=== PATIENT | male | born 1965 | race Caucasian/White ===

== ENCOUNTER 2021-12-05 10:02 | Emergency (ER) | payer BC, SELFPAY ==
--- NOTE | ~2021-12-05 | XR_ITS ---
EXAMINATION: CR X-RAY SHOULDER, HUMERUS, SCAPULA, RIBS RIGHT CLINICAL INFORMATION: Right-sided pain status post fall. COMPARISON: None TECHNIQUE: 3 views of the right shoulder, 2 views of the right humerus, 3 views of the right scapula, 3 views of the right ribs along with a PA view of the chest were obtained. FINDINGS: Shoulder: Mild calcification is seen in the region of the rotator cuff. There is no acute fracture or dislocation. The joint spaces are unremarkable. The soft tissues are unremarkable. Humerus: No acute fracture or dislocation. Limited views of the right elbow are unremarkable. Scapula: No acute fracture or dislocation. Ribs: Skin marker overlying the soft tissues lateral to the right ninth rib. No acute right rib fracture. Chest: The lungs are clear. The heart and mediastinal structures are unremarkable. XR/XR ribs RT min 3V w CXR1V IMPRESSION: Mild calcific tendinosis in the region of the right rotator cuff. No acute fracture.
--- NOTE | ~2021-12-05 | XR_ITS ---
EXAMINATION: CR X-RAY SHOULDER, HUMERUS, SCAPULA, RIBS RIGHT CLINICAL INFORMATION: Right-sided pain status post fall. COMPARISON: None TECHNIQUE: 3 views of the right shoulder, 2 views of the right humerus, 3 views of the right scapula, 3 views of the right ribs along with a PA view of the chest were obtained. FINDINGS: Shoulder: Mild calcification is seen in the region of the rotator cuff. There is no acute fracture or dislocation. The joint spaces are unremarkable. The soft tissues are unremarkable. Humerus: No acute fracture or dislocation. Limited views of the right elbow are unremarkable. Scapula: No acute fracture or dislocation. Ribs: Skin marker overlying the soft tissues lateral to the right ninth rib. No acute right rib fracture. Chest: The lungs are clear. The heart and mediastinal structures are unremarkable. XR/XR shoulder RT min 2V IMPRESSION: Mild calcific tendinosis in the region of the right rotator cuff. No acute fracture.
--- NOTE | ~2021-12-05 | XR_ITS ---
EXAMINATION: CR X-RAY SHOULDER, HUMERUS, SCAPULA, RIBS RIGHT CLINICAL INFORMATION: Right-sided pain status post fall. COMPARISON: None TECHNIQUE: 3 views of the right shoulder, 2 views of the right humerus, 3 views of the right scapula, 3 views of the right ribs along with a PA view of the chest were obtained. FINDINGS: Shoulder: Mild calcification is seen in the region of the rotator cuff. There is no acute fracture or dislocation. The joint spaces are unremarkable. The soft tissues are unremarkable. Humerus: No acute fracture or dislocation. Limited views of the right elbow are unremarkable. Scapula: No acute fracture or dislocation. Ribs: Skin marker overlying the soft tissues lateral to the right ninth rib. No acute right rib fracture. Chest: The lungs are clear. The heart and mediastinal structures are unremarkable. XR/XR scapula RT IMPRESSION: Mild calcific tendinosis in the region of the right rotator cuff. No acute fracture.
--- NOTE | ~2021-12-05 | XR_ITS ---
EXAMINATION: CR X-RAY SHOULDER, HUMERUS, SCAPULA, RIBS RIGHT CLINICAL INFORMATION: Right-sided pain status post fall. COMPARISON: None TECHNIQUE: 3 views of the right shoulder, 2 views of the right humerus, 3 views of the right scapula, 3 views of the right ribs along with a PA view of the chest were obtained. FINDINGS: Shoulder: Mild calcification is seen in the region of the rotator cuff. There is no acute fracture or dislocation. The joint spaces are unremarkable. The soft tissues are unremarkable. Humerus: No acute fracture or dislocation. Limited views of the right elbow are unremarkable. Scapula: No acute fracture or dislocation. Ribs: Skin marker overlying the soft tissues lateral to the right ninth rib. No acute right rib fracture. Chest: The lungs are clear. The heart and mediastinal structures are unremarkable. XR/XR humerus RT IMPRESSION: Mild calcific tendinosis in the region of the right rotator cuff. No acute fracture.
--- NOTE | ~2021-12-05 | CT_ITS ---
EXAMINATION: CT HEAD AND FACIAL BONES WITHOUT CONTRAST CLINICAL INFORMATION: Status post fall, rule out intracranial abnormality, right orbital pain, rule out facial bone fracture. COMPARISON: None TECHNIQUE: Contiguous axial imaging was performed from the skull base to vertex without intravenous administration of contrast during the head and facial bones. Coronal and sagittal reformatted images were obtained. This CT examination was performed using dose optimization techniques as appropriate, variously including the following: *Automated exposure control *Adjustment of mA and/or kV according to patient size (this includes techniques or standardized protocols for targeted exams where dose is matched to indication/reason for exam; i.e. extremities or head) *Use of iterative reconstruction technique DLP: 748.12, 371.74 mGy-cm FINDINGS: Head: The cortical sulci are normal. The lateral ventricles are symmetrical. The third and fourth ventricles are in their normal midline position. The basilar and prepontine cisterns are unremarkable. There is no acute intra or extracerebral abnormality. There is no mass effect or midline shift. Sections through the bony calvarium are unremarkable. Facial bones: Mild mucosal thickening is seen at the base of the right maxillary sinus. No air-fluid levels. The left maxillary, ethmoid, sphenoid and frontal sinuses are clear. There are no air-fluid levels. The ostiomeatal complexes are patent and within normal limits. No osseous abnormalities are identified. The bony orbits and orbital contents are unremarkable. The mastoid air cells show a few opacified air cells inferiorly on the left. The right mastoid air cells are clear. CT/CT facial bones wo con IMPRESSION: 1. No acute intracranial pathology. 2. No acute facial bone abnormality. 3. Mild inflammatory changes of the base of the right maxillary sinus and inferior left mastoid air cells.
--- NOTE | ~2021-12-05 | CT_ITS ---
EXAMINATION: CT CERVICAL SPINE WITHOUT CONTRAST CLINICAL INFORMATION: Neck pain status post fall. COMPARISON: None TECHNIQUE: Multiple axial images of the cervical spine were obtained without the administration of intravenous contrast. Coronal and sagittal reformatted images were obtained. This CT examination was performed using dose optimization techniques as appropriate, variously including the following: *Automated exposure control *Adjustment of mA and/or kV according to patient size (this includes techniques or standardized protocols for targeted exams where dose is matched to indication/reason for exam; i.e. extremities or head) *Use of iterative reconstruction technique DLP: 581.64 mGy-cm FINDINGS: There is normal cervical lordosis and spinal alignment. Mild degenerative disc disease is seen at C6-C7 with disc space narrowing, marginal osteophyte formation and mild bilateral neural foraminal narrowing. The odontoid process is intact with mild articular degenerative changes. The spinous processes are intact. The facet joints are unremarkable. The cervical soft tissues are unremarkable. No lymphadenopathy. The thyroid gland is unremarkable. The visualized lung apices are clear. CT/CT cervical spine wo con IMPRESSION: 1. C6-C7 mild degenerative disc disease. No acute abnormality. Fleischner guidelines were followed.
[2021-12-05 10:09] VITALS: BP 150/93; PULSE 72; RESP 18; TEMP 36.8; O2SAT 96; BMI 33.0
[2021-12-05] MEDS: Acetaminophen 325 MG TABLET 975 MG PO (13:32)
[2021-12-05] MEDS: oxyCODONE HCl Immed Release 5 MG TABLET 10 MG PO (13:33)
[2021-12-05 14:22] VITALS: BP 121/83; PULSE 69; RESP 14; TEMP 36.8; O2SAT 97
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
== END 2021-12-05 15:08 | disposition home or self-care (01) ==
PROVIDERS: Emergency Provider Emergency Medicine; PCP Internal Medicine
DX: S06.0X0A Concussion without loss of consciousness, initial encounter (principal); S00.83XA Contusion of other part of head, initial encounter; S20.211A Contusion of right front wall of thorax, initial encounter; W17.81XA Fall down embankment (hill), initial encounter; G89.11 Acute pain due to trauma; M25.511 Pain in right shoulder; M75.31 Calcific tendinitis of right shoulder; M50.323 Other cervical disc degeneration at C6-C7 level; Y93.24 Activity, cross country skiing; Y92.828 Other wilderness area as the place of occurrence of the external cause; Y99.8 Other external cause status
CPT/HCPCS: 70450; 70486; 71101; 72125; 73010; 73030; 73060; 99284

== ENCOUNTER 2025-03-12 18:42 | Emergency (ER) | payer BC, SELFPAY ==
--- NOTE | ~2025-03-12 | CT_ITS ---
CLINICAL HISTORY: headache, on anticoag CT head without contrast Comparison: None provided Findings: No intracranial mass, midline shift, hydrocephalus, or acute hemorrhage. No acute process in sinuses or mastoids. No acute bony abnormality. Impression: No acute intracranial process This document has been electronically signed by: Eddie Geiger MD on 03/12/2025 22:56:26
[2025-03-12 18:53] VITALS: BP 150/75; BP 190/100; PULSE 72; PULSE 86; RESP 18; TEMP 36.9; O2SAT 97; O2SAT 99; BMI 33.7
--- NOTE | 2025-03-12 18:53 | ECG_ITS ---
Test Reason : lightheaded Blood Pressure : */* mmHG Vent. Rate : 68 BPM Atrial Rate : 68 BPM P-R Int : 152 ms QRS Dur : 76 ms QT Int : 388 ms P-R-T Axes : 25 2 6 degrees QTcB Int : 412 ms Normal sinus rhythm Normal ECG No previous ECGs available Referred By: Garima Morton Electronically Signed By: JAN WALKER MD
[2025-03-12 19:21] LABS: Hematocrit 40.8 % (42.0-52.0); Hemoglobin 14.5 g/dl (14.0-18.0); Imm Gran Abs Auto 0.05 X10*3/uL (0.00-0.03); Imm Gran Pct Auto 0.5 % (0.0-0.4); Lymphocytes Absolute Auto 2.3 X10*3/uL (1.2-4.9); MANUAL DIFF FLAG NO; Mean Corpuscular HGB Conc 35.5 g/dl (31.0-36.0); Mean Corpuscular Hemoglobin 31.7 pg (27.0-33.0); Mean Corpuscular Volume 89.1 fL (80.0-98.0); NRBC Abs Auto 0.000 X10*3/uL (0.0-0.012); NRBC Pct Auto 0.0 /100WBC (0.0-0.2); Platelet Count 283 X10*3/uL (160-400); Red Blood Count 4.58 X10*6/uL (4.60-5.80); White Blood Count 9.9 X10*3/uL (4.8-10.8)
--- OUTSIDE RECORDS SUMMARY | 2025-03-12 19:31 | XMS_ITS | Patient Health Record ---
Author Organization [facility] [address] [place] Address [address] [place] [address] Care Team Providers Care Associate Dean Of Students Name Role Phone Lino Pineda MD Primary Care Provider Unavailab Domenico Burns Unavailable [phone] Reason For Referral No Information Medications Medication SIG (Take, Route, Frequency, Duration) Notes Start Date End Date Status Neurontin 300 MG 1 capsule Orally Thr ee times a day; Duration: 5 days 01/28/2017 Not-Taking Tylenol Extra Strength 500 MG 2 tablets as needed Orally every 6 hrs; Duration: 5 days 01/28/2017 Not-Taking Ibuprofen 200 MG 3 tablet as needed Orally every 6 hrs; Duration: 5 days 01/28/2017 Not-Taking Lisinopril Active Social History Alcohol Screen Question Answer Notes Did you have a drink contain ing alcohol in the past year? Yes How often did you have a dri nk containing alcohol in the past year? 2 to 3 times a week (3 points) Points 3 Interpretation Negative Tobacco use other than smoking: Question Answer Notes Are you an other tobacco user? No Plan Of Treatment Pending Test Test Name Order Date X ray : Foot, left 3V 03/10/2013 X ray : Foot, right 3V 03/10/2013 01731- Debride <25 sq cm 03/10/2013 33008- Debride <25 sq cm 09/14/2013 50934- Debride <25 sq cm 02/07/2014 95965- Debride <25 sq cm 12/05/2014 39481- Debride <25 sq cm 08/30/2016 03940- Debride <25 sq cm 09/25/2016 Insurance Providers Payer Name Payer Address Payer Phone Subscriber Number Group Number Insured Name Patient Relationship to Insured Coverage Start Date Coverage End Date [facility] [address] [place] [address] [id number] Malone Self - patient is the insured Medical (General) History Medical History History ICD Code back, hip, knee pain broken bones HTN Surgical History Surgery Date(Month/Year) knee surgery (7) ht left 4th, and 5th toes 01/19/2014 left knee arthroscopy 08/13/2016 HT R 4/ Ostectomy R5 02/19/2017
--- OUTSIDE RECORDS SUMMARY | 2025-03-12 19:31 | XMS_ITS | Data Portability ---
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 [place] 3rd floor [address] [place] [address] 02/23/2025 11:33:34 03/08/2025 09:59:31 Closed fracture of right tibial plateau [id number] S82.141A Pain of right calf 81200 [address]333 006273 M79.661 Health Concerns Section Related Observation LastModified by Organization Detai ls LastModified Time None Recorded Concern Status LastModified by Organization Details LastModified Time None Recorded Advance Directives Directive None Recorded Payers Insurance Date Sequence Insurance Name Policy Number Policy Delgado Covered Member ID Delgado Member ID Guarantor Name 01/12/2025 [employer] - [employer]RISTINA Unknown Yonas T Kira 03/12/2025 1 [place]: [facility] [id number] Yonas T Kira [id number] Yonas T Kira Notes Date Note Type Note Provider Name and Address Organization Details Recorded Time 01/25/2025 text/html Patient reports that the left proximal calf is giving him the most discomfort at this point. Shay Suresh DPT [address], [facility] [place], [address], [facility] 01/26/2025 13:23:10 01/27/2025 text/html Patient reports that the operative knee has been feeling okay. He c/o tightness and pain in the calf and hamstring after getting up from sitting, even after a short amount of time. Shay Suresh DPT [address] [facility] [address], [place], [address], [facility] 01/28/2025 08:33:45 02/03/2025 text/html Patient states that the operative knee has been feeling okay. He notes that he is no longer ambulating with a cane. Patient c/o pain in the left proximal calf. Shay Suresh DPT [address], [place], [address], [facility] 02/08/2025 08:52:43
--- OUTSIDE RECORDS SUMMARY | 2025-03-12 19:31 | XMS_ITS ---
Author Name CRISP Organization Unknown Encounters Encounter Type Encounter Reason Primary Diagnosis Location Date Inpatient DIZZINESS Paresthesia of skin [facility] 02/25/2025 Care Team Organization Name Specialty Phone Email Start Date End [facility] 02/24/2025 [facility] 02/24/2025
[2025-03-12 19:47] LABS: Alanine Aminotransferase 34 U/L (0-40); Albumin Level 3.9 g/dL (3.5-5.0); Alkaline Phosphatase 74 U/L (39-117); Anion Gap 16 (12-20); Aspartate Amino Transferase 35 U/L (5-37); Blood Urea Nitrogen 14 mg/dL (9-16); Calcium 8.5 mg/dL (8.4-10.2); Carbon Dioxide 20 mmol/L (22-29); Chloride 105 mmol/L (96-108); Creatinine Clr Calc Pharmacy 102.1; Estimated Glomerular Filt Rate > 60; Magnesium 2.0 mg/dL (1.6-2.6); Potassium 4.5 mmol/L (3.3-5.1); Sodium 136 mmol/L (135-145); Total Protein 6.7 g/dL (6.5-8.0); Troponin-I High Sensitivity 4.4 ng/L (<3.5-35.0)
[2025-03-12 19:59] LABS: Resp Syncy Virus RNA Qual PCR NEGATIVE (Negative); SARS COV2 PCR INHOUSE NEGATIVE (Negative)
[2025-03-12 20:08] LABS: INTERNATIONAL NORM RATIO 1.1 (0.9-1.1); Prothrombin Time 12.2 SEC (10.9-12.4)
--- NOTE | 2025-03-12 20:55 | ED.GENADULT ---
HPI - General Adult General Chief complaint: Dizziness Stated complaint: light headed, tongue numbness Time Seen by Provider: 03/12/25 20:55 History of Present Illness ED Provider: Mey DE LA ROSA narrative: The patient is a 59-year-old male. He has a history of hypertension. Four months ago he had a skiing injury to his right leg. He had a fracture of his right tibia I believe. [place]. Subsequent to the fracture he had a pulmonary embolism and DVT and he has been on apixaban since then. He has been under a lot of stress recently because he in his siblings has been arguing a lot about his mother's estate. His mother in June of 2024. Three weeks ago he was driving to [place]. While driving he felt very dizzy and he was seen at a hospital in [place]. He was hospitalized for few days and had multiple tests all of which were inconclusive. His lisinopril dose was reduced. He was discharged and returned to this area. He subsequently followed up with his primary care doctor Who restored his previous dose of lisinopril. The patient has continued to have intermittent episodes of dizziness. He also feels that his blood pressures has been labile. Today he felt very dizzy and had numbness in his tongue and called an ambulance and came to the hospital. He also has a headache. No unilateral weakness. No change in his speech.. Related Data Home Medications ?Medication ?Instructions ?Recorded ?Confirmed apixaban 5 mg tablet (Eliquis) 5 mg PO BID 03/12/25 03/12/25 atorvastatin 20 mg tablet 20 mg PO DAILY 03/12/25 03/12/25 cyanocobalamin (vitamin B-12) 03/12/25 lisinopril 30 mg tablet 30 mg PO DAILY 03/12/25 sodium chloride 03/12/25 Previous Rx's ?Medication ?Instructions ?Recorded cyclobenzaprine 5 mg tablet 5 mg PO Q8H 3 days #9 tabs 12/05/21 ibuprofen 800 mg tablet 800 mg PO Q8H PRN pain #30 tabs 12/05/21 Allergies Allergy/AdvReac Type Severity Reaction Status Date / Time etodolac (From [facility]) Allergy Unknown RASH Verified 03/12/25 19:04 Review of Systems Review of Systems: Yes all other systems are reviewed and are negative Physical Exam ED Vital Signs: Vital Signs - 24 hr 03/12/25 18:53 03/12/25 23:27 03/12/25 23:28 Temperature 98.4 F 98.1 F 98.1 F Pulse Rate 72 74 74 Respiratory Rate 18 17 17 Blood Pressure 150/75 H 141/78 H 141/78 H Pulse Oximetry 97 99 99 Oxygen Delivery Method Room Air Room Air Room Air BMI result Body Mass Index 33.7 Const Other: The patient is a fairly robust looking 59-year-old. He is awake and alert. He does not appear in acute distress. There was no apparent neurological deficit present. HENMT Other: The face is symmetrical. ?Mucous membranes moist. Eyes Other: Pupils are round equal, conjunctivae are clear, extraocular movements intact Neck Other: The neck is entirely supple Resp Effort & Inspection: normal respiratory effort Auscultation: clear to auscultation bilaterally Cardio Other: No murmur Rate: regular rate Rhythm: regular rhythm Heart sounds: S1 normal heart sound present and S2 normal heart sound present GI Other: Abdomen is soft and nontender Skin Other: The skin is dry and unremarkable Neuro Other: The patient is awake and alert with a normal mental status. Pupils are round equal. Extraocular movements are intact. Face is symmetrical. Speech is clear. Tongue is midline. He has normal strength and sensation in all extremities. No pronator drift. Finger-nose is normal. Gait is normal. Neck is supple. He seems entirely neurologically intact. Extrem Other: No apparent calf asymmetry or edema. Medications Administered Discontinued Medications Generic Name Dose Route Start Last Admin Trade Name Freq PRN Reason Stop Dose Admin Diazepam 5 mg 03/12/25 21:14 03/12/25 21:42 Diazepam 10 Mg/2 Ml Cartridge IVPUSH 03/12/25 21:15 5 mg STAT STA Administration Sodium Chloride 1,000 mls @ 999 mls/hr 03/12/25 21:15 03/12/25 22:50 Ns IV 03/12/25 22:15 Infused .Q1H1M SULY Infusion Medical Decision Making Medical Decision Making [facility] Narrative: The patient is a 59-year-old male who has a history of hypertension. He also has a more recent history of a provoked DVT and pulmonary embolism following a right leg fracture in November of 2024. He had a surgical repair of the right lower leg fracture and subsequently had DVT and PE. He is on apixaban. Several weeks ago he had an episode while driving from [place] to [place]. He stopped a hospital in [place] and was hospitalized for evaluation of symptoms of dizziness and labile blood pressures. His workup was extensive he says negative. He says that since then he has continued to have episodes of postural symptoms. He also reports that he is under a great deal of stress. His mother approximately 9 months ago. He says that he is having extremely bitter disagreements with his siblings over the a state. He also has a new grandchild. Clinically the patient does not appear obviously ill and I do not appreciate any neurological deficits on exam. He is complaining of his tongue feeling numb but his speech seems entirely normal and the rest of his exam is normal. I suspect there is some degree of an anxiety component. He has a negative head CT. He is a normal EKG. Labs are unremarkable. The patient was treated with IV fluids and IV lorazepam. He seemed to feel somewhat better. I think he may be discharged to follow up with his regular doctor. He has a an appointment in 2 days. Lab Data 03/12/25 19:13 03/12/25 19:13 Labs: Lab Results 03/12/25 03/12/25 Range/Units 19:13 19:58 WBC 9.9 (4.8-10.8) X10*3/uL RBC 4.58 L (4.60-5.80) X10*6/uL Hgb 14.5 (14.0-18.0) g/dl Hct 40.8 L (42.0-52.0) % MCV 89.1 (80.0-98.0) fL MCH 31.7 (27.0-33.0) pg MCHC 35.5 (31.0-36.0) g/dl RDW 12.9 (11.0-16.0) % Plt Count 283 (160-400) X10*3/uL MPV 10.0 (9.4-12.4) fL Immature Gran % (Auto) 0.5 H (0.0-0.4) % Neut % (Auto) 68.2 (45-73) % Lymph % (Auto) 23.0 (20-40) % Washburn % (Auto) 6.0 (2-11) % Eos % (Auto) 1.0 (0-4) % Baso % (Auto) 1.3 (0-2) % Lymph # (Auto) 2.3 (1.2-4.9) X10*3/uL Washburn # (Auto) 0.6 (0.1-1.2) X10*3/uL Eos # (Auto) 0.1 (0.0-0.4) X10*3/uL Baso # (Auto) 0.1 (0.0-0.2) X10*3/uL Abs Immat Gran (auto) 0.05 H (0.00-0.03) X10*3/uL Absolute Neuts (auto) 6.8 (2.0-8.3) x10*3/uL Absolute Nucleated RBC 0.000 (0.0-0.012) X10*3/uL Nucleated RBC % (auto) 0.0 (0.0-0.2) /100WBC PT 12.2 (10.9-12.4) SEC INR 1.1 (0.9-1.1) Sodium 136 (135-145) mmol/L Potassium 4.5 (3.3-5.1) mmol/L Chloride 105 (96-108) mmol/L Carbon Dioxide 20 L (22-29) mmol/L Anion Gap 16 (12-20) BUN 14 (9-16) mg/dL Creatinine 0.94 (0.5-1.4) mg/dL Estim Creat Clear Calc 102.1 Estimated GFR > 60 Random Glucose 100 (60-115) mg/dL Calcium 8.5 (8.4-10.2) mg/dL Magnesium 2.0 (1.6-2.6) mg/dL Total Bilirubin 0.3 (0.0-1.0) mg/dL AST 35 (5-37) U/L ALT 34 (0-40) U/L Alkaline Phosphatase 74 (39-117) U/L Troponin I High Sens 4.4 (<3.5-35.0) ng/L Total Protein 6.7 (6.5-8.0) g/dL Albumin 3.9 (3.5-5.0) g/dL Influenza Type A (PCR) NEGATIVE (Negative) Influenza Type B (PCR) NEGATIVE (Negative) RSV RNA Qual (PCR) NEGATIVE (Negative) SARS-CoV-2 RNA (RT-PCR) NEGATIVE (Negative) Independent Interpretation I performed an independent interpretation of an: EKG Interpretation: EKG at 194 shows normal sinus rhythm at 68 beats per minute. It is a normal EKG. Discharge Plan Discharge Clinical Impression: Dizziness, Numbness of tongue Patient Disposition: Home, Self-Care Additional Instructions: Your testing in the emergency room today seems reassuring. Please continue your current medications. Keep your appointment with your regular doctor the day after tomorrow. Return to the emergency room if significantly worse. Prescriptions: No Action ibuprofen 800 mg tablet 800 mg PO Q8H PRN (Reason: pain) Qty: 30 0RF cyclobenzaprine 5 mg tablet 5 mg PO Q8H 3 Days Qty: 9 0RF atorvastatin 20 mg tablet 20 mg PO DAILY lisinopril 30 mg tablet 30 mg PO DAILY Rx Instructions: amount discrepancy Eliquis 5 mg tablet 5 mg PO BID cyanocobalamin (vitamin B-12) sodium chloride Referrals: Lino Pineda MD [Primary Care Provider, Internal Medicine] Interventions: ED Discharge Assessment Last Done: 03/12/25 23:28 Discharge Date/Time: 03/12/25 23:29 Print Language: French
[2025-03-12] MEDS: diazePAM 10 MG/2 ML CARTRIDGE 5 MG IVPUSH (21:42)
[2025-03-12 23:27] VITALS: BP 141/78; PULSE 74; RESP 17; TEMP 36.7; O2SAT 99
[2025-03-12 23:28] VITALS: BP 141/78; PULSE 74; RESP 17; TEMP 36.7; O2SAT 99
== END 2025-03-12 23:29 | disposition home or self-care (01) ==
PROVIDERS: Physician Assistant Medical; Emergency Provider Emergency Medicine; PCP Internal Medicine
DX: R42 Dizziness and giddiness (principal); K14.8 Other diseases of tongue; I10 Essential (primary) hypertension; Z86.711 Personal history of pulmonary embolism; Z79.01 Long term (current) use of anticoagulants; Z86.718 Personal history of other venous thrombosis and embolism; Z03.818 Encounter for observation for suspected exposure to other biological agents ruled out
CPT/HCPCS: 70450; 80053; 83735; 84484; 85025; 85610; 87637; 93005; 96361; 96374; 99283; 99285; J3360

== ENCOUNTER → 2025-03-12 18:53 | Outpatient (BNV) | payer BC, SELFPAY | PROVIDERS: Emergency Provider Emergency Medicine; PCP Internal Medicine; Visit Provider Internal Medicine Cardiovascular Disease | DX: R42 Dizziness and giddiness (principal) | CPT/HCPCS: 93010 ==

== ENCOUNTER → 2025-03-12 21:13 | Outpatient (BNV) | payer BC, SELFPAY | PROVIDERS: Emergency Provider Emergency Medicine; PCP Internal Medicine; Visit Provider Radiology Diagnostic Radiology | DX: R51.9 Headache, unspecified (principal) | CPT/HCPCS: 70450 ==

== ENCOUNTER 2025-04-09 12:12 | Emergency (ER) | payer BC, SELFPAY ==
[2025-04-09] VITALS (7 sets, daily range): BP systolic 139–163; BP diastolic 74–96; PULSE 62–78; RESP 12–16; TEMP 36.7–37.1; O2SAT 97–99; BMI 34.4
--- NOTE | ~2025-04-09 | CT_ITS ---
CLINICAL HISTORY: headache, r o cerebral aneurysm . CT angiography head and neck with contrast. 3D Postprocessing. COMPARISON: CT head dated 04/09/25 at 14:06 EDT FINDINGS: Aortic arch and cervical great vessels are patent. Small amount of calcified plaque present at the carotid bulb on the left without significant stenosis. Intracranial arteries are patent. Calcified plaque present along the cavernous portion of the intracranial internal carotid arteries bilaterally without significant stenosis. No aneurysm, dissection, hemodynamically significant stenoses, or occlusion. No abnormal intracranial enhancement. The visualized thyroid gland is unremarkable. No cervical mass or fluid collection. Visualized lung apices are clear. No acute fracture. Mkmy-zl-dhvwttmp lower cervical spondylosis. IMPRESSION: 1. Patent head and neck CTA. No intracranial aneurysm. This document has been electronically signed by: Serge Coleman MD on 04/09/2025 17:49:06
--- NOTE | ~2025-04-09 | CT_ITS ---
CLINICAL HISTORY: headache CT head without contrast. COMPARISON: CT head dated 03/12/25 at 21:53 EDT FINDINGS: The visualized paranasal sinuses are clear. The mastoid air cells are clear. No calvarial fracture. Atherosclerotic intracranial vasculature. No evidence for mass or mass effect. No intracranial hemorrhage or abnormal extra-axial fluid collection. No CT evidence of acute infarct. The ventricles are proportional with the degree of mild global cerebral volume loss without evidence of hydrocephalus. Basilar cisterns are patent. Posterior fossa appears unremarkable. IMPRESSION: 1. No acute intracranial findings. This document has been electronically signed by: Serge Coleman MD on 04/09/2025 15:36:32
--- NOTE | 2025-04-09 12:44 | PC.NURSE ---
Patient is a 59-year-old male who has a history of hypertension. He also has a more recent history of a provoked DVT and pulmonary embolism following a right leg fracture in November of 2024. He had a surgical repair of the right lower leg fracture and subsequently had DVT and PE. He is on apixaban. Was evaluated at this facility for an episode while driving from [place] to [place]. He stopped a hospital in [place] and was hospitalized for evaluation of symptoms of dizziness and labile blood pressures. His workup was extensive but negative. He says that since then he has continued to have episodes of headaches and hypertension for the past month, there might be a component of anxiety/vs panic attacks. He also reports that he is under a great deal of stress. Patient alert and oriented. c/o 8/10 headache. No neuro deficits noted. Placed on patient monitor and NSR noted. Lungs clear bilat. Respirations even and non-labored. Abdomen soft, non-tender with positive bowel sounds. Positive pedal pulses with no edema.
--- NOTE | 2025-04-09 12:56 | ECG_ITS ---
Test Reason : HEADACHE/HYPERTENSION Blood Pressure : */* mmHG Vent. Rate : 71 BPM Atrial Rate : 71 BPM P-R Int : 168 ms QRS Dur : 82 ms QT Int : 382 ms P-R-T Axes : 46 9 18 degrees QTcB Int : 415 ms Normal sinus rhythm Normal ECG When compared with ECG of 12-Mar-2025 19:45, No significant change was found Referred By: Dena Burkett Electronically Signed By: JAN WALKER MD
--- NOTE | 2025-04-09 12:57 | ED.GENADULT ---
HPI - General Adult General Chief complaint: General Medical Stated complaint: HEADACHE Time Seen by Provider: 04/09/25 12:38 Source: patient and EMS Mode of arrival: EMS Limitations: no limitations History of Present Illness ED Provider: DR. 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 patient admit to family stress. When patient get anxious his blood pressure goes up and he feels headache, patient took his dog yesterday to his Vet and use worry about his dog, patient went to bed last night woke up this morning was okay then 2 hours before coming to the hospital started to feel anxious and his blood pressure was 190/110 at home, patient felt headacheAnd mild chest pain. No headache, no nausea. Related Data Home Medications ?Medication ?Instructions ?Recorded ?Confirmed apixaban 5 mg tablet (Eliquis) 5 mg PO BID 03/12/25 03/12/25 atorvastatin 20 mg tablet 20 mg PO DAILY 03/12/25 03/12/25 cyanocobalamin (vitamin B-12) 03/12/25 lisinopril 30 mg tablet 30 mg PO DAILY 03/12/25 sodium chloride 03/12/25 Previous Rx's ?Medication ?Instructions ?Recorded cyclobenzaprine 5 mg tablet 5 mg PO Q8H 3 days #9 tabs 12/05/21 ibuprofen 800 mg tablet 800 mg PO Q8H PRN pain #30 tabs 12/05/21 amlodipine 5 mg tablet 5 mg PO DAILY #30 tabs 04/09/25 Allergies Allergy/AdvReac Type Severity Reaction Status Date / Time etodolac (From [facility]) Allergy Unknown RASH Verified 04/09/25 12:27 Review of Systems Review of Systems: All other systems are reviewed and are negative Constitutional: Reports as per HPI and Reports no additional constitutional complaints Eyes: Reports as per HPI and Reports no additional eye complaints Reports system reviewed and no additional complaints, except as documented Cardiovascular: Reports as per HPI and Reports no additional cardiovascular complaints Respiratory: Reports as per HPI and Reports no additional respiratory complaints Gastrointestinal: Reports as per HPI and Reports no additional gastrointestinal complaints Genitourinary: Reports no additional female genitourinary complaints Musculoskeletal: Reports no additional musculoskeletal complaints Skin/Breast: Reports system reviewed and no additional complaints, except as docu Psychiatric: Reports no additional psychiatric complaints Endocrine: Reports no additional endocrine complaints Hematologic/Lymphatic: Reports no additional hematologic/lymphatic complaints Allergic/Immunologic: Reports no additional allergic/immunologic complaints Reports system reviewed and no additional complaints, except as documented and Reports Abnormal speech present [facility] Social History Social History Smoked in Last 30 Days: No Use of substances other than those prescribed or required for medical reasons: No Advance Directives: Yes Advance Directives Information Provided: No Advance Directives on File: No Physical Exam ED Vital Signs: Vital Signs - 24 hr 04/09/25 12:23 04/09/25 12:31 04/09/25 15:39 Temperature 98.0 F 98.2 F Pulse Rate 78 71 66 Respiratory Rate 12 12 16 Blood Pressure 144/86 H 139/79 140/74 H Pulse Oximetry 99 99 97 Oxygen Delivery Method Room Air Room Air Room Air 04/09/25 18:15 Temperature 98.3 F Pulse Rate 64 Respiratory Rate 14 Blood Pressure 163/79 H Pulse Oximetry 97 Oxygen Delivery Method Room Air BMI result Body Mass Index 34.4 Vital signs have been reviewed and appear to be correct. Blood pressure elevated. Heart rate normal. Respiratory rate normal. Temperature normal. Oxygen saturation normal. Appearance: anxious, Alert. Oriented X3. No acute distress. Head: Normal external exam. Normocephalic. Atraumatic. No Bautista signs noted. No raccoon eyes noted Eyes: PERRLA. EOMI. Conjunctiva and sclera normal. Eyelids normal. ENT: TM's Normal. Pharynx normal. Uvula midline. Moist mucous membranes. No trismus noted. No drooling noted. No muffled voice noted. Neck: Normal inspection. Neck supple. FROM. No adenopathy. Thyroid Normal. No meningeal signs. No neck mass noted. CVS: Normal heart rate and rhythm. Heart sound normal. No murmurs noted. Pulses normal throughout. Respiratory: No respiratory distress. Painless inspiration. Breath sounds normal. No wheezes/rales/rhonchi noted. Chest nontender. No accessory muscle usage noted or decreased air movement noted. Abdomen: Soft and nontender. Bowel sounds normal in all 4 quadrants. No distention noted. No organomegaly noted. No visible injury noted. Back: No CVA tenderness. Full range of motion noted. Skin: Skin warm and dry. Normal skin color. Normal skin turgor. No rashes/lesions/lacerations noted. Extremities: No lower extremity edema. Extremities exhibit normal range of motion. Extremities nontender. Neuro: Mental status: Normal attention, orientation, memory, and affect. Cranial nerves: Pupils are equal, round and reactive to light, EOMI, visual huang are fall, face is symmetric, facial sensations are normal. Motor examination normal muscle tone, strength to 4 extremities. DTR are +2, planter's are flexor. Sensory exam; normal coordination, no ataxia, gait stable. Cerebellar exam: Riqnhy-xc-wsjg and zalz-bz-pxwj is normal. Extrapyramidal system: No tremors, no rigidity with normal facial expressions. Pronator drift not present NIH Stroke Scale Time: 13:09 Level of Consciousness: Alert Level of Consciousness Questions: Answers both questions correctly Level of Consciousness Commands: Performs both tasks correctly Best Gaze: Normal Visual: No visual loss Facial Palsy: Normal Motor Arm (Right): No drift Motor Arm (Left): No drift Motor Leg (Right): No drift Motor Leg (Left): No drift Limb Ataxia: Absent Sensory: Normal Best Language: No aphasia Dysarthia: Normal Extinction and Inattention: No abnormality Score: 0 Course Reevaluation(s) Reevaluation #1: 59-year-old male history of anxiety, on lorazepam and recently started on SSRI by his PCP presented with headache and dizziness started before coming to the ED today, found to have a normal neuro exam, head CT is unremarkable, CTA head and neck shows no cerebral aneurysm or cerebral artery circulation occlusion, making hemorrhagic or ischemic stroke is unlikely diagnosis today, patient found to have uncontrolled blood pressure only take lisinopril 30 mg, improved blood pressure in the ED after was given 5 mg of amlodipine has I discussed with the patient will add 5 mg amlodipine patient will need to record his blood pressure readings and discuss it with his primary doctor. Repeat neuro exam is unremarkable. Patient is walking in the emergency department unsteady gait. Reported improvement of headache with morphine. Time: 18:38 Medications Administered Discontinued Medications Generic Name Dose Route Start Last Admin Trade Name Aidee PRN Reason Stop Dose Admin Diazepam 5 mg 04/09/25 12:55 04/09/25 13:22 Diazepam 10 Mg/2 Ml Cartridge IVPUSH 04/09/25 12:56 5 mg STAT STA Administration Sodium Chloride 1,000 mls @ 999 mls/hr 04/09/25 12:55 04/09/25 14:10 Ns IV 04/09/25 13:55 Infused .Q1H1M ONE Infusion Acetaminophen 1,000 mg in 100 mls @ 400 mls/hr 04/09/25 12:55 04/09/25 14:10 Ofirmev IV 04/09/25 13:09 Infused ONCE ONE Infusion Iohexol 100 ml 04/09/25 16:49 04/09/25 16:50 Iohexol 350 Mg/Ml 100 Ml Infus..Btl IV 04/09/25 16:50 70 ml ONCE ONE Administration Morphine Sulfate 2 mg 04/09/25 15:53 04/09/25 16:45 Morphine Sulfate 2 Mg/Ml Cartridge IVPUSH 04/09/25 15:54 2 mg ONCE ONE Administration Protocol Medical Decision Making Differential Diagnosis Differential Diagnoses: The differential diagnosis associated with the presentation includes ( Ischemic CVA, hemorrhagic CVA, electrolyte derangement, severe anemia, uncontrolled hypertension.) Admission/Observation Consideration of admission/observation: Escalation of care including admission/observation considered Lab Data MDM Lab Attestation statement: I reviewed the patient's lab results. 04/09/25 13:19 04/09/25 13:19 Labs: Lab Results 04/09/25 04/09/25 Range/Units 13:19 15:44 WBC 8.7 (4.8-10.8) X10*3/uL RBC 4.85 (4.60-5.80) X10*6/uL Hgb 15.1 (14.0-18.0) g/dl Hct 43.5 (42.0-52.0) % MCV 89.7 (80.0-98.0) fL MCH 31.1 (27.0-33.0) pg MCHC 34.7 (31.0-36.0) g/dl RDW 12.7 (11.0-16.0) % Plt Count 237 (160-400) X10*3/uL MPV 9.7 (9.4-12.4) fL Immature Gran % (Auto) 0.6 H (0.0-0.4) % Neut % (Auto) 73.7 H (45-73) % Lymph % (Auto) 19.0 L (20-40) % [place] % (Auto) 5.1 (2-11) % Eos % (Auto) 0.5 (0-4) % Baso % (Auto) 1.1 (0-2) % Lymph # (Auto) 1.7 (1.2-4.9) X10*3/uL [place] # (Auto) 0.5 (0.1-1.2) X10*3/uL Eos # (Auto) 0.0 (0.0-0.4) X10*3/uL Baso # (Auto) 0.1 (0.0-0.2) X10*3/uL Abs Immat Gran (auto) 0.05 H (0.00-0.03) X10*3/uL Absolute Neuts (auto) 6.4 (2.0-8.3) x10*3/uL Absolute Nucleated RBC 0.000 (0.0-0.012) X10*3/uL Nucleated RBC % (auto) 0.0 (0.0-0.2) /100WBC PT 14.4 H (10.9-12.4) SEC INR 1.3 H (0.9-1.1) Sodium 136 (135-145) mmol/L Potassium 4.3 (3.3-5.1) mmol/L Chloride 104 (96-108) mmol/L Carbon Dioxide 26 (22-29) mmol/L Anion Gap 10 L (12-20) BUN 11 (9-16) mg/dL Creatinine 0.98 (0.5-1.4) mg/dL Estim Creat Clear Calc 99.0 Estimated GFR > 60 Random Glucose 103 (60-115) mg/dL Calcium 9.3 D (8.4-10.2) mg/dL Total Bilirubin 0.5 (0.0-1.0) mg/dL Direct Bilirubin 0.2 (0.0-0.5) mg/dL AST 32 (5-37) U/L ALT 47 H (0-40) U/L Alkaline Phosphatase 82 (39-117) U/L Troponin I High Sens 2.7 (<3.5-35.0) ng/L B-Natriuretic Peptide 43 (<100) pg/mL Total Protein 7.4 (6.5-8.0) g/dL Albumin 4.3 (3.5-5.0) g/dL Lipase 17 (8-78) U/L Urine Color Yellow Urine Appearance Clear Urine pH 6.0 (5.0-9.0) Ur Specific [place] 1.025 (1.005-1.025) Urine Protein Negative (Neg-Trace) mg/dL Urine Glucose (UA) Negative (Negative) mg/dL Urine Ketones Negative (Negative) mg/dL Urine Blood Negative (Negative) Urine Nitrite Negative (Negative) Ur Leukocyte Esterase Negative (Negative) Influenza Type A (PCR) NEGATIVE (Negative) Influenza Type B (PCR) NEGATIVE (Negative) RSV RNA Qual (PCR) NEGATIVE (Negative) SARS-CoV-2 RNA (RT-PCR) NEGATIVE (Negative) Independent Interpretation I performed an independent interpretation of an: CT Scan ( head/ head and neck CTA:. Patent head and neck CTA. No intracranial aneurysm.) Radiology Impression Discussion of test interpretation with radiology: I have reviewed the radiologist's reading. Discharge Plan Discharge Clinical Impression: Headache, Essential hypertension Patient Disposition: Home, Self-Care Instructions: Hypertension (ED), General Headache (ED) Prescriptions: New amlodipine 5 mg tablet 5 mg PO DAILY Qty: 30 0RF No Action ibuprofen 800 mg tablet 800 mg PO Q8H PRN (Reason: pain) Qty: 30 0RF cyclobenzaprine 5 mg tablet 5 mg PO Q8H 3 Days Qty: 9 0RF atorvastatin 20 mg tablet 20 mg PO DAILY lisinopril 30 mg tablet 30 mg PO DAILY Rx Instructions: amount discrepancy Eliquis 5 mg tablet 5 mg PO BID cyanocobalamin (vitamin B-12) sodium chloride Referrals: Lino Pineda MD [Primary Care Provider, Internal Medicine] Print Language: Italian
[2025-04-09] MEDS: diazePAM 10 MG/2 ML CARTRIDGE 5 MG IVPUSH (13:22)
[2025-04-09 13:24] LABS: MANUAL DIFF FLAG NO
[2025-04-09 13:26] LABS: Hematocrit 43.5 % (42.0-52.0); Hemoglobin 15.1 g/dl (14.0-18.0); Imm Gran Abs Auto 0.05 X10*3/uL (0.00-0.03); Imm Gran Pct Auto 0.6 % (0.0-0.4); Lymphocytes Absolute Auto 1.7 X10*3/uL (1.2-4.9); Mean Corpuscular HGB Conc 34.7 g/dl (31.0-36.0); Mean Corpuscular Hemoglobin 31.1 pg (27.0-33.0); Mean Corpuscular Volume 89.7 fL (80.0-98.0); NRBC Abs Auto 0.000 X10*3/uL (0.0-0.012); NRBC Pct Auto 0.0 /100WBC (0.0-0.2); Platelet Count 237 X10*3/uL (160-400); Red Blood Count 4.85 X10*6/uL (4.60-5.80); White Blood Count 8.7 X10*3/uL (4.8-10.8)
[2025-04-09 13:32] LABS: INTERNATIONAL NORM RATIO 1.3 (0.9-1.1); Prothrombin Time 14.4 SEC (10.9-12.4)
[2025-04-09 13:47] LABS: Alanine Aminotransferase 47 U/L (0-40); Albumin Level 4.3 g/dL (3.5-5.0); Alkaline Phosphatase 82 U/L (39-117); Anion Gap 10 (12-20); Aspartate Amino Transferase 32 U/L (5-37); Blood Urea Nitrogen 11 mg/dL (9-16); Calcium 9.3 mg/dL (8.4-10.2); Carbon Dioxide 26 mmol/L (22-29); Chloride 104 mmol/L (96-108); Creatinine Clr Calc Pharmacy 99.0; Estimated Glomerular Filt Rate > 60; Lipase 17 U/L (8-78); Potassium 4.3 mmol/L (3.3-5.1); Sodium 136 mmol/L (135-145); Total Protein 7.4 g/dL (6.5-8.0)
[2025-04-09 13:52] LABS: B Type Natriuretic Peptide 43 pg/mL (<100)
[2025-04-09 13:54] LABS: Troponin-I High Sensitivity 2.7 ng/L (<3.5-35.0)
[2025-04-09 14:16] LABS: Resp Syncy Virus RNA Qual PCR NEGATIVE (Negative); SARS COV2 PCR INHOUSE NEGATIVE (Negative)
[2025-04-09 15:55] LABS: Appearance Urine Clear; Glucose Urine UA Negative (Negative); PH 6.0 (5.0-9.0); Specific Gravity - Urine 1.025 (1.005-1.025)
[2025-04-09] MEDS: iohexoL 350 MG/ML 100 ML INFUS..BTL IV (16:50)
== END 2025-04-09 18:57 | disposition home or self-care (01) ==
PROVIDERS: Emergency Provider Emergency Medicine; PCP Internal Medicine
DX: R51.9 Headache, unspecified (principal); I10 Essential (primary) hypertension; R42 Dizziness and giddiness; R07.9 Chest pain, unspecified; F41.9 Anxiety disorder, unspecified; Z79.01 Long term (current) use of anticoagulants; Z86.718 Personal history of other venous thrombosis and embolism; Z86.711 Personal history of pulmonary embolism
CPT/HCPCS: 36415; 70450; 70496; 70498; 80048; 80076; 81003; 83690; 83880; 84484; 85025; 85610; 87637; 93005; 96361; 96374; 96375; 99285; J0131; J2270; J3360; Q9967

== ENCOUNTER → 2025-04-09 12:56 | Outpatient (BNV) | payer BC, SELFPAY | PROVIDERS: Emergency Provider Emergency Medicine; PCP Internal Medicine; Visit Provider Internal Medicine Cardiovascular Disease | DX: I10 Essential (primary) hypertension (principal); R51.9 Headache, unspecified | CPT/HCPCS: 93010 ==

== ENCOUNTER → 2025-04-09 12:56 | Outpatient (BNV) | payer BC, SELFPAY | PROVIDERS: Emergency Provider Emergency Medicine; PCP Internal Medicine; Visit Provider Radiology Diagnostic Radiology | DX: R51.9 Headache, unspecified (principal) | CPT/HCPCS: 70450; 70496; 70498 ==

== ENCOUNTER 2025-07-11 09:30 | Observation (INO) | payer BC, SELFPAY ==
--- OUTSIDE RECORDS SUMMARY | 2025-05-26 09:45 | XMS_ITS ---
Author Organization [facility] Address [address] [place], [place] [id number] Care Team Providers Care Health Consultant Name Role Phone ELIAS BAILEY Primary Care Provider ALLERGIES Allergen (clinical drug ingredient) Drug/Non Drug Allergy documented on EMR Reaction Allergy Type Onset Date Status azithromycin Azithromycin ZITHROMAX Drug Allergy A ctive etodolac Etodolac Unknown Drug Allergy Active REASON FOR REFERRAL Reason NEw patient appt [facility] Diagnosis 1 Trigger little finge r of right hand (M65.351) Diagnosis 2 Trigger little finge r of left hand (M65.352) Referral Organization [facility] Referring Provider First Name ELIAS Referring Provider Last Name LEO Referring Provider Speciality Internal M edicine Referred Provider GERMAIN MCCONNELL Referred Provider Specialty Hand Surgery Referral Priority Routine REASON FOR VISIT 1mo, declines/does not get flu vacc MEDICATIONS Medication SIG (Take, Route, Frequency, Duration) Notes Start Date End Date Status LORazepam 0.5 MG 1 tablet as needed O rally Once a day 03/18/2025 Active Lisinopril 40 MG 1 tablet Orally Once a day 2024 Active amLODIPine Besylate 5 MG 1 tablet Orally once a day Active SOCIAL HISTORY Tobacco Use: Social History Observation Description Date Details (start date - stop date) Never Smoker NA - NA Sex Assigned At : Social History Observation Description Sex Assigned At Unknown Smoking Question Answer Notes Are you a: never smoker VITAL SIGNS Height 70.50 in 05/26/2025 Weight 236.2 lbs 05/26/2025 Blood pressure systolic 126 mm Hg 05/26/20 25 Blood pressure diastolic 72 mm Hg 025 BMI 33.41 kg/m2 05/26/2025 Encounters Encounter Location Date Provider Diagnosis [facility] [address] [place] [address] 05/26/2025 ELIAS BAILEY Essential (primary) hypertension I10 ; Acute pulmonary embolism without acute cor pulmonale, unspecified pulmonary embolism type I26.99 ; Trigger little finger of right hand M65.351 ; Trigger little finger of left hand M65.352 ; Anxiety F41.9 and Neck mass R22.1 ASSESSMENTS Encounter Date Diagnosis Assessment Notes Treatment Notes Treatment Clinical Notes Section Notes 05/26/2025 Essential (primary) hypertension (ICD-10 - I10) 1. Hypertension: Much better. Continue current lisinopril and amlodipine. 2. Pulmonary embolism: He has completed 6 months of anticoagulation and will stop Eliquis at this time 3. Bilateral triggering of the fifth fingers: Will refer to hand clinic 4. Anxiety: Remains resistant to retrial of another medication. I think stress is a contributor to his headaches and we could try something like duloxetine which might also be prophylactic for the headaches. I asked him to consider this but he did not wish to start today 5. Neck mass: Question thyroglossal duct cyst on CAT scan but not entirely typical. We are awaiting an ENT appointment 05/26/2025 Acute pulmonary embolism without acute cor pulmonale, unspecified pulmonary embolism type (ICD-10 - I26.99) 1. Hypertension: Much better. Continue current lisinopril and amlodipine. 2. Pulmonary embolism: He has completed 6 months of anticoagulation and will stop Eliquis at this time 3. Bilateral triggering of the fifth fingers: Will refer to hand clinic 4. Anxiety: Remains resistant to retrial of another medication. I think stress is a contributor to his headaches and we could try something like duloxetine which might also be prophylactic for the headaches. I asked him to consider this but he did not wish to start today 5. Neck mass: Question thyroglossal duct cyst on CAT scan but not entirely typical. We are awaiting an ENT appointment 05/26/2025 Trigger little finger of right hand (ICD-10 - M65.351) 1. Hypertension: Much better. Continue current lisinopril and amlodipine. 2. Pulmonary embolism: He has completed 6 months of anticoagulation and will stop Eliquis at this time 3. Bilateral triggering of the fifth fingers: Will refer to hand clinic 4. Anxiety: Remains resistant to retrial of another medication. I think stress is a contributor to his headaches and we could try something like duloxetine which might also be prophylactic for the headaches. I asked him to consider this but he did not wish to start today 5. Neck mass: Question thyroglossal duct cyst on CAT scan but not entirely typical. We are awaiting an ENT appointment 05/26/2025 Trigger little finger of left hand (ICD-10 - M65.352) 1. Hypertension: Much better. Continue current lisinopril and amlodipine. 2. Pulmonary embolism: He has completed 6 months of anticoagulation and will stop Eliquis at this time 3. Bilateral triggering of the fifth fingers: Will refer to hand clinic 4. Anxiety: Remains resistant to retrial of another medication. I think stress is a contributor to his headaches and we could try something like duloxetine which might also be prophylactic for the headaches. I asked him to consider this but he did not wish to start today 5. Neck mass: Question thyroglossal duct cyst on CAT scan but not entirely typical. We are awaiting an ENT appointment 05/26/2025 Anxiety (ICD-10 - F41.9) 1. Hypertension: Much better. Continue current lisinopril and amlodipine. 2. Pulmonary embolism: He has completed 6 months of anticoagulation and will stop Eliquis at this time 3. Bilateral triggering of the fifth fingers: Will refer to hand clinic 4. Anxiety: Remains resistant to retrial of another medication. I think stress is a contributor to his headaches and we could try something like duloxetine which might also be prophylactic for the headaches. I asked him to consider this but he did not wish to start today 5. Neck mass: Question thyroglossal duct cyst on CAT scan but not entirely typical. We are awaiting an ENT appointment 05/26/2025 Neck mass (ICD-10 - R22.1) 1. Hypertension: Much better. Continue current lisinopril and amlodipine. 2. Pulmonary embolism: He has completed 6 months of anticoagulation and will stop Eliquis at this time 3. Bilateral triggering of the fifth fingers: Will refer to hand clinic 4. Anxiety: Remains resistant to retrial of another medication. I think stress is a contributor to his headaches and we could try something like duloxetine which might also be prophylactic for the headaches. I asked him to consider this but he did not wish to start today 5. Neck mass: Question thyroglossal duct cyst on CAT scan but not entirely typical. We are awaiting an ENT appointment PLAN OF TREATMENT Medication Medication Name Sig Start Date Stop Date Notes LORazepam 0.5 MG 1 tablet as needed O rally Once a day 03/18/2025 Lisinopril 40 MG 1 tablet Orally Once a day 03/16/2025 amLODIPine Besylate 5 MG 1 tablet Orally once a day Referrals Referral Date Details NEw patient appt [facility] , GERMAIN MCCONNELL Next Appt Details Provider Name:ELIAS BAILEY , 11/21/2025 01:30:00 PM, [address] [place] [address], [phone], Progress Notes * Examination Category Sub-Category Detail Notes Category Not es General Examination Neck: Central ques tion fluid-filled mass over the mid neck, mildly tender to palpation Heart: RSR, normal S1S2 Lungs: clear to auscultatio n Extremities: no edema General Appearance no apparent distress , pleasant Psych: alert, oriented X 3 Other normal affect Musculoskeletal Triggering of the le ft fifth and right fifth fingers History and Physical Notes * HPI (History of Present Illness) Category Sub-Category Detail Notes Category Not es General Patient present s for follow-up hypertension. Blood pressures at home have been in the 120s over 70s. He is still having episodic headaches but feels he is under increased stress again because his dog is very ill and he has been confined at home to taking care of him. He complains of triggering of both pinky fingers. He feels this is worsening and is interested in seeing a hand specialist. He has not heard from ENT on his neck mass Consultation Request Notes Referral Date Referring Provider Referred Provider Not es 05/26/2025 ELIAS BAILEY RICHARD NEw patient appt [facility]
--- OUTSIDE RECORDS SUMMARY | 2025-06-01 09:15 | XMS_ITS ---
Author Organization [facility] Address [address] [place], [place] [id number] Care Team Providers Care [place] Instructor Name Role Phone ELIAS BAILEY Primary Care Provider REASON FOR VISIT 41/ 2mo Encounters Encounter Location Date Provider Diagnosis [facility] [address] [place] [address] 06/01/2025 ELIAS BAILEY PLAN OF TREATMENT Next Appt Details Provider Name:ELIAS BAILEY , 11/21/2025 01:30:00 PM, [address] [place], [address],
--- OUTSIDE RECORDS SUMMARY | 2025-06-17 09:33 | XMS_ITS ---
Author Organization [facility] Address [address] [place], [place] [id number] Care Team Providers Care Reporter Anchor Name Role Phone ELIAS BAILEY Primary Care Provider [phone] REASON FOR VISIT headache posterior left eye, dizzy Encounters Encounter Location Date Provider Diagnosis [address] [address] 06/17/2025 ELIAS BAILEY Recurrent headache R51.9 ASSESSMENTS Encounter Date Diagnosis Assessment Notes Treatment Notes Treatment Clinical Notes Section Notes 06/17/2025 Recurrent headache (ICD-10 - R51.9) PLAN OF TREATMENT Next Appt Details Provider Name:ELIAS BAILEY , 11/21/2025 01:30:00 PM, [address] [place] [address], [phone],
--- OUTSIDE RECORDS SUMMARY | 2025-06-17 10:45 | XMS_ITS ---
Author Organization [facility] Address [address] [place], [place] [id number] Care Team Providers Care Habitat Management Coordinator Name Role Phone LEO ELIAS Primary Care Provider [phone] RESULTS Component Value Reference Range Notes MRI Brain with and without c ontrast Reviewed date:07/01/2025 02:47:46 PM Interpretation: Performing Lab: Notes/Report: Encounters Encounter Location Date Provider Diagnosis [address] [address] 06/17/2025 ELIAS BAILEY Recurrent headache R51.9 ASSESSMENTS Encounter Date Diagnosis Assessment Notes Treatment Notes Treatment Clinical Notes Section Notes 06/17/2025 Recurrent headache (ICD-10 - R51.9) PLAN OF TREATMENT Next Appt Details Provider Name:ELIAS BAILEY , 11/21/2025 01:30:00 PM, [address] [place] [address], [phone],
--- OUTSIDE RECORDS SUMMARY | 2025-06-20 10:17 | XMS_ITS ---
Author Organization [facility] Address [address] [place], [place] [id number] Care Team Providers Care Vp Transportation Name Role Phone ELIAS BAILEY Primary Care Provider REASON FOR VISIT neck lump referral Encounters Encounter Location Date Provider Diagnosis [facility] [address] [place] [address] 06/20/2025 ELIAS BAILEY PLAN OF TREATMENT Next Appt Details Provider Name:ELIAS BAILEY , 11/21/2025 01:30:00 PM, [address] [place], [phone],
--- OUTSIDE RECORDS SUMMARY | 2025-06-23 09:52 | XMS_ITS ---
Author Organization [facility] Address [address] [place], [place] [id number] Care Team Providers Care Fisher Hand Line Name Role Phone ELIAS BAILEY Primary Care Provider REASON FOR VISIT bp high/ numbness Encounters Encounter Location Date Provider Diagnosis [facility] [address] [place] [address] 06/23/2025 ELIAS BAILEY PLAN OF TREATMENT Next Appt Details Provider Name:ELIAS BAILEY , 11/21/2025 01:30:00 PM, [address] [place], [address],
--- OUTSIDE RECORDS SUMMARY | 2025-06-23 11:15 | XMS_ITS ---
Author Organization [facility] Address [address] [place], [place] [id number] Care Team Providers Care Batcher Operator Name Role Phone ELIAS BAILEY Primary Care Provider [phone] ALLERGIES Allergen (clinical drug ingredient) Drug/Non Drug Allergy documented on EMR Reaction Allergy Type Onset Date Status azithromycin Azithromycin ZITHROMAX Drug Allergy A ctive etodolac Etodolac Unknown Drug Allergy Active REASON FOR VISIT high bp/ numbness, declines flu vacc/ does not get MEDICATIONS Medication SIG (Take, Route, Frequency, Duration) Notes Start Date End Date Status Lisinopril 40 MG 1 tablet Orally Once a day 2024 Active amLODIPine Besylate 5 MG 1 tablet Orally once a day Active LORazepam 0.5 MG 1 tablet as needed O rally Once a day for 30 days 06/15/2025 Active DULoxetine HCl 30 MG 1 capsule Orally On ce a day for 30 day(s) 06/23/2025 Active SOCIAL HISTORY Tobacco Use: Social History Observation Description Date Details (start date - stop date) Never Smoker NA - NA Sex Assigned At : Social History Observation Description Sex Assigned At Unknown Smoking Question Answer Notes Are you a: never smoker Additional Findings: Tobacco User Chews tobacco VITAL SIGNS Height 70.50 in 06/23/2025 Weight 239.2 lbs 06/23/2025 Blood pressure systolic 126 mm Hg 06/23/20 25 Blood pressure diastolic 80 mm Hg 025 BMI 33.83 kg/m2 06/23/2025 Encounters Encounter Location Date Provider Diagnosis [facility] [address] [place] [address] 06/23/2025 ELIAS BAILEY Essential (primary) hypertension I10 ; Anxiety F41.9 ; Frequent headaches R51.9 ; Numbness R20.0 and Neck mass R22.1 ASSESSMENTS Encounter Date Diagnosis Assessment Notes Treatment Notes Treatment Clinical Notes Section Notes 06/23/2025 Essential (primary) hypertension (ICD-10 - I10) 1. Hypertension: Blood pressure is under good control here. I asked him to bring his home monitor urine again at his next visit. Is unclear whether the data he has collecting at home is accurate or if his blood pressure is really fluctuating this much. No change made in medication regimen today 2. Anxiety: Expressed concern again that this is contributing to blood pressure variations. We decided to try duloxetine. He did not tolerate sertraline 3. Headaches and numbness on the left side: MRI is pending Friday. If negative may consider imaging of the cervical spine. 4. Neck mass: Biopsy later in the month. Await results 06/23/2025 Anxiety (ICD-10 - F41.9) 1. Hypertension: Blood pressure is under good control here. I asked him to bring his home monitor urine again at his next visit. Is unclear whether the data he has collecting at home is accurate or if his blood pressure is really fluctuating this much. No change made in medication regimen today 2. Anxiety: Expressed concern again that this is contributing to blood pressure variations. We decided to try duloxetine. He did not tolerate sertraline 3. Headaches and numbness on the left side: MRI is pending Friday. If negative may consider imaging of the cervical spine. 4. Neck mass: Biopsy later in the month. Await results 06/23/2025 Frequent headaches (ICD-10 - R51.9) 1. Hypertension: Blood pressure is under good control here. I asked him to bring his home monitor urine again at his next visit. Is unclear whether the data he has collecting at home is accurate or if his blood pressure is really fluctuating this much. No change made in medication regimen today 2. Anxiety: Expressed concern again that this is contributing to blood pressure variations. We decided to try duloxetine. He did not tolerate sertraline 3. Headaches and numbness on the left side: MRI is pending Friday. If negative may consider imaging of the cervical spine. 4. Neck mass: Biopsy later in the month. Await results 06/23/2025 Numbness (ICD-10 - R20.0) 1. Hypertension: Blood pressure is under good control here. I asked him to bring his home monitor urine again at his next visit. Is unclear whether the data he has collecting at home is accurate or if his blood pressure is really fluctuating this much. No change made in medication regimen today 2. Anxiety: Expressed concern again that this is contributing to blood pressure variations. We decided to try duloxetine. He did not tolerate sertraline 3. Headaches and numbness on the left side: MRI is pending Friday. If negative may consider imaging of the cervical spine. 4. Neck mass: Biopsy later in the month. Await results 06/23/2025 Neck mass (ICD-10 - R22.1) 1. Hypertension: Blood pressure is under good control here. I asked him to bring his home monitor urine again at his next visit. Is unclear whether the data he has collecting at home is accurate or if his blood pressure is really fluctuating this much. No change made in medication regimen today 2. Anxiety: Expressed concern again that this is contributing to blood pressure variations. We decided to try duloxetine. He did not tolerate sertraline 3. Headaches and numbness on the left side: MRI is pending Friday. If negative may consider imaging of the cervical spine. 4. Neck mass: Biopsy later in the month. Await results PLAN OF TREATMENT Medication Medication Name Sig Start Date Stop Date Notes Lisinopril 40 MG 1 tablet Orally Once a day 03/16/2025 amLODIPine Besylate 5 MG 1 tablet Orally once a day DULoxetine HCl 30 MG 1 capsule Orally On a day for 30 day(s) 06/23/2025 Next Appt Details Provider Name:ELIAS Vipul BAILEY , 11/21/2025 01:30:00 PM, [address] [place] [address], [phone], Progress Notes * Examination Category Sub-Category Detail Notes Category Not es General Examination Heart: RSR, normal S1S2 Lungs: clear to auscultatio n Extremities: no edema General Appearance Anxious, pleasant Psych: alert, oriented X 3 Other normal affect History and Physical Notes * HPI (History of Present Illness) Category Sub-Category Detail Notes Category Not es General Patient present s with ongoing blood pressure worried - BP 170/110 at home this am - ongoing headche issues and left side numbness - in arm, leg and times face
--- OUTSIDE RECORDS SUMMARY | 2025-06-27 07:09 | XMS_ITS ---
Author Organization [facility] Address [address] [place], [place] [id number] Care Team Providers Care Research Program Internship Name Role Phone ELIAS BAILEY Primary Care Provider MEDICATIONS Medication SIG (Take, Route, Fr equency, Duration) Notes Start Date End Date Status DULoxetine HCl 30 MG 1 capsule Orally On ce a day for 30 day(s) 06/27/2025 Active Encounters Encounter Location Date Provider Diagnosis [facility] [address] [place] [address] 06/27/2025 ELIAS BAILEY PLAN OF TREATMENT Medication Medication Name Sig Start Date Stop Date Notes DULoxetine HCl 30 MG 1 capsule Orally On ce a day for 30 day(s) 06/27/2025 Next Appt Details Provider Name:ELIAS BAILEY , 11/21/2025 01:30:00 PM, [address] [place], [address],
--- OUTSIDE RECORDS SUMMARY | 2025-06-28 05:54 | XMS_ITS ---
Author Organization [facility] Address [address] [place], [place] [id number] Care Team Providers Care Supervisor Sandblaster Name Role Phone ELIAS BAILEY Primary Care Provider REASON FOR VISIT 2 (W)(2)Duloxetine DENIED MEDICATIONS Medication SIG (Take, Route, Frequency, Duration) Notes Start Date End Date Status Venlafaxine HCl ER 37.5 MG 1 capsule wit h food Orally Once a day for 30 day(s) 07/01/2025 Active Encounters Encounter Location Date Provider Diagnosis [facility] [address] [place] [address] 06/28/2025 ELIAS BAILEY PLAN OF TREATMENT Medication Medication Name Sig Start Date Stop Date Notes Venlafaxine HCl ER 37.5 MG 1 capsule wit h food Orally Once a day for 30 day(s) 07/01/2025 Next Appt Details Provider Name:ELIAS BAILEY , 11/21/2025 01:30:00 PM, [address] [place], [address],
--- OUTSIDE RECORDS SUMMARY | 2025-07-01 09:47 | XMS_ITS ---
Author Organization [facility] Address [address] [place], [place] [id number] Care Team Providers Care Asset Protection Agent Name Role Phone ELIAS BAILEY Primary Care Provider REASON FOR VISIT (W)(2)MRI Brain MEDICATIONS Medication SIG (Take, Route, Fr equency, Duration) Notes Start Date End Date Status DULoxetine HCl 30 MG 1 capsule Orally On ce a day for 30 day(s) 06/23/2025 Active Encounters Encounter Location Date Provider Diagnosis [facility] [address] [place] [phone] 07/01/2025 ELIAS BAILEY Anxiety F41.9 ASSESSMENTS Encounter Date Diagnosis Assessment Notes Treatment Notes Treatment Clinical Notes Section Notes 07/01/2025 Anxiety (ICD-10 - F41.9) PLAN OF TREATMENT Medication Medication Name Sig Start Date Stop Date Notes DULoxetine HCl 30 MG 1 capsule Orally On ce a day for 30 day(s) 06/23/2025 Next Appt Details Provider Name:ELIAS BAILEY , 11/21/2025 01:30:00 PM, [address] [place] [address], [phone],
[2025-07-11] VITALS (8 sets, daily range): BP systolic 121–148; BP diastolic 65–84; PULSE 61–82; RESP 11–18; TEMP 36.1–36.8; O2SAT 94–99; BMI 33.5
--- NOTE | ~2025-07-11 | XR_ITS ---
EXAMINATION: XR CHEST CLINICAL INFORMATION: pain COMPARISON: December 05, 2021 TECHNIQUE: Frontal view of the chest was obtained. FINDINGS: There is no pneumothorax. Lungs are clear. Cardiac and mediastinal contours are within normal limits. XR/XR chest 1V IMPRESSION: No acute disease Electronically signed by: Alfonso De Los Santos MD 07/11/2025 10:55 AM [facility]
--- NOTE | 2025-07-11 09:32 | ECG_ITS ---
Test Reason : cp Blood Pressure : */* mmHG Vent. Rate : 65 BPM Atrial Rate : 65 BPM P-R Int : 166 ms QRS Dur : 82 ms QT Int : 388 ms P-R-T Axes : 40 3 17 degrees QTcB Int : 403 ms Normal sinus rhythm Normal ECG When compared with ECG of 09-Apr-2025 13:05, No significant change was found Referred By: Generic ED Physician Electronically Signed By: Vinny Kaminski
[2025-07-11 10:15] LABS: MANUAL DIFF FLAG NO
[2025-07-11 10:16] LABS: Hematocrit 45.6 % (42.0-52.0); Hemoglobin 15.5 g/dl (14.0-18.0); Imm Gran Abs Auto 0.05 X10*3/uL (0.00-0.03); Imm Gran Pct Auto 0.5 % (0.0-0.4); Lymphocytes Absolute Auto 2.3 X10*3/uL (1.2-4.9); Mean Corpuscular HGB Conc 34.0 g/dl (31.0-36.0); Mean Corpuscular Hemoglobin 31.4 pg (27.0-33.0); Mean Corpuscular Volume 92.3 fL (80.0-98.0); NRBC Abs Auto 0.000 X10*3/uL (0.0-0.012); NRBC Pct Auto 0.0 /100WBC (0.0-0.2); Platelet Count 264 X10*3/uL (160-400); Red Blood Count 4.94 X10*6/uL (4.60-5.80); White Blood Count 9.2 X10*3/uL (4.8-10.8)
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
[2025-07-11 10:30] LABS: Anion Gap 9 (12-20); Blood Urea Nitrogen 13 mg/dL (9-16); Calcium 9.0 mg/dL (8.4-10.2); Carbon Dioxide 26 mmol/L (22-29); Chloride 104 mmol/L (96-108); Creatinine Clr Calc Pharmacy 104.0; Estimated Glomerular Filt Rate > 60; Potassium 4.3 mmol/L (3.3-5.1); Sodium 135 mmol/L (135-145)
[2025-07-11 10:46] LABS: Magnesium 2.2 mg/dL (1.6-2.6)
[2025-07-11 10:48] LABS: Troponin-I High Sensitivity < 2.7 ng/L (<3.5-35.0)
[2025-07-11 11:29] LABS: INTERNATIONAL NORM RATIO 1.0 (0.9-1.1); Prothrombin Time 11.5 SEC (10.9-12.4)
[2025-07-11] MEDS: Aspirin Enteric Coated 81 MG TABLET.DR PO (11:44)
[2025-07-11 11:47] LABS: NT Pro B Type Natriuretic Pept 64.1 pg/mL (<300)
--- OUTSIDE RECORDS SUMMARY | 2025-07-11 11:51 | XMS_ITS | Encounter Summary ---
Author Organization [facility] Address [address] [facility] [address] [place] [address] Phone Care Team Providers Care Oil Field Equipment Mechanic Name Role Phone Lino Pineda MD Primary Care Provider [phone] Encounter Details Date Type Department Care Team (Late st Contact Info) Description 01/27/2024 Procedure Pass [facility], Ct Scan - [address] [address] Social History Tobacco Use Types Packs/Day Years Used Date Smoking Tobacco: Never Smokeless Tobacco: Current Chew Alcohol Use Standard Drinks/Week Comments Yes 3 (1 standard drink = 0.6 oz pur e alcohol) Education Answer Date Recorded Are you interested in more education? Not on santi e 01/16/2023 Are you concerned about learning? Not on file 01/16/2023 No 01/16/2023 No 01/16/2023 Digital Access Answer Date Recorded No 02/02/2023 No 02/02/2023 Reliable internet access at home? Not on file 02/02/2023 Device with a working camera? Not on file Intimate Partner Violence Answer Date R ecorded Are you denied basic needs s uch as food, clothing, or medical care? No 01/27/2024 In the past 12 months have y ou been in a relationship with a person who hurts, threatens, or tries to control you? No 01/27/2024 Are you denied basic needs s uch as food, clothing, or medical care? No 01/27/2024 In the past 12 months have y ou been in a relationship with a person who hurts, threatens, or tries to control you? No 01/27/2024 Sex and Gender Information Value Date Recorded Sex Assigned at Male 03/02/2018 10:43 AM EDT Legal Sex Male 6:53 PM EST Gender Identity Male 03/02/2018 10:43 AM EDT Sexual Orientation Straight 03/02/2018 10 :43 AM EDT documented as of this encounter Functional Status * Calculated C-SSRS Risk Score (Lifetime/Recent) Answer Date of Assessment Author No Risk Indicated 01/27/2024 9:47 PM EDT Yun Shea RN * [place] Suicide Severity Rating Scale (Screener/Recent Self-Report) Question Answer Date of Assessment Author 1. Wish to be (Past 1 Month) No 024 9:47 PM EDT Yun Shea RN 2. Non-Specific Active Suici [place] Thoughts (Past 1 Month) No 01/27/2024 9:47 PM EDT Yun Shea RN 6. Suicidal Behavior (Lifetime) No 9:47 PM EDT Yun Shea RN documented as of this encounter Plan of Treatment Not on file documented as of this encounter Visit Diagnoses Not on filedocumented in this encounter Additional Health Concerns Infection Onset Date Last Indicated Resolved Time CoV-Risk 01/27/2024 01/27/2024 02/07/2024 1:22 AM EDT documented as of this encounter Care Teams Oil Field Equipment Mechanic Relationship Specialty Start Date End Date Lino Pineda MD [address] [place] [phone] PCP - General Internal Medicine 03/02/18 documented as of this encounter Additional Source Comments The information contained in this document represents components of the legal health record. It is not the complete legal health record.[facility]
--- OUTSIDE RECORDS SUMMARY | 2025-07-11 11:51 | XMS_ITS | Encounter Summary ---
Author Organization [facility] Address [address] [facility] [address] [place] [address] Phone Care Team Providers Care Embedded Software Developer Name Role Phone Lino Pineda MD Primary Care Provider [phone] Encounter Details Date Type Department Care Team (Late st Contact Info) Description 01/27/2024 Procedure Pass [facility], Ct Scan - [address] [address] Social History Tobacco Use Types Packs/Day Years [...] 9:47 PM EDT Yun Shea RN * [place] Suicide Severity Rating Scale (Screener/Recent Self-Report) Question [...] documented as of this encounter Care Teams Embedded Software Developer Relationship Specialty Start Date End Date Lino Pineda MD [address] [place] [phone] PCP - General Internal Medicine 03/02/18 documented as of this encounter Additional Source Comments The information contained in this document represents components of the legal health record. It is not the complete legal health record.[facility]
--- OUTSIDE RECORDS SUMMARY | 2025-07-11 11:51 | XMS_ITS | Encounter Summary ---
Author Organization [facility] Address [address] [place] [phone] Phone Care Team Providers Care Store Stock Help Name Role Phone Lino Pineda MD Primary Care Provider [phone] Encounter Details Date Type Department Care Team (Late st Contact Info) Description 05/11/2020 Procedure Pass [facility], [address] [address] Social History Tobacco Use Types Packs/Day Years Used Date Smoking Tobacco: Never Smokeless Tobacco: Current Alcohol Use Standard Drinks/Week Comments Yes 3 (1 standard drink = 0.6 oz pur e alcohol) Sex and Gender Information Value Date Recorded Sex Assigned at Male 03/02/2018 10:43 AM EDT Legal Sex Male 6:53 PM EST Gender Identity Male 03/02/2018 10:43 AM EDT Sexual Orientation Straight 03/02/2018 10 :43 AM EDT documented as of this encounter Plan of Treatment Not on file documented as of this encounter Visit Diagnoses Not on filedocumented in this encounter Additional Health Concerns Infection Onset Date Last Indicated Resolved Time CoV-Risk 01/27/2024 01/27/2024 02/07/2024 1:22 AM EDT documented as of this encounter Care Teams Store Stock Help Relationship Specialty Start Date End Date Lino Pineda MD [address] [place] [phone] PCP - General Internal Medicine 03/02/18 documented as of this encounter Additional Source Comments The information contained in this document represents components of the legal health record. It is not the complete legal health record.[facility]
--- OUTSIDE RECORDS SUMMARY | 2025-07-11 11:51 | XMS_ITS | Patient Health Record ---
Author Organization [facility] Address [address], [place] [id number] Care Team Providers Care Certified Medicine Aide Name Role Phone LEO ELIAS Primary Care Provider ANGLE LARSON Unavailable [phone] REDDY HARTLEY Unavailable ALLERGIES Allergen (clinical drug ingredient) Drug/Non Drug Allergy documented on EMR Reaction Allergy Type Onset Date Status azithromycin Azithromycin ZITHROMAX Drug Allergy A ctive etodolac Etodolac Unknown Drug Allergy Active REASON FOR REFERRAL Reason (01/17/25 W BC approv al) (3) [facility] PT Diagnosis 1 Displaced bicondylar fracture of right tibia, initial encounter for closed fracture (S82.141A) Referral Organization [facility] Referring Provider First Name ELIAS Referring Provider Last Name LEO Referring Provider Speciality Internal M edicine Referred Provider Specialty Orthopedic S urgery General Notes Jesus Manuel BRIZUELA Call Center 12/10/2024 10:32:10 AM > Connie from [facility] insurance referral dept; requesting Insurance referral for PT from 12/08/24 through 09/07/25. Group NPI Given: [id number], [address] [place] [address], P:[phone] rnderi [address] [facility] [address], F:[phone] Kimberly B Call Ctr 12/15/2024 11:57:07 AM > Connie called from [facility] [place] [facility] (formerly [facility]) checking on the status of this referral request., Catherine BRIZUELA Admin 12/15/2024 04:04:10 PM > this is an OON Referral, CHATAMadelin Call Center 12/17/2024 11:27:02 AM > Connie called, asked for update explained referrals are 72 hour process., CHATACatherine P Admin 12/20/2024 12:16:04 PM > according to referral request from [facility] the Group NPI that they ask us to use goes to [address] [place] [address], cpt code [id number], Leann BRIZUELA Call Ctr 12/23/2024 01:46:03 PM > [facility]/[phone], calling to get an update on the referral, Leann BRIZUELA Call Center 12/29/2024 09:25:32 AM > [facility] (P) [phone] (F) [phone] is checking on the status of referral. The start date needs to be 12/08/24 and through 09/07/25 w/ visits. (See telephone encounter), CHATACatherine P Admin 12/29/2024 11:41:38 AM > faxed cross border request to [facility] at [phone]>waiting for their reply, Leann BRIZUELA Call Center 12/30/2024 10:54:07 AM > Connie/[facility])(P) [phone] is calling regarding referral. Connie advised above and will speak with her finishing area supervisor to ask if the patient can still be seen today., Zara BRIZUELA Referrals 01/17/2025 02:56:01 PM > referral submitted to > Authorization Status: In ProgressReason: Coordinator Review, Decision:Reference#: [id number], Procedure Status: 11844:Not Decisioned, CHATAElyi P Admin 02/03/2025 10:46:02 AM > referral approved and faxed to [facility] at [phone]>encounter closed Referral Priority Routine Referral Appointment Date 12/08/2024 Reason (*2*) PT Eval and tr eat Diagnosis 1 Closed fracture of r ight tibial plateau with routine healing, subsequent encounter (S82.501G) Referral Organization [facility] Referring Provider First Name ELIAS Referring Provider Last Name LAWRENCEBURG Referring Provider Speciality Internal M edicine Referred Provider Specialty Physical The andreay General Notes Ange BRIZUELA TIEING MACHINE OPERATOR 08:25:48 AM > patient is currently being seen in [facility] for PT and does need insurance referral for CPT code 03253 for 26 visits; , Has to be under the [place] [facility] at [address] [facility] in [facility] start date 12/10/24., Zara BRIZUELA Referrals 01/05/2025 12:35:24 PM > back dated referral approved and faxed to [facility] at [phone] Referral Priority Routine Referral Appointment Date 12/10/2024 Reason NEw patient appt Jessica [facility] Diagnosis 1 Breast pain (N64.4) Referral Organization [facility] Referring Provider First Name ELIAS Referring Provider Last Name LAWRENCEBURG Referring Provider [facility] Referred Provider Specialty Bariatric Diaz rgery Referral Priority Stat Reason n64.4 BREAST PAIN Referral Organization [facility] Referring Provider First Name ELIAS Referring Provider Last Name LAWRENCEBURG Referring Provider [facility] Internal edicine General Notes Catherine BRIZUELA P Admin 12:11:23 PM > referral approved and faxed to [facility] at [phone] (manually)>encounter closed Referral Priority Routine Referral Appointment Date 01/26/2025 Reason M25.511 Referral Organization [facility] Referring Provider First Name ELIAS Referring Provider Last Name LAWRENCEBURG Referring Provider [facility] edicine Referred Provider DOMINGUEZ TALAMANTES Referred Provider Specialty Orthopedic S urgery General Notes Catherine BRIZUELA P Admin 07/2025 04:00:45 PM > per incoming document from [facility] pt had appt on 12/08/24 with Dominguez Talamantes>referral approved and faxed to [facility] at [phone]>enocunter closed Referral Priority Routine Referral Appointment Date 12/08/2024 Reason Appt for [facility] Diagnosis 1 Unspecified hearing loss (H91.90) Referral Organization [facility] Referring Provider First Name ELIAS Referring Provider Last Name LAWRENCEBURG Referring Provider [facility] Internal edicine Referral Priority Urgent Reason 05/13/25 w appt Urge nt appt Growing mass ? thyroglossal duct cyst Please send CT Diagnosis 1 Neck mass (R22.1) Referral Organization [facility] Referring Provider First Name ELIAS Referring Provider Last Name LAWRENCEBURG Referring Provider Speciality Internal edicine Referred Organization [facility] ([facility]) Referred Address [address],[place], [place],[address], Referred Provider Specialty Otology, Lar yngology, Rhinology General Notes Catherine BRIZUELA Admin 01/2025 08:09:49 AM > faxed medical referral, note and most recent labs to [facility] requesting an URGENT appt [phone]>separately sent , 05/05/25 CT SoftTissueNeck Referral Priority Urgent Reason NEw patient appt [facility] Diagnosis 1 Trigger little finge r of right hand (M65.351) Diagnosis 2 Trigger little finge r of left hand (M65.352) Referral Organization [facility] Referring Provider First Name ELIAS Referring Provider Last Name LAWRENCEBURG Referring Provider Speciality Internal edicine Referred Provider GERMAIN MCCONNELL Referred Provider Specialty Hand Surgery Referral Priority Routine Reason r22.1 Referral Organization [facility] Referring Provider First Name ELIAS Referring Provider Last Name LAWRENCEBURG Referring Provider Speciality Internal [facility] General Notes Ange BRIZUELA CMA 03:59:01 PM > per patient request: Zara[facility] asking for an insurance referral for 06/29/25 appt. at 10:15 am w/ Dr. Jesus Manuel Yancey, . , [address] , José Miguel [facility] [address]. , R22.1, localized swelling, mass, lump neck., fax [phone], 6 visits. Provider is not in our database., Catherine BRIZUELA Admin 06/21/2025 08:48:42 AM > Referral approved and faxed to [phone]>encounter closed Referral Priority Routine Referral Appointment Date 06/29/2025 MEDICATIONS Medication SIG (Take, Route, Frequency, Duration) Notes Start Date End Date Status Lisinopril 40 MG 1 tablet Orally Once a day 03/16/2025 Active DULoxetine HCl 30 MG 1 capsule Orally On ce a day for 30 day(s) 06/27/2025 Active amLODIPine Besylate 5 MG 1 tablet Orally once a day Active Venlafaxine HCl ER 37.5 MG 1 capsule wit h food Orally Once a day for 30 day(s) 07/01/2025 Active LORazepam 0.5 MG 1 tablet as needed O rally Once a day for 30 days 06/15/2025 Active DULoxetine HCl 30 MG 1 capsule Orally On ce a day for 30 day(s) 06/23/2025 Active IMMUNIZATIONS Vaccine Route Administration Date Status Comme nts Pfizer COVID-19,mRNA, LNP-S, PF, 30mcg/0.3mL dose Unknown 02/10/2021 Administered SARSCOV2 VAC 30 MCG TRS-SUCR Pfizer Unknown 05/07/2021 Administered SARSCOV2 VAC BVL 3MCG/0.2ML Pfizer Unknown 09/11/2021 A dministered SOCIAL HISTORY Tobacco Use: Social History Observation Description Date Details (start date - stop date) Never Smoker NA - NA Sex Assigned At : Social History Observation Description Sex Assigned At Unknown Smoking Question Answer Notes Are you a: never smoker Additional Findings: Tobacco User Chews tobacco PROBLEMS Problem Type ICD Code Onset Dates Problem Status W/U Status Risk SNOMED Code Notes Problem Essential (primary) hypertension (I10) Active confirmed 57571191 Problem Primary insomnia (F51.01) Active confirmed 2221579 Problem Other headache syndrome (G44.89) Active confirmed 466962541 Problem Anxiety (F41.9) Active confirmed 831797 02 Problem Unspecified hearing loss (H91.90) Active confirmed 65226585 Problem Acute pulmonary embolism without acute cor pulmonale, unspecified pulmonary embolism type (I26.99) Active confirmed 910399344 VITAL SIGNS Blood pressure diastolic 80 mm Hg 06/23/2025 Height 70.50 in 06/23/2025 Blood pressure systolic 126 mm Hg 06/23/2025 Weight 239.2 lbs 06/23/2025 BMI 33.83 kg/m2 06/23/2025 Encounters Encounter Location Date Provider Diagnosis [facility] [address] [place] [address] 08/03/2024 [facility] [address] [place] [address] 09/16/2024 [facility] [address] [place] [address] 11/23/2024 [facility] [address] [place] [address] 11/29/2024 [facility] [address] [place] [address] 12/07/2024 [facility] [address] [place], [place] [id number] 12/07/2024 ELIAS LAWRENCEBURG Acute cough R05.1 and Other acute pulmonary embolism without acute cor pulmonale I26.99 [facility] [address] [place] [address] 12/09/2024 [facility] [address] [place] [address], [place] [address] 12/10/2024 [facility] [address] [place] [address], [place] [address] 12/13/2024 [facility] [address] [place] [address], [place] [address] 12/13/2024 ELIAS LAWRENCEBURG Closed fracture of right tibial plateau, initial encounter S82.141A ; Acute cough R05.1 ; Acute pulmonary embolism without acute cor pulmonale, unspecified pulmonary embolism type I26.99 ; Essential (primary) hypertension I10 and Hyponatremia E87.1 [facility] [address] [place] [address], [place] [address] 12/14/2024 [facility] Hyponatremia E87.1 [facility] [address] [address] 12/23/2024 [facility] [address] [place] [address], [place] [address] 12/29/2024 [facility] [address] [place] [address] 12/29/2024 [facility] Hyponatremia E87.1 and Acute cough R05.1 [facility] [address] [place] [address] 12/29/2024 [facility] [address] [place] [address] 12/29/2024 [facility] [address] [place] [address], [place] [address] 12/30/2024 ELIAS LAWRENCEBURG Subareolar mass of right breast N63.41 ; Breast pain, right N64.4 ; Essential (primary) hypertension I10 ; Dry cough R05.8 and Closed fracture of right tibial plateau with routine healing, subsequent encounter S82.141D [facility] [address] [place] [address] 12/30/2024 [facility] [address] [place] [address] 12/31/2024 [facility] [address] [place] [address], [place] [address] 01/04/2025 [facility] Closed fracture of right tibial plateau with routine healing, subsequent encounter S82.141D [facility] [address] [place] [address], [place] [address] 01/11/2025 [facility] [address] [place] [address], [place] [address] 01/12/2025 [facility] [address] [place] [address], [place] [address] 01/19/2025 [facility] [address] [place] [address], [place] [address] 01/20/2025 [facility] Breast pain N64.4 and Essential (primary) hypertension I10 [facility] [address] [place] [address], [place] [address] 02/01/2025 [facility] [address] [place] [address], [place] [address] 02/02/2025 [facility] [address] [place] [address] 02/18/2025 [facility] [address] [address] 02/26/2025 ANGLE LARSON [facility] [address] [place] [address], [place] [address] 02/28/[address] [address] 03/01/2025 [facility] Essential (primary) hypertension I10 ; Dizziness R42 ; Hyponatremia E87.1 ; B12 deficiency E53.8 and Acute pulmonary embolism without acute cor pulmonale, unspecified pulmonary embolism type I26.[address] [address] 03/01/2025 [facility] [address] [place] [address] 03/02/2025 [facility] [address] [place] [address] 03/13/2025 [facility] [address] [place] [address] 03/14/2025 [facility] [address] [place] [address] 03/15/2025 [facility] Essential (primary) hypertension I10 ; Anxiety F41.9 and Primary insomnia F51.01 [facility] [address] [place] [address] 03/16/2025 [facility] Essential (primary) hypertension I10 [address] [address] 03/17/[address] [address] 03/21/2025 [facility] [address] [address] 04/05/2025 [facility] 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 ; Essential (primary) hypertension I10 ; Acute pulmonary embolism without acute cor pulmonale, unspecified pulmonary embolism type I26.99 ; Other fatigue R53.83 ; Trigger little finger of right hand M65.351 ; Neck mass R22.1 and Anxiety F41.9 [facility] [address] [place] [address] 04/06/2025 [facility] [address] [place] [address] 04/07/2025 [facility] [address] [place] [address] 04/11/2025 [facility] [address] [place] [address] 04/12/2025 [facility] [address] [place] [address] 04/12/2025 [facility] Essential (primary) hypertension I10 ; Anxiety F41.9 and Other headache syndrome G44.89 [facility] [address] [place] [address], [place] [address] 04/13/2025 [facility] [address] [place] [address] 04/14/2025 [facility] Neck mass R22.1 [facility] [address] [place] [address] 04/25/2025 [facility] Neck mass R22.1 [facility] [address] [place] [address] 04/25/2025 [facility] Essential (primary) hypertension I10 ; Acute pulmonary embolism without acute cor pulmonale, unspecified pulmonary embolism type I26.99 and Anxiety F41.9 [facility] [address] [place] [address] 05/12/2025 [facility] Neck mass R22.1 [facility] [address] [place] [address] 05/26/2025 [facility] Essential (primary) hypertension I10 ; Acute pulmonary embolism without acute cor pulmonale, unspecified pulmonary embolism type I26.99 ; Trigger little finger of right hand M65.351 ; Trigger little finger of left hand M65.352 ; Anxiety F41.9 and Neck mass R22.1 [facility] [address] [place] [address] 06/01/2025 [facility] [address] [place] [address] 06/17/2025 [facility] Recurrent headache R51.9 [facility] [address] [place] [address] 06/17/2025 [facility] Recurrent headache R51.9 [facility] [address] [place] [address] 06/20/2025 [facility] [address] [place] [address] 06/23/2025 [facility] [address] [place] [address] 06/23/2025 [facility] Essential (primary) hypertension I10 ; Anxiety F41.9 ; Frequent headaches R51.9 ; Numbness R20.0 and Neck mass R22.1 [facility] [address] [place] [address] 06/27/2025 ELIAS [facility] [address] [place] [address] 06/28/2025 ELIAS [facility] [address] [place] [address] 07/01/2025 ELIAS BAILEY Anxiety F41.9 ASSESSMENTS Encounter Date Diagnosis Assessment Notes Treatment Notes Treatment Clinical Notes Section Notes 12/07/2024 Other acute pulmonary embolism without acute cor pulmonale (ICD-10 - I26.99) 1. Acute cough: Will trial Robitussin AC 3 times a day for symptoms and reassess if not improving 2. Pulmonary embolism: Newly on Eliquis. Will follow-up when he is back in the area. Continue present dosing. Consider echocardiography 12/07/2024 Acute cough (ICD-10 - R05.1) 1. Acute cough: Will trial Robitussin AC 3 times a day for symptoms and reassess if not improving 2. Pulmonary embolism: Newly on Eliquis. Will follow-up when he is back in the area. Continue present dosing. Consider echocardiography 12/13/2024 Acute cough (ICD-10 - R05.1) 1. Tibial plateau fracture right leg: Will await follow-up with [facility]. To stay in brace for the next several weeks 2. Cough: Will treat for atypical infection with doxycycline and a Medrol Dosepak 3. Pulmonary embolism: Newly on Eliquis. Will refill locally as his prescription was written in [place]. He will need 3 to 6 months of therapy 4. Hypertension: Stable on current lisinopril. No changes made today 5. Hyponatremia: Reported on labs in [place]. Will recheck electrolytes today 12/13/2024 Closed fracture of right tibial plateau, initial encounter (ICD-10 - S82.141A) 1. Tibial plateau fracture right leg: Will await follow-up with [facility]. To stay in brace for the next several weeks 2. Cough: Will treat for atypical infection with doxycycline and a Medrol Dosepak 3. Pulmonary embolism: Newly on Eliquis. Will refill locally as his prescription was written in [place]. He will need 3 to 6 months of therapy 4. Hypertension: Stable on current lisinopril. No changes made today 5. Hyponatremia: Reported on labs in [place]. Will recheck electrolytes today 12/14/2024 Hyponatremia (ICD-10 - E87.1) 12/29/2024 Hyponatremia (ICD-10 - E87.1) 12/29/2024 Acute cough (ICD-10 - R05.1) 12/30/2024 Breast pain, right (ICD-10 - N64.4) 1: right breast mass/pain: Exam consistent with breast tissue/gynecomastia but will check mammogram to rule out more concerning pathology 2. Hypertension: Stable on present lisinopril. No changes made today 3. Dry cough: Will trial Tessalon Perles to see if this helps resolve residual cough postinfection 4. Right tibial plateau fracture: Continues in brace. On orthopedics. Will follow. Using pain medication sparingly 12/30/2024 Subareolar mass of right breast (ICD-10 - N63.41) 1: right breast mass/pain: Exam consistent with breast tissue/gynecomastia but will check mammogram to rule out more concerning pathology 2. Hypertension: Stable on present lisinopril. No changes made today 3. Dry cough: Will trial Tessalon Perles to see if this helps resolve residual cough postinfection 4. Right tibial plateau fracture: Continues in brace. On orthopedics. Will follow. Using pain medication sparingly 01/04/2025 Closed fracture of right tibial plateau with routine healing, subsequent encounter (ICD-10 - S82.141D) 01/20/2025 Essential (primary) hypertension (ICD-10 - I10) 1. Right breast pain: Source is unclear. We have arranged an urgent appointment with the breast specialist for Friday of week at [facility]. Will await further recommendations 2. Hypertension: Mildly elevated today but missed medication. Will recheck at regular follow-up 01/20/2025 Breast pain (ICD-10 - N64.4) 1. Right breast pain: Source is unclear. We have arranged an urgent appointment with the breast specialist for Friday week at [facility]. Will await further recommendations 2. Hypertension: Mildly elevated today but missed medication. Will recheck at regular follow-up 03/01/2025 Essential (primary) hypertension (ICD-10 - I10) 1. Hypertension: Suboptimal. Will double lisinopril to 40 mg/day and recheck in 2 weeks 2. Dizziness: Question component of labyrinthitis. Appears largely resolved. Will follow-up and reassess symptoms worsen again acutely 3. Hyponatremia: Will recheck sodium level today. He admits drinking 4-5 beers a day and I explained this may be a cause of hyponatremia. 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 B12 deficiency: Reported in the ER. Will recheck level today and send for labs from [place] 5. Pulmonary embolism: He admits not taking his Eliquis faithfully twice a day. I have emphasized the importance of this. It has been 3 months but I do not wish to discontinue as yet as he has not had for therapy for the entire period. Will likely complete 6 months 03/01/2025 Dizziness (ICD-10 - R42) 1. Hypertension: Suboptimal. Will double lisinopril to 40 mg/day and recheck in 2 weeks 2. Dizziness: Question component of labyrinthitis. Appears largely resolved. Will follow-up and reassess symptoms worsen again acutely 3. Hyponatremia: Will recheck sodium level today. He admits drinking 4-5 beers a day and I explained this may be a cause of hyponatremia. 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 B12 deficiency: Reported in the ER. Will recheck level today and send for labs from [place] 5. Pulmonary embolism: He admits not taking his Eliquis faithfully twice a day. I have emphasized the importance of this. It has been 3 months but I do not wish to discontinue as yet as he has not had for therapy for the entire period. Will likely complete 6 months 03/15/2025 Essential (primary) hypertension (ICD-10 - I10) ER records reviewed 1. Hypertension: High today but very stressed. Will treat anxiety as below and then plan to recheck in 3 weeks 2. Anxiety: Suspect a component of panic attacks contributing to symptoms for which she is presented to the ER in recent weeks. Will trial sertraline at 50 mg once a day and he will call with any concerns. I explained there will be a gradual onset of the effect of this medication 3. Insomnia: I gave him some short-term Ambien to use to assist in this regard 03/15/2025 Anxiety (ICD-10 - F41.9) ER records reviewed 1. Hypertension: High today but very stressed. Will treat anxiety as below and then plan to recheck in 3 weeks 2. Anxiety: Suspect a component of panic attacks contributing to symptoms for which she is presented to the ER in recent weeks. Will trial sertraline at 50 mg once a day and he will call with any concerns. I explained there will be a gradual onset of the effect of this medication 3. Insomnia: I gave him some short-term Ambien to use to assist in this regard 04/05/2025 Essential (primary) hypertension (ICD-10 - I10) 1. TMJ dysfunction: Given Eliquis he cannot use anti-inflammatories but will try Tylenol 3 times a day on a scheduled basis. Explained this is not an ear related issue 2. Hypertension: Trending better with higher dose lisinopril and as stress quiets. Will recheck in May 11. Pulmonary embolism/DVT: Will complete 6 months of anticoagulation and likely stop at his next visit if mobility continues to normalized 4. Fatigue: Will check laboratory studies to rule out thyroid dysfunction or anemia 5. Trigger finger of the right little finger as well as left little finger: We discussed a hand surgeon appointment. He wishes to wait until his knee is healed 6. Neck mass: Was told this was a cyst in the past but it has grown in size recently. Will check an ultrasound to rule out thyroid mass or other pathology 7. Anxiety: Asked him to try the sertraline see if this helps with baseline stress. He is using lorazepam infrequently and explained they can be used together 04/05/2025 TMJ dysfunction (ICD-10 - M26.609) 1. TMJ dysfunction: Given Eliquis he cannot use anti-inflammatories but will try Tylenol 3 times a day on a scheduled basis. Explained this is not an ear related issue 2. Hypertension: Trending better with higher dose lisinopril and as stress quiets. Will recheck in May 11. Pulmonary embolism/DVT: Will complete 6 months of anticoagulation and likely stop at his next visit if mobility continues to normalized 4. Fatigue: Will check laboratory studies to rule out thyroid dysfunction or anemia 5. Trigger finger of the right little finger as well as left little finger: We discussed a hand surgeon appointment. He wishes to wait until his knee is healed 6. Neck mass: Was told this was a cyst in the past but it has grown in size recently. Will check an ultrasound to rule out thyroid mass or other pathology 7. Anxiety: Asked him to try the sertraline see if this helps with baseline stress. He is using lorazepam infrequently and explained they can be used together 03/16/2025 Essential (primary) hypertension (ICD-10 - I10) 04/12/2025 Essential (primary) hypertension (ICD-10 - I10) ER records reviewed at length 1. Hypertension: Well-controlled today on present therapy. I am not sure whether the amlodipine will be too much as he achieves steady state on this med but we will follow. He clearly spikes severely when he is feeling stressed. 2. Anxiety: Reports taking the sertraline faithfully from last week but is only been a few days and he has not achieved steady state. He has lorazepam to use for panic attack symptoms 3. Headache: Question migraine. Imaging all reassuring. I gave him Nurtec samples to try and if this is not helping we may try a short prednisone burst. 04/12/2025 Anxiety (ICD-10 - F41.9) ER records reviewed at length 1. Hypertension: Well-controlled today on present therapy. I am not sure whether the amlodipine will be too much as he achieves steady state on this med but we will follow. He clearly spikes severely when he is feeling stressed. 2. Anxiety: Reports taking the sertraline faithfully from last week but is only been a few days and he has not achieved steady state. He has lorazepam to use for panic attack symptoms 3. Headache: Question migraine. Imaging all reassuring. I gave him Nurtec samples to try and if this is not helping we may try a short prednisone burst. 04/25/2025 Essential (primary) hypertension (ICD-10 - I10) 1. Hypertension: Much better. Continue current lisinopril and amlodipine. Will recheck in 1 month 2. Pulmonary embolism: He needs another month of Eliquis to complete 6 months. Will continue 3. Anxiety: Feels he is doing better in this regard. He is satisfied with as needed lorazepam which he is used rarely. Did not feel he tolerated sertraline and is not interested in an alternative at present 04/25/2025 Acute pulmonary embolism without acute cor pulmonale, unspecified pulmonary embolism type (ICD-10 - I26.99) 1. Hypertension: Much better. Continue current lisinopril and amlodipine. Will recheck in 1 month 2. Pulmonary embolism: He needs another month of Eliquis to complete 6 months. Will continue 3. Anxiety: Feels he is doing better in this regard. He is satisfied with as needed lorazepam which he is used rarely. Did not feel he tolerated sertraline and is not interested in an alternative at present 04/14/2025 Neck mass (ICD-10 - R22.1) 04/25/2025 Neck mass (ICD-10 - R22.1) 05/26/2025 Essential (primary) hypertension (ICD-10 - I10) [...] typical. We are awaiting an ENT appointment 05/12/2025 Neck mass (ICD-10 - R22.1) 06/17/2025 Recurrent headache (ICD-10 - R51.9) 06/17/2025 Recurrent headache (ICD-10 - R51.9) 06/23/2025 Essential (primary) hypertension (ICD-10 - I10) [...] Biopsy later in the month. Await results 07/01/2025 Anxiety (ICD-10 - F41.9) 03/01/2025 Hyponatremia (ICD-10 - E87.1) 1. Hypertension: Suboptimal. Will double lisinopril to 40 mg/day and recheck in 2 weeks 2. Dizziness: Question component of labyrinthitis. Appears largely resolved. Will follow-up and reassess symptoms worsen again acutely 3. Hyponatremia: Will recheck sodium level today. He admits drinking 4-5 beers a day and I explained this may be a cause of hyponatremia. 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 B12 deficiency: Reported in the ER. Will recheck level today and send for labs from [place] 5. Pulmonary embolism: He admits not taking his Eliquis faithfully twice a day. I have emphasized the importance of this. It has been 3 months but I do not wish to discontinue as yet as he has not had for therapy for the entire period. Will likely complete 6 months 03/15/2025 Primary insomnia (ICD-10 - F51.01) ER records reviewed 1. Hypertension: High today but very stressed. Will treat anxiety as below and then plan to recheck in 3 weeks 2. Anxiety: Suspect a component of panic attacks contributing to symptoms for which she is presented to the ER in recent weeks. Will trial sertraline at 50 mg once a day and he will call with any concerns. I explained there will be a gradual onset of the effect of this medication 3. Insomnia: I gave him some short-term Ambien to use to assist in this regard 04/05/2025 Acute pulmonary embolism without acute cor pulmonale, unspecified pulmonary embolism type (ICD-10 - I26.99) 1. TMJ dysfunction: Given Eliquis he cannot use anti-inflammatories but will try Tylenol 3 times a day on a scheduled basis. Explained this is not an ear related issue 2. Hypertension: Trending better with higher dose lisinopril and as stress quiets. Will recheck in May 11. Pulmonary embolism/DVT: Will complete 6 months of anticoagulation and likely stop at his next visit if mobility continues to normalized 4. Fatigue: Will check laboratory studies to rule out thyroid dysfunction or anemia 5. Trigger finger of the right little finger as well as left little finger: We discussed a hand surgeon appointment. He wishes to wait until his knee is healed 6. Neck mass: Was told this was a cyst in the past but it has grown in size recently. Will check an ultrasound to rule out thyroid mass or other pathology 7. Anxiety: Asked him to try the sertraline see if this helps with baseline stress. He is using lorazepam infrequently and explained they can be used together 04/12/2025 Other headache syndrome (ICD-10 - G44.89) ER records reviewed at length 1. Hypertension: Well-controlled today on present therapy. I am not sure whether the amlodipine will be too much as he achieves steady state on this med but we will follow. He clearly spikes severely when he is feeling stressed. 2. Anxiety: Reports taking the sertraline faithfully from last week but is only been a few days and he has not achieved steady state. He has lorazepam to use for panic attack symptoms 3. Headache: Question migraine. Imaging all reassuring. I gave him Nurtec samples to try and if this is not helping we may try a short prednisone burst. 04/25/2025 Anxiety (ICD-10 - F41.9) 1. Hypertension: Much better. Continue current lisinopril and amlodipine. Will recheck in 1 month 2. Pulmonary embolism: He needs another month of Eliquis to complete 6 months. Will continue 3. Anxiety: Feels he is doing better in this regard. He is satisfied with as needed lorazepam which he is used rarely. Did not feel he tolerated sertraline and is not interested in an alternative at present 05/26/2025 Trigger little finger of right hand [...] typical. We are awaiting an ENT appointment 12/30/2024 Essential (primary) hypertension (ICD-10 - I10) 1: right breast mass/pain: Exam consistent with breast tissue/gynecomastia but will check mammogram to rule out more concerning pathology 2. Hypertension: Stable on present lisinopril. No changes made today 3. Dry cough: Will trial Tessalon Perles to see if this helps resolve residual cough postinfection 4. Right tibial plateau fracture: Continues in brace. On orthopedics. Will follow. Using pain medication sparingly 12/13/2024 Acute pulmonary embolism without acute cor pulmonale, unspecified pulmonary embolism type (ICD-10 - I26.99) 1. Tibial plateau fracture right leg: Will await follow-up with [facility]. To stay in brace for the next several weeks 2. Cough: Will treat for atypical infection with doxycycline and a Medrol Dosepak 3. Pulmonary embolism: Newly on Eliquis. Will refill locally as his prescription was written in [place]. He will need 3 to 6 months of therapy 4. Hypertension: Stable on current lisinopril. No changes made today 5. Hyponatremia: Reported on labs in [place]. Will recheck electrolytes today 06/23/2025 Frequent headaches (ICD-10 - R51.9) 1. [...] Biopsy later in the month. Await results 03/01/2025 B12 deficiency (ICD-10 - E53.8) 1. Hypertension: Suboptimal. Will double lisinopril to 40 mg/day and recheck in 2 weeks 2. Dizziness: Question component of labyrinthitis. Appears largely resolved. Will follow-up and reassess symptoms worsen again acutely 3. Hyponatremia: Will recheck sodium level today. He admits drinking 4-5 beers a day and I explained this may be a cause of hyponatremia. Increase to work at [employer] 4. B12 deficiency: Reported in the ER. Will recheck level today and send for labs from [place] 5. Pulmonary embolism: He admits not taking his Eliquis faithfully twice a day. I have emphasized the importance of this. It has been 3 months but I do not wish to discontinue as yet as he has not had for therapy for the entire period. Will likely complete 6 months 04/05/2025 Other fatigue (ICD-10 - R53.83) 1. TMJ dysfunction: Given Eliquis he cannot use anti-inflammatories but will try Tylenol 3 times a day on a scheduled basis. Explained this is not an ear related issue 2. Hypertension: Trending better with higher dose lisinopril and as stress quiets. Will recheck in May 3. Pulmonary embolism/DVT: Will complete 6 months of anticoagulation and likely stop at his next visit if mobility continues to normalized 4. Fatigue: Will check laboratory studies to rule out thyroid dysfunction or anemia 5. Trigger finger of the right little finger as well as left little finger: We discussed a hand surgeon appointment. He wishes to wait until his knee is healed 6. Neck mass: Was told this was a cyst in the past but it has grown in size recently. Will check an ultrasound to rule out thyroid mass or other pathology 7. Anxiety: Asked him to try the sertraline see if this helps with baseline stress. He is using lorazepam infrequently and explained they can be used together 12/30/2024 Dry cough (ICD-10 - R05.8) 1: right breast mass/pain: Exam consistent with breast tissue/gynecomastia but will check mammogram to rule out more concerning pathology 2. Hypertension: Stable on present lisinopril. No changes made today 3. Dry cough: Will trial Tessalon Perles to see if this helps resolve residual cough postinfection 4. Right tibial plateau fracture: Continues in brace. On orthopedics. Will follow. Using pain medication sparingly 05/26/2025 Trigger little finger of left hand [...] typical. We are awaiting an ENT appointment 12/13/2024 Essential (primary) hypertension (ICD-10 - I10) 1. Tibial plateau fracture right leg: Will await follow-up with [facility]. To stay in brace for the next several weeks 2. Cough: Will treat for atypical infection with doxycycline and a Medrol Dosepak 3. Pulmonary embolism: Newly on Eliquis. Will refill locally as his prescription was written in [place]. He will need 3 to 6 months of therapy 4. Hypertension: Stable on current lisinopril. No changes made today 5. Hyponatremia: Reported on labs in [place]. Will recheck electrolytes today 06/23/2025 Numbness (ICD-10 - R20.0) 1. Hypertension: [...] Biopsy later in the month. Await results 03/01/2025 Acute pulmonary embolism without acute cor pulmonale, unspecified pulmonary embolism type (ICD-10 - I26.99) 1. Hypertension: Suboptimal. Will double lisinopril to 40 mg/day and recheck in 2 weeks 2. Dizziness: Question component of labyrinthitis. Appears largely resolved. Will follow-up and reassess symptoms worsen again acutely 3. Hyponatremia: Will recheck sodium level today. He admits drinking 4-5 beers a day and I explained this may be a cause of hyponatremia. 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 B12 deficiency: Reported in the ER. Will recheck level today and send for labs from [place] 5. Pulmonary embolism: He admits not taking his Eliquis faithfully twice a day. I have emphasized the importance of this. It has been 3 months but I do not wish to discontinue as yet as he has not had for therapy for the entire period. Will likely complete 6 months 04/05/2025 Trigger little finger of right hand (ICD-10 - M65.351) 1. TMJ dysfunction: Given Eliquis he cannot use anti-inflammatories but will try Tylenol 3 times a day on a scheduled basis. Explained this is not an ear related issue 2. Hypertension: Trending better with higher dose lisinopril and as stress quiets. Will recheck in May 3. Pulmonary embolism/DVT: Will complete 6 months of anticoagulation and likely stop at his next visit if mobility continues to normalized 4. Fatigue: Will check laboratory studies to rule out thyroid dysfunction or anemia 5. Trigger finger of the right little finger as well as left little finger: We discussed a hand surgeon appointment. He wishes to wait until his knee is healed 6. Neck mass: Was told this was a cyst in the past but it has grown in size recently. Will check an ultrasound to rule out thyroid mass or other pathology 7. Anxiety: Asked him to try the sertraline see if this helps with baseline stress. He is using lorazepam infrequently and explained they can be used together 12/30/2024 Closed fracture of right tibial plateau with routine healing, subsequent encounter (ICD-10 - S82.141D) 1: right breast mass/pain: Exam consistent with breast tissue/gynecomastia but will check mammogram to rule out more concerning pathology 2. Hypertension: Stable on present lisinopril. No changes made today 3. Dry cough: Will trial Tessalon Perles to see if this helps resolve residual cough postinfection 4. Right tibial plateau fracture: Continues in brace. On orthopedics. Will follow. Using pain medication sparingly 05/26/2025 Anxiety (ICD-10 - F41.9) 1. Hypertension: [...] typical. We are awaiting an ENT appointment 12/13/2024 Hyponatremia (ICD-10 - E87.1) 1. Tibial plateau fracture right leg: Will await follow-up with [facility]. To stay in brace for the next several weeks 2. Cough: Will treat for atypical infection with doxycycline and a Medrol Dosepak 3. Pulmonary embolism: Newly on Eliquis. Will refill locally as his prescription was written in [place]. He will need 3 to 6 months of therapy 4. Hypertension: Stable on current lisinopril. No changes made today 5. Hyponatremia: Reported on labs in [place]. Will recheck electrolytes today 06/23/2025 Neck mass (ICD-10 - R22.1) 1. [...] Biopsy later in the month. Await results 04/05/2025 Neck mass (ICD-10 - R22.1) 1. TMJ dysfunction: Given Eliquis he cannot use anti-inflammatories but will try Tylenol 3 times a day on a scheduled basis. Explained this is not an ear related issue 2. Hypertension: Trending better with higher dose lisinopril and as stress quiets. Will recheck in May 11. Pulmonary embolism/DVT: Will complete 6 months of anticoagulation and likely stop at his next visit if mobility continues to normalized 4. Fatigue: Will check laboratory studies to rule out thyroid dysfunction or anemia 5. Trigger finger of the right little finger as well as left little finger: We discussed a hand surgeon appointment. He wishes to wait until his knee is healed 6. Neck mass: Was told this was a cyst in the past but it has grown in size recently. Will check an ultrasound to rule out thyroid mass or other pathology 7. Anxiety: Asked him to try the sertraline see if this helps with baseline stress. He is using lorazepam infrequently and explained they can be used together 05/26/2025 Neck mass (ICD-10 - R22.1) 1. [...] typical. We are awaiting an ENT appointment 04/05/2025 Anxiety (ICD-10 - F41.9) 1. TMJ dysfunction: Given Eliquis he cannot use anti-inflammatories but will try Tylenol 3 times a day on a scheduled basis. Explained this is not an ear related issue 2. Hypertension: Trending better with higher dose lisinopril and as stress quiets. Will recheck in May 11. Pulmonary embolism/DVT: Will complete 6 months of anticoagulation and likely stop at his next visit if mobility continues to normalized 4. Fatigue: Will check laboratory studies to rule out thyroid dysfunction or anemia 5. Trigger finger of the right little finger as well as left little finger: We discussed a hand surgeon appointment. He wishes to wait until his knee is healed 6. Neck mass: Was told this was a cyst in the past but it has grown in size recently. Will check an ultrasound to rule out thyroid mass or other pathology 7. Anxiety: Asked him to try the sertraline see if this helps with baseline stress. He is using lorazepam infrequently and explained they can be used together PLAN OF TREATMENT Pending Test Test Name Order Date Echocardiogram 07/29/2023 CT Soft Tissue Neck with and without IV contrast 04/14/2025 Future Test Test Name Order Date [id number] 03/16/2025 Next Appt Details Provider Name:ELIAS BAILEY , 11/21/2025 01:30:00 PM, [address] [place] [address], [id number], Insurance Providers Payer Name Payer Address Payer Phone Subscriber Number Group Number Insured Name Patient Relationship to Insured Coverage Start Date Coverage End Date [employer] [address] [place] [address] [id number] DAVID MCCOY Self - patient is the insured MEDICAL (GENERAL) HISTORY Medical History History ICD Code Hypertension, Problems: Insomnia, November 2024 Right tibial plateau fracture November 2024 Pulmonary Embolism Surgical History Surgery Date(Month/Year) Left Knee Replacement Dr Perera 12/2022 Hospitalization History Reason Date(Month/Year) [facility] - migraine / d izziness 04/09/25 [facility] [place] numb tongue, numb limbs, bp 180 /100; 200/110 03/12/25 [facility] [place]- dizzi ness, headache, parasthesia 02/24/25-02/27/25 Left Tibial fracture/Pulmonary Embolism 11/2024
--- OUTSIDE RECORDS SUMMARY | 2025-07-11 11:52 | XMS_ITS | Clinical Summary ---
Author Organization [facility] Address [address] [place], [place] [id number] Phone Care Team Providers Care Clinical Informatics Educator Name Role Phone Lino Pineda MD Primary Care Provider [phone] [phone] Allergies No known active allergies Medications lisinopril (PRINIVIL,ZESTR IL) 10 MG tablet Take 10 mg by mouth daily. 11/22/2021 Active dicyclomine (BENTYL) 10 MG capsule Take 1 capsule (10 mg total) by mouth 4 (four) times a day before meals and nightly. 20 capsule 01/28/2024 Active Active Problems No known active problems Encounters Date Type Department Care Team Description 07/04/2025 Orders Only [facility] [address] [place] [address] Juancarlos Cm MD, KIKE 06/29/2025 2:31 PM EDT - 06/29/2025 11:59 PM EDT Hospital Encounter [facility] [address] [place] [address] Juancarlos Cm MD, KIKE Discharge Disposition: Home or Self Care 06/29/2025 1:48 PM EDT - 06/29/2025 2:30 PM EDT Hospital Encounter [facility] [address] [place] [address] Mannie Roth DO Discharge Disposition: Home or Self Care from Last 3 Months Social History Tobacco Use Types Packs/Day Years Used Date Smoking Tobacco: Never Smokeless Tobacco: Current Chew Tobacco Cessation:Ready to Q uit: Not Asked; Counseling Given: Not Answered Alcohol Use Standard Drinks/Week Comments Yes 3 [...] Orientation Straight 03/02/2018 10 :43 AM EDT Last Filed Vital Signs Vital Sign Reading Time Taken Comments Blood Pressure 161/96 01/28/2024 2:31 AM EDT Pulse 87 01/28/2024 2:31 AM EDT Temperature 36.6 C (97.9 F) 01/27/2024 9:46 PM EDT Respiratory Rate 18 01/28/2024 2:31 AM EDT Oxygen Saturation 98% 01/28/2024 2:31 AM EDT Inhaled Oxygen Concentration - - Weight 106.6 kg (235 lb) 01/27/2024 9:46 PM EDT Height 177.8 cm (5' 10 ) 01/27/2024 9:46 PM EDT Body Mass Index 33.72 01/27/2024 9:46 PM EDT Plan of Treatment Health Maintenance Due Date Last Done Comments Adult Td,Tdap Booster 1965 LIPID PANEL 1965 DEPRESSION SCREENING 1976 HEPATITIS C SCREENING 1982 HIV ONE-TIME SCREENING (18-6 5 YEARS) 1982 COLOGUARD 2009 COLONOSCOPY 2009 COLORECTAL CANCER SCREENING 2009 FIT TEST 2009 FOBT 2009 SIGMOIDOSCOPY 2009 VIRTUAL COLONOSCOPY 2009 PNEUMOCOCCAL VACCINES (50+ years) (1 of 1 - PCV) 2014 ZOSTER VACCINES (1 of 2) 2014 CREATININE LEVEL 01/26/2025 01/27/2024, 04/24/2021, 03/02/2018 POTASSIUM LEVEL 01/26/2025 01/27/2024, 04/24/2021, 03/02/2018 INFLUENZA VACCINE (#1) 2025 COVID-19 VACCINE (4 - 2024-2 6 season) 2025 09/11/2021, 05/07/2021, 02/10/2021 SCREENING FOR DIABETES 01/26/2027 01/27/2024 RSV VACCINE (1 - 1-dose 75+ series) 11/13/2039 SMOKING STATUS SCREENING (On ce After 26 Yrs) Completed 01/27/2024 HEPATITIS A VACCINES Aged Out No long er eligible based on patient's age to complete this topic HIB VACCINES Aged Out No longer eligi ble based on patient's age to complete this topic MENINGOCOCCAL VACCINES (ACWY) Aged Out No longer eligible based on patient's age to complete this topic MENINGOCOCCAL VACCINES (B) Aged Out N o longer eligible based on patient's age to complete this topic Medical Devices Not on file Procedures Procedure Name Priority Date/Time Associated Diagnosis Comments OUTSIDE PATHOLOGY Routine 07/04/2025 10: 00 AM EDT NON-BARN MANAGER CYTOLOGY, NON CSF, NON URINE Routine 06/29/2025 12:00 AM EDT ANATOMIC PATHOLOGY Routine 06/29/2025 12 :00 AM EDT COMPREHENSIVE METABOLIC PANEL (CMP) STAT 01/27/2024 10:07 PM EDT from Last 3 Months or Most Recently Relevant to Health Maintenance Results * Outside Pathology (07/04/2025 10:00 AM EDT) us Juancarlos Cm MD, KIKE PATHOLOGY ORDERABLES Final Result * Non-Women'S Basketball Coach Cytology (06/29/2025 12:00 AM EDT) 06/29/2025 06/29/2025 3:5 2 PM EDT Narrative SEE NARRATIVE - 06/30/2025 11:16 [place] [address] Counseling Program Leader: Filemon Redd MD Non Women'S Basketball Coach Cytology Report FINAL DIAGNOSIS A. ANTERIOR MIDLINE NECK MASS, ULTRASOUND GUIDED FINE NEEDLE ASPIRATION: SPECIMEN ADEQUACY: Satisfactory for evaluation. INTERPRETATION: NO MALIGNANT CELLS IDENTIFIED. Proteinaceous fluid and bland squamous cells.I see no evidence of malignancy. 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 Electronically Signed Out By: GWENDOLYN Sexton MD([facility]) By his/her signature above, the pathologist listed as making the Final Diagnosis certifies that he/she has personally reviewed this case and confirmed or corrected the diagnosis. CLINICAL HISTORY Patient presents with anterior midline neck mass superior to thyroid gland. SPECIMEN SOURCE A: NECK, ANTERIOR MIDLINE, ULTRASOUND GUIDED FINE NEEDLE ASPIRATION GROSS DESCRIPTION A. NECK, ANTERIOR MIDLINE, ULTRASOUND GUIDED FINE NEEDLE ASPIRATION: Received are four (4) spray fixed direct smears and a needle rinse in 30ml CytoLyt preservative labeled with patient name and date of . Material submitted to [employer] flow cytometry media. One (1) ThinPrep slide is prepared. Patient Name: YONAS MALONE : 1965 (Age: 59) Sex: M Institution: [facility] Location: [facility] Date of Collection: 06/29/2025 Date of Reported: 06/30/2025 11:16 Results to: Mannie Smith MD, BA Lino Cm MD us Mannie Roth DO CYTOLOGY ORDERABLES Final Re sult SEE NARRATIVE * Anatomic Pathology (06/29/2025 12:00 AM EDT) 06/29/2025 06/29/2025 3:2 5 PM EDT Narrative SEE NARRATIVE - 07/04/2025 11:16 [place] [address] Counseling Program Leader: Filemon Redd MD Surgical Pathology Report FINAL PATHOLOGIC DIAGNOSIS: SOFT TISSUE, ANTERIOR MIDLINE NECK SUPERIOR TO THYROID, CORE BIOPSY: Scant fragment of fibroadipose tissue. Electronically Signed Out By Keith Oneal MD By his/her signature above, the pathologist listed as making the Final Diagnosis certifies that he/she has personally reviewed this case and confirmed or corrected the diagnosis. PROCEDURES/ADDENDA ADDENDUM Ordered Date: 07/04/2025 SEE SEPARATE FLOW CYTOMETRY REPORT, [facility], CASE# [id number] Canceled: Flow cytometry TF Panel Reason for cancel: The test was canceled due to low viability and low cell yield. Recommend follow up as clinically indicated. (SEE REPORT) CLINICAL HISTORY Anterior midline neck mass SPECIMENS SUBMITTED: A: SOFT TISSUE, ANTERIOR MIDLINE NECK SUPERIOR TO THYROID, CORE BIOPSY GROSS DESCRIPTION SOFT TISSUE, ANTERIOR MIDLINE NECK SUPERIOR TO THYROID, CORE BIOPSY: Received in formalin is a scant amount of jeff-pink soft tissue which is entirely filtered into a single cassette labeled A1. (Please note specimen may not survive processing.) Grossed by: KATHRYN Ansari, PA(ASCP) [id number] 06/29/2025 Grossing Staff: [id number] Patient Name: YONAS MALONE : 1965 (Age: 59) Sex: M Institution: [facility] Location: [facility] Date of Operation: 06/29/2025 Date of Reported: 06/30/2025 14:12 Results To: Juancarlos Smith MD, THERESA Pineda MD us Juancarlos Cm MD, KIKE LAB PATHOLOGY ORDERAB LES Edited Result - Final SEE NARRATIVE * (ABNORMAL) Comprehensive metabolic panel (01/27/2024 10:07 PM EDT) SODIUM 129(L) 133 - 146 mmol/L [facility] POTASSIUM 3.3 3.3 - 5.1 mmol/L [facility] CHLORIDE 92(L) 96 - 108 mmol/L [facility] CO2 21 21 - 35 mmol/L [facility] BUN 14 6 - 19 mg/dL [facility] CREATININE 1.00 0.5 - 1.5 mg/dL [facility] GLUCOSE 96 70 - 99 mg/dL [facility] ALBUMIN 4.0 3.9 - 4.8 g/dL [facility] TOTAL PROTEIN 6.6 6.5 - 8.0 g/dL [facility] CALCIUM 8.6 8.4 - 10.3 mg/dL [facility] ALKALINE PHOSPHATASE 69 39 - 117 U/L [facility] TOTAL BILIRUBIN 0.4 0.0 - 1.2 mg/dL [facility] AST 25 0 - 37 U/L [facility] ALT 27 0 - 40 U/L [facility] GLOBULIN 2.6 1 - 4.8 g/dL [facility] EGFR 87 >59 mL/min/1.7 3m2 [facility] Comment:Estimated glomerular filtration rate calculated using the CKD-EPI refit equation. ANION GAP 19 10 - 20 mmol/L [facility] Blood 01/27/2024 10:0 7 PM EDT 01/27/2024 10:19 PM EDT us Silvana Melendrez MD LAB BLOOD BKR ORDERABLES Fin al Result [facility] [address] [place] [address] from Last 3 Months or Most Recently Relevant to Health Maintenance Insurance Care Teams Clinical Informatics Educator Relationship Specialty Start Date End Date Lino Pineda MD [address] [place] [address] PCP - General Internal Medicine 03/02/18 Additional Source Comments The information contained in this document represents components of the legal health record. It is not the complete legal health record.[facility]
--- OUTSIDE RECORDS SUMMARY | 2025-07-11 11:52 | XMS_ITS | Encounter Summary ---
Author Organization [facility] Address [address] [address] Phone Care Team Providers Care Recruitment Manager Name Role Phone Lino Pineda MD Primary Care Provider [phone] [phone] Encounter Details Date Type Department Care Team (Late st Contact Info) Description 02/25/2019 Procedure Pass [facility], [address] [place] [address] Social History Tobacco Use Types Packs/Day Years [...] documented as of this encounter Care Teams Recruitment Manager Relationship Specialty Start Date End Date Lino Pineda MD [address] [place] [id number] PCP - General Internal Medicine 03/02/18 documented as of this encounter Additional Source Comments The information contained in this document represents components of the legal health record. It is not the complete legal health record.[facility]
--- OUTSIDE RECORDS SUMMARY | 2025-07-11 11:52 | XMS_ITS | Encounter Summary ---
Author Organization [facility] Address [address] [place], [place] [id number] Phone Care Team Providers Care Quiller Hand Name Role Phone Lino Pineda MD Primary Care Provider [phone] [phone] Reason for Referral * MRI/CAT Scan - Closed Specialty Diagnoses / Procedures Referred By Renaldo gutierrez Referred To Contact Radiology Diagnoses Chronic low back pain without sciatica, unspecified back pain laterality Right leg pain Procedures MRI Lumbar Spine Jesus Manuel Santamaria DC [address] [place] [address] Phone: tel: fax: Referral ID Status Reason Start Date Expiration Date Visits Re quested Visits Authorized [id number] Closed 07/16/2018 09/13/2018 1 1 Encounter Details Date Type Department Care Team (Late st Contact Info) Description 07/22/2018 Ancillary Orders Virtual Department [address] [place] [phone] Jesus Manuel Santamaria DC [address] [place] [phone] Chronic low back pain without sciatica, unspecified back pain laterality; Right leg pain Social History Tobacco Use Types Packs/Day Years [...] on file documented as of this encounter Results * MRI LUMBAR SPINE (BONE) WITHOUT CONTRAST (08/04/2018 6:19 PM EST) Anatomical Region Laterality Modality L-spine Magnetic Resonan ce 08/04/2018 9:31 PM EST Impressions 08/04/2018 11:07 PM EST 1. Transitional lumbosacral anatomy, with vertebrae labeled. 2. Central disc protrusion superimposed on diffuse disc bulging and moderate bilateral facet hypertrophic changes at L4-L5, resulting in moderate bilateral lateral recess, severe left and moderate right neural foraminal stenosis. 3. Mild broad-based disc bulging at L2-L3 and L3-L4 with mild bilateral neural foraminal stenosis. POS - [id number] Narrative 08/04/2018 11:07 PM EST MRI LUMBAR SPINE (BONE) WITHOUT CONTRAST, HISTORY: Low back pain, sciatica, numbness right leg to toes. COMPARISON: None. TECHNIQUE: Exam performed on a 1.5 Gabby high-field MRI scanner. Sagittal T1, T2 and STIR, axial T1 and T2 sequences were obtained. FINDINGS: There is transitional lumbosacral anatomy with sacralization of L5. Vertebrae levels are labeled and should be reviewed if there is any follow-up imaging. There is normal lumbar lordosis. Normal height and alignment of the lumbar vertebrae. There is no fracture. Benign fat signal hemangioma is within the central L2 vertebral body. Bone marrow signal is otherwise normal. The conus terminates at the inferior T12 level, is normal. There is normal nerve distribution and the thecal sac. From T12 through L4 the intervertebral discs are normal in height and signal. There is minimal loss of height and loss of central disc signal at L4-L5. At T11-T12, T12-L1, and L1-L2 there is no disc herniation and no significant central canal or neural foraminal stenosis. At L2-L3 and L3-L4 there is mild broad-based disc bulging into the proximal neural foramina, with mild bilateral neural foraminal stenosis. No focal disc herniation or significant central canal stenosis. There are mild bilateral facet hypertrophic changes at both levels. At L4-L5, broad-based disc bulging with central disc protrusion with focal posterior annular tear. Moderate bilateral facet hypertrophic changes. There is moderate bilateral lateral recess stenosis, severe left and moderate right neural foraminal stenosis. At L5-S1 there is no disc herniation and no significant central canal or neural foraminal stenosis. Procedure Note Nicol Mo MD - 08/04/2018 MRI LUMBAR SPINE (BONE) WITHOUT CONTRAST, HISTORY: Low back pain, sciatica, numbness right leg to toes. COMPARISON: None. TECHNIQUE: Exam performed on a 1.5 Gabby high-field MRI scanner. SagittalT1, T2 and STIR, axial T1 and T2 sequences were obtained. FINDINGS: There is transitional lumbosacral anatomy with sacralization of L5.Vertebrae levels are labeled and should be reviewed if there is anyfollow-up imaging. There is normal lumbar lordosis. Normal height and alignment of the lumbarvertebrae. There is no fracture. Benign fat signal hemangioma is withinthe central L2 vertebral body. Bone marrow signal is otherwise normal. Theconus terminates at the inferior T12 level, is normal. There is normalnerve distribution and the thecal sac. From T12 through L4 the intervertebral discs are normal in height andsignal. There is minimal loss of height and loss of central disc signal atL4-L5. At T11-T12, T12-L1, and L1-L2 there is no disc herniation and nosignificant central canal or neural foraminal stenosis. At L2-L3 and L3-L4 there is mild broad-based disc bulging into theproximal neural foramina, with mild bilateral neural foraminal stenosis.No focal disc herniation or significant central canal stenosis. There aremild bilateral facet hypertrophic changes at both levels. At L4-L5, broad-based disc bulging with central disc protrusion with focalposterior annular tear. Moderate bilateral facet hypertrophic changes.There is moderate bilateral lateral recess stenosis, severe left andmoderate right neural foraminal stenosis. At L5-S1 there is no disc herniation and no significant central canal orneural foraminal stenosis. IMPRESSION: 1. Transitional lumbosacral anatomy, with vertebrae labeled. 2. Central disc protrusion superimposed on diffuse disc bulging andmoderate bilateral facet hypertrophic changes at L4-L5, resulting inmoderate bilateral lateral recess, severe left and moderate right neuralforaminal stenosis. 3. Mild broad-based disc bulging at L2-L3 and L3-L4 with mild bilateralneural foraminal stenosis. POS - [id number] Jesus Manuel Santamaria DC IMG MR XSPECIALTY Final R esult documented in this encounter Visit Diagnoses Diagnosis Chronic low back pain without sciatica, unspecified back pain laterality Right leg pain Pain in soft tissues of limb Chronic low back pain without sciatica, unspecified back pain laterality Right leg pain Pain in soft tissues of limb documented in this encounter Additional Health Concerns Infection Onset Date Last Indicated Resolved Time CoV-Risk 01/27/2024 01/27/2024 02/07/2024 1:22 AM EDT documented as of this encounter Care Teams Quiller Hand Relationship Specialty Start Date End Date Lino Pineda MD [address] [place] [id number] PCP - General Internal Medicine 03/02/18 documented as of this encounter Additional Source Comments The information contained in this document represents components of the legal health record. It is not the complete legal health record.[facility]
--- OUTSIDE RECORDS SUMMARY | 2025-07-11 11:52 | XMS_ITS | Encounter Summary ---
Author Organization [facility] Address [address] [place], [place] [phone] Phone Care Team Providers Care Information Clerk Name Role Phone Lino Pineda MD Primary Care Provider [phone] [phone] Reason for Referral * MRI/CAT Scan - Closed Specialty Diagnoses / Procedures Referred By Renaldo gutierrez Referred To Contact Radiology Diagnoses Lumbar dysfunction Low back pain with right-sided sciatica, unspecified back pain laterality, unspecified chronicity Procedures MRI Lumbar Spine Jesus Manuel Santamaria DC [address] [place] [address] Phone: tel: fax: [address] [address] Phone: tel: Referral ID Status Reason Start Date Expiration Date Visits Re quested Visits Authorized [id number] Closed 05/24/2020 06/23/2020 1 1 Encounter Details Date Type Department Care Team (Late st Contact Info) Description 05/11/2020 Ancillary Orders Virtual Department [address] [place] [phone] Jesus Manuel Santamaria DC [address] [place] [phone] Lumbar dysfunction; Low back pain with right-sided sciatica, unspecified back pain laterality, unspecified chronicity Social History Tobacco Use Types Packs/Day Years [...] * MRI LUMBAR SPINE (BONE) WITHOUT CONTRAST (05/24/2020 7:41 PM EDT) Anatomical Region Laterality Modality L-spine Magnetic Resonan ce 05/25/2020 8:02 AM EDT Impressions 05/25/2020 8:15 AM EDT No significant changes from 08/04/2018. POS - [id number] Narrative 05/25/2020 8:15 AM EDT HISTORY: Lower back pain with right sciatic symptoms. COMPARISON: MRI lumbar spine 08/04/2018 TECHNIQUE: Exam performed on a 1.5 Gabby high-field MRI scanner. Sagittal T1, T2 and STIR, axial T1 and T2 sequences were obtained. FINDINGS: Transitional vertebral body at the lumbosacral junction which will again be considered L5. L5-S1 has a rudimentary disc space. Conus medullaris: Normal. L1-L2: No significant abnormalities have developed. L2-L3: Minimal broad-based disc bulge. No significant abnormalities have developed. L3-L4: Minimal broad-based disc bulge. Minimal facet arthropathy. Minimal neuroforaminal narrowing. No significant changes. L4-L5: Similar loss of T2 signal within the disc and mild disc space narrowing. Mild-moderate degenerative endplate changes, more so to the left of midline are similar. The the small central disc protrusion is not significantly changed. Minimal flattening of the anterior aspect of the thecal sac. Similar moderate bilateral facet arthropathy and mild thickening of the ligamentum flavum.. No central canal stenosis. Fairly severe narrowing of the left neuroforamen and moderate narrowing of the right neuroforamen by uncovertebral joint osteophytes and facet arthropathy are similar. L5-S1: No significant abnormalities have developed. Soft tissues: No evidence of paravertebral masses. Vertebral bodies: No compression fractures or subluxations. Marrow signal: No suspicious marrow signal abnormalities have developed. Other: Probable multiple small parapelvic cysts within the left kidney. The appearance is similar to 08/04/2018. Procedure Note Ignacio Dvaila MD - 05/25/2020 HISTORY: Lower back pain with right sciatic symptoms. COMPARISON: MRI lumbar spine 08/04/2018 TECHNIQUE: Exam performed on a 1.5 Gabby high-field MRI scanner. SagittalT1, T2 and STIR, axial T1 and T2 sequences were obtained. FINDINGS: Transitional vertebral body at the lumbosacral junction which will againbe considered L5. L5-S1 has a rudimentary disc space. Conus medullaris: Normal. L1-L2: No significant abnormalities have developed. L2-L3: Minimal broad-based disc bulge. No significant abnormalities havedeveloped. L3-L4: Minimal broad-based disc bulge. Minimal facet arthropathy. Minimalneuroforaminal narrowing. No significant changes. L4-L5: Similar loss of T2 signal within the disc and mild disc spacenarrowing. Mild-moderate degenerative endplate changes, more so to theleft of midline are similar. The the small central disc protrusion is notsignificantly changed. Minimal flattening of the anterior aspect of thethecal sac. Similar moderate bilateral facet arthropathy and mildthickening of the ligamentum flavum.. No central canal stenosis. Fairlysevere narrowing of the left neuroforamen and moderate narrowing of theright neuroforamen by uncovertebral joint osteophytes and facetarthropathy are similar. L5-S1: No significant abnormalities have developed. Soft tissues: No evidence of paravertebral masses. Vertebral bodies: No compression fractures or subluxations. Marrow signal: No suspicious marrow signal abnormalities have developed. Other: Probable multiple small parapelvic cysts within the left kidney.The appearance is similar to 08/04/2018. IMPRESSION: No significant changes from 08/04/2018. POS - [id number] Jesus Manuel Santamaria DC IMG MR XSPECIALTY Final R esult documented in this encounter Visit Diagnoses Diagnosis Lumbar dysfunction Nonallopathic lesion of lumbar region, not elsewhere classified Low back pain with right-sided sciatica, unspecified back pain laterality, unspecified chronicity Lumbar dysfunction Nonallopathic lesion of lumbar region, not elsewhere classified Low back pain with right-sided sciatica, unspecified back pain laterality, unspecified chronicity documented in this encounter Additional Health Concerns Infection Onset Date Last Indicated Resolved Time CoV-Risk 01/27/2024 01/27/2024 02/07/2024 1:22 AM EDT documented as of this encounter Care Teams Information Clerk Relationship Specialty Start Date End Date Lino Pineda MD [address] [place] [address] PCP - General Internal Medicine 03/02/18 documented as of this encounter Additional Source Comments The information contained in this document represents components of the legal health record. It is not the complete legal health record.[facility]
--- OUTSIDE RECORDS SUMMARY | 2025-07-11 11:52 | XMS_ITS | Encounter Summary ---
Author Organization [facility] Address [address] [place] [address] [place] [phone] Phone Care Team Providers Care Boat Designer Name Role Phone Lino Pineda MD Primary Care Provider [phone] [phone] Encounter Details Date Type Department Care Team (Late st Contact Info) Description 07/04/2025 Orders Only [facility] [address] [place] [address] Juancarlos Cm MD, KIKE [address] [place] [address] [phone] [email or web address] Social History Tobacco Use Types Packs/Day Years [...] on file documented as of this encounter Procedures Procedure Name Priority Date/Time Associated Diagnosis Comments OUTSIDE PATHOLOGY Routine 07/04/2025 10:00 AM EDT documented in this encounter Results * Outside Pathology (07/04/2025 10:00 AM EDT) Juancarlos Cm MD, KIKE PATHOLOGY ORDERABLES Final Result documented in this encounter Visit Diagnoses Not on filedocumented in this encounter Care Teams Boat Designer Relationship Specialty Start Date End Date Lino Pineda MD [address] [place] [phone] PCP - General Internal Medicine 03/02/18 documented as of this encounter Additional Source Comments The information contained in this document represents components of the legal health record. It is not the complete legal health record.[facility]
--- OUTSIDE RECORDS SUMMARY | 2025-07-11 11:52 | XMS_ITS | Patient Health Record ---
Author Organization [facility] L[facility] [place] [place] Address [address] [place] [address] Care Team Providers Care Transit Man Name Role Phone Lino Pineda MD Primary Care Provider Unavailab Domenico Burns Unavailable [phone] Reason For Referral No Information Medications Medication [...] X ray : Foot, right 3V 03/10/2013 49771- Debride <25 sq cm 03/10/2013 76975- Debride <25 sq cm 09/14/2013 17580- Debride <25 sq cm 02/07/2014 53383- Debride <25 sq cm 12/05/2014 08009- Debride <25 sq cm 08/30/2016 34144- Debride <25 sq cm 09/25/2016 Insurance Providers Payer Name Payer Address Payer Phone Subscriber Number Group Number Insured Name Patient Relationship to Insured Coverage Start Date Coverage End Date [facility] [address] [place] [address] [id number] Yonas Malone Self - patient is the insured Medical (General) History Medical History History ICD Code back, hip, knee pain broken bones HTN Surgical History Surgery Date(Month/Year) knee surgery (7) ht left 4th, and 5th toes 01/19/2014 left knee arthroscopy 08/13/2016 HT R 4/ Ostectomy R5 02/19/2017
--- OUTSIDE RECORDS SUMMARY | 2025-07-11 11:52 | XMS_ITS | Encounter Summary ---
Author Organization [facility] Address [address] [place] [address] Phone Care Team Providers Care Cryptography Teacher Name Role Phone Lino Pineda MD Primary Care Provider [phone] Encounter Details Date Type Department Care Team (Late st Contact Info) Description 07/22/2018 Procedure Pass [facility], [address] [address] Social History Tobacco Use Types Packs/Day Years [...] documented as of this encounter Care Teams Cryptography Teacher Relationship Specialty Start Date End Date Lino Pineda MD [address] [place] [id number] PCP - General Internal Medicine 03/02/18 documented as of this encounter Additional Source Comments The information contained in this document represents components of the legal health record. It is not the complete legal health record.[facility]
--- OUTSIDE RECORDS SUMMARY | 2025-07-11 11:52 | XMS_ITS | Encounter Summary ---
Author Organization [facility] Address [address] [place] [address] [place], [place] [id number] Phone Care Team Providers Care Manager Fixed Income Name Role Phone Lino Pineda MD Primary Care Provider [phone] Reason for Referral * MRI/CAT Scan - Closed Specialty Diagnoses / Procedures Referred By Renaldo gutierrez Referred To Contact Radiology Diagnoses Dizziness and giddiness Arthralgia of left temporomandibular joint Sensory hearing loss, bilateral Procedures MRI Brain Madelyn Thrasher MD Phone: tel: fax: [email or web address] Referral ID Status Reason Start Date Expiration Date Visits Re quested Visits Authorized [id number] Closed 02/22/2019 04/22/2019 1 1 Encounter Details Date Type Department Care Team (Latest Contact Info) Description 02/25/2019 Ancillary Orders Virtual Department [address] [place] [address] Madelyn Thrasher MD [address] [place] [address], [address] [place] [address] [email or web address] Dizziness and giddiness; Arthralgia of left temporomandibular joint; Sensory hearing loss, bilateral Social History Tobacco Use Types Packs/Day Years [...] as of this encounter Results * MRI BRAIN WITH AND WITHOUT CONTRAST (04/12/2019 9:24 AM EDT) Anatomical Region Laterality Modality Head Magnetic Resonan ce 04/12/2019 9:35 AM EDT Impressions 04/12/2019 9:44 AM EDT Unremarkable study. Unremarkable appearance of the internal auditory canals. POS [id number] Narrative 04/12/2019 9:44 AM EDT EXAM: MRI BRAIN WITHOUT AND WITH INTRAVENOUS CONTRAST COMPARISON: None TECHNIQUE: Exam performed on a 1.5 Gabby high-field MRI scanner. Multiple sequences were obtained prior to and following administration of 20.5 cc of intravenous contrast gadolinium Dotarem FINDINGS: Motion artifact degrades some of the sequences. Ventricles, Sulci and extra axial spaces: Ventricles, sulci, and cisterns are age-appropriate, without evidence of hydrocephalus. Brain Parenchyma: The brain parenchyma is normal in contour and signal characteristics. No restricted diffusion, hemorrhage, mass or shift of midline structures seen. No abnormal parenchymal enhancement following administration of intravenous contrast. IAC: No mass or abnormal enhancement seen in the cerebellopontine angle cisterns or internal auditory canals. Vascular: The major intracranial vessels show normal flow related signal void. Skull Base: Sellar/parasellar structures, pineal gland region and craniovertebral junction are unremarkable. Orbits: The orbits are unremarkable. Paranasal sinuses: Mild mucosal thickening of the paranasal sinuses represent inflammatory changes. Mastoid air cells appear clear. Bones and soft tissues: Grossly unremarkable. Procedure Note Yuniel Downs MD - 04/12/2019 EXAM: MRI BRAIN WITHOUT AND WITH INTRAVENOUS CONTRAST COMPARISON: None TECHNIQUE: Exam performed on a 1.5 Gabby high-field MRI scanner. Multiplesequences were obtained prior to and following administration of 20.5 ccof intravenous contrast gadolinium Dotarem FINDINGS: Motion artifact degrades some of the sequences. Ventricles, Sulci and extra axial spaces: Ventricles, sulci, andcisterns are age-appropriate, without evidence of hydrocephalus. Brain Parenchyma: The brain parenchyma is normal in contour and signalcharacteristics. No restricted diffusion, hemorrhage, mass or shift ofmidline structures seen. No abnormal parenchymal enhancement followingadministration of intravenous contrast. IAC: No mass or abnormal enhancement seen in the cerebellopontine anglecisterns or internal auditory canals. Vascular: The major intracranial vessels show normal flow related signalvoid. Skull Base: Sellar/parasellar structures, pineal gland region andcraniovertebral junction are unremarkable. Orbits: The orbits are unremarkable. Paranasal sinuses: Mild mucosal thickening of the paranasal sinusesrepresent inflammatory changes. Mastoid air cells appear clear. Bones and soft tissues: Grossly unremarkable. IMPRESSION: Unremarkable study. Unremarkable appearance of the internal auditorycanals. POS [id number] Madelyn Thrasher MD IMG MR HEAD/NECK Final Res ult documented in this encounter Visit Diagnoses Diagnosis Dizziness and giddiness Arthralgia of left temporomandibular joint Sensory hearing loss, bilateral documented in this encounter Additional Health Concerns Infection Onset Date Last Indicated Resolved Time CoV-Risk 01/27/2024 01/27/2024 02/07/2024 1:22 AM EDT documented as of this encounter Care Teams Manager Fixed Income Relationship Specialty Start Date End Date Lino Pineda MD [address] [place] [address] PCP - General Internal Medicine 03/02/18 documented as of this encounter Additional Source Comments The information contained in this document represents components of the legal health record. It is not the complete legal health record.[facility]
--- OUTSIDE RECORDS SUMMARY | 2025-07-11 11:53 | XMS_ITS | Data Portability ---
Author Organization [place] [facility], All[facility] Address [address] [place] [address] Care Team Providers Care Travel Physical Therapist Name Role Phone ELIAS BAILEY Referring Provider Assessment Encounter Date Assessment Date Assessment LastModified by Organization Details LastModified Time 06/20/2025 06/20/2025 59M with hx of midline neck mass 3.2 cm by 2.[address] flexible laryngoscopy today revealed a small vallecular cyst without any base of tongue abnormalities. 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 We need tissue sampling. We did discuss that this could be a potential congenital issue versus congenital issue with transformation to malignancy. We did talk about further options depending on biopsy results including serial ultrasounds versus surgical intervention. He seems or interested in surgery at this time but we will hold off until we get all of the final workup. -USGFNA of Midline Neck mass -Thyroid Labs -RV 1 month dlofgrenmd Not available 06/20/2025 09:30:54 Plan of Treatment Reminders Order Date Submit Date Provider Last Modified By Organization Details Last Modified Time Details Appointments Hearing Test First 2024 11:00A M Hearing Test Not available Not available Not available Establish ed 15 2024 11:30A M Mannie Roth, DO Not available Not available Not available Lab TSH, serum or plasma 2024 025 [facility], [address], [place], [address], 06/27/2025 04:09:13 T4, free, serum 2024 025 [facility], [address], [place], [place], , 06/27/2025 04:09:13 T3, free, serum or plasma 2024 025 [facility], [address], [place], [address], 06/27/2025 04:09:13 Referral None recorded. Procedures fine needle aspiratio n, ultrasoun d guided, neck mass (PROC) - Midline neck mass, TGDC vs potential papillary thyroid carcinoma within TGDC 2024 025 [facility], [address] [facility], [place], [address], 06/29/2025 11:24:59 Surgeries None recorded. Imaging None recorded. Medication Orders None recorded. Patient TargetsNo targets recorded. Patient InstructionsNo instructions recorded. Reason for Referral None Reported. Results Created Date Observation Date Name Description Value Unit Range Abnormal Flag Note LastModifiedBy Organization Detail LastModifiedTime Result Notes None recorded. Problems Name Problem SNOMED Code Status Onset Date Resolution Date Notes Provider Name and Address Organization Details Recorded Time Pain of left temporoma ndibular joint 61586316425 420706 Active 2017 Arthralgi a of left temporoma ndibular joint; Note: Date Diagnosed : 03/05/2018 11:17 AM (M26.622) Not Available [facility] 4 02:55:31 Sensorine ural hearing loss of bilateral ears 002759574 Active 2017 Sensorine ural hearing loss, bilateral ; Note: Date Diagnosed : 03/05/2018 11:17 AM (H90.3) Not Available [facility] 4 02:55:35 Dizziness and giddiness 476102870 Active 2017 Dizziness and giddiness ; Note: Date Diagnosed : 03/05/2018 10:50 AM (R42) Not Available [facility] 4 02:55:30 Bilateral tinnitus 95058196890 02 Active 2019 Tinnitus, bilateral ; Note: Date Diagnosed : 0 11:52 AM (H93.13) Not Available [facility] 4 02:55:35 Mass of head and/or neck 185426864 Active 2024 Mannie Roth, DO [address], [place], [address] , [facility] - [facility] 19:39:50 Vallecula r cyst 559417461 Active 2024 Mannie Roth, DO [address], [place], [address] , [facility] - [facility] 19:41:06 Thyroid dysfuncti on 653798019 Active 2024 Mannie Roth, DO [address], [place], [address] , [place] - [facility] 09:26:39 Problem Notes None recorded. Procedures Surgical History Date Name Laterality Status Provider Name and Address Organization Details Recorded Time FOL_normal_DH L completed Mannie Roth, DO [address] [facility], [place], [address], [place] - [facility] 06/20/2025 09:30:03 repair of ligament of knee joint completed AIXA VERA [place] - [facility] 06/20/2025 09:16:03 Imaging Results None recorded. Procedure Notes None recorded. Medical Equipment None Reported. Allergies No known drug allergies Medications Name Sig Start Date Stop Date Status Note LastModified by Organization Details LastModified Time tizanidin e 4 mg tablet TAKE 1 TABLET BY MOUTH EVERY 8 HOURS FOR 7 DAYS NEEDED 06/20 completed Not Available Not Available Not Available benzonata te 200 mg capsule TAKE 1 CAPSULE BY MOUTH THREE TIMES DAILY FOR 10 DAYS NEEDED 06/20 completed Not Available Not Available Not Available meloxicam 15 mg tablet 06/20 completed Not Available Not Available Not Available amlodipin e 5 mg tablet TAKE 1 TABLET BY MOUTH DAILY active Not Available Not Available No t Available lorazepam 0.5 mg tablet TAKE 1 TABLET BY MOUTH DAILY NEEDED active Not Available Not Available No t Available lisinopri l 10 mg tablet 06/20 completed Medicati on ID: [id number] D uration Value: 30 Brand Name: lisinopr il Send Method: E-Prescr ibed Sub s Allowed: subs OK Medic ationGen ericName : lisinopr il Not Available Not Available Not Available lisinopri l 30 mg tablet TAKE 1 TABLET BY MOUTH DAILY 06/20 completed Not Available Not Available Not Available codeine 10 mg-guaife nesin 100 mg/5 mL oral liquid TAKE 10 ML BY MOUTH THREE TIMES DAILY NEEDED FOR 10 DAYS 06/20 completed Not Available Not Available Not Available methylpre dnisolone 4 mg tablets in a dose pack FOLLOW PACKAGE DIRECTIO NS 06/20 completed Not Available Not Available Not Available lisinopri l 40 mg tablet TAKE 1 TABLET BY MOUTH DAILY active Not Available Not Available No t Available sertralin e 50 mg tablet TAKE 1 TABLET BY MOUTH DAILY active Not Available Not Available No t Available doxycycli ne hyclate 100 mg tablet TAKE 1 TABLET BY MOUTH TWICE DAILY FOR 10 DAYS 06/20 completed Not Available Not Available Not Available amoxicill in 875 mg-potass ium clavulana te 125 mg tablet 06/20 completed Medicati on ID: [id number] D uration Value: 10 Brand Name: amoxicil perry-pot clavulan ate Send Method: E-Prescr ibed Sub s Allowed: subs OK Medic ationGen ericName : amoxicil perry-pot clavulan ate Not Available Not Available Not Available oxycodone 5 mg tablet TAKE 1 TABLET BY MOUTH THREE TIMES DAILY FOR 7 DAYS 06/20 completed Not Available Not Available Not Available Eliquis 5 mg tablet TAKE 1 TABLET BY MOUTH TWICE DAILY active Not Available Not Available No t Available Vitals Date Recorded Body height Body mass index (BMI) Body weight Provider Name and Address Organization Details Last Updated DateTime 06/20/2025 177.8 cm 33.7 kg/m2 522497.21 g AIXA VERA [place] [facility] 06/20/2025 09:16:41 Social History None recorded. Functional Status Question Answer Note LastModified by Organizat ion Details LastModified Time What is your level of alcohol consumption? Occasional ccomi Information not available 06/20/2025 Mental Status None recorded. Family History Nothing Reported. Medical History Condition Response Bleeding Disorder Headaches Y Migraines Y Anxiety Y Hypertension Y Past Encounters Encounter ID Performer Location Encounter Start Date Encounter Closed Date Diagnosis/Indication Diagnosis SNOMED-CT Code Diagnosis ICD10 Code Diagnosis IMO Codes Diagnosis Note [id number] Mannie Roth DO [facility] [address] [place] [address] 06/20/2025 09:02:38 06/20/2025 09:31:46 Mass of head and/or neck 558510150 R22.1 Vallecular cyst 59894089 7 J38.7 077446 Thyroid dysfunction 2645 39138 E07.9 165253 Health Concerns Section Related Observation LastModified by Organization Detai ls LastModified Time None Recorded Concern Status LastModified by Organization Details LastModified Time None Recorded Advance Directives Directive None Recorded Payers Insurance Date Sequence Insurance Name Policy Number Policy Delgado Covered Member ID Delgado Member ID Guarantor Name 06/20/[address] [facility] [id number] Yonas Malone [id number] Yonas Malone Notes Date Note Type Note Provider Name and Address Organization Details Recorded Time 06/20/2025 text/html ROS as noted in the HPI The patient presents with concerns of a neck mass. This is located in the midline neck . This has been going on for: years and has progressed in size. No other history of thyroid problems. Patient is an avid ski year and noticed it a few years ago when skiing per his friends. Denies Fevers, chills, unexpected weight loss, night sweatsAdmits Neck swellingDenies Neck pain, unilateral otalgia, heartburn, dysphagia Prior studies: CT NeckPrior Bx: NoneFamily Hx: NoneSocial Hx: tobacco Record/Referral Review: Seen recently by PCP with hx of PE on eliquis as well as recurring TMJ dysfunction. Noted neck mass, CT neck report 04/2025 showed 3.2 by 2.2 midline neck mass with mild inferior inhancement likely TGDC or concern for superimposed PTC . Left vallecular cyst noted. Mannie Roth DO [address] [place] [address],[address] [place], [address], [facility] - [facility] 06/20/2025 09:31:17
--- OUTSIDE RECORDS SUMMARY | 2025-07-11 11:53 | XMS_ITS | Clinical Summary ---
Author Organization [facility] Address [address] [place] [address] Phone Care Team Providers Care Scouts Name Role Phone Unavailable Primary Care Provider Unavailabl e Encounters Date Type Department Care Team Description 06/27/2025 4:03 PM EDT - 06/27/2025 11:59 PM EDT Hospital Encounter [facility] MRI [address] [place] [phone] Headache Discharge Disposition: Home or Self Care from Last 3 Months Social History Tobacco Use Types Packs/Day Years Used Date Smoking Tobacco: Never Assessed Sex and Gender Information Value Date Recorded Sex Assigned at Not on file Legal Sex Male 3:39 PM EST Gender Identity Not on file Sexual Orientation Not on file Plan of Treatment Health Maintenance Due Date Last Done Comments Colorectal Cancer Screening: Colonoscopy 1965 DTaP,Tdap,and Td Vaccines (1 - Tdap) 11/13/1983 Pneumococcal Vaccine: 50+ Years (1 of 1 - PCV) 2014 Zoster Vaccines (1 of 2) 2014 Depression Screening 09/08/2024 COVID-19 Vaccine (4 - 2024-2 6 season) 2025 09/11/2021, 05/07/2021, 02/10/2021 Influenza Vaccine (#1) 2025 Cholesterol Screening (Lipid Panel) 06/22/2025 HIV Screening 06/22/2025 Hepatitis C Screening 06/22/2025 Social Influencers of Health Screening 06/22/2025 Hypertension/CHF/CAD Annual BMP Blood Test 06/27/2025 01/27/2024, 10/13/2019 RSV Immunization Adult Patients (1 - 1-dose 75+ series) 11/13/2039 HIB Vaccines Aged Out No longer eligi ble based on patient's age to complete this topic HPV Vaccines Aged Out No longer eligi ble based on patient's age to complete this topic Hepatitis A Vaccines Aged Out No long er eligible based on patient's age to complete this topic Hepatitis B Vaccines Aged Out No long er eligible based on patient's age to complete this topic IPV Vaccines Aged Out No longer eligi ble based on patient's age to complete this topic MMR Vaccines Aged Out No longer eligi ble based on patient's age to complete this topic Meningococcal ACWY Vaccine Aged Out N o longer eligible based on patient's age to complete this topic Meningococcal B Vaccine Aged Out No l onger eligible based on patient's age to complete this topic RSV Immunization Patients Under 20 months Aged Out No longer eligible b ased on patient's age to complete this topic Varicella Vaccines Aged Out No longer eligible based on patient's age to complete this topic Procedures Procedure Name Priority Date/Time Associated Diagnosis Comments MR BRAIN WO AND W CONTRAST Routine 06/27/2025 6:06 PM EDT Headache from Last 3 Months Results * MR Brain wo and w Contrast (06/27/2025 6:06 PM EDT) Anatomical Region Laterality Modality Head and Neck Magnetic Resonan ce 06/30/2025 2:21 PM EDT Impressions 06/30/2025 2:54 PM EDT Normal MRI appearance of the brain. -------- FINAL REPORT -------- Dictated By: Blake Guzman Dictated Date: 06/30/2025 14:21 ET Assigned Physician: Blake Guzman Reviewed and Electronically Signed By: Blake Guzman Signed Date: 06/30/2025 14:54 ET Workstation ID: [id number] Transcribed By: Self Edit Transcribed Date: 06/30/2025 14:50 ET Narrative 06/30/2025 2:54 PM EDT PROCEDURE: Contrast-enhanced MRI of the brain. HISTORY: padgett's. TECHNIQUE: Multiplanar multisequence MRI of the brain with and without intravenous contrast. IV CONTRAST DOSE: 20 mL intravenous Dotarem from a 20 mL vial with 0 mL discarded. COMPARISON: None. FINDINGS: BRAIN: No diffusion abnormality. No mass or extra-axial fluid collection. No hydrocephalus. The major intracranial flow voids are preserved. Age commensurate ventricles and sulci. No abnormal enhancement. ORBITS: Normal. SINUSES/MASTOIDS: Mild mucosal thickening in the right frontal sinus and ethmoid air cells. Small amount of fluid in the left mastoids. CALVARIUM: Normal. OTHER: The visualized skull base soft tissues are normal. Procedure Note Blake Guzman MD - 06/30/2025 PROCEDURE: Contrast-enhanced MRI of the brain. HISTORY: padgett's. TECHNIQUE: Multiplanar multisequence MRI of the brain with and withoutintravenous contrast. IV CONTRAST DOSE: 20 mL intravenous Dotarem from a 20 mL vial with 0 mLdiscarded. COMPARISON: None. FINDINGS: BRAIN: No diffusion abnormality. No mass or extra-axial fluid collection.No hydrocephalus. The major intracranial flow voids are preserved. Agecommensurate ventricles and sulci. No abnormal enhancement. ORBITS: Normal. SINUSES/MASTOIDS: Mild mucosal thickening in the right frontal sinus andethmoid air cells. Small amount of fluid in the left mastoids. CALVARIUM: Normal. OTHER: The visualized skull base soft tissues are normal. IMPRESSION: Normal MRI appearance of the brain. -------- FINAL REPORT -------- Dictated By: Blake Guzman Dictated Date: 06/30/2025 14:21 ET Assigned Physician: Blake Guzman Reviewed and Electronically Signed By: Blake Guzman Signed Date: 06/30/2025 14:54 ET Workstation ID: [id number] Transcribed By: Self Edit Transcribed Date: 06/30/2025 14:50 ET Lino Pineda MD IMG MRI PROCEDURES Final Resul t from Last 3 Months Insurance [facility]
--- NOTE | 2025-07-11 12:35 | PM.IMHP ---
History of Present Illness Date of Service: 07/11/25 Chief Complaint: chest pain 59-year-old male with past medical history of hypertension, hyperlipidemia, anxiety on as needed lorazepam, significant ski accident resulting in Orthopedic Trauma and he developed a blood clot. He was on eliquis and completed course last month. He reported dyspnea on exertion, and now new left-sided chest pain with radiation down left arm that started yesterday. He reports he has spoke to his primary care about his worsening exertional symptoms since this has been present on and off for 3 months and no cardiac workup has been done. He has no prior history of stress test or cardiac catheterization. He reported extreme fatigue over the weekend as he had some workers at his home. He denied fever, chills, nausea, vomiting, diarrhea, recent travel or sick contacts. Ekg did not show any ischemic changes and troponin was negative. He will be to place patient on observation for chest pain. Review of Systems Review of Systems: Denies any recent fever chills or decrease in appetite respiratory denies any shortness of breath or cough cardiovascularSee HPI gastrointestinal denies any dysphagia abdominal pain nausea vomiting or diarrhea genitourinary denies any dysuria frequency or hematuria musculoskeletal denies any joint pain or swelling neuropsych denies any weakness or seizures all other systems reviewed are negative [facility] Medical History (Updated 07/11/25 @ 17:18 by Vinny Kaminski MD) Anxiety DVT (deep venous thrombosis) HLD (hyperlipidemia) HTN (hypertension) Social History (Updated 07/11/25 @ 10:23 by Meme Tsai DO) Household Members: None Housing: House Do you presently have visiting nurse or other home services: No Patient Tobacco Use Status: Never used Tobacco Advance Directives Date on File: 07/12/25 Meds Allergies Allergy/AdvReac Type Severity Reaction Status Date / Time etodolac (From [place]) Allergy Unknown RASH Verified 07/11/25 09:44 Home Medications ?Medication ?Instructions ?Recorded ?Confirmed ?Last Taken ?Type lisinopril 40 mg tablet 40 mg PO DAILY 07/11/25 07/11/25 07/11/25 History lorazepam 0.5 mg tablet 0.5 mg PO DAILY PRN Anxiety 07/11/25 07/11/25 Unknown History venlafaxine 37.5 mg 37.5 mg PO DAILY 07/11/25 07/11/25 07/11/25 History capsule,extended release 24 hr Physical Exam Vital Signs and Narrative: Vital Signs: Last Vital Signs Temp 97.7 F 07/11/25 11:42 Pulse 70 07/11/25 11:52 Resp 18 07/11/25 11:42 BP 123/75 07/11/25 11:52 Pulse Ox 96 07/11/25 11:42 O2 Del Method Room Air 07/11/25 11:42 BMI result Body Mass Index 33.5 Appearing in no acute distress head is normocephalic atraumatic eyes pupils are PERRLA sclera is anicteric mouth throat mucous membranes are intact and moist neck is supple no lymphadenopathy, no JVD noted lung sounds are clear to auscultation heart regular rate rhythm, clear S1, S2 positive bowel sounds, abdomen is soft, nontender neuro patient is alert x3, no focal deficits Results Labs 07/12/25 04:46 07/12/25 04:46 Labs: Laboratory Results - last 24 hr 07/11/25 07/11/25 07/11/25 10:10 10:11 11:04 MCV 92.3 MCH 31.4 MCHC 34.0 RDW 12.7 Plt Count 264 MPV 10.1 Immature Gran % (Auto) 0.5 H Neut % (Auto) 66.0 Lymph % (Auto) 24.8 [place] % (Auto) 6.2 Eos % (Auto) 1.2 Baso % (Auto) 1.3 Lymph # (Auto) 2.3 [place] # (Auto) 0.6 Eos # (Auto) 0.1 Baso # (Auto) 0.1 Abs Immat Gran (auto) 0.05 H Absolute Neuts (auto) 6.1 Absolute Nucleated RBC 0.000 Nucleated RBC % (auto) 0.0 PT 11.5 D INR 1.0 Anion Gap 9 L Estim Creat Clear Calc 104.0 Estimated GFR > 60 Random Glucose 101 Calcium 9.0 Magnesium 2.2 Troponin I High Sens < 2.7 NT-Pro-B Natriuret Pep 64.1 Imaging Radiologist's Impressions: Impressions Chest X-Ray 07/11/25 10:42 IMPRESSION: No acute disease Electronically signed by: Alfonso De Los Santos MD 07/11/2025 10:55 AM EST Assessment and Plan (1) Chest pain: Qualifiers: Chest pain type: unspecified Qualified Code(s): R07.9 - Chest pain, unspecified Status: Acute Plan 59 year old man admitted with chest pain that has been ongoing Chest pain monitor on telemetry no ischemic changes noted on EKG normal troponin level cardiology consultation asa npo after midnight for stress test HTN continue home medications Hx of DVT off eliquis DVT prophylaxis with lovenox Full code Quality Stroke Does the patient have a stroke diagnosis?: No VTE Prior VTE?: No VTE Risk Level:: Medical - moderate - high VTE Device Contraindication: Treatment Not Indicated VTE Drug Contraindication: N/A - Med Ordered
--- NOTE | 2025-07-11 14:18 | PHA.MEDREC ---
Addendum entered by Jose J Martin PharmD 07/11/25 14:25: reviewed Original Note: Pharmacy Consult ? Medication Reconciliation Pharmacy has completed the medication reconciliation. Spoke with pt and he confirmed his medications. Pt confirmed he no longer takes Eliquis as of ~ 3 weeks ago, stating he was on it for about 7 months from a ski fall that left him with a blood clot, he is not taking Atorvastatin and states he does not have high cholesterol nor problems with it.
[2025-07-11] MEDS: 0.9 % Sodium Chloride Flush 3 ML SYRINGE IVFLUSH (16:57)
--- NOTE | 2025-07-11 17:16 | P.CONCA_ITS ---
History of Present Illness History of Present Illness Date of Service: 07/11/25 Requesting physician: Meme Tsai Chief complaint: Chest Pain Narrative: 59-year-old gentleman presenting for vague symptoms. He has been experiencing vertigo and dizziness for few months. He is saying that at times when he is standing he just loses his balance and also at times feel that he is going to pass out. He has never had syncope though. Was diagnosed with hypertension and was previously on lisinopril but it addition of amlodipine recently. He occasionally gets left-sided chest discomfort while sitting which she thinks is related to posture and does not get any symptoms with exercise. He is denying any dyspnea with activities. He has been complaining of fatigue that he has no energy. He has been told that this can be related to mood disorder but he thinks that he is not depressed. [facility] Past Medical History Medical History (Updated 07/11/25 @ 17:18 by Vinny Kaminski MD) Anxiety DVT (deep venous thrombosis) HLD (hyperlipidemia) HTN (hypertension) Social History Social History (Updated 07/11/25 @ 10:23 by Meme Tsai DO) Patient Tobacco Use Status: Never used Tobacco Smoked in Last 30 Days: No Advance Directives: Yes Advance Directives Information Provided: Yes Advance Directives on File: No Meds Allergies Allergy/AdvReac Type Severity Reaction Status Date / Time etodolac (From [facility]) Allergy Unknown RASH Verified 07/11/25 09:44 Active Medications: Current Medications Acetaminophen (Acetaminophen 325 Mg Tablet) 650 mg PO Q6H PRN PRN Reason: Pain, Mild 1-3,fever,headache Aspirin (Aspirin 81 Mg Tab.Chew) 81 mg PO DAILY SULY Calcium Carbonate (Calcium Carbonate 750 Mg Tab.Chew) 750 mg PO Q4H PRN PRN Reason: Heartburn Magnesium Hydroxide (Milk Of Magnesia 30 Ml Oral.Susp) 30 ml PO DAILY PRN PRN Reason: Constipation Melatonin (Melatonin 3 Mg Tablet) 6 mg PO BEDTIME PRN PRN Reason: Insomnia Ondansetron HCl (Ondansetron Hcl 4 Mg/2 Ml Vial) 4 mg IVPUSH Q8H PRN PRN Reason: Nausea and Vomiting Sodium Chloride (0.9 % Sodium Chloride Flush 3 Ml Syringe) 3 ml IVFLUSH QSHIFT [facility] Last Admin: 07/11/25 16:57 Dose: 3 ml Home Medications ?Medication ?Instructions ?Recorded ?Confirmed ?Last Taken ?Type lisinopril 40 mg tablet 40 mg PO DAILY 07/11/25/11/3007/11/25 History lorazepam 0.5 mg tablet 0.5 mg PO DAILY PRN Anxiety 07/11/25 07/11/25 Unknown History venlafaxine 37.5 mg 37.5 mg PO DAILY 07/11/2507/11/25 History capsule,extended release 24 hr Physical Exam 2 Vital Signs: Vital Signs: Last Vital Signs Temp 97.3 F 07/11/25 17:00 Pulse 70 07/11/25 17:00 Resp 16 07/11/25 17:00 BP 135/83 07/11/25 17:00 Pulse Ox 96 07/11/25 17:00 O2 Del Method Room Air 07/11/25 17:00 BMI result Body Mass Index 33.5 GENERAL APPEARANCE: in no acute distress, pleasant. NECK: no carotid bruit, no jugular venous distention. SKIN: no suspicious lesions, warm and dry. HEART: no murmurs, regular rate and rhythm. LUNGS: clear to auscultation bilaterally. ABDOMEN: soft, nontender. EXTREMITIES: no edema. PERIPHERAL PULSES: equal. NEUROLOGIC: No gross deficits, AAO X 3 Objective Labs and Meds 07/11/25 10:11 07/11/25 10:11 Lab results: Laboratory Results - last 24 hr 07/11/25 07/11/25 07/11/25 10:10 10:11 11:04 WBC 9.2 RBC 4.94 Hgb 15.5 Hct 45.6 MCV 92.3 MCH 31.4 MCHC 34.0 RDW 12.7 Plt Count 264 MPV 10.1 Immature Gran % (Auto) 0.5 H Neut % (Auto) 66.0 Lymph % (Auto) 24.8 [place] % (Auto) 6.2 Eos % (Auto) 1.2 Baso % (Auto) 1.3 Lymph # (Auto) 2.3 [place] # (Auto) 0.6 Eos # (Auto) 0.1 Baso # (Auto) 0.1 Abs Immat Gran (auto) 0.05 H Absolute Neuts (auto) 6.1 Absolute Nucleated RBC 0.000 Nucleated RBC % (auto) 0.0 PT 11.5 D INR 1.0 Sodium 135 Potassium 4.3 Chloride 104 Carbon Dioxide 26 Anion Gap 9 L BUN 13 Creatinine 0.92 Estim Creat Clear Calc 104.0 Estimated GFR > 60 Random Glucose 101 Calcium 9.0 Magnesium 2.2 Troponin I High Sens < 2.7 NT-Pro-B Natriuret Pep 64.1 Imaging Radiologist's impression: Impressions Chest X-Ray 07/11/25 10:42 IMPRESSION: No acute disease Electronically signed by: Alfonso De Los Santos MD 07/11/2025 10:55 AM EST Assessment and Plan (1) Fatigue: Status: Acute (2) Dizziness: Status: Acute (3) Chest pain: Qualifiers: Chest pain type: unspecified Qualified Code(s): R07.9 - Chest pain, unspecified Status: Acute Plan Pleasant 59 year gentleman with fatigue, dizziness and chest pains at rest which do not happen with activity. History is quite vague. Blood pressure control is good. I have advised him to do echocardiography which we will do tomorrow. If ECHO has any abnormality then we will do further testing otherwise we will consider outpatient exercise stress testing on him. He has tinnitus and hearing loss. I think some of his vertigo could be related to ear problems and he should see ENT. Can try meclizine short term to see if that makes a difference. Thank you for allowing me to participate in the care of your patient. Please feel free to contact me if you have any questions. Procedures Date of Service Date of Service: 07/11/25
--- NOTE | 2025-07-11 23:28 | PC.NURSE ---
report in system and RN notified at this time
--- NOTE | 2025-07-12 | ECG_ITS ---
Test Reason : pain Blood Pressure : */* mmHG Vent. Rate : 54 BPM Atrial Rate : 54 BPM P-R Int : 176 ms QRS Dur : 88 ms QT Int : 434 ms P-R-T Axes : 56 11 14 degrees QTcB Int : 411 ms Sinus bradycardia Otherwise normal ECG When compared with ECG of 11-Jul-2025 09:36, No significant change was found Referred By: Elieser Razo Electronically Signed By: Vinny Kaminski
--- NOTE | 2025-07-12 | CA_ITS ---
Acquisition Time: 2025-07-12 10:39:43 Total Exercise Time: 00:07:29 Test Indications: CHEST PAIN Medications: Protocol: AADM Max HR: 137 BPM 85% of Pred: 160 BPM Max BP: 164/68 mmHG Max Work Load: 9.2 METS Exercise stress test with exercise 7 mins 29 secs of Adam Protocol, achieving 85% MPHR, with reports of 2/10 left sided chest pressure at baseline unchanged with exercise, with lightheadedness at baseline, with isolated PVC, with normotensive response to exercise. Without any EKG changes meeting criteria for ischemia. In recovery, pt's symptoms unchanged. Test reviewed with Dr. Kaminski. Referred By: Vinny Kaminski Electronically Signed By: Nadeem Candelaria
[2025-07-12 00:43] VITALS: BMI 34.1
[2025-07-12 00:44] VITALS: BP 134/72; PULSE 60; RESP 18; TEMP 36.6; O2SAT 96
[2025-07-12] MEDS: 0.9 % Sodium Chloride Flush 3 ML SYRINGE IVFLUSH ×2 (01:03→08:07)
[2025-07-12 02:31] LABS: Troponin-I High Sensitivity < 2.7 ng/L (<3.5-35.0)
[2025-07-12 03:01] VITALS: BP 109/68; PULSE 51; RESP 18; TEMP 36.2; O2SAT 95
[2025-07-12 04:52] LABS: Hematocrit 42.5 % (42.0-52.0); Hemoglobin 14.6 g/dl (14.0-18.0); Mean Corpuscular HGB Conc 34.4 g/dl (31.0-36.0); Mean Corpuscular Hemoglobin 31.4 pg (27.0-33.0); Mean Corpuscular Volume 91.4 fL (80.0-98.0); NRBC Abs Auto 0.000 X10*3/uL (0.0-0.012); NRBC Pct Auto 0.0 /100WBC (0.0-0.2); Platelet Count 225 X10*3/uL (160-400); Red Blood Count 4.65 X10*6/uL (4.60-5.80); White Blood Count 9.8 X10*3/uL (4.8-10.8)
[2025-07-12 05:17] LABS: Anion Gap 11 (12-20); Blood Urea Nitrogen 12 mg/dL (9-16); Calcium 8.5 mg/dL (8.4-10.2); Carbon Dioxide 23 mmol/L (22-29); Chloride 103 mmol/L (96-108); Creatinine Clr Calc Pharmacy 127.0; Estimated Glomerular Filt Rate > 60; Potassium 4.2 mmol/L (3.3-5.1); Sodium 133 mmol/L (135-145)
[2025-07-12 05:24] LABS: Troponin-I High Sensitivity < 2.7 ng/L (<3.5-35.0)
--- NOTE | 2025-07-12 07:00 | CA_ITS ---
Transthoracic Echocardiogram Patient (Last, First, Middle): Yonas Malone T Gender: Male Date of : 1965 Age: 59 Procedure Date: 07/12/2025 Procedure Type: Transthoracic Echocardiogram Location: [facility] [place] Height: 177.8 cm Weight: 107.5 kg BSA: 2.24 m2 Heart Rate: bpm BP: 109 / 68 mmHg Egg Caser: ELSY Referring MD: Clair Cooper NP Closing Supervisor: Kai Felix MD Symptoms: chest pain Study Quality: Fair ECG Rhythm: Sinus Conclusions: - 1. Normal LV ejection fraction 55-60% with grade 1 diastolic dysfunction 2. Mild biatrial enlargement 3. Normal cardiac valvular Dopplers 4. Normal RV systolic pressure 5. Mildly dilated ascending aorta at 4.1 cm 6. No gross pericardial effusion Findings Procedure Information Contrast agent, definity, is being given per protocol without apparent complications. Left Ventricle Normal left ventricular size, thickness, and systolic function. The visually estimated ejection fraction is between 55-60%. Spectral Doppler is indicative of an impaired relaxation filling pattern. E/E prime ratio is <8, consistent with normal filling pressures. Evidence suggests grade I (mild) diastolic dysfunction. Right Ventricle Normal right ventricular cavity size and systolic function. Atria Mild biatrial enlargement. There is no evidence of interatrial shunt. Aortic Valve Normal aortic valve structure and function. There is no aortic valve stenosis. There is no aortic valve regurgitation. Mitral Valve Normal mitral valve structure and function. There is trace mitral valve regurgitation. There is no mitral valve stenosis. Pulmonic Valve The pulmonic valve was not well visualized. There is trace pulmonic valve regurgitation. Tricuspid Valve Likely normal tricuspid valve structure and function. There is trace tricuspid valve regurgitation. The right ventricular systolic pressure is normal. The right ventricular systolic pressure is 17 mmHg. Normal right atrial pressure. There is no evidence of pulmonary hypertension. Great Vessels The pulmonary artery was not well visualized. There is mild dilatation of the ascending aorta measuring 4.10 cm. Venous The inferior vena cava is normal in size and collapses greater than 50% with inspiration. Pericardium/Pleural There is no evidence of pericardial effusion. Prior Study Comparison No previous study in last 5 years for comparison. Measurements 2D Linear Measurements IVSd: 1.06 0.6-0.9/0.6-1.0 cm LVIDd: 4.69 3.9-5.3/4.2-5.9 cm LVIDd Index: 2.09 2.4-3.2/2.2-3.1 cm/m2 LVIDs: 3.59 2.0-3.6 cm LVPWd: 1.12 0.7-1.1 cm LA Diam: 4.20 2.7-3.8/3.0-4.0 cm LAIDs Index: 1.88 1.5-2.3 cm/m2 LV Mass: 229.92 67-162/88-224 g LV Mass Index: 102.64 43-95/49-115 g/m2 LVOT Diam: 2.20 3.0+(-)1.3 cm 2D Systolic Function EF 4C: 47.50 >55% EF 2C: 62.90 >55% EF BiP: 56.20 >55% Mitral Valve MV Pk E: 0.67 MV PK A: 0.80 MV Decel Time: 208.00 E/A: 0.80 E'Lateral: 8.49 E'Medial: 5.66 E/E' Med: 11.90 E/E' Lat: 7.90 PHT: 61.00 MVA PHT: 3.61 Decel Todd: 3.23 Aortic Valve AoV Pk Jose Daniel: 1.40 AoV Mn Jose Daniel: 1.06 AoV VTI: 0.34 AoV Pk Grad: 8.00 Aov Mn Grad: 5.00 EDY Cont.VTI: 2.56 LVOT LVOT Pk Jose Daniel: 1.00 LVOT Mn Jose Daniel: 0.70 LVOT VTI: 0.23 LVOT Pk Grad: 4.00 LVOT Mn Grad: 2.00 LVOT Diam: 2.20 LVOT Area: 3.80 Diastolic Function MV Pk E: 0.67 MV Pk A: 0.80 E/A: 0.80 E'Medial: 5.66 E/E' Med: 11.90 E' Laterial: 8.49 E/E' Lat: 7.90 Tricuspid Valve TR Pk Jose Daniel: 1.89 TR Pk Grad: 14.00 RA Press: 3.00 RVSP: 17.00 Great Vessels Aorta Ao Asc: 4.10 2.1-3.4 cm Ao Arch: 3.50 Pulmonary Veins Pulm Vein S/D 1.30 Updated in Other Vendor System with Status of Final Kai Felix MD electronically signed on 07/13/2025 11:50:34 AM with status of Final
[2025-07-12 07:45] VITALS: BP 124/74; PULSE 58; RESP 18; TEMP 36.8; O2SAT 96
[2025-07-12] MEDS: Venlafaxine HCl ER 37.5 MG CAP.ER.24H PO (08:06)
[2025-07-12 12:00] VITALS: BP 122/78; PULSE 80; RESP 18; TEMP 36.7; O2SAT 96
[2025-07-12] MEDS: Butalb/Acetamin/Caff 50/325/40 TABLET 1 TAB PO (12:06)
--- NOTE | 2025-07-12 13:33 | MHC.CM.PN ---
CM met with Patient at bedside and addressed MART with him, providing Patient with the original and a copy has been placed on the chart. 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 Home/self care is Patient's goal and CM has initiated and will follow dc planning. PCP is Dr. Lino Pineda and Daughter will transport at dc.
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
== END 2025-07-12 14:44 | disposition home or self-care (01) ==
LOC: HO.ED 12:04 → HO.EDOVER 12:33 → HO.IMC 23:16
PROVIDERS: Hospitalist; Admitting Provider Nurse Practitioner Acute Care; Emergency Provider Emergency Medicine; PCP Internal Medicine; Visit Provider Student in an Organized Health Care Education/Training Program
DX: R07.9 Chest pain, unspecified (principal); R53.83 Other fatigue; R42 Dizziness and giddiness; R06.00 Dyspnea, unspecified; I10 Essential (primary) hypertension; E78.5 Hyperlipidemia, unspecified; R51.9 Headache, unspecified; Z79.899 Other long term (current) drug therapy
CPT/HCPCS: 36415; 71045; 80048; 83735; 83880; 84484; 85025; 85027; 85610; 93005; 93017; 93306; 96372; 96374; 99222; 99285; J1171; J1650; Q9957

== ENCOUNTER → 2025-07-11 10:23 | Outpatient (BNV) | payer BC, SELFPAY | PROVIDERS: Emergency Provider Emergency Medicine; PCP Internal Medicine; Visit Provider Radiology Diagnostic Radiology | DX: R07.9 Chest pain, unspecified (principal) | CPT/HCPCS: 71045 ==

== ENCOUNTER 2025-07-11 12:29 | Outpatient (BNV) | payer BC, SELFPAY | END 2025-07-12 10:39 | PROVIDERS: Admitting Provider Nurse Practitioner Acute Care; Emergency Provider Emergency Medicine; PCP Internal Medicine | DX: I49.3 Ventricular premature depolarization (principal); R07.89 Other chest pain; R00.1 Bradycardia, unspecified | CPT/HCPCS: 93010; 93016; 93018 ==

== ENCOUNTER → 2025-07-11 12:29 | Outpatient (BNV) | payer BC, SELFPAY | PROVIDERS: Admitting Provider Nurse Practitioner Acute Care; Emergency Provider Emergency Medicine; PCP Internal Medicine; Visit Provider Internal Medicine Cardiovascular Disease | DX: R07.9 Chest pain, unspecified (principal) | CPT/HCPCS: 93010; 99253 ==

== ENCOUNTER → 2025-07-11 12:29 | Outpatient (BNV) | payer BC, SELFPAY | PROVIDERS: Admitting Provider Nurse Practitioner Acute Care; Emergency Provider Emergency Medicine; PCP Internal Medicine; Visit Provider Nurse Practitioner Acute Care | DX: R07.9 Chest pain, unspecified (principal) | CPT/HCPCS: 99222 ==

== ENCOUNTER 2025-09-03 10:50 | Emergency (ER) | payer BC, SELFPAY ==
--- OUTSIDE RECORDS SUMMARY | 2025-07-20 03:30 | XMS_ITS ---
Author Organization [facility] Address [address] [place] [address] Care Team Providers Care Watermaster Name Role Phone ELIAS BAILEY Primary Care Provider REASON FOR VISIT 41/ HFU Encounters Encounter Location Date Provider Diagnosis [address] [phone] 07/20/2025 ELAIS BAILEY Plan Of Treatment Next Appt Details Provider Name:ELIAS BAILEY , 10/03/2025 02:30:00 PM, [address] [place] [address], [phone], Provider Name:ELIAS BAILEY , 11/21/2025 01:30:00 PM, [address] [place] [address], [phone], Progress Notes * DAVID MCCOY TDOB:1965 (59 yo M)Acc No.[id number]:07/20/2025 Progress Notes Patient: DAVID LAWSON Provider: Caprice BAILEY M.D. :1965 A ge:59 Y S ex:Male Date:07/20/2025 Address:[address] [place] [id number] Subjective: * Chief Complaints: * 4 1/ HFU * Electronic signature of ELIAS BAILEY MD on 09/03/2025 at 12:36 PM EST Sign off status: Pending * Provider: Caprice BAILEY M.D. Date: 09/19/2024 Generated for Christopher peters/Sanrda/Alida on: 11/04/2024 12:36 PM EST
--- OUTSIDE RECORDS SUMMARY | 2025-07-21 09:45 | XMS_ITS ---
Author Organization [facility] Address [address] [place] [address] Care Team Providers Care Photo Mask Cleaner Name Role Phone ELIAS BAILEY Primary Care Provider REASON FOR VISIT 41/ HFU Encounters Encounter Location Date Provider Diagnosis [address] [phone] 07/21/2025 ELIAS BAILEY Plan Of Treatment Next Appt Details Provider Name:ELIAS BAILEY , 10/03/2025 02:30:00 PM, [address] [place] [address], [phone], Provider Name:ELIAS BAILEY , 11/21/2025 01:30:00 PM, [address] [place] [address], [phone], Progress Notes * DAVID MCCOY TDOB:1965 (59 yo M)Acc No.[id number]:07/21/2025 Progress Notes Patient: DAVID LAWSON Provider: Caprice BAILEY M.D. :1965 A ge:59 Y S ex:Male Date:07/21/2025 Address:[address] [place] [phone] Subjective: * Chief Complaints: * 4 1/ HFU * Electronic signature of ELIAS BAILEY MD on 09/03/2025 at 12:36 PM EST Sign off status: Pending * Provider: Caprice BAILEY M.D. Date: 09/20/2024 Generated for Christopher peters/Sandra/Alida on: 11/04/2024 12:36 PM EST
--- OUTSIDE RECORDS SUMMARY | 2025-08-11 04:00 | XMS_ITS ---
Author Organization [facility] Address [address] [place] [address] Care Team Providers Care Dry Cleaning Manager Name Role Phone ELIAS BAILEY Primary Care Provider REASON FOR VISIT 41/ HFU Encounters Encounter Location Date Provider Diagnosis [address] [phone] 08/11/2025 ELIAS BAILEY Plan Of Treatment Next Appt Details Provider Name:ELIAS BAILEY , 10/03/2025 02:30:00 PM, [address] [place] [address], [phone], Provider Name:ELIAS BAILEY , 11/21/2025 01:30:00 PM, [address] [place] [address], [phone], Progress Notes * DAVID MCCOY TDOB:1965 (59 yo M)Acc No.[id number]:08/11/2025 Progress Notes Patient: DAVID LAWSON Provider: Caprice BAILEY M.D. :1965 A ge:59 Y S ex:Male Date:08/11/2025 Address:[address] [place] [phone] Subjective: * Chief Complaints: * 4 1/ HFU * Electronic signature of ELIAS BAILEY MD on 09/03/2025 at 12:37 PM EST Sign off status: Pending * Provider: Caprice BAILEY M.D. Date: 10/12/2024 Generated for Christopher peters/Sandra/Alida on: 11/04/2024 12:37 PM EST
--- NOTE | ~2025-09-03 | CT_ITS ---
CLINICAL HISTORY: abd pain, n v, diarrhea Exam: CT Abdomen and Pelvis With IV Contrast Comparison: 09/03 11:49 AMBULATORY SERVICE REPRESENTATIVE Findings: The liver density is homogeneous, except for 2 small left lobe hypodensities, most likely benign cysts No biliary abnormalities The spleen is normal in size No pancreatic ductal dilatation No hydronephrosis. No urinary tract calculi Normal bowel caliber. No abdominal wall hernias The appendix is normal. No free fluid/free air No vascular abnormalities Bladder outline is smooth No suspicious skeletal lesions Impression : Unremarkable CT of the abdomen and pelvis. No signs of inflammatory bowel disease. Numerous sigmoid diverticula are present without signs of diverticulitis. This document has been electronically signed by: Sudarshan Kumar MD on 09/03/2025 14:42:28
--- NOTE | ~2025-09-03 | XR_ITS ---
CLINICAL HISTORY: fever, weakness 2 view chest x-ray. Comparison: 07/11/2025 Findings: No consolidation. Heart size normal No acute fracture. Impression: Mild right lung base platelike atelectasis. Lungs are otherwise clear. This document has been electronically signed by: Sudarshan Kumar MD on 09/03/2025 16:04:18
[2025-09-03 10:53] VITALS: BP 134/84; PULSE 117; RESP 18; TEMP 36.3; O2SAT 100; BMI 33.7
--- NOTE | 2025-09-03 10:53 | ED_ITS ---
HPI - General Adult General Chief complaint: Abdominal Pain Stated complaint: weakness Time Seen by Provider: 09/03/25 12:48 Source: patient Mode of arrival: wheelchair Limitations: no limitations History of Present Illness ED Provider: Garima Morton PA-C HPI narrative: Patient is a 59 year old male with a history of anxiety, HTN, DVT, HLD, and thyroglossal duct cyst s/p surgical resection and antibiotics for possible surrounding / superimposed infection that he successfully completed presenting to the emergency department today with abdominal pain, nausea, and vomiting. Patient states that over the last couple of days he has felt much more weak with nausea, vomiting, and abdominal pain. Patient states that his grandsons were over and they had norovirus. Patient denies any other complaints at this time. Relieving factors: none Exacerbating factors: none Associated symptoms: nausea/vomiting Treatments prior to arrival: none Related Data Home Medications ?Medication ?Instructions ?Recorded ?Confirmed lisinopril 40 mg tablet 40 mg PO DAILY 07/11/2511/30 lorazepam 0.5 mg tablet 0.5 mg PO DAILY PRN Anxiety 07/11/25 07/11/25 venlafaxine 37.5 mg 37.5 mg PO DAILY 07/11/25 capsule,extended release 24 hr Previous Rx's ?Medication ?Instructions ?Recorded amlodipine 5 mg tablet 5 mg PO DAILY #30 tabs 04/09 ronsznakmd-rzqljffsnfsml-gjfxliup 1 cap PO Q8H PRN hea dache #20 caps 07/12/25 50 mg-300 mg-40 mg capsule (Fioricet) ondansetron 4 mg disintegrating 4 mg PO Q8H 3 days #9 tabs 09/03/25 tablet Allergies Allergy/AdvReac Type Severity Reaction Status Date / Time etodolac (From Lodine) Allergy Unknown RASH Verified 09/03/25 10:56 Review of Systems 2 Constitutional: Constitutional: Reports as per HPI Eyes: Eyes: Reports as per HPI ENT: Reports as per HPI Cardiovascular: Cardiovascular: Reports as per HPI Respiratory: Respiratory: Reports as per HPI Gastrointestinal: Gastrointestinal: Reports as per HPI Genitourinary: Genitourinary: Reports as per HPI Musculoskeletal: Musculoskeletal: Reports as per HPI Integumentary/Breasts: Skin/Breast: Reports as per HPI Neurologic: Reports as per HPI Psychiatric: Psychiatric: Reports as per HPI Endocrine: Endocrine: Reports as per HPI Hematologic/Lymphatic: Hematologic/Lymphatic: Reports as per HPI Allergic/Immunologic: Allergic/Immunologic: Reports as per HPI [facility] Past Medical History Attestation statement: The following information was validated with the patient. Source: old records reviewed and nursing notes reviewed Medical History Anxiety DVT (deep venous thrombosis) HLD (hyperlipidemia) HTN (hypertension) Social History Social History Household Members: None Housing: House Do you presently have visiting nurse or other home services: No Patient Tobacco Use Status: Never used Tobacco Advance Directives: Yes Advance Directives on File: Yes Advance Directives Date on File: 07/12/25 Do you have a plan to hurt others: No Plan service: No Physical Exam ED Vital Signs: Vital Signs - 24 hr 09/03/25 10:53 09/03/25 12:58 09/03/25 13:28 Temperature 97.3 F Pulse Rate 117 H 108 H Respiratory Rate 18 17 16 Blood Pressure 134/84 133/75 Pulse Oximetry 100 96 Oxygen Delivery Method Room Air Room Air 09/03/25 14:52 09/03/25 16:25 Temperature 101.3 F H 99.2 F Pulse Rate 108 H 99 Respiratory Rate 16 16 Blood Pressure 126/85 124/80 Pulse Oximetry 95 96 Oxygen Delivery Method Room Air Room Air BMI result Body Mass Index 33.7 Const General: cooperative, alert and awake Orientation/consciousness: patient oriented x3 HENMT Head: Yes normal to inspection and Yes atraumatic Ears: hearing grossly normal bilaterally and external ears normal General nose exam: Normal external nose present, no nasal discharge noted and no epistaxis Face and sinus: Yes normal facial exam, No abrasion and No laceration Mouth: Normal oral and palatal mucosa present, no drooling and no muffled voice Eyes General: appearance normal, both eyes and all related structures Periorbital: periorbital findings normal Eyelids: Yes eyelids normal Conjunctivae: conjunctivae normal Pupils: Equal, round and reactive pupils present EOM: EOMs intact bilaterally Resp Effort & Inspection: normal respiratory effort and able to speak in complete sentences Neuro General: patient oriented x3, moves all extremities and CN's II-XI intact bilaterally Cranial nerves: Yes Equal, round and reactive pupils present Cognition (Neuro): normal cognition Extrem General: Yes full ROM Psych Appearance: grossly normal Mental Status: mental status grossly normal Attitude: cooperative Course Course Course Narrative: Rapid medical examination performed in triage by Garima Morton PA-C: Patient is a 59 year old male presenting to the emergency department with nausea, vomiting, abdominal pain. Detailed physical exam and review of systems are deferred to the hydrometer tester. Labs and swabs ordered. Patient placed back in the waiting room pending room availability and results. Medications Administered Discontinued Medications Generic Name Dose Route Start Last Admin Trade Name Freq PRN Reason Stop Dose Admin Dicyclomine HCl 10 mg 09/03/25 13:28 09/03/25 13:43 Dicyclomine Hcl 10 Mg Capsule PO 09/03/25 13:29 10 mg ONCE ONE Administration Sodium Chloride 1,000 mls @ 999 mls/hr 09/03/25 13:00 09/03/25 14:15 Ns IV 09/03/25 14:00 Infused .Q1H1M SULY Infusion Acetaminophen 1,000 mg in 100 mls @ 400 mls/hr 09/03/25 14:48 09/03/25 15:10 Ofirmev IV 09/03/25 15:02 Infused ONCE ONE Infusion Sodium Chloride 1,000 mls @ 999 mls/hr 09/03/25 15:00 09/03/25 15:51 Ns IV 09/03/25 16:00 Infused .Q1H1M SULY Infusion Iohexol 100 ml 09/03/25 13:06 09/03/25 13:08 Iohexol 350 Mg/Ml 100 Ml Infus..Btl IV 09/03/25 13:07 85 ml ONCE ONE Administration Morphine Sulfate 4 mg 09/03/25 12:48 09/03/25 12:58 Morphine Sulfate 4 Mg/Ml Cartridge IVPUSH 09/03/25 12:49 4 mg ONCE ONE Administration Protocol Ondansetron HCl 4 mg 09/03/25 12:48 09/03/25 12:59 Ondansetron Hcl 4 Mg/2 Ml Vial IVPUSH 09/03/25 12:49 4 mg ONCE ONE Administration Medical Decision Making Medical Decision Making MDM Narrative: Patient is a 59 year old male with a history of anxiety, HTN, DVT, HLD, and thyroglossal duct cyst s/p surgical resection and antibiotics for possible surrounding / superimposed infection that he successfully completed presenting to the emergency department today with abdominal pain, nausea, and vomiting. Patient's physical exam was as noted in the physical exam portion of this note. Patient's blood work showed an elevated WBC count of 18.4 but otherwise unremarkable. Patient's urine showed no acute process. Patient's chest x-ray showed no acute process. Patient's CT abd/pelvis showed 2 small left lobe hypodensities in the liver that are likely benign cysts per the radiologists. No acute process reported. Patient received IV fluids, zofran, morphine, tylenol and PO Bentyl which, upon re-evaluation, he stated it helped his symptoms significantly. Patient's clinical presentation is most consistent with a viral illness such as gastroenteritis. I explained my physical exam findings as well as all test results to the patient. I answered all questions asked by the patient. I stressed the importance of the patient taking his medication as directed (either prescribed or as the over the counter packaging recommends). I stressed the importance of the patient following up with his primary care provider. I stressed the importance of the patient returning to the emergency department immediately if his symptoms were to worsen or if he were to develop any dizziness, shortness of breath, difficulty breathing, chest pain, blurry vision, loss of vision, nausea, vomiting, abdominal pain, fever, chills, back pain, or any other complaints. Patient verbalized agreement and understanding with this treatment plan and discharge. Differential Diagnosis Differential Diagnoses: The differential diagnosis associated with the presentation includes Gastroenteritis Viral illness COVID-19 Influenza RSV Norovirus Enteritis Admission/Observation Consideration of admission/observation: Escalation of care including admission/observation considered Patient would have been admitted to the hospital had his work up had any findings where hospital admission was appropriate and his clinical presentation warranted hospital admission. Lab Data [facility] Lab Attestation statement: I reviewed the patient's lab results. My interpretation of these results are in the [facility] Rationale portion of this note. 09/03/25 11:11 09/03/25 11:11 Labs: Lab Results 09/03/25 09/03/25 Range/Units 11:11 14:59 WBC 18.4 H (4.8-10.8) X10*3/uL RBC 5.53 (4.60-5.80) X10*6/uL Hgb 17.3 (14.0-18.0) g/dl Hct 50.6 (42.0-52.0) % MCV 91.5 (80.0-98.0) fL MCH 31.3 (27.0-33.0) pg MCHC 34.2 (31.0-36.0) g/dl RDW 12.5 (11.0-16.0) % Plt Count 298 D (160-400) X10*3/uL MPV 10.6 (9.4-12.4) fL Immature Gran % (Auto) 0.4 (0.0-0.4) % Neut % (Auto) 89.4 H (45-73) % Lymph % (Auto) 6.0 L (20-40) % Gila % (Auto) 3.6 (2-11) % Eos % (Auto) 0.1 (0-4) % Baso % (Auto) 0.5 (0-2) % Lymph # (Auto) 1.1 L (1.2-4.9) X10*3/uL Gila # (Auto) 0.7 (0.1-1.2) X10*3/uL Eos # (Auto) 0.0 (0.0-0.4) X10*3/uL Baso # (Auto) 0.1 (0.0-0.2) X10*3/uL Abs Immat Gran (auto) 0.08 H (0.00-0.03) X10*3/uL Absolute Neuts (auto) 16.5 H (2.0-8.3) x10*3/uL Absolute Nucleated RBC 0.000 (0.0-0.012) X10*3/uL Nucleated RBC % (auto) 0.0 (0.0-0.2) /100WBC Sodium 138 (135-145) mmol/L Potassium 4.0 (3.3-5.1) mmol/L Chloride 105 (96-108) mmol/L Carbon Dioxide 21 L (22-29) mmol/L Anion Gap 16 (12-20) BUN 17 H (9-16) mg/dL Creatinine 0.99 (0.5-1.4) mg/dL Estim Creat Clear Calc 97.0 Estimated GFR > 60 Random Glucose 126 H (60-115) mg/dL Calcium 9.9 D (8.4-10.2) mg/dL Magnesium 2.0 (1.6-2.6) mg/dL Total Bilirubin 0.7 (0.0-1.0) mg/dL AST 26 (5-37) U/L ALT 26 (0-40) U/L Alkaline Phosphatase 87 (39-117) U/L Total Protein 7.5 (6.5-8.0) g/dL Albumin 4.5 (3.5-5.0) g/dL Lipase 18 (8-78) U/L Urine Color Yellow Urine Appearance Clear Urine pH 6.0 (5.0-9.0) Ur Specific Mackey >= 1.030 H (1.005-1.025) Urine Protein Trace (Neg-Trace) mg/dL Urine Glucose (UA) Negative (Negative) mg/dL Urine Ketones Negative (Negative) mg/dL Urine Blood Negative (Negative) Urine Nitrite Negative (Negative) Ur Leukocyte Esterase Negative (Negative) Influenza Type A (PCR) NEGATIVE (Negative) Influenza Type B (PCR) NEGATIVE (Negative) RSV RNA Qual (PCR) NEGATIVE (Negative) SARS-CoV-2 RNA (RT-PCR) NEGATIVE (Negative) Independent Interpretation I performed an independent interpretation of an: Plain X-Ray and CT Scan Interpretation: My interpretation is in agreement with the radiologist's impression of these imaging studies as written below. 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 No urinary tract calculi Normal bowel caliber. No abdominal wall hernias The appendix is normal. No free fluid/free air No vascular abnormalities Bladder outline is smooth No suspicious skeletal lesions Impression: Unremarkable CT of the abdomen and pelvis. No signs of inflammatory bowel disease. Numerous sigmoid diverticula are present without signs of diverticulitis. This document has been electronically signed by: Sudarshan Kumar MD on 09/03/2025 14:42:28 Dictated By: Sudarshan Kumar MD Signed By: Electronically signed by Sudarshan Kumar MD 09/03/25 8103 CLINICAL HISTORY: fever, weakness 2 view chest x-ray. Comparison: 07/11/2025 Findings: No consolidation. Heart size normal No acute fracture. Impression: Mild right lung base platelike atelectasis. Lungs are otherwise clear. This document has been electronically signed by: Sudarshan Kumar MD on 09/03/2025 16:04:18 Dictated By: Sudarshan Kumar MD Signed By: Electronically signed by Sudarshan Kumar MD 09/03/25 3311 Radiology Impression Discussion of test interpretation with radiology: I have reviewed the radiologist's reading. Critical Care Time Critical Care Time Critical Care Time: Yes Total Critical Care Time: 53 Attestation: I spent 53 minutes of Critical Care Time with this patient. This does not include time spent on separately reported billable procedures. Discharge Plan Discharge Clinical Impression: Gastroenteritis, Nausea & vomiting Patient Disposition: Home, Self-Care Instructions: Gastroenteritis (DC), Acute Nausea and Vomiting (ED) Additional Instructions: Your work up today showed no EMERGENT cause for your symptoms. I believe you have a virus that will resolve with time. IF you are prescribed home medications and/or you are taking over the counter medications at home - it is very important you continue to do so as prescribed / directed unless told otherwise by a healthcare provider. Follow up with your primary care provider. Do your best to stay well hydrated and rest. Return to the emergency department immediately if your symptoms worsen or if you develop any numbness, tingling, dizziness, shortness of breath, difficulty breathing, chest pain, blurry vision, loss of vision, nausea, vomiting, abdominal pain, fever, chills, back pain, or any other complaints. Please see the information below about our Patient Portal. If you are not yet enrolled in the [facility] Patient Portal, you will receive an enrollment email invitation following your visit to any [facility] care setting. You may also self-enroll in the Patient Portal by visiting our website: [email or web address] The following information is required to access the Patient Portal: - Your [facility] Medical Record Number - Your personal home email address (must match what is in your electronic medical record, Registration staff can assist with this) - Name - Date of Capabilities of the Patient Portal: - Message some providers - View upcoming appointments - Access your health summary, medical history, and visit history - View current conditions and allergies - View procedure and lab results - View your medications, including guidelines, side effects, and precautions - Complete pre-appointment questionnaires requested by your provider - Ready summary reports of your office visits and procedures To access the Patient Portal Mobile [employer], follow these directions: - Search [email or web address] in the [employer] Store or [employer] Store - Download the And[employer]y - Search for [facility] - Enter your login/password Prescriptions: New ondansetron 4 mg tablet,disintegrating 4 mg PO Q8H 3 Days Qty: 9 0RF No Action amlodipine 5 mg tablet 5 mg PO DAILY Qty: 30 0RF venlafaxine 37.5 mg capsule,extended release 24hr 37.5 mg PO DAILY lorazepam 0.5 mg tablet 0.5 mg PO DAILY PRN (Reason: Anxiety) lisinopril 40 mg tablet 40 mg PO DAILY lkqlsvlxds-ceorndrjmvyrr-ivlr [Fioricet] 50-300-40 mg capsule 1 cap PO Q8H PRN (Reason: headache) Qty: 20 0RF Rx Instructions: Take one tablet up to three times a day for headaches Referrals: Lino Pineda MD [Primary Care Provider, Internal Medicine] Print Language: [place]
[2025-09-03 11:17] LABS: MANUAL DIFF FLAG NO
[2025-09-03 11:34] LABS: Hematocrit 50.6 % (42.0-52.0); Hemoglobin 17.3 g/dl (14.0-18.0); Imm Gran Abs Auto 0.08 X10*3/uL (0.00-0.03); Imm Gran Pct Auto 0.4 % (0.0-0.4); Lymphocytes Absolute Auto 1.1 X10*3/uL (1.2-4.9); Mean Corpuscular HGB Conc 34.2 g/dl (31.0-36.0); Mean Corpuscular Hemoglobin 31.3 pg (27.0-33.0); Mean Corpuscular Volume 91.5 fL (80.0-98.0); NRBC Abs Auto 0.000 X10*3/uL (0.0-0.012); NRBC Pct Auto 0.0 /100WBC (0.0-0.2); Platelet Count 298 X10*3/uL (160-400); Red Blood Count 5.53 X10*6/uL (4.60-5.80); White Blood Count 18.4 X10*3/uL (4.8-10.8)
[2025-09-03 11:36] LABS: Alanine Aminotransferase 26 U/L (0-40); Albumin Level 4.5 g/dL (3.5-5.0); Alkaline Phosphatase 87 U/L (39-117); Anion Gap 16 (12-20); Aspartate Amino Transferase 26 U/L (5-37); Blood Urea Nitrogen 17 mg/dL (9-16); Calcium 9.9 mg/dL (8.4-10.2); Carbon Dioxide 21 mmol/L (22-29); Chloride 105 mmol/L (96-108); Creatinine Clr Calc Pharmacy 97.0; Estimated Glomerular Filt Rate > 60; Lipase 18 U/L (8-78); Magnesium 2.0 mg/dL (1.6-2.6); Potassium 4.0 mmol/L (3.3-5.1); Sodium 138 mmol/L (135-145); Total Protein 7.5 g/dL (6.5-8.0)
--- OUTSIDE RECORDS SUMMARY | 2025-09-03 12:36 | XMS_ITS | Continuity of Care Document ---
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 Path d/w pt today. Course has been complicated by multiple preoperative infections and postoperative seroma. He has a stable seroma with some hypertrophic scarring today. - Provided reassurance that scarring and the fluid seroma will take time to heal up to a few months to a year -Encouraged him to start activities in the new year, to be mindful of any swelling or pain in the site and let me know if that is an issue -Return visit in a few months [email or web address] Not available 08/31/2025 12:27:05 Plan of Treatment Reminders Order Date Submit Date Provider Last Modified By Organization Details Last Modified Time Details Appointments POLLARD Initial Fitting 2025 03:00P Gonsalo MCKEON , EMMANUEL Not available Not available Not available Test Results 15 2025 11:15A Gonsalo Roth, DO Not available Not available Not available Lab None recorded . Referral None recorded . Procedures None recorded . Surgeries None recorded . Imaging None recorded . Medication Orders None recorded . Patient TargetsNo targets recorded. Patient InstructionsNo instructions recorded. Reason for Referral None Reported. Problems Name Problem SNOMED Code Status Onset Date Resolution Date Notes Provider Name and Address Organization Details Recorded Time Pain of left temporoma ndibular joint 17683686033 805665 Active 2017 Arthralgi a of left temporoma ndibular joint; Note: Date Diagnosed : 03/05/2018 11:17 AM (M26.622) Not Available [facility] 4 02:55:31 Sensorine ural hearing loss of bilateral ears 835214257 Active 2017 Sensorine ural hearing loss, bilateral ; Note: Date Diagnosed : 03/05/2018 11:17 AM (H90.3) Not Available [facility] 4 02:55:35 Dizziness and giddiness 509489393 Active 2017 Dizziness and giddiness ; Note: Date Diagnosed : 03/05/2018 10:50 AM (R42) Not Available [facility] 4 02:55:30 Bilateral tinnitus 48098442928 02 Active 2019 Tinnitus, bilateral ; Note: Date Diagnosed : 0 11:52 AM (H93.13) Not Available [facility] 4 02:55:35 Mass of head and/or neck 695278484 Active 2024 Mannie Roth DO [address] [facility],[place] [address], [place], [address] , [place] [facility] 5 19:39:50 Vallecula r cyst 533810316 Active 2024 Mannie Roth DO [address] [facility],[place] [address], [place], [address] , [place] [facility] 5 19:41:06 Thyroid dysfuncti on 412919263 Active 2024 Mannie Roth DO [address] [facility] [address], [place], [address] , [place] [facility] 5 09:26:39 Thyroglos monique duct cyst 84197194 Active 2024 PRABHA CAMPO MD [address] [facility],[place] [address], [place], [address] , [place] [facility] 5 18:03:02 Sensorine ural hearing loss of bilateral ears 293784534 Active 2024 LAMAR ELY, AUD [address],[place] [address], [place], [address] , [place] [facility] 11:11:56 Chronic rhinitis 19032325 Active 2024 Mannie Roth, DO [address] [facility], [place], [address] , [place] [facility] 11:50:41 Chronic sinusitis 88980314 Active 2024 Mannie Roth, DO [address] [facility] [address], [place], [address] , [place] [facility] 11:50:41 Postopera tive pain 499566358 Active 2024 Mannie Roth, DO [address] [facility],[place] [address], [place], [address] , [place] [facility] 07:14:12 Postopera tive seroma 777072887 Active 2024 DELORIS MONROY PA-C [address] [facility],[place] [address], [place], [place], [address] , [place] - [facility] 14:52:55 Problem Notes None recorded. Procedures Surgical History Date Name Laterality Status Provider Name and Address Organization Details Recorded Time 08/24/20 25 I & D Seroma/abscess completed DELORIS MONROY PA-C [address] [facility],[place] [address], [place], [address], [facility] - [facility] 08/24/2025 14:46:48 08/16/20 25 EXCISION, THYROGLOSSAL DUCT CYST (SURG) completed Jean Claude Kamara [place] - [facility] 08/16/2025 13:13:37 07/25/20 25 Comp Audio with Tymps - 22315 & 99268 completed LAMAR ELY, AUD [address] [facility] [place],[address], [place], [address], [place] - [facility] 07/25/2025 11:11:41 06/20/20 25 FOL_normal_DHL completed Mannie Roth, DO [address] [facility] [address], [place], [address], [place] [facility] 06/20/2025 09:30:03 repair of ligament of knee joint completed AIXA JODY [place] - [facility] 06/20/2025 09:16:03 Imaging Results None recorded. Procedure Notes None recorded. Medical Equipment None Reported. Allergies Allergen ID Allergen Name Allergen Category Reaction Reaction Severity Criticality Documentation Date Start Date Code Code System Note Provider Name and Address Organization Details Recorded Time 325993 azithromy harrison medicatio n Not available Not available Not available 07/22/2025 86750 RxNorm Not Available [employer] 09:02:49 560868 etodolac medicatio n Not available Not available Not available 07/22/2025 18534 RxNorm Not Available [employer] 09:02:49 Medications Name Sig Start Date Stop Date Status Note LastModified by Organization Details LastModified Time venlafaxi ne ER 37.5 mg capsule,e xtended release 24 hr TAKE 1 CAPSULE BY MOUTH DAILY WITH FOOD 08/26 completed Not Available Not Available Not Available prednison e 10 mg tablet Take 4 tabs once a day for 3 days, then take 3 tabs for 3 days, 2 tabs for 3 days, 1 tab for 3 days 08/26 completed Not Available Not Available Not Available venlafaxi ne ER 75 mg capsule,e xtended release 24 hr TAKE 1 CAPSULE BY MOUTH DAILY WITH FOOD active Not Available Not Available No t Available tizanidin e 4 mg tablet TAKE 1 [...] Not Available Not Available No t Available acetamino phen 500 mg tablet Take 1 tablet 3 times a day by oral route for 7 days. 08/26 completed Not Available Not Available Not Available lorazepam 0.5 mg tablet TAKE 1 TABLET BY MOUTH DAILY NEEDED 08/26 completed Not Available Not Available Not Available lisinopri l 10 mg tablet 06/20 completed Medicati on ID: [id number] D uration Value: 30 Brand Name: lisinopr [...] tablet TAKE 1 TABLET BY MOUTH DAILY 08/26 completed Not Available Not Available Not Available doxycycli ne hyclate 100 mg tablet TAKE 1 TABLET BY MOUTH TWICE DAILY FOR 10 DAYS 06/20 completed Not Available Not Available Not Available amoxicill in 875 mg-potass ium clavulana te 125 mg tablet Take 1 tablet every 12 hours by oral route for 21 days. 08/22 completed Not Available Not Available Not Available oxycodone 5 mg tablet Take 1 tablet every 6 hours by oral route as needed for 3 days. 08/26 completed Not Available Not Available Not Available butalbita l-acetami nophen-ca ffeine 50 mg-300 mg-40 mg capsule TAKE 1 CAPSULE BY MOUTH UP TO THREE TIMES DAILY NEEDED FOR HEADACHE active Not Available Not Available No t Available Eliquis 5 mg tablet TAKE 1 TABLET BY MOUTH TWICE DAILY 08/26 completed Not Available Not Available Not Available Vitals Date Recorded Body height Provider Name an d Address Organization Details Last Updated DateTime 08/31/2025 177.8 cm AIXA VERA [place] [facility] 08/31/2025 11:25:42 Social History None recorded. Functional Status Question Answer Note LastModified by Organizat ion Details LastModified Time What is your level of alcohol consumption? Occasional ccomi Information not available 06/20/2025 Mental Status None recorded. Family History Nothing Reported. Medical History Condition Response Bleeding Disorder Migraines Y Headaches Y Hypertension Y Anxiety Y Past Encounters Encounter ID Performer Location Encounter Start Date Encounter Closed Date Diagnosis/Indication Diagnosis SNOMED-CT Code Diagnosis ICD10 Code Diagnosis IMO Codes Diagnosis Note [id number] MYNOR OLMSTEAD [facility] of [address] [address] 08/19/2025 10:39:48 08/19/2025 11:43:32 Thyroglossal duct cyst 40771337 Q89.2 6778 [id number] DELORIS MONROY PA-C [facility] of [address] [address] 08/24/2025 13:08:05 08/24/2025 16:56:56 Thyroglossal duct cyst 49908152 Q89.2 6778 Postoperative seroma 429 456039 K91.872 [id number] DELORIS MONROY PA-C [facility] of [facility] on [address] [place] [address] 08/26/2025 13:05:44 08/26/2025 13:35:04 Postoperative seroma 557138733 K91.872 79845573 Thyrogloss al duct cyst 36230302 Q89.2 6778 6779 [id number] Mannie Roth DO [facility] of [address] [address] 08/31/2025 10:58:09 08/31/2025 11:53:04 Thyroglossal duct cyst 60887048 Q89.2 6778 Mass of he ad and/or neck 806319419 R22.1 Vallecular cyst 43695182 7 J38.7 605684 Thyroid dysfunction 2645 75661 E07.9 792659 Chronic rhinitis 2589674 6 J31.0 Chronic sinusitis 208605 00 J32.8 Health Concerns Section Related Observation LastModified by Organization Detai ls LastModified Time None Recorded Concern Status LastModified by Organization Details LastModified Time None Recorded Payers Encounter Date Sequence Insurance Name Policy Number Policy Delgado Covered Member ID Delgado Member ID Guarantor Name 08/31/2025 1 [facility]: [facility] [id number] Yonas Malone [id number] Yonas Malone Notes Date Note Type Note Provider Name and Address Organization Details Recorded Time 08/31/2025 text/html ROS as noted in the HPI Yonas is a pleasant gentleman without history of a large thyroglossal duct cyst associated with recurring infections requiring hospital stays, now s/p thyroglossal duct cyst excision performed 08/16/25 by myself at [facility]. Path: Thyroglossal duct cyst with associated nodular foreign body giant cell granulomas including cholesterol clefts and multinucleated giant cells. Interval history: Patient has been dealing with a postoperative seroma patient has been aspirated by the PA team for this. Otherwise has some concerns with his thick scar and some improvement in pain and swelling. Mannie Roth, DO [address] [facility],[place] [address], [place], [address], [place] [facility] 08/31/2025 12:27:11
--- OUTSIDE RECORDS SUMMARY | 2025-09-03 12:36 | XMS_ITS | Continuity of Care Document ---
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 Roth presents for second postoperative visit. Physical examination demonstrates a left-sided fluctuant collection superior to the midline neck surgical incision. The fluctuance was aspirated, and 15 mL of serosanguineous fluid was collected. Recommend follow-up in 2 days for reassessment and repeat aspiration if indicated. Reviewed post op instructions and patient aware to avoid heavy lifting. He will continue to use topical bacitracin over the incision to prevent infection. Patient also evaluated by Dr. Garcia. [email or web address] Not available 08/24/2025 14:53:20 Plan of Treatment Reminders Order Date Submit [...] Abnormal Flag Note LastModifiedBy Organization Detail LastModifiedTime 07/25/20 25 audio gram No observ ation record ed. BARCODE Not Available 2024 13:13:58 Result Notes None recorded. Problems Name Problem SNOMED Code Status Onset Date Resolution Date Notes Provider Name and Address Organization Details Recorded Time Pain of left temporoma ndibular joint 80225228096 134903 Active 2017 Arthralgi a of left temporoma ndibular joint; Note: Date Diagnosed : 03/05/2018 11:17 AM (M26.622) Not Available [facility] 4 02:55:31 Sensorine ural hearing loss of bilateral ears 744551625 Active 2017 Sensorine ural hearing loss, bilateral ; Note: Date Diagnosed : 03/05/2018 11:17 AM (H90.3) Not Available [facility] 4 02:55:35 Dizziness and giddiness 334345142 Active 2017 Dizziness and giddiness ; Note: Date Diagnosed : 03/05/2018 10:50 AM (R42) Not Available [facility] 4 02:55:30 Bilateral tinnitus 72086076752 02 Active 2019 Tinnitus, bilateral ; Note: Date Diagnosed : 0 11:52 AM (H93.13) Not Available [facility] 4 02:55:35 Mass of head and/or neck 168570101 Active 2024 Mannie Roth DO [address] [place] [address],[place] [address], [place], [address] , [place] [facility] 5 19:39:50 Vallecula r cyst 338870789 Active 2024 Mannie Roth DO [address] [place] [address],[place] [address], [place], [address] , [place] - [facility] 5 19:41:06 Thyroid dysfuncti on 518239353 Active 2024 Mannie Roth [address],[place] [address], [place], [address] , [facility] - [facility] 5 09:26:39 Thyroglos monique duct cyst 45901304 Active 2024 PRABHA CAMPO MD [address] [facility],[place] [address], [place], [address] , [place] - [facility] 5 18:03:02 Sensorine ural hearing loss of bilateral ears 954904655 Active 2024 EMMANUEL MACIAS [address] [facility] [address], [place], [address] , [place] - [facility] 5 11:11:56 Chronic rhinitis 24752596 Active 2024 Mannie Roth, DO [address] [facility] [address], [place], [address] , [place] [facility] 5 11:50:41 Chronic sinusitis 64912237 Active 2024 Mannie Roth, DO [address] [facility] [address], [place], [address] , [place] [facility] 5 11:50:41 Postopera tive pain 932769576 Active 2024 Mannie Roth, DO [address] [facility] [address], [place], [address] , [place] [facility] 07:14:12 Postopera tive seroma 728829816 Active 2024 DELORIS MONROY PA-C [address] [facility],[place] [address], [place], [address] , [place] - [facility] 14:52:55 Problem Notes None recorded. Procedures Surgical History Date Name Laterality Status Provider Name and Address Organization Details Recorded Time 08/24/20 I & D Seroma/abscess completed DELORIS MONROY PA-C [address] [facility],[address], [place], [address], [place] - [facility] 08/24/2025 14:46:48 08/16/20 EXCISION, THYROGLOSSAL DUCT CYST (SURG) completed Jean Claude Kamara [place] - [facility] 08/16/2025 13:13:37 07/25/20 25 Comp Audio with Tymps - 44073 & 63829 completed EMMANUEL MACIAS [address] [facility] [address], [place], [address], [facility] - [facility] 07/25/2025 11:11:41 06/20/20 25 FOL_normal_DHL completed Mannie Gonzalez, DO [address] [facility] [address], [place], [address], [facility] - [facility] 06/20/2025 09:30:03 repair of ligament of knee joint completed AIXA VERA [place] - [facility] 06/20/2025 09:16:03 Imaging Results None recorded. Procedure Notes None recorded. Medical Equipment None Reported. Allergies Allergen ID Allergen Name Allergen Category Reaction Reaction Severity Criticality Documentation Date Start Date Code Code System Note Provider Name and Address Organization Details Recorded Time 541976 azithromy harrison medicatio n Not available Not available Not available 07/22/2025 83544 RxNorm Not Available [employer] [facility] 5 09:02:49 121407 etodolac medicatio n Not available Not available Not available 07/22/2025 68082 RxNorm Not Available [employer] [facility] 5 09:02:49 Medications Name Sig Start Date Stop [...] mg tablet 06/20 completed Medicati on ID: [id number] D uration Value: 30 Brand Name: lisinopr [...] Not Available Not Available Not Available Vitals None Recorded Social History None recorded. Functional Status Question Answer Note LastModified by Organizat ion Details LastModified Time What is your level of alcohol consumption? Occasional ccomi Information not available 06/20/2025 Mental Status None recorded. Family History Nothing Reported. Medical History Condition Response Bleeding Disorder Migraines Y Headaches Y Anxiety Y Hypertension Y Past Encounters Encounter ID Performer Location Encounter Start Date Encounter Closed Date Diagnosis/Indication Diagnosis SNOMED-CT Code Diagnosis ICD10 Code Diagnosis IMO Codes Diagnosis Note [id number] Mannie Roth DO [facility] of [address] [address] 07/25/2025 10:48:04 08/01/2025 10:20:53 Mass of head and/or neck 615931196 R22.1 Vallecular cyst 15385949 7 J38.7 239164 Thyroid dysfunction 2645 22744 E07.9 990973 Thyrogloss al duct cyst 12517198 Q89.2 6779 Sensorineu ral hearing loss of bilateral ears 152926685 H90.3 13021122 Audiologic al evaluation results: Mild sloping to moderately severe sensorineu ral hearing loss with excellent word recognitio n. Left ear: Mild sloping to moderately severe sensorineu ral hearing loss with excellent word recognitio n. Tympanomet ry: Right Ear:Type A Left Ear:Type A Chronic rhinitis 1607199 6 J31.0 Chronic sinusitis 622807 00 J32.8 [id number] MYNOR OLMSTEAD [facility] of [address] [address] 08/19/2025 10:39:48 08/19/2025 11:43:32 Thyroglossal duct cyst 25038211 Q89.2 6778 [id number] DELORIS MONROY PA-C [facility] of [address] [address] 08/24/2025 13:08:05 08/24/2025 16:56:56 Thyroglossal duct cyst 63563320 Q89.2 6778 Postoperative seroma 429 981663 K91.872 [id number] Health Concerns Section Related Observation LastModified by Organization Detai ls LastModified Time None Recorded Concern Status LastModified by Organization Details LastModified Time None Recorded Payers Encounter Date Sequence Insurance Name Policy Number Policy Delgado Covered Member ID Delgado Member ID Guarantor Name 08/24/2025 1 [facility] [place] [facility] [id number] Yonas Malone [id number] Yonas Amy Kira Notes Date Note Type Note Provider Name and Address Organization Details Recorded Time 08/24/2025 text/html ROS as noted in the HPI 59-year-old male status post thyroglossal duct cyst excision performed 08/16/[address] Roth presents for second postoperative visit. He reports gradual swelling around the surgical incision since the ARMIDA drain was removed. He is following postoperative instructions. Throat pain is 4-5/10. Continues to endorse numbness and tingling. JODI GARCIA MD [address] [place] [address], [address], [place] - [facility] 08/24/2025 17:19:39
--- OUTSIDE RECORDS SUMMARY | 2025-09-03 12:37 | XMS_ITS | Patient Health Record ---
Author Organization [facility] [place] Address [address] [place] [address] Care Team Providers Care Individualized Education Plan Aide Name Role Phone Lino Pineda MD Primary Care Provider Unavailab Domenico Burns Unavailable [phone] Reason For Referral No Information Medications Medication [...] X ray : Foot, right 3V 03/10/2013 52867- [place]bride <25 sq cm 03/10/2013 82087- Debride <25 sq cm 09/14/2013 35811- Debride <25 sq cm 02/07/2014 83404- Debride <25 sq cm 12/05/2014 65899- Debride <25 sq cm 08/30/2016 28281- Debride <25 sq cm 09/25/2016 Insurance Providers Payer Name Payer Address Payer Phone Subscriber Number Group Number Insured Name Patient Relationship to Insured Coverage Start Date Coverage End Date [facility] [address] [place] [address] [id number] Yonas Malone Self - patient is the insured Medical (General) History Medical History History ICD Code back, hip, knee pain broken bones HTN Surgical History Surgery Date(Month/Year) knee surgery (7) ht left 4th, and 5th toes 01/19/2014 left knee arthroscopy 08/13/2016 HT R 4/ Ostectomy R5 02/19/2017
--- OUTSIDE RECORDS SUMMARY | 2025-09-03 12:37 | XMS_ITS | Continuity of Care Document ---
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 it is fairly high up in the neck near that hyoid/thyroid cartilage junction. Flexible laryngoscopy today revealed a small vallecular cyst without any base of tongue abnormalities. 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 FNA previously showed benign squamous cells with no evidence of malignancy consistent with TGDC. Thyroid labs are all otherwise normal. Unfortunately he has had progression in size over the last 4 to 5 days with warmth and tenderness. I wonder if he has an overlying infection within the cyst. He has had some dyspnea as well which has progressed which is concerning to me. We had extensive discussion about protective airway compromise and therapeutic options including prolonged intubation versus tracheostomy. I encouraged him to present to the ER preferably [facility], if he has significant airway concerns -Start prednisone and Augmentin - Will schedule him for urgent surgery - He will let me know if there is any changes or worsening of his symptoms. - We did review his audiogram which shows mild downsloping to severe p rofound sensorineural hearing loss bilaterally that symmetric. I do think he is a candidate for hearing aids but is not interested in this time, we will likely talk about this after we have taking care of his neck mass. Surgical Discussion: We discussed the patient's current pathophysiology and examination findings today. 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 We discussed the risk, benefits, alternatives of thyroglossal duct cyst excision which include bleeding, infection, scarring, need for further procedures or recurrence, need for thyroid supplementation, neck paresthesias, inadvertent airway injury and need for further repair. They would like to proceed with intervention at this time as this is progressed and is bothersome to them. [email or web address] Not available 07/25/2025 12:17:15 Plan of Treatment Reminders Order Date Submit Date Provider Last Modified By Organization Details Last Modified Time Details Appointments POLLARD Initial Fitting 2025 03:00P M RADHA MCKEON , AUD Not available Not available Not available Test Results 15 2025 11:15A Gonsalo Roth, DO Not available Not available Not available Lab None recorded. Referral None recorded. Procedures None recorded. Surgeries excision, thyroglos monique duct cyst (SURG) 2024 025 [email or web address] Not available 07/25/2025 11:55:26 Imaging None recorded. Medication Orders amoxicill in 875 mg-potass ium clavulana te 125 mg tablet 2024 025 [id number], [address], [place], [phone], 08/22/2025 05:02:32 prednison e 10 mg tablet 2024 025 [id number], [address], [place], [phone], 08/26/2025 13:13:28 Patient TargetsNo targets recorded. Patient InstructionsNo instructions recorded. Reason for Referral None Reported. Results Created Date Observation Date Name Description Value Unit Range Abnormal Flag Note LastModifiedBy Organization Detail LastModifiedTime 07/05/2007/12/2025 THYRO ID STIMU LATIN G HORMO NE TSH-icma 1.0 uu/mL Refer ence Range : Non-P regna nt Adult 0.450 -4.50 0 Not Available [facility] [address] [facility], [place], [address], 07/12/2025 09:42:43 07/05/2007/06/2025 TRIIO DOTHY AMRTHA E (T3), FREE triiodothyro nine (T3), free 3.5 pg/mL 2.0-4. 4 normal Not Available [facility] ([facility]) [address] [facility], [place], [address], 07/12/2025 09:42:44 07/05/2007/06/2025 T4,FR EE(DI RECT) T4,free(dire ct) 1.28 NG/dL 0.82-1 .77 normal Not Available [facility] ([facility]) [address] [facility], [place], [address], 07/12/2025 09:42:44 07/25/20 audio gram No observ ation record ed. BARCODE Not Available 2024 13:13:58 Result Notes None recorded. Problems Name Problem SNOMED Code Status Onset Date Resolution Date Notes Provider Name and Address Organization Details Recorded Time Pain of left temporoma ndibular joint 25449567243 970535 Active 2017 Arthralgi a of left temporoma ndibular joint; Note: Date Diagnosed : 03/05/2018 11:17 AM (M26.622) Not Available [facility] 4 02:55:31 Sensorine ural hearing loss of bilateral ears 601574639 Active 2017 Sensorine ural hearing loss, bilateral ; Note: Date Diagnosed : 03/05/2018 11:17 AM (H90.3) Not Available [facility] 4 02:55:35 Dizziness and giddiness 328661001 Active 2017 Dizziness and giddiness ; Note: Date Diagnosed : 03/05/2018 10:50 AM (R42) Not Available [facility] 4 02:55:30 Bilateral tinnitus 96382642322 02 Active 2019 Tinnitus, bilateral ; Note: Date Diagnosed : 0 11:52 AM (H93.13) Not Available [facility] 4 02:55:35 Mass of head and/or neck 912192992 Active 2024 Mannie Roth, DO [address], [place], [address] , [place] - [facility] 5 19:39:50 Vallecula r cyst 221906774 Active 2024 Mannie Roth, DO [address], [place], [address] , [place] [facility] 5 19:41:06 Thyroid dysfuncti on 589348006 Active 2024 Mannie Roth, DO [address], [place], [address] , [place] [facility] 09:26:39 Thyroglos monique duct cyst 37866598 Active 2024 PRABHA CAMPO MD [address], [place], [place], [address] , [place] - [facility] 5 18:03:02 Sensorine ural hearing loss of bilateral ears 728183633 Active 2024 LAMAR ELY, AUD [address], [place], [address] , [place] - [facility] 5 11:11:56 Chronic rhinitis 44750804 Active 2024 Mannie Roth, DO [address], [place], [place], [address] , [place] - [facility] 5 11:50:41 Chronic sinusitis 80737168 Active 2024 Mannie Roth, DO [address], [place], [address] , [place] - [facility] 5 11:50:41 Postopera tive pain 909474798 Active 2024 Mannie Roth, DO [address], [place], [address] , [place] - [facility] 5 07:14:12 Postopera tive seroma 703130484 Active 2024 DELORIS MONROY PA-C [address] [facility],[place] [address], [place], [address] , [facility] - [facility] 14:52:55 Problem Notes None recorded. Procedures Surgical History Date Name Laterality Status Provider Name and Address Organization Details Recorded Time 08/24/20 I & D Seroma/abscess completed DELORIS MONROY PA-C [address] [facility],[place] [address], [place], [address], [facility] - [facility] 08/24/2025 14:46:48 08/16/20 EXCISION, THYROGLOSSAL DUCT CYST (SURG) completed Jean Claude Kamara [place] - [facility] 08/16/2025 13:13:37 07/25/20 Comp Audio with Tymps - 76056 & 28753 completed LAMAR ELY, AUD [address] [facility],[address], [address], [facility] - [facility] 07/25/2025 11:11:41 06/20/20 FOL_normal_DHL completed Mannie Roth, DO [address] [facility],[address], [address], [facility] - [facility] 06/20/2025 09:30:03 repair of ligament of knee joint completed AIXA VERA [facility] 06/20/2025 09:16:03 Imaging Results None recorded. Procedure Notes None recorded. Medical Equipment None Reported. Allergies Allergen ID Allergen Name Allergen Category Reaction Reaction Severity Criticality Documentation Date Start Date Code Code System Note Provider Name and Address Organization Details Recorded Time 203406 azithromy harrison medicatio n Not available Not available Not available 07/22/2025 98430 RxNorm Not Available [employer] - prod 09:02:49 822132 etodolac medicatio n Not available Not available Not available 07/22/2025 25492 RxNorm Not Available [employer] - prod 09:02:49 Medications Name Sig Start Date Stop [...] mg tablet 06/20 completed Medicati on ID: [id number] D uration Value: 30 Brand Name: lisinopr [...] d Address Organization Details Last Updated DateTime 07/25/2025 177.8 cm [facility] - [facility] 07/25/2025 11:15:59 Social History None recorded. Functional Status Question [...] ICD10 Code Diagnosis IMO Codes Diagnosis Note [id number] Mannie Roth, DO [facility] [address] [place] [address] 07/25/2025 10:48:04 08/01/2025 10:20:53 Mass of head and/or neck 757628900 R22.1 Vallecular cyst 24043327 7 J38.7 621014 Thyroid dysfunction 2645 66566 E07.9 342590 Thyrogloss al duct cyst 25005904 Q89.2 6779 Sensorineu ral hearing loss of bilateral ears 819756454 H90.3 55565951 Audiologic al evaluation results: Mild sloping to moderately severe sensorineu ral hearing loss with excellent word recognitio n. Left ear: Mild sloping to moderately severe sensorineu ral hearing loss with excellent word recognitio n. Tympanomet ry: Right Ear:Type A Left Ear:Type A Chronic rhinitis 1556297 6 J31.0 Chronic sinusitis 093222 00 J32.8 Health Concerns Section Related Observation LastModified by Organization Detai ls LastModified Time None Recorded Concern Status LastModified by Organization Details LastModified Time None Recorded Payers Encounter Date Sequence Insurance Name Policy Number Policy Delgado Covered Member ID Delgado Member ID Guarantor Name 07/25/2025 1 [facility] [id number] Yonas T Kira [id number] Yonas T Kira Notes Date Note Type Note Provider Name and Address Organization Details Recorded Time 07/25/2025 text/html ROS as noted in the HPI Interval history: No change in his midline neck mass. Thyroid labs were also normal. -FNA was consistent with benign squamous cells no evidence of malignancy likely thyroglossal duct cyst.-Patient has had 4 to 5 days of worsening swelling and pain in this area as well. No recent URI. Previous visit: The patient presents with concerns of a [...] PTC . Left vallecular cyst noted. Mannie Roth, DO [address] [facility] [address], [place], [address], [place] - [facility] 07/25/2025 12:17:20
--- OUTSIDE RECORDS SUMMARY | 2025-09-03 12:37 | XMS_ITS | Continuity of Care Document ---
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 Roth, presents for his first postoperative evaluation. Hypoglossal nerve is intact. There is a well-healed incision over the inferior aspect of the hyoid bone without infection or seroma. Mild serosanguinous output from ARMIDA drain which was removed. Water precautions were reviewed. Patient should avoid heavy lifting and strenuous activity for the next 2 weeks to minimize bleeding risk. Head elevation when sleeping or lying supine may additionally help reduce swelling. Resume oral intake as tolerated. Patient can alternate between Tylenol and Motrin for pain management. Patient will follow up as scheduled, however he was instructed to call the office or present to the emergency room if he begins to develop fever, signs of airway compromise, fluid collection, or purulent drainage. All questions were answered. [email or web address] Not available 08/23/2025 23:29:53 Plan of Treatment Reminders Order Date Submit Date Provider Last Modified By Organization Details Last Modified Time Details Appointments POLLARD Initial Fitting 2025 03:00P Gonslao MCKEON , EMMANUEL Not available Not available [...] Time Pain of left temporoma ndibular joint 60846929063 437756 Active 2017 Arthralgi a of left temporoma ndibular joint; Note: Date Diagnosed : 03/05/2018 11:17 AM (M26.622) Not Available [facility] 4 02:55:31 Sensorine ural hearing loss of bilateral ears 974295233 Active 2017 Sensorine ural hearing loss, bilateral ; Note: Date Diagnosed : 03/05/2018 11:17 AM (H90.3) Not Available [facility] 4 02:55:35 Dizziness and giddiness 658448744 Active 2017 Dizziness and giddiness ; Note: Date Diagnosed : 03/05/2018 10:50 AM (R42) Not Available [facility] 4 02:55:30 Bilateral tinnitus 08436574044 02 Active 2019 Tinnitus, bilateral ; Note: Date Diagnosed : 0 11:52 AM (H93.13) Not Available [facility] 4 02:55:35 Mass of head and/or neck 342940176 Active 2024 Mannie Roth [place] [address], [address] , [place] - [facility] 5 19:39:50 Vallecula r cyst 462287429 Active 2024 Mannie Roth [address] [place] [address], [place], [address] , [facility] - [facility] 5 19:41:06 Thyroid dysfuncti on 266920009 Active 2024 Mannie Roth [address] [place] [address], [address] , [facility] - [facility] 5 09:26:39 Thyroglos monique duct cyst 00796089 Active 2024 PRABHA CAMPO MD [address] [facility] [address], [place], [place], [address] , [facility] - [facility] 18:03:02 Sensorine ural hearing loss of bilateral ears 356629761 Active 2024 LAMAR ELY, AUD [address] [facility] [address], [place], [address] , [place] - [facility] 11:11:56 Chronic rhinitis 88180594 Active 2024 Mannie Roth, DO [address] [facility],[address] [address], [place], [address] , [place] - [facility] 11:50:41 Chronic sinusitis 40160368 Active 2024 Mannie Roth, DO [address] [facility],[address] [place] [address], [place], [place], [address] , [facility] - [facility] 11:50:41 Postopera tive pain 705902810 Active 2024 Mannie Roth, DO [address] [facility],[address] [address], [place], [address] , [place] - [facility] 07:14:12 Postopera tive seroma 994181425 Active 2024 DELORIS MONROY PA-C [address] [facility] [address], [place], [address] , [facility] - [facility] 14:52:55 Problem Notes None recorded. Procedures Surgical History Date Name Laterality Status Provider Name and Address Organization Details Recorded Time 08/24/20 I & D Seroma/abscess completed DELORIS MONROY PA-C [address] [facility],[address] [place] [address], [place], [address], [place] - [facility] 08/24/2025 14:46:48 12/09/20 25 EXCISION, THYROGLOSSAL DUCT CYST (SURG) completed Jean Claude Kamara [place] - [facility] 08/16/2025 13:13:37 07/25/20 25 Comp Audio with Tymps - 09307 & 29907 completed LAMAR ELY, AUD [address] [facility] [address], [place], [address], [facility] - [facility] 07/25/2025 11:11:41 06/20/20 25 FOL_normal_DHL completed Mannie Roth, DO [address] [facility] [address], [place], [address], [facility] - [facility] 06/20/2025 09:30:03 repair of ligament of knee joint completed AIXA VERA [place] - [facility] 06/20/2025 09:16:03 Imaging Results None recorded. Procedure Notes None recorded. Medical Equipment None Reported. Allergies Allergen ID Allergen Name Allergen Category Reaction Reaction Severity Criticality Documentation Date Start Date Code Code System Note Provider Name and Address Organization Details Recorded Time 193767 azithromy harrison medicatio n Not available Not available Not available 07/22/2025 59366 RxNorm Not Available [employer] - prod 09:02:49 423492 etodolac medicatio n Not available Not available Not available 07/22/2025 52163 RxNorm Not Available [employer] - prod 09:02:49 Medications Name [...] mg tablet 06/20 completed Medicati on ID: [id number] D uration Value: 30 Brand Name: lisinopr [...] and Address Organization Details Last Updated DateTime 08/19/2025 177.8 cm 34.4 kg/m2 563118.17 g Shalonda Sherman [place] - [facility] 08/19/2025 10:51:43 Social History None recorded. Functional Status Question [...] ICD10 Code Diagnosis IMO Codes Diagnosis Note [id number] Mannie Roth DO [facility] of [address] [address] 07/25/2025 10:48:04 08/01/2025 10:20:53 Mass of head and/or neck 197111041 R22.1 Vallecular cyst 45431491 7 J38.7 186861 Thyroid dysfunction 2645 05625 E07.9 686694 Thyrogloss al duct cyst 78731212 Q89.2 6779 Sensorineu ral hearing loss of bilateral ears 743120789 H90.3 85128166 Audiologic al evaluation results: Mild sloping to moderately severe sensorineu ral hearing loss with excellent word recognitio n. Left ear: Mild sloping to moderately severe sensorineu ral hearing loss with excellent word recognitio n. Tympanomet ry: Right Ear:Type A Left Ear:Type A Chronic rhinitis 9565019 6 J31.0 Chronic sinusitis 132591 00 J32.8 [id number] MYNOR OLMSTEAD [facility] of [address] [address] 08/19/2025 10:39:48 08/19/2025 11:43:32 Thyroglossal duct cyst 26209218 Q89.2 6778 Health Concerns Section Related Observation LastModified by Organization Detai ls LastModified Time None Recorded Concern Status LastModified by Organization Details LastModified Time None Recorded Payers Encounter Date Sequence Insurance Name Policy Number Policy Delgado Covered Member ID Delgado Member ID Guarantor Name 08/19/2025 1 [facility]: [facility] [id number] Yonas Malone [id number] Yonas Malone Notes Date Note Type Note Provider Name and Address Organization Details Recorded Time 08/19/2025 text/html ROS as noted in the HPI 59-year-old male, s/p thyroglossal duct cyst excision performed 08/16/[address] Roth, presents for his first postoperative evaluation. Patient is doing fairly well overall following surgery. He endorses 5/10 pain at the moment managed with oxycodone, as well as alternating acetaminophen and ibuprofen. No other acute concerns to report today. MANNIE KIM MD [address] [place] [address],[address], [address], [facility] - [facility] 08/24/2025 08:56:07 08/24/2025 text/html ROS as noted in the HPI 59-year-old male status post thyroglossal duct cyst excision performed 08/16/[address] Roth presents for second postoperative visit. He reports gradual swelling around the surgical incision since the ARMIDA drain was removed. He is following postoperative instructions. Throat pain is 4-5/10. Continues to endorse numbness and tingling. JODI GARCIA MD [address] [place] [address],[address], [address], [place] - [facility] 08/24/2025 17:19:39
--- OUTSIDE RECORDS SUMMARY | 2025-09-03 12:37 | XMS_ITS | Continuity of Care Document ---
Author Organization [place] - [facility], [facility] Address [address] [place] [address] Care Team Providers [facility] Name Role Phone ELIAS BAILEY Referring Provider Assessment Encounter Date Assessment Date Assessment LastModified by Organization Details LastModified Time 08/26/2025 08/26/2025 59-year-old male status post thyroglossal duct cyst excision performed 08/16/[address] Roth presents for reevaluation of post operative seroma. This was aspirated 08/24 and 15 mL of serosanguinous fluid was collected. Examination today demonstrates 2 cm x 2 cm recollection of the seroma. Size is stable. There is no evidence of infection. Discussed observation versus repeat aspiration, and patient prefers to observe as he is asymptomatic. Recommend follow-up as scheduled in [address] Roth. Patient aware to avoid heavy lifting in the interim. [email or web address] Not available 08/26/2025 16:11:33 Plan of Treatment Reminders Order Date Submit Date Provider Last Modified By Organization Details Last Modified Time Details Appointments POLLARD Initial Fitting 2025 03:00P Gonsalo MCKEON , AUD Not available Not available [...] Time Pain of left temporoma ndibular joint 18246472175 915500 Active 2017 Arthralgi a of left temporoma ndibular joint; Note: Date Diagnosed : 03/05/2018 11:17 AM (M26.622) Not Available [facility] 4 02:55:31 Sensorine ural hearing loss of bilateral ears 986163955 Active 2017 Sensorine ural hearing loss, bilateral ; Note: Date Diagnosed : 03/05/2018 11:17 AM (H90.3) Not Available [facility] 4 02:55:35 Dizziness and giddiness 483155148 Active 2017 Dizziness and giddiness ; Note: Date Diagnosed : 03/05/2018 10:50 AM (R42) Not Available [facility] 4 02:55:30 Bilateral tinnitus 10591115791 02 Active 2019 Tinnitus, bilateral ; Note: Date Diagnosed : 0 11:52 AM (H93.13) Not Available [facility] 4 02:55:35 Mass of head and/or neck 586101156 Active 2024 Mannie Roth, DO [address] [facility],[place] [address], [place], [address] , [place] - [facility] 5 19:39:50 Vallecula r cyst 381001309 Active 2024 Mannie Roth, DO [address] [facility],[address], [place], [address] , [place] [facility] 5 19:41:06 Thyroid dysfuncti on 120264398 Active 2024 Mannie Roth, DO [address] [facility],[address], [place], [address] , [place] [facility] 5 09:26:39 Thyroglos monique duct cyst 17308668 Active 2024 PRABHA CAMPO MD [address] [facility],[address], [place], [address] , [place] - [facility] 5 18:03:02 Sensorine ural hearing loss of bilateral ears 493662800 Active 2024 LAMAR ELY, AUD [address], [place], [address] , [place] - [facility] 5 11:11:56 Chronic rhinitis 04253628 Active 2024 Mannie Roth, DO [address], [facility] [place], [address] , [place] - [facility] 5 11:50:41 Chronic sinusitis 72642237 Active 2024 Mannie Roth, DO [address] [facility],[address], [place], [address] , [place] - [facility] 11:50:41 Postopera tive pain 086440664 Active 2024 Mannie Roth, DO [address],[place] [address], [facility] [place], [address] , [place] - [facility] 07:14:12 Postopera tive seroma 366272806 Active 2024 DELORIS MONROY PA-C [address] [facility],[place] [address], [facility] [place], [address] , [place] - [facility] 14:52:55 Problem Notes None recorded. Procedures Surgical History Date Name Laterality Status Provider Name and Address Organization Details Recorded Time 08/24/20 25 I & D Seroma/abscess completed DELORIS MONROY PA-C [address] [facility],[place] [address], [place], [address], [place] - [facility] 08/24/2025 14:46:48 08/16/20 25 EXCISION, THYROGLOSSAL DUCT CYST (SURG) completed Jean Claude Kamara [place] - [facility] 08/16/2025 13:13:37 07/25/20 25 Comp Audio with Tymps - 24525 & 03493 completed LAMAR ELY, AUD [address], [place], [address], [place] - [facility] 07/25/2025 11:11:41 10/13/20 25 FOL_normal_DHL completed Mannie Roth, DO [address] [facility], [place], [address], [place] - [facility] 06/20/2025 09:30:03 repair of ligament of knee joint completed AIXA VERA [place] - [facility] 06/20/2025 09:16:03 Imaging Results None recorded. Procedure Notes None recorded. Medical Equipment None Reported. Allergies Allergen ID Allergen Name Allergen Category Reaction Reaction Severity Criticality Documentation Date Start Date Code Code System Note Provider Name and Address Organization Details Recorded Time 455741 azithromy harrison medicatio n Not available Not available Not available 07/22/2025 59315 RxNorm Not Available [employer] - [employer] 09:02:49 751525 etodolac medicatio n Not available Not available Not available 07/22/2025 74545 RxNorm Not Available [employer] - [employer] 09:02:49 Medications Name Sig Start Date Stop [...] mg tablet 06/20 completed Medicati on ID: [id number] D uration Value: 30 Brand Name: lisinopr [...] and Address Organization Details Last Updated DateTime 08/26/2025 177.8 cm 33.7 kg/m2 449087.21 g Zara Potvin [place] - [facility] 08/26/2025 13:12:54 Social History None recorded. Functional Status Question [...] ICD10 Code Diagnosis IMO Codes Diagnosis Note [id number] MYNOR OLMSTEAD [facility] of [address] [address] 08/19/2025 10:39:48 08/19/2025 11:43:32 Thyroglossal duct cyst 67681610 Q89.2 6778 [id number] DELORIS MONROY PA-C [facility] of [address] [address] 08/24/2025 13:08:05 08/24/2025 16:56:56 Thyroglossal duct cyst 26045367 Q89.2 6778 Postoperative seroma 429 798452 K91.872 74704046 [id number] DELORIS MONROY PA-C [facility] of [facility] on [address] [place] [address] 08/26/2025 13:05:44 08/26/2025 13:35:04 Postoperative seroma 545146411 K91.872 14177388 Thyrogloss al duct cyst 18308739 Q89.2 6778 6779 Health Concerns Section Related Observation LastModified by Organization Detai ls LastModified Time None Recorded Concern Status LastModified by Organization Details LastModified Time None Recorded Payers Encounter Date Sequence Insurance Name Policy Number Policy Delgado Covered Member ID Delgado Member ID Guarantor Name 08/26/2025 1 [place] [facility] [id number] Yonas Malone [id number] Yonas Malone Notes Date Note Type Note Provider Name and Address Organization Details Recorded Time 08/26/2025 text/html ROS as noted in the HPI 59-year-old male status post thyroglossal duct cyst excision performed 08/16/[address] Roth presents for reevaluation of post op seroma. 15 mL of serosanguinous fluid was aspirated two days ago. He reports gradual increase in swelling in the same area since. Otherwise, is asymptomatic. PRABHA CAMPO MD [address] [place] [address], [address], [facility] - [facility] 08/29/2025 08:42:57
--- OUTSIDE RECORDS SUMMARY | 2025-09-03 12:37 | XMS_ITS | Data Portability ---
Author Organization [place] - [facility], Allergy Address [address] [place] [address] Care Team Providers Care Sales Operations Name Role Phone ELIAS BAILEY Referring Provider [phone] Assessment Encounter Date Assessment Date Assessment LastModified [...] him to present to the ER preferably [facility], if he has significant airway concerns [...] to them. [email or web address] Not available 07/25/2025 12:17:15 08/19/2025 08/19/2025 59-year-old male , s/p thyroglossal [...] were answered. [email or web address] Not available 08/23/2025 23:29:53 08/24/2025 08/24/2025 59-year-old male status post thyroglossal [...] Dr. Garcia. [email or web address] Not available 08/24/2025 14:53:20 08/26/2025 08/26/2025 59-year-old male status post thyroglossal [...] the interim. [email or web address] Not available 08/26/2025 16:11:33 08/31/2025 08/31/2025 Yonas is a pleasa nt gentleman without history of a large thyroglossal duct cyst associated with recurring infections requiring hospital stays, now s/p thyroglossal duct cyst excision performed 08/16/25 by myself at [facility]. Path d/w pt today. Course has [...] clavulana te 125 mg tablet 2024 025 [id number], [address] [place], [place], [id number], 08/22/2025 05:02:32 prednison e 10 mg tablet 2024 025 [id number], [address] [place], [place], [id number], 08/26/2025 13:13:28 Patient TargetsNo targets recorded. Patient InstructionsNo instructions recorded. Reason for Referral None Reported. Results Created Date Observation Date Name Description Value Unit Range Abnormal Flag Note LastModifiedBy Organization Detail LastModifiedTime 07/05/2007/12/2025 THYRO ID STIMU LATIN G HORMO NE TSH-icma 1.0 uu/mL Refer ence Range : Non-P regna nt Adult 0.450 -4.50 0 Not Available [facility] [address] [place] [address], [address], 07/12/2025 09:42:43 07/05/2007/06/2025 TRIIO DOTHY MARTHA E (T3), FREE triiodothyro nine (T3), free 3.5 pg/mL 2.0-4. 4 normal Not Available [facility] ([facility]) [address] [place], [address], 07/12/2025 09:42:44 07/05/2007/06/2025 T4,FR EE(DI RECT) T4,free(dire ct) 1.28 NG/dL 0.82-1 .77 normal Not Available [facility] ([facility]) [address] [place], [address], 07/12/2025 09:42:44 07/25/20 audio gram No observ ation record ed. BARCODE Not Available 2024 13:13:58 Result Notes None recorded. Problems Name Problem SNOMED Code Status Onset Date Resolution Date Notes Provider Name and Address Organization Details Recorded Time Pain of left temporoma ndibular joint 58757120422 655571 Active 2017 Arthralgi a of left temporoma ndibular joint; Note: Date Diagnosed : 03/05/2018 11:17 AM (M26.622) Not Available [facility] 02:55:31 Sensorine ural hearing loss of bilateral ears 317737925 Active 2017 Sensorine ural hearing loss, bilateral ; Note: Date Diagnosed : 03/05/2018 11:17 AM (H90.3) Not Available [facility] 4 02:55:35 Dizziness and giddiness 202798585 Active 2017 Dizziness and giddiness ; Note: Date Diagnosed : 03/05/2018 10:50 AM (R42) Not Available [facility] 4 02:55:30 Bilateral tinnitus 27037158463 02 Active 2019 Tinnitus, bilateral ; Note: Date Diagnosed : 0 11:52 AM (H93.13) Not Available [facility] 4 02:55:35 Mass of head and/or neck 384947195 Active 2024 Mannie Roth, DO [address], [place], [address] , [place] - [facility] 5 19:39:50 Vallecula r cyst 097823680 Active 2024 Mannie Roth, DO [address], [place], [address] , [place] - [facility] 5 19:41:06 Thyroid dysfuncti on 951225236 Active 2024 Mannie Roth, DO [address], [place], [address] , [place] [facility] 5 09:26:39 Thyroglos monique duct cyst 15619940 Active 2024 PRABHA CAMPO MD [address], [place], [address] , [place] [facility] 5 18:03:02 Sensorine ural hearing loss of bilateral ears 370194645 Active 2024 LAMAR ELY, AUD [address], [place], [address] , [place] - [facility] 5 11:11:56 Chronic rhinitis 38502974 Active 2024 Mannie Roth, DO [address] [facility],[place] [address], [place], [address] , [facility] - [facility] 5 11:50:41 Chronic sinusitis 17902159 Active 2024 Mannie Roth, DO [address] [facility] [place] [address], [place], [id number] , [facility] - [facility] 5 11:50:41 Postopera tive pain 716576235 Active 2024 Mannie Roth, DO [address] [facility] [place] [address], [place], [address] , [facility] - [facility] 07:14:12 Postopera tive seroma 828275993 Active 2024 DELORIS MONROY PA-C [address] [facility],[place] [address], [place], [phone] , [facility] - [facility] 14:52:55 Problem Notes None recorded. Procedures Surgical History Date Name Laterality Status Provider Name and Address Organization Details Recorded Time 08/24/20 I & D Seroma/abscess completed DELORIS MONROY PA-C [address] [facility],[address], [address], [facility] - [facility] 08/24/2025 14:46:48 08/16/20 25 EXCISION, THYROGLOSSAL DUCT CYST (SURG) completed Jean Claude Kamara [place] - [facility] 08/16/2025 13:13:37 07/25/20 25 Comp Audio with Tymps - 23392 & 91475 completed LAMAR ELY, AUD [address] [facility],[place] [address], [place], [address], [facility] - [facility] 07/25/2025 11:11:41 06/20/20 25 FOL_normal_DHL completed Mannie Roth, DO [address] [facility] [place] [address], [place], [address], [facility] - [facility] 06/20/2025 09:30:03 repair of ligament of knee joint completed AIXA VERA [place] - [facility] 06/20/2025 09:16:03 Imaging Results None recorded. Procedure Notes None recorded. Medical Equipment None Reported. Allergies Allergen ID Allergen Name Allergen Category Reaction Reaction Severity Criticality Documentation Date Start Date Code Code System Note Provider Name and Address Organization Details Recorded Time 264210 azithromy harrison medicatio n Not available Not available Not available 07/22/2025 11772 RxNorm Not Available [employer] - prod 09:02:49 516738 etodolac medicatio n Not available Not available Not available 07/22/2025 49262 RxNorm Not Available [employer] [facility] [place] 09:02:49 Medications Name Sig Start Date Stop [...] mg tablet 06/20 completed Medicati on ID: [id number] D uration Value: 30 Brand Name: lisinopr [...] Details Last Updated DateTime 07/25/2025 177.8 cm AIXA VERA [place] [facility] 07/25/2025 11:15:59 Date Recorded Body height Body mass index (BMI) Body weight Provider Name and Address Organization Details Last Updated DateTime 08/19/2025 177.8 cm 34.4 kg/m2 844292.17 g Shalonda Sherman [place] - [facility] 08/19/2025 10:51:43 Date Recorded Body height Body mass index (BMI) Body weight Provider Name and Address Organization Details Last Updated DateTime 08/26/2025 177.8 cm 33.7 kg/m2 141674.21 g Zara Jaeger [place] - [facility] 08/26/2025 13:12:54 Date Recorded Body height Provider Name an d Address Organization Details Last Updated DateTime 08/31/2025 177.8 cm AIXA VERA [place] - [facility] 08/31/2025 11:25:42 Social History None recorded. Functional [...] ICD10 Code Diagnosis IMO Codes Diagnosis Note [id number] Mannie Roth, DO [facility] of [address] [address] 06/20/2025 09:02:38 06/20/2025 09:31:46 Mass of head and/or neck 298121454 R22.1 Vallecular cyst 85279457 7 J38.7 612339 Thyroid dysfunction 2645 46338 E07.9 351514 [id number] Mannie Roth, DO [facility] [address] [address] 07/25/2025 10:48:04 08/01/2025 10:20:53 Mass of head and/or neck 300544218 R22.1 Vallecular cyst 43842389 7 J38.7 019689 Thyroid dysfunction 2645 35679 E07.9 303509 Thyrogloss al duct cyst 04894419 Q89.2 6779 Sensorineu ral hearing loss of bilateral ears 292738784 H90.3 47611463 Audiologic al evaluation results: Mild sloping to moderately severe sensorineu ral hearing loss with excellent word recognitio n. Left ear: Mild sloping to moderately severe sensorineu ral hearing loss with excellent word recognitio n. Tympanomet ry: Right Ear:Type A Left Ear:Type A Chronic rhinitis 3062582 6 J31.0 Chronic sinusitis 905679 00 J32.8 [id number] MYNOR OLMSTEAD [facility] of [address] [address] 08/19/2025 10:39:48 08/19/2025 11:43:32 Thyroglossal duct cyst 35208803 Q89.2 6778 15135 DELORIS MONROY PA-C [facility] of [address] [address] 08/24/2025 13:08:05 08/24/2025 16:56:56 Thyroglossal duct cyst 88325299 Q89.2 6778 Postoperative seroma 429 473965 K91.872 63423541 [id number] DELORIS MONROY PA-C [facility] of [facility] on [address] [place] [address] 08/26/2025 13:05:44 08/26/2025 13:35:04 Postoperative seroma 284466141 K91.872 93364875 Thyrogloss al duct cyst 90319733 Q89.2 6778 6779 54732 Mannie Roth DO [facility] of [address] [address] 08/31/2025 10:58:09 08/31/2025 11:53:04 Thyroglossal duct cyst 50926385 Q89.2 6778 Mass of he ad and/or neck 384661496 R22.1 Vallecular cyst 24714899 7 J38.7 632042 Thyroid dysfunction 2645 76990 E07.9 206231 Chronic rhinitis 4102088 6 J31.0 Chronic sinusitis 111350 00 J32.8 Health Concerns Section Related Observation LastModified by Organization Detai ls LastModified Time None Recorded Concern Status LastModified by Organization Details LastModified Time None Recorded Advance Directives Directive None Recorded Payers Insurance Date Sequence Insurance Name Policy Number Policy Delgado Covered Member ID Delgado Member ID Guarantor Name 08/31/2025 1 [facility]-ID: [facility] [id number] Yonas Malone [id number] Yonas Malone Notes Date Note Type [...] Left vallecular cyst noted. Mannie Roth DO 100 [facility],[address], [address], [facility] - [facility] 07/25/2025 12:17:20 08/19/2025 text/html ROS as noted in the HPI 59-year-old male, s/p thyroglossal duct cyst excision performed 08/16/[address] Roth, presents for his first postoperative evaluation. Patient is doing fairly well overall following surgery. He endorses 5/10 pain at the moment managed with oxycodone, as well as alternating acetaminophen and ibuprofen. No other acute concerns to report today. MANNIE KIM MD [address] [facility],[place] [address], [place], [address], [place] - [facility] 08/24/2025 08:56:07 08/24/2025 text/html ROS as noted in the HPI 59-year-old male status post thyroglossal duct cyst excision performed 08/16/[address] Roth presents for second postoperative visit. He reports gradual swelling around the surgical incision since the ARMIDA drain was removed. He is following postoperative instructions. Throat pain is 4-5/10. Continues to endorse numbness and tingling. JODI GARCIA MD [address] [facility] [address], [address], [place] - [facility] 08/24/2025 17:19:39 08/26/2025 text/html ROS as noted in the HPI 59-year-old male status post thyroglossal duct cyst excision performed 08/16/[address] Roth presents for reevaluation of post op seroma. 15 mL of serosanguinous fluid was aspirated two days ago. He reports gradual increase in swelling in the same area since. Otherwise, is asymptomatic. PRABHA CAMPO MD [address] [facility],[address], [address], [place] - [facility] 08/29/2025 08:42:57 08/31/2025 text/html ROS as noted in the HPI Yonas is a pleasant gentleman without history of a large thyroglossal duct cyst associated with recurring infections requiring hospital stays, now s/p thyroglossal duct cyst excision performed 08/16/25 by myself at [facility]. Path: Thyroglossal duct cyst with associated nodular foreign body giant cell granulomas including cholesterol clefts and multinucleated giant cells. Interval history: Patient has been dealing with a postoperative seroma patient has been aspirated by the PA team for this. Otherwise has some concerns with his thick scar and some improvement in pain and swelling. Mannie Roth, 100 [facility],[address], [address], [place] - [facility] 08/31/2025 12:27:11
--- OUTSIDE RECORDS SUMMARY | 2025-09-03 12:37 | XMS_ITS | Clinical Summary ---
Author Organization [facility] Address [address] [place] [address] Phone Care Team Providers Care Client Services Vice President Name Role Phone Unavailable Primary Care Provider Unavailabl e Encounters Date Type Department Care Team Description 06/27/2025 4:03 PM EDT - 06/27/2025 11:59 PM EDT Hospital Encounter [facility] MRI [address] [place] [address] Headache Discharge Disposition: Home or Self [...] Signed Date: 06/30/2025 14:54 ET Workstation ID: [id number] Transcribed By: Self Edit Transcribed Date: 06/30/2025 [...] Signed Date: 06/30/2025 14:54 ET Workstation ID: [id number] Transcribed By: Self Edit Transcribed Date: 06/30/2025 14:50 ET Lino Pineda MD IMG MRI PROCEDURES Final Resul t from Last 3 Months Insurance [facility]
--- OUTSIDE RECORDS SUMMARY | 2025-09-03 12:37 | XMS_ITS | Continuity of Care Document ---
Author Organization [place] - [facility], [facility] Address [address] [place] [address] Care Team Providers Care Front Sight Attacher Name Role Phone ELIAS BAILEY Referring Provider [phone] Assessment Encounter Date Assessment Date Assessment LastModified [...] Not available Test Results 15 2025 11:15A M Mannie Roth, DO Not available Not available Not available Lab TSH, serum or plasma 2024 025 CHRISTINE [facility], [address] [facility] [address], [place], [address], 07/12/2025 09:42:43 T4, free, serum 2024 025 CHRISTINE [facility], [address], [place], [address], 07/12/2025 09:42:44 T3, free, serum or plasma 2024 025 CHRISTINE [facility], [address], [place], [address], 07/12/2025 09:42:44 Referral None recorded. Procedures fine needle aspiratio n, ultrasoun d guided, neck mass (PROC) - Midline neck mass, TGDC vs potential papillary thyroid carcinoma within TGDC 2024 [email or web address] [facility], [address] [facility], [place], [address], 06/29/2025 11:24:59 Surgeries None recorded. Imaging None [...] 0 Not Available [facility] [address] [facility], [place], [address], 07/12/2025 09:42:43 07/05/2007/06/2025 TRIIO DOTHY MARTHA E (T3), FREE triiodothyro nine (T3), free 3.5 pg/mL 2.0-4. 4 normal Not Available [facility] ([facility]) [address] [facility], [place], [address], 07/12/2025 09:42:44 07/05/2007/06/2025 T4,FR EE(DI RECT) T4,free(dire ct) 1.28 NG/dL 0.82-1 .77 normal Not Available [facility] ([facility]) [address] [facility] [address], [place], [address], 07/12/2025 09:42:44 07/25/20 25 audio gram No observ ation record ed. BARCODE Not Available 2024 13:13:58 Result Notes None recorded. Problems Name Problem SNOMED Code Status Onset Date Resolution Date Notes Provider Name and Address Organization Details Recorded Time Pain of left temporoma ndibular joint 86605332377 364007 Active 2017 Arthralgi a of left temporoma ndibular joint; Note: Date Diagnosed : 03/05/2018 11:17 AM (M26.622) Not Available [facility] 4 02:55:31 Sensorine ural hearing loss of bilateral ears 879248540 Active 2017 Sensorine ural hearing loss, bilateral ; Note: Date Diagnosed : 03/05/2018 11:17 AM (H90.3) Not Available [facility] 4 02:55:35 Dizziness and giddiness 194183269 Active 2017 Dizziness and giddiness ; Note: Date Diagnosed : 03/05/2018 10:50 AM (R42) Not Available [facility] 4 02:55:30 Bilateral tinnitus 10767175488 02 Active 2019 Tinnitus, bilateral ; Note: Date Diagnosed : 0 11:52 AM (H93.13) Not Available [facility] 4 02:55:35 Mass of head and/or neck 628517922 Active 2024 Mannie Roth [address] [address], [place], [address] , [facility] [place] 5 19:39:50 Vallecula r cyst 068303207 Active 2024 Mannie Roth [address] [address], [place], [address] , [facility] - [facility] 5 19:41:06 Thyroid dysfuncti on 102309140 Active 2024 Mannie Roth [address] [address], [place], [address] , [place] [facility] [place] [facility] 5 09:26:39 Thyroglos monique duct cyst 68694143 Active 2024 PRABHA CAMPO MD [address] [facility], [place], [address] , [place] [facility] [place] [facility] 5 18:03:02 Sensorine ural hearing loss of bilateral ears 012609439 Active 2024 LAMAR ELY, AUD [address] [facility], [place], [address] , [place] [facility] [place] 5 11:11:56 Chronic rhinitis 39720202 Active 2024 Mannie Roth, DO [address] [facility],[facility] [address], [place], [address] , [place] [facility] [place] 5 11:50:41 Chronic sinusitis 19296333 Active 2024 Mannie Roth, DO [address] [facility] [address], [place], [address] , [place] [facility] [place] 11:50:41 Postopera tive pain 077109107 Active 2024 Mannie Roth, DO [address] [facility] [place],[facility] [address], [place], [address] , [place] [facility] 07:14:12 Postopera tive seroma 483124336 Active 2024 DELORIS MONROY PA-C [address] [facility] [place],[address], [place], [address] , [place] [facility] 5 14:52:55 Problem Notes None recorded. Procedures Surgical History Date Name Laterality Status Provider Name and Address Organization Details Recorded Time 08/24/20 I & D Seroma/abscess completed DELORIS MONROY PA-C [address] [facility] [place],[address], [facility] [place], [address], [place] - [facility] 08/24/2025 14:46:48 08/16/20 EXCISION, THYROGLOSSAL DUCT CYST (SURG) completed Jean Claude Kamara MD - [facility] 08/16/2025 13:13:37 07/25/20 Comp Audio with Tymps - 55878 & 51240 completed LAMAR ELY, AUD [address] [facility] [address], [place], [address], [facility] - [facility] 07/25/2025 11:11:41 06/20/20 25 FOL_normal_DHL completed Mannie Roth, DO [address] [facility] [address], [place], [address], [facility] - [facility] 06/20/2025 09:30:03 repair of ligament of knee joint completed AIXA VERA MD - [facility] 06/20/2025 09:16:03 Imaging Results None recorded. Procedure Notes None recorded. Medical Equipment None Reported. Allergies Allergen ID Allergen Name Allergen Category Reaction Reaction Severity Criticality Documentation Date Start Date Code Code System Note Provider Name and Address Organization Details Recorded Time 022441 azithromy [facility] n Not available Not available Not available 07/22/2025 05314 RxNorm Not Available [employer] - prod 09:02:49 354037 etodolac medicatio n Not available Not available Not available 07/22/2025 72829 RxNorm Not Available [employer] - prod 09:02:49 Medications Name [...] mg tablet 06/20 completed Medicati on ID: [id number] D uration Value: 30 Brand Name: lisinopr [...] oral route as needed for 3 days. 12/09/ 2025 12/19 /2025 completed Not Available Not Available Not Available [...] Updated DateTime 06/20/2025 177.8 cm 33.7 kg/m2 766423.21 g AIXA VERA MD - [facility] 06/20/2025 09:16:41 Social History None recorded. Functional [...] ICD10 Code Diagnosis IMO Codes Diagnosis Note 18660 Mannie Roth DO [facility] [address] [address] 06/20/2025 09:02:38 06/20/2025 09:31:46 Mass of head and/or neck 456386104 R22.1 Vallecular cyst 41105437 7 J38.7 738169 Thyroid dysfunction 2645 30170 E07.9 734093 Health Concerns Section Related Observation LastModified by Organization Detai ls LastModified Time None Recorded Concern Status LastModified by Organization Details LastModified Time None Recorded Payers Encounter Date Sequence Insurance Name Policy Number Policy Delgado Covered Member ID Delgado Member ID Guarantor Name 06/20/2025 1 [place] [facility] [place] [id number] Yonas T Kira [id number] Yonas T Kira Notes Date Note [...] vallecular cyst noted. Mannie Roth, DO [address] [facility],[address] [address], [place], [address], [place] [facility] 06/20/2025 09:31:17
--- OUTSIDE RECORDS SUMMARY | 2025-09-03 12:37 | XMS_ITS | Patient Health Record ---
Author Organization [facility] Address [address] [place] [address] Care Team Providers Care Coding Quality Analyst Name Role Phone ELIAS BAILEY Primary Care Provider DR. ANGLE LARSON Unavailable [phone] REDDY HARTLEY Unavailable Allergies Allergen (clinical drug ingredient) Drug/Non Drug Allergy documented on EMR Reaction Allergy Type Onset Date Status azithromycin Azithromycin ZITHROMAX Drug Allergy A ctive etodolac Etodolac Unknown Drug Allergy Active Reason For Referral Reason (01/17/25 W BC approv al) (3) GINGER PT Diagnosis 1 Displaced bicondylar fracture of right tibia, initial encounter for closed fracture (S82.141A) Ref[facility] Organization [facility] Referring Provider First Name ELIAS Referring Provider Last Name LEO Referring Provider Speciality Internal M edicine Referred Provider Specialty Orthopedic S urgery General Notes Jesus Manuel BRIZUELA Call Center 12/10/2024 10:32:10 AM > Connie from [employer] insurance referral dept; requesting Insurance referral for PT from 12/08/24 through 09/07/25. Group NPI Given: [id number], [address] [place] [address], P:[phone] rnderi [address] [facility] [address], F:[phone] Kimberly B Call Ctr 12/15/2024 11:57:07 AM > Connie called from [facility] [place] ([facility]) checking on the status of this referral request., Catherine BRIZUELA Admin 12/15/2024 04:04:10 PM > this is an OON Referral, CHATAMadelin Gonsalo Call Center 12/17/2024 11:27:02 AM > Connie called, asked for update explained referrals are 72 hour process., CHATACatherine P Admin 12/20/2024 12:16:04 PM > according to referral request from [facility] the Group NPI that they ask us to use goes to [address] [place] [address], cpt code 42116, Leann BRIZUELA Call Ctr 12/23/2024 01:46:03 PM > [facility] [place]/[phone], calling to get an update on the referral, Leann BRIZUELA Call Center 12/29/2024 09:25:32 AM > [facility] (P) [phone] (F) [phone] is checking on the status of referral. The start date needs to be 12/08/24 and through 09/07/25 w/ visits. (See telephone encounter), Catherine BRIZUELA Admin 12/29/2024 11:41:38 AM > faxed cross border request to [facility] at [phone]>waiting for their reply, Leann BRIZUELA Call Center 12/30/2024 10:54:07 AM > Connie/[facility] [place] ([facility]P) [phone] is calling regarding referral. Connie advised above and will speak with her tumblers supervisor to ask if the patient can still be seen today., Zara BRIZUELA Referrals 01/17/2025 02:56:01 PM > referral submitted to > Authorization Status: In ProgressReason: Coordinator Review, Decision:Reference#: [id number], Procedure Status: [id number]:Not Decisioned, CHATACatherine P Admin 02/03/2025 10:46:02 AM > referral approved and faxed to [facility] at [phone]>encounter closed Referral Priority Routine Referral Appointment Date 12/08/2024 Reason (*2*) PT Eval and tr eat Diagnosis 1 Closed fracture of r ight tibial plateau with routine healing, subsequent encounter (D24.247V) Referral Organization [facility] Referring Provider First Name ELIAS Referring Provider Last Name WOODBINE Referring Provider [facility] Internal edicine Referred Provider Specialty Physical The rapy General Notes Ange BRIZUELA TEST HOLE DRILLER 08:25:48 AM > patient is currently being seen in [facility] and does need insurance referral for CPT code 18738 for 26 visits; , Has to be under the [facility] [place] at [address] [facility] in [facility] start date 12/10/24., Zara BRIZUELA Referrals 01/05/2025 12:35:24 PM > back dated referral approved and faxed to [facility] at [phone] Referral Priority Routine Referral Appointment Date 12/10/2024 Reason NEw patient appt Jessica at[facility] Diagnosis 1 Breast pain (N64.4) Referral Organization [facility] Referring Provider First Name ELIAS Referring Provider Last Name WOODBINE Referring Provider [facility] Internal edicine Referred Provider Specialty Bariatric Diaz rgery Referral Priority Stat Reason n64.4 BREAST PAIN Referral Organization [facility] Referring Provider First Name ELIAS Referring Provider Last Name WOODBINE Referring Provider [facility] Internal edicine General Notes Catherine BRIZUELA P Admin 12:11:23 PM > referral approved and faxed to [facility] Breast at [phone] (manually)>encounter closed Referral Priority Routine Referral Appointment Date 01/26/2025 Reason M25.511 Referral Organization [facility] Referring Provider First Name ELIAS Referring Provider Last Name WOODBINE Referring Provider [facility] Internal edicine Referred Provider DOMINGUEZ TALAMANTES Referred Provider Specialty Orthopedic S urgery General Notes Catherine BRIZUELA P Admin 07/2025 04:00:45 PM > per incoming document from GINGER pt had appt on 12/08/24 with Dominguez Talamantes>referral approved and faxed to [facility] at [phone]>enocunter closed Referral Priority Routine Referral Appointment Date 12/08/2024 Reason [facility] Diagnosis 1 Unspecified hearing loss (H91.90) Referral Organization [facility] As [facility] Referring Provider First Name ELIAS Referring Provider Last Name WOODBINE Referring Provider [facility] Internal edicine Referral Priority Urgent Reason 05/13/25 w appt Urge nt appt Growing mass ? thyroglossal duct cyst Please send CT Diagnosis 1 Neck mass (R22.1) Referral Organization [facility] Referring Provider First Name ELIAS Referring Provider Last Name WOODBINE [facility] Referred Organization [facility] (1) Referred Address [address],[place], [place],[address], Referred Provider Specialty Otology, Lar yngology, Rhinology General Notes Catherine BRIZUELA Admin 01/2025 08:09:49 AM > faxed medical referral, note and most recent labs to [facility] requesting an URGENT appt [phone]>separately sent , 05/05/25 CT SoftTissueNeCHATA cooper Lori P Admin 07/27/2025 03:10:08 PM > per incoming document pt was seen on 06/20/25>12V>Mannie Roth Do [phone]>referral approved and faxed to [phone]>encounter closed Referral Priority Urgent Referral Appointment Date 06/20/2025 Reason NEw patient appt [facility] Diagnosis 1 Trigger little finge r of right hand (M65.351) Diagnosis 2 Trigger little finge r of left hand (M65.352) Referral Organization [facility] Referring Provider First Name ELIAS Referring Provider Last Name WOODBINE Referring Provider [facility] Referred Provider GERMAIN MCCONNELL Referred Provider Specialty Hand Surgery Referral Priority Routine Reason r22.1 Referral Organization [facility] Referring Provider First Name ELIAS Referring Provider Last Name WOODBINE Ref[facility] General Notes Ange BRIZUELA TEST HOLE DRILLER 03:59:01 PM > per patient request: Zara[facility] asking for an insurance referral for 06/29/25 appt. at 10:15 am w/ Dr. Jesus Manuel Yancey, KHAII [phone]. , [address] José Miguel [facility] [address]. , R22.1, localized swelling, mass, lump neck., fax [phone], 6 visits. Provider is not in our database., Catherine BRIZUELA Admin 06/21/2025 08:48:42 AM > Referral approved and faxed to [phone]>encounter closed Referral Priority Routine Referral Appointment Date 06/29/2025 Medications Medication SIG (Take, Route, Frequency, Duration) Notes Start Date End Date Status LORazepam 0.5 MG Tablet 1 tablet as need ed Orally Once a day 06/15/2025 Active amLODIPine Besylate 5 MG Tablet 1 tablet Orally once a day Active Venlafaxine HCl ER 75 MG Capsule Extended Release 24 Hour 1 capsule with food Orally Once a day; Duration: 30 days Active SUMAtriptan Succinate 50 MG Tablet 1 tablet as needed, may take second dose at least 2 hours after first dose up to 4 tablets per day as needed Orally Once at onset of headache - may repeat x 1 if unrelieved. Not to exceed 2 pills in 24 hours; Duration: 30 day(s) 07/25/2025 Active Lisinopril 40 MG Tablet 1 tablet Orally Once a day 03/16/2025 Active Immunizations Vaccine Route Administration Date Status Comme nts Pfizer COVID-19,mRNA, LNP-S, PF, 30mcg/0.3mL dose Unknown 02/10/2021 Administered SARSCOV2 VAC 30 MCG TRS-SUCR Pfizer Unknown 05/07/2021 Administered SARSCOV2 VAC BVL 3MCG/0.2ML Pfizer Unknown 09/11/2021 A dministered Social History Tobacco Use: Social History Observation Description Date Details (start date - stop date) Never Smoker NA - NA Social History Tobacco Use: Social Info Question Answer Notes Tobacco Control (Standard) Tobacco use: Nonsmoker Smoking Are you a: never smoker Additional Details Category Social Info Options Details General asbestos exposure: no alcohol use: yes Coffee/Tea/Soda: yes Marital Status experience no Living with Alone Pets 2 dogs smokers in household no Problems Problem Type SNOMED Code ICD Code Onset Dates Problem Status W/U Status Risk Notes Problem Essential hypertension (88136473) Essential (primary) hypertension (I10) Active confirmed Problem Primary insomnia (3406909) Primary insomnia (F51.01) Active confirmed Problem Headache disorder (457816602) Other headache syndrome (G44.89) Active confirmed Problem Anxiety (10290980) Anxiety (F41.9) Active confirmed Problem Thyroglossal duct cyst (35084696) Thyroglossal duct cyst (Q89.2) Active confirmed Problem Hearing loss (75636612) Unspecified hearing loss (H91.90) Active confirmed Problem Pulmonary Embolism (55948316) Acute pulmonary embolism without acute cor pulmonale, unspecified pulmonary embolism type (I26.99) Active confirmed Vital Signs Blood pressure diastolic 76 mm Hg 08/26/2025 BP taken with patient's home BP machine [employer]: 147/89, 80 heart rate Height 70.50 in 08/26/2025 BP taken with p atient's home BP machine [employer]: 147/89, 80 heart rate Blood pressure systolic 132 mm Hg 08/26/2025 BP t aken with patient's home BP machine [employer]: 147/89, 80 heart rate Weight 235.4 lbs 08/26/2025 BP taken with p atient's home BP machine [employer]: 147/89, 80 heart rate BMI 33.3 kg/m2 08/26/2025 BP taken with p atient's home BP machine [employer]: 147/89, 80 heart rate Encounters Encounter Location [place] [address] 04/12/2025 [facility] Essential (primary) hypertension I10 ; Anxiety F41.9 and Other headache syndrome G44.89 [place] [address] 01/20/2025 [facility] Breast pain N64.4 and Essential (primary) hypertension I10 [place] [address] 08/10/2025 [facility] Thyroglossal duct cyst Q89.2 ; Abscess, neck L02.11 ; Essential (primary) hypertension I10 and Anxiety F41.9 [place] [phone] 07/25/2025 [facility] Essential (primary) hypertension I10 ; Anxiety F41.9 ; Other headache syndrome G44.89 and Thyroglossal duct cyst Q89.2 [place] [address] 03/01/2025 [facility] Essential (primary) hypertension I10 ; Dizziness R42 ; Hyponatremia E87.1 ; B12 deficiency E53.8 and Acute pulmonary embolism without acute cor pulmonale, unspecified pulmonary embolism type I26.99 [place] [id number]/26/2025 [facility] Thyroglossal duct cyst Q89.2 and Essential (primary) hypertension I10 [address] [address] 06/23/2025 [facility] Essential (primary) hypertension I10 ; Anxiety F41.9 ; Frequent headaches R51.9 ; Numbness R20.0 and Neck mass R22.[address] [address] 04/25/2025 [facility] Essential (primary) hypertension I10 ; Acute pulmonary embolism without acute cor pulmonale, unspecified pulmonary embolism type I26.99 and Anxiety F41.[address] [address] 04/05/2025 [facility] 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 ; Essential (primary) hypertension I10 ; Acute pulmonary embolism without acute cor pulmonale, unspecified pulmonary embolism type I26.99 ; Other fatigue R53.83 ; Trigger little finger of right hand M65.351 ; Neck mass R22.1 and Anxiety F41.[address] [address] 03/15/2025 [facility] Essential (primary) hypertension I10 ; Anxiety F41.9 and Primary insomnia F51.[address] [address] 12/30/2024 [facility] Subareolar mass of right breast N63.41 ; Breast pain, right N64.4 ; Essential (primary) hypertension I10 ; Dry cough R05.8 and Closed fracture of right tibial plateau with routine healing, subsequent encounter S82.141D [address] [address] 12/13/2024 [facility] Closed fracture of right tibial plateau, initial encounter S82.141A ; Acute cough R05.1 ; Acute pulmonary embolism without acute cor pulmonale, unspecified pulmonary embolism type I26.99 ; Essential (primary) hypertension I10 and Hyponatremia E87.[address] [address] 05/26/2025 [facility] Essential (primary) hypertension I10 ; Acute pulmonary embolism without acute cor pulmonale, unspecified pulmonary embolism type I26.99 ; Trigger little finger of right hand M65.351 ; Trigger little finger of left hand M65.352 ; Anxiety F41.9 and Neck mass R22.1 [facility] [address] [place], [place] [phone] 12/07/2024 [facility] Acute cough R05.1 and Other acute pulmonary embolism without acute cor pulmonale I26.99 [facility] [address] [place] [address] 08/10/2025 [facility] [address] [place] [address] 08/08/[address] [address] 09/03/[address] [address] 12/29/2024 ELIAS WOODBINE Hyponatremia E87.1 and Acute cough R05.[address] [address] 12/29/[address] [address] 12/23/[address] [address] 12/14/2024 [facility] Hyponatremia E87.[address] [address] 12/13/2024 [facility] [address] [place] [address] 12/10/2024 [facility] [address] [place] [address] 12/07/2024 [facility] [address] [address] 11/29/2024 [facility] [address] [address] 11/23/2024 [facility] [address] [address] 08/01/2025 [facility] [address] [place] [address] 08/01/2025 [facility] [address] [facility] [place] [address] 07/27/2025 [facility] [address] [place] [address] 07/27/2025 [facility] [address] [place] [address] 07/21/2025 [facility] [address] [place] [address] 07/20/2025 [facility] [address] [place] [address] 07/13/2025 [facility] [address] [place] [address] 07/11/2025 [facility] [address] [place] [address] 07/01/2025 [facility] Anxiety F41.9 [facility] [address] [place] [address] 06/28/2025 [facility] [address] [place] [address] 06/27/2025 [facility] [address] [place] [address] 06/23/2025 [facility] [address] [place] [address] 06/20/2025 [facility] [address] [place] [address] 06/17/2025 [facility] Recurrent headache R51.9 [facility] [address] [place] [address] 06/17/2025 [facility] Recurrent headache R51.9 [facility] [address] [place] [address] 05/12/2025 [facility] Neck mass R22.1 [facility] [address] [place] [address] 04/25/2025 [facility] Neck mass R22.1 [facility] [address] [place] [address] 04/14/2025 [facility] Neck mass R22.1 [facility] [address] [place] [address] 04/13/2025 [facility] [address] [facility] [place] [address] 04/12/2025 [facility] [address] [facility] [place] [address] 04/11/2025 [facility] [address] [facility] [place] [address] 04/07/2025 [facility] [address] [facility] [place] [address] 04/06/2025 [facility] [address] [facility] [place] [address] 03/21/2025 [facility] [address] [facility] [place] [address] 03/17/2025 [facility] [address] [facility] [place] [address] 03/16/2025 ELIAS WOODBINE Essential (primary) hypertension I10 [facility] [address] [facility] [place] [address] 03/14/2025 [facility] [address] [facility] [place] [address] 03/13/2025 [facility] [address] [facility] [place] [address] 03/02/2025 [facility] [address] [facility] [place] [address] 03/01/2025 [facility] [address] [facility] [place] [address] 02/28/2025 [facility] [address] [place] [address] 02/26/2025 ANGLE LARSON [facility] [address] [facility] [place] [address] 02/18/2025 [facility] [address] [facility] [place] [address] 02/01/2025 [facility] [address] [facility] [place] [address] 01/19/2025 [facility] [address] [facility] [place] [address] 01/11/2025 ELIAS [facility] [address] [facility] [place] [address] 01/04/2025 ELIAS BAILEY Closed fracture of right tibial plateau with routine healing, subsequent encounter S82.141D [facility] [address] [facility] [place] [address] 12/31/2024 ELIAS [facility] [address] [place] [address], [place] [address] 12/30/2024 ELIAS [facility] [address] [place] [address], [place] [address] 12/29/2024 ELIAS [facility] [address] [place] [address], [place] [address] 12/29/2024 [facility] [address] [place] [address], [place] [address] 08/24/2025 ELIAS [facility] [address] [place] [address], [place] [address] 08/15/2025 ELIAS BAILEY Assessments Encounter Date Diagnosis (ICD Code) Assessment Notes Treatment Notes Treatment Clinical Notes Section Notes 07/01/2025 Anxiety (ICD-10 - F41.9) 06/17/2025 Recurrent headache (ICD-10 - R51.9) 06/17/2025 Recurrent headache (ICD-10 - R51.9) 05/26/2025 Essential (primary) hypertension (ICD-10 - I10) [...] typical. We are awaiting an ENT appointment 01/20/2025 Essential (primary) hypertension (ICD-10 - I10) 1. Right breast pain: Source is unclear. We have arranged an urgent appointment with the breast specialist for Friday of next week at [facility]. Will await further recommendations 2. Hypertension: Mildly elevated today but missed medication. Will recheck at regular follow-up 01/20/2025 Breast pain (ICD-10 - N64.4) 1. Right breast pain: Source is unclear. We have arranged an urgent appointment with the breast specialist for Friday of next week at [facility]. Will await further recommendations 2. Hypertension: Mildly elevated today but missed medication. Will recheck at regular follow-up 12/29/2024 Hyponatremia (ICD-10 - E87.1) 12/29/2024 Acute cough (ICD-10 - R05.1) 12/14/2024 Hyponatremia (ICD-10 - E87.1) 12/07/2024 Other acute pulmonary embolism without acute [...] the area. Continue present dosing. Consider echocardiography 05/26/2025 Acute pulmonary embolism without acute cor [...] typical. We are awaiting an ENT appointment 04/25/2025 Essential (primary) hypertension (ICD-10 - I10) [...] not interested in an alternative at present 04/12/2025 Anxiety (ICD-10 - F41.9) ER records [...] we may try a short prednisone burst. 01/04/2025 Closed fracture of right tibial plateau with routine healing, subsequent encounter (ICD-10 - S82.141D) 12/13/2024 Acute cough (ICD-10 - R05.1) 1. Tibial plateau fracture right leg: Will await follow-up with [facility]. To stay in brace for the next several weeks 2. Cough: Will treat for atypical infection with doxycycline and a Medrol Dosepak 3. Pulmonary embolism: Newly on Eliquis. Will refill locally as his prescription was written in [place]. He will need 3 to 6 months of therapy 4. Hypertension: Stable on current lisinopril. No changes made today 5. Hyponatremia: Reported on labs in [place]. Will recheck electrolytes today 12/13/2024 Closed fracture of right tibial plateau, initial encounter (ICD-10 - S82.141A) 1. Tibial plateau fracture right leg: Will await follow-up with [facility]. To stay in brace for the next several weeks 2. Cough: Will treat for atypical infection with doxycycline and a Medrol Dosepak 3. Pulmonary embolism: Newly on Eliquis. Will refill locally as his prescription was written in [place]. He will need 3 to 6 months of therapy 4. Hypertension: Stable on current lisinopril. No changes made today 5. Hyponatremia: Reported on labs in [place]. Will recheck electrolytes today 08/26/2025 Essential (primary) hypertension (ICD-10 - I10) 1. Thyroglossal duct cyst complicated by prior infection. Surgical notes reviewed. Will await follow-up with ENT later today regarding recurrent fluid collection. 2. Hypertension: Borderline today but trending better than what he was recording at home last week since we restarted amlodipine. Will follow on this med along with lisinopril and plan to recheck in a few weeks. 08/26/2025 Thyroglossal duct cyst (ICD-10 - Q89.2) 1. Thyroglossal duct cyst complicated by prior infection. Surgical notes reviewed. Will await follow-up with ENT later today regarding recurrent fluid collection. 2. Hypertension: Borderline today but trending better than what he was recording at home last week since we restarted amlodipine. Will follow on this med along with lisinopril and plan to recheck in a few weeks. 04/25/2025 Neck mass (ICD-10 - R22.1) 04/25/2025 Acute pulmonary embolism without acute cor [...] not interested in an alternative at present 04/12/2025 Essential (primary) hypertension (ICD-10 - I10) [...] we may try a short prednisone burst. 08/10/2025 Abscess, neck (ICD-10 - L02.11) 1. Abscess thyroglossal duct cyst: Patient continues on daptomycin and ertapenem through August 23. Will await surgery on August 16. 2. Hypertension: Borderline today on lisinopril alone. Unclear how much anxiety is contributing to fluctuations at present. Will remain off amlodipine until he follows up with me postsurgery 3. Anxiety: He has benefited from low-dose venlafaxine and tolerated well. We will bump to the 75 mg strength and reassess at follow-up 08/10/2025 Thyroglossal duct cyst (ICD-10 - Q89.2) 1. Abscess thyroglossal duct cyst: Patient continues on daptomycin and ertapenem through August 23. Will await surgery on August 16. 2. Hypertension: Borderline today on lisinopril alone. Unclear how much anxiety is contributing to fluctuations at present. Will remain off amlodipine until he follows up with me postsurgery 3. Anxiety: He has benefited from low-dose venlafaxine and tolerated well. We will bump to the 75 mg strength and reassess at follow-up 07/25/2025 Essential (primary) hypertension (ICD-10 - I10) Available hospital records reviewed 1. Hypertension: Stable on current lisinopril and amlodipine. No changes made today 2. Anxiety: Appears to be tolerating venlafaxine with some benefit. Will reassess next month and consider increasing dose 3. Headaches:/Migraine : Will give Imitrex for as needed use 4. 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 Biopsy was negative for other pathology. He has follow-up with the ENT today and hopefully will be scheduled for surgery promptly given rapid increase in size 07/25/2025 Anxiety (ICD-10 - F41.9) Available hospital records reviewed 1. Hypertension: Stable on current lisinopril and amlodipine. No changes made today 2. Anxiety: Appears to be tolerating venlafaxine with some benefit. Will reassess next month and consider increasing dose 3. Headaches:/Migraine : Will give Imitrex for as needed use 4. 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 Biopsy was negative for other pathology. He has follow-up with the ENT today and hopefully will be scheduled for surgery promptly given rapid increase in size 06/23/2025 Essential (primary) hypertension (ICD-10 - I10) [...] Biopsy later in the month. Await results 05/12/2025 Neck mass (ICD-10 - R22.1) 04/14/2025 Neck mass (ICD-10 - R22.1) 12/30/2024 Breast pain, right (ICD-10 - N64.4) [...] orthopedics. Will follow. Using pain medication sparingly 04/05/2025 Essential (primary) hypertension (ICD-10 - I10) [...] 03/16/2025 Essential (primary) hypertension (ICD-10 - I10) 03/15/2025 Essential (primary) hypertension (ICD-10 - I10) [...] to use to assist in this regard 03/01/2025 Essential (primary) hypertension (ICD-10 - I10) [...] level today and send for labs from [place] 5. Pulmonary embolism: He admits not taking [...] level today and send for labs from [place] 5. Pulmonary embolism: He admits not taking [...] and explained they can be used together 03/01/2025 Hyponatremia (ICD-10 - E87.1) 1. Hypertension: [...] level today and send for labs from [place] 5. Pulmonary embolism: He admits not taking his Eliquis faithfully twice a day. I have emphasized the importance of this. It has been 3 months but I do not wish to discontinue as yet as he has not had for therapy for the entire period. Will likely complete 6 months 12/13/2024 Acute pulmonary embolism without acute cor pulmonale, unspecified pulmonary embolism type (ICD-10 - I26.99) 1. Tibial plateau fracture right leg: Will await follow-up with [facility]. To stay in brace for the next several weeks 2. Cough: Will treat for atypical infection with doxycycline and a Medrol Dosepak 3. Pulmonary embolism: Newly on Eliquis. Will refill locally as his prescription was written in [place]. He will need 3 to 6 months of therapy 4. Hypertension: Stable on current lisinopril. No changes made today 5. Hyponatremia: Reported on labs in [place]. Will recheck electrolytes today 06/23/2025 Frequent headaches [...] Biopsy later in the month. Await results 12/30/2024 Essential (primary) hypertension (ICD-10 - I10) [...] orthopedics. Will follow. Using pain medication sparingly 07/25/2025 Other headache syndrome (ICD-10 - G44.89) Available hospital records reviewed 1. Hypertension: Stable on current lisinopril and amlodipine. No changes made today 2. Anxiety: Appears to be tolerating venlafaxine with some benefit. Will reassess next month and consider increasing dose 3. Headaches:/Migraine : Will give Imitrex for as needed use 4. 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 Biopsy was negative for other pathology. He has follow-up with the ENT today and hopefully will be scheduled for surgery promptly given rapid increase in size 08/10/2025 Essential (primary) hypertension (ICD-10 - I10) 1. Abscess thyroglossal duct cyst: Patient continues on daptomycin and ertapenem through August 23. Will await surgery on August 16. 2. Hypertension: Borderline today on lisinopril alone. Unclear how much anxiety is contributing to fluctuations at present. Will remain off amlodipine until he follows up with me postsurgery 3. Anxiety: He has benefited from low-dose venlafaxine and tolerated well. We will bump to the 75 mg strength and reassess at follow-up 04/12/2025 Other headache syndrome (ICD-10 - G44.89) [...] We are awaiting an ENT appointment 04/05/2025 Other fatigue (ICD-10 - R53.83) 1. [...] and explained they can be used together 08/10/2025 Anxiety (ICD-10 - F41.9) 1. Abscess thyroglossal duct cyst: Patient continues on daptomycin and ertapenem through August 23. Will await surgery on August 16. 2. Hypertension: Borderline today on lisinopril alone. Unclear how much anxiety is contributing to fluctuations at present. Will remain off amlodipine until he follows up with me postsurgery 3. Anxiety: He has benefited from low-dose venlafaxine and tolerated well. We will bump to the 75 mg strength and reassess at follow-up 07/25/2025 Thyroglossal duct cyst (ICD-10 - Q89.2) Available hospital records reviewed 1. Hypertension: Stable on current lisinopril and amlodipine. No changes made today 2. Anxiety: Appears to be tolerating venlafaxine with some benefit. Will reassess next month and consider increasing dose 3. Headaches:/Migraine : Will give Imitrex for as needed use 4. 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 Biopsy was negative for other pathology. He has follow-up with the ENT today and hopefully will be scheduled for surgery promptly given rapid increase in size 06/23/2025 Numbness (ICD-10 - R20.0) 1. Hypertension: [...] Biopsy later in the month. Await results 12/30/2024 Dry cough (ICD-10 - R05.8) 1: [...] Will follow. Using pain medication sparingly 12/13/2024 Essential (primary) hypertension (ICD-10 - I10) 1. Tibial plateau fracture right leg: Will await follow-up with [facility]. To stay in brace for the next several weeks 2. Cough: Will treat for atypical infection with doxycycline and a Medrol Dosepak 3. Pulmonary embolism: Newly on Eliquis. Will refill locally as his prescription was written in [place]. He will need 3 to 6 months of therapy 4. Hypertension: Stable on current lisinopril. No changes made today 5. Hyponatremia: Reported on labs in [place]. Will recheck electrolytes today 03/01/2025 B12 deficiency (ICD-10 - E53.8) 1. [...] cause of hyponatremia. Increase to work at [employer] 4. B12 deficiency: Reported in the ER. Will recheck level today and send for labs from [place] 5. Pulmonary embolism: He admits not taking his Eliquis faithfully twice a day. I have emphasized the importance of this. It has been 3 months but I do not wish to discontinue as yet as he has not had for therapy for the entire period. Will likely complete 6 months 03/01/2025 Acute pulmonary embolism without acute cor [...] level today and send for labs from [place] 5. Pulmonary embolism: He admits not taking [...] and explained they can be used together 12/13/2024 Hyponatremia (ICD-10 - E87.1) 1. Tibial plateau fracture right leg: Will await follow-up with [facility]. To stay in brace for the next several weeks 2. Cough: Will treat for atypical infection with doxycycline and a Medrol Dosepak 3. Pulmonary embolism: Newly on Eliquis. Will refill locally as his prescription was written in [place]. He will need 3 to 6 months of therapy 4. Hypertension: Stable on current lisinopril. No changes made today 5. Hyponatremia: Reported on labs in [place]. Will recheck electrolytes today 06/23/2025 Neck mass [...] Biopsy later in the month. Await results 12/30/2024 Closed fracture of right tibial plateau [...] We are awaiting an ENT appointment 04/05/2025 Neck mass (ICD-10 - R22.1) 1. [...] explained they can be used together 04/05/2025 Anxiety (ICD-10 - F41.9) 1. TMJ [...] and explained they can be used together Plan Of Treatment Pending Test Test Name Order Date Echocardiogram 07/29/2023 CT Soft Tissue Neck with and without IV contrast 04/14/2025 Future Test Test Name Order Date [id number] 03/16/2025 Next Appt Details Provider Name:ELIAS BAILEY , 10/03/2025 02:30:00 PM, [address] [facility], [place], [address], Provider Name:ELIAS BAILEY , 11/21/2025 01:30:00 PM, [address] [facility] [place], [address], Insurance Providers Payer Name Payer Address Payer Phone Subscriber Number Group Number Insured Name Patient Relationship to Insured Coverage Start Date Coverage End Date [employer] [address] [place] [address] [id number] DAVID MCCOY Self - patient is the insured Medical (General) History Medical History History ICD Code Hypertension, Problems: Insomnia, November 2024 Right tibial plateau fracture November 2024 Pulmonary Embolism thyroid glossal ductal cyst Surgical History Surgery Date(Month/Year) Left Knee Replacement Dr Perera 12/2022 Hospitalization History Reason Date(Month/[facility]) [facility] dx Infected Thyroglossal duct cysts 07/31/2025 [facility] [place]- dizzi ness, headache, parasthesia 02/24/25-02/27/25 [facility]: neck swelling, soft tissue infectio n 07/2025 [facility] observation dx Unavailable [facility] ER - migraine / d izziness 04/09/25 [facility] ER - numb tongue, numb limbs, bp 180 /100; 200/110 03/12/25 Left Tibial fracture/Pulmonary Embolism 11/2024
[2025-09-03 12:38] LABS: Resp Syncy Virus RNA Qual PCR NEGATIVE (Negative); SARS COV2 PCR INHOUSE NEGATIVE (Negative)
[2025-09-03 12:58] VITALS: RESP 17
[2025-09-03] MEDS: iohexoL 350 MG/ML 100 ML INFUS..BTL IV (13:08)
[2025-09-03 13:28] VITALS: BP 133/75; PULSE 108; RESP 16; O2SAT 96
[2025-09-03 14:52] VITALS: BP 126/85; PULSE 108; RESP 16; TEMP 38.5; O2SAT 95
[2025-09-03 15:05] LABS: Appearance Urine Clear; Glucose Urine UA Negative (Negative); PH 6.0 (5.0-9.0); Specific Gravity - Urine >= 1.030 (1.005-1.025)
[2025-09-03 16:25] VITALS: BP 124/80; PULSE 99; RESP 16; TEMP 37.3; O2SAT 96
[2025-09-03 17:09] VITALS: BP 124/80; PULSE 99; RESP 16; TEMP 37.3; O2SAT 96
== END 2025-09-03 17:09 | disposition home or self-care (01) ==
PROVIDERS: Physician Assistant Medical; Emergency Provider Emergency Medicine; PCP Internal Medicine
DX: K52.9 Noninfective gastroenteritis and colitis, unspecified (principal); R11.2 Nausea with vomiting, unspecified; I10 Essential (primary) hypertension; E78.5 Hyperlipidemia, unspecified; Z86.718 Personal history of other venous thrombosis and embolism; Z03.818 Encounter for observation for suspected exposure to other biological agents ruled out; Z79.899 Other long term (current) drug therapy
CPT/HCPCS: 71046; 74177; 80053; 81003; 83690; 83735; 85025; 87637; 96361; 96365; 96375; 99284; J0131; J2270; J2405; Q9967

== ENCOUNTER → 2025-09-03 12:53 | Outpatient (BNV) | payer BC, SELFPAY | PROVIDERS: PCP Internal Medicine; Visit Provider Radiology Diagnostic Radiology | DX: K57.30 Diverticulosis of large intestine without perforation or abscess without bleeding (principal); J98.11 Atelectasis | CPT/HCPCS: 71046; 74177 ==

== ENCOUNTER 2025-09-07 14:34 | Emergency (ER) | payer BC, SELFPAY ==
--- OUTSIDE RECORDS SUMMARY | 2025-07-21 09:45 | XMS_ITS ---
Author Organization [facility] Address [address] [place] [address] Care Team Providers Care Bowling Floor Desk Clerk Name Role Phone ELIAS BAILEY Primary Care Provider [phone] REASON FOR VISIT 41/ HFU Encounters Encounter Location Date Provider Diagnosis [address] [address] 07/21/2025 ELIAS BAILEY Plan Of Treatment Next Appt Details Provider Name:ELIAS BAILEY , 10/03/2025 02:30:00 PM, [address] [place] [address], [phone], Provider Name:ELIAS BAILEY , 11/21/2025 01:30:00 PM, [address] [place] [address], [phone], Progress Notes * DAVID MCCOY TDOB:1965 (59 yo M)Acc No.[id number]:07/21/2025 Progress Notes Patient: DAVID LAWSON Provider: Caprice BAILEY M.D. :1965 A ge:59 Y S ex:Male Date:07/21/2025 Address:[address] [place] [phone] Subjective: * Chief Complaints: * 4 1/ HFU * Electronic signature of ELIAS BAILEY MD on 09/07/2025 at 03:59 PM EST Sign off status: Pending * Provider: Caprice BAILEY M.D. Date: 09/20/2024 Generated for Christopher peters/Sandra/Alida on: 03:59 PM EST
--- OUTSIDE RECORDS SUMMARY | 2025-08-11 04:00 | XMS_ITS ---
Author Organization [facility] Address [address] [place] [address] Care Team Providers Care Manager Of Creative Services Name Role Phone ELIAS BAILEY Primary Care Provider [phone] REASON FOR VISIT 41/ HFU Encounters Encounter Location Date Provider Diagnosis [address] [phone] 08/11/2025 ELIAS BAILEY Plan Of Treatment Next Appt Details Provider Name:ELIAS BAILEY , 10/03/2025 02:30:00 PM, [address] [place] [address], [phone], Provider Name:ELIAS BAILEY , 11/21/2025 01:30:00 PM, [address] [place] [address], [phone], Progress Notes * DAVID MCCOY TDOB:1965 (59 yo M)Acc No.[id number]:08/11/2025 Progress Notes Patient: DAVID LAWSON Provider: Caprice BAILEY M.D. :1965 A ge:59 Y S ex:Male Date:08/11/2025 Address:[address] [place] [phone] Subjective: * Chief Complaints: * 4 1/ HFU * Electronic signature of ELIAS BAILEY MD on 09/07/2025 at 04:00 PM EST Sign off status: Pending * Provider: Caprice BAILEY M.D. Date: 10/12/2024 Generated for Christopher peters/Sandra/Alida on: 04:00 PM EST
--- OUTSIDE RECORDS SUMMARY | 2025-09-05 11:30 | XMS_ITS ---
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 Role Phone LEO ELIAS Primary Care Provider Allergies Allergen (clinical drug ingredient) Drug/Non Drug Allergy documented on EMR Reaction Allergy Type Onset Date Status azithromycin Azithromycin ZITHROMAX Drug Allergy A ctive etodolac Etodolac Unknown Drug Allergy Active REASON FOR VISIT 41/ vv Norovirus [phone] Medications Medication SIG (Take, Route, Frequency, Duration) Notes Start Date End Date Status Lisinopril 40 MG Tablet 1 tablet Orally Once a day 03/16/2025 Active amLODIPine Besylate 5 MG Tablet 1 tablet Orally once a day Active SUMAtriptan Succinate 50 MG Tablet 1 tablet as needed, may take second dose at least 2 hours after first dose up to 4 tablets per day as needed Orally Once at onset of headache - may repeat x 1 if unrelieved. Not to exceed 2 pills in 24 hours; Duration: 30 day(s) 07/25/2025 Active LORazepam 0.5 MG Tablet 1 tablet as need ed Orally Once a day 06/15/2025 Active Venlafaxine HCl ER 75 MG Capsule Extended Release 24 Hour 1 capsule with food Orally Once a day; Duration: 30 days Active guaiFENesin-Codeine 100-10 MG/5ML Solution 5 mL as needed Orally 3 times a day prn; Duration: 14 days 09/05/2025 Active Ondansetron 4 MG Tablet Disintegrating 1 tablet on the tongue and allow to dissolve Orally twice a day prn; Duration: 7 days 09/05/2025 Active Encounters Encounter Location Date Provider Diagnosis [address] [address] 09/05/2025 ELIAS BAILEY Gastroenteritis K52. 9 and Acute cough R05.1 Assessments Encounter Date Diagnosis (ICD Code) Assessment Notes Treatment Notes Treatment Clinical Notes Section Notes 09/05/2025 Gastroenteritis (ICD-10 - K52.9) 1 gastroenterit is: Will renew Zofran for nausea and vomiting. Asked him to trial Pepto-Bismol if he has further diarrhea. Will push Gatorade and fluids. 2. Acute cough: This is keeping him up at night and will use Robitussin with codeine to assist in this regard. He will let me knowShould cough not improve or if he should develop any shortness of breath. 09/05/2025 Acute cough (ICD-10 - R05.1) 1 gastroenterit is: Will renew Zofran for nausea and vomiting. Asked him to trial Pepto-Bismol if he has further diarrhea. Will push Gatorade and fluids. 2. Acute cough: This is keeping him up at night and will use Robitussin with codeine to assist in this regard. He will let me knowShould cough not improve or if he should develop any shortness of breath. Plan Of Treatment Medication Medication Name Sig Start Date Stop Date Notes guaiFENesin-Codeine 100-10 MG/5ML Solution 5 mL as needed Orally 3 times a day prn; Duration: 14 days 09/05/2025 Ondansetron 4 MG Tablet Disintegrating 1 tablet on the tongue and allow to dissolve Orally twice a day prn; Duration: 7 days 09/05/2025 Next Appt Details Follow Up: prn, Reason: Provider Name:ELIAS BAILEY , 10/03/2025 02:30:00 PM, [address] [place] [address], [phone], Provider Name:ELIAS BAILEY , 11/21/2025 01:30:00 PM, [address] [place] [address], [phone], History and Physical Notes * HPI (History of Present Illness) Category Sub-Category Detail Notes Category Not es General Patient started with diarrhea and nausea and vomiting on Friday. Okay I will come talk thank so if you patient reports his grandson had norovirus he believes he caught it from him. He had copious vomiting and diarrhea over the weekend and ended up in the ER where he received 2 bags of IV fluids and was sent home with Zofran. No stool testing was done. He feels that Zofran helped but he is out now and feels symptoms have returned some degree. He reports he had a temp of 102 while in the emergency room. He has subsequently developed a cough. No flu testing was done in the emergency room he was tested for COVID. Patient requested this virtual visit. He was in his home and I was in the office for this visit lasted 12 minutes Examination Category Sub-Category Detail Notes Category Not es General Examination General Appearance ill appearing Neuro alert and oriented x 3 Psych: affect normal Progress Notes * DAVID MCCOY TDOB:1965 (59 yo M)Acc No.[id number]:09/05/2025 Progress Note Patient: DAVID LAWSON Provider: Caprice BAILEY M.D. :1965 A ge:59 Y S ex:Male Date:09/05/2025 Address:[address] [place] [id number] Subjective: * Chief Complaints: * 4 1/ vv Norovirus [phone] * HPI: G eneral: Patient started with diarrhea and nausea and vomiting on Friday. Okay I will come talk thank so if you patient reports his grandson had norovirus he believes he caught it from him. He had copious vomiting and diarrhea over the weekend and ended up in the ER where he received 2 bags of IV fluids and was sent home with Zofran. No stool testing was done. He feels that Zofran helped but he is out now and feels symptoms have returned some degree. He reports he had a temp of 102 while in the emergency room. He has subsequently developed a cough. No flu testing was done in the emergency room he was tested for COVID. Patient requested this virtual visit. He was in his home and I was in the office for this visit lasted 12 minutes. * Medical History: Hypertension, Problems: Insomnia, November 2024 Right tibial plateau fracture November 2024 Pulmonary Embolism Thyroid glossal ductal cyst * Surgical History: Left Knee Replacement Dr Perera 12/2022 * Hospitalization/Major Diagno stic Procedure: Left Tibial fracture/Pulmonary Embolism 11/2024 [facility]- dizziness, headache, parasthesia 02/24/25- 02/27/25 [facility] ER - numb tongue, numb limbs, bp 180/100; 200/110 03/12/25 [facility] ER - migraine / dizziness 04/09/25 [facility] observation dx Unavailable 07/11/2025 [facility]: neck swelling, soft tissue infection 07/2025 [facility] dx Infected Thyroglossal duct cysts 07/31/2025 [facility] admit 08/04/2025 * Family History: M other: alive, Hypertension. M aternal Grand Father: MothersFather: Cancer, prostate,Brain aneurysm. * Medications: T akingSUMAtriptan Succinate 50 MG Tablet 1 tablet as needed, may take second dose at least 2 hours after first dose up to 4 tablets per day as needed Orally Once at onset of headache - may repeat x 1 if unrelieved. Not to exceed 2 pills in 24 hours Venlafaxine HCl ER 75 MG Capsule Extended Release 24 Hour 1 capsule with food Orally Once a day LORazepam 0.5 MG Tablet 1 tablet as needed Orally Once a day Lisinopril 40 MG Tablet 1 tablet Orally Once a day amLODIPine Besylate 5 MG Tablet 1 tablet Orally once a day Taking SUMAtriptan Succinate 50 MG Tablet 1 tablet as needed, may take second dose at least 2 hours after first dose up to 4 tablets per day as needed Orally Once at onset of headache - may repeat x 1 if unrelieved. Not to exceed 2 pills in 24 hours Taking Venlafaxine HCl ER 75 MG Capsule Extended Release 24 Hour 1 capsule with food Orally Once a day Taking LORazepam 0.5 MG Tablet 1 tablet as needed Orally Once a day Taking Lisinopril 40 MG Tablet 1 tablet Orally Once a day Taking amLODIPine Besylate 5 MG Tablet 1 tablet Orally once a day * Allergies: A zithromycin: ZITHROMAX - AllergyEtodolac: Allergy Objective: * Examination: G eneral Examination: General Appearance i ll appearing. N euro a lert and oriented x3. P sych: a ffect normal. Assessment: * Assessment: 1. G astroenteritis - K52.9 (Primary) 2 . A cute cough - R05.1 ? 1 gastroenteritis: Will tammi andre Ramos for nausea and vomiting. Asked him to trial Pepto-Bismol if he has further diarrhea. Will push Gatorade and fluids. 2. Acute cough: This is keeping him up at night and will use Robitussin with codeine to assist in this regard. He will let me knowShould cough not improve or if he should develop any shortness of breath. Plan: * Treatment: 2. A cute cough Start guaiFENesin-Codeine Solution, 100-10 MG/5ML, 5 mL as needed, Orally, 3 times a day prn, 14 days, 180 ml, Refills 0. * Follow Up: p rn * Sign off status: Completed true * Provider: Caprice BAILEY M.D. Date: Generated for Christopher peters/Sandra/Ashantiitting on: 04:00 PM EST
[2025-09-07] VITALS (7 sets, daily range): BP systolic 78–188; BP diastolic 47–105; PULSE 74–104; RESP 13–26; TEMP 36.4–37.2; O2SAT 94–96; BMI 33.0
--- OUTSIDE RECORDS SUMMARY | 2025-09-07 04:02 | XMS_ITS ---
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 Phone ELIAS BAILEY Primary Care Provider [phone] REASON FOR VISIT (FYI) diarrhea Encounters Encounter Location Date Provider Diagnosis [address] [address] 09/07/2025 ELIAS BAILEY Acute diarrhea R19.7 Assessments Encounter Date Diagnosis (ICD Code) Assessment Notes Treatment Notes Treatment Clinical Notes Section Notes 09/07/2025 Acute diarrhea (ICD-10 - R19.7) Plan Of Treatment Future Test Test Name Order Date GI Profile, Stool, [id number] 09/07/2025 Next Appt Details Provider Name:ELIAS BAILEY , 10/03/2025 02:30:00 PM, [address] [place] [address], [phone], Provider Name:ELIAS BAILEY , 11/21/2025 01:30:00 PM, [address] [place] [address], [phone], Progress Notes * DAVID MCCOY TDOB:1965 (59 yo M)Acc No.[id number]:09/07/2025 Patient: DAVID LAWSON :1965 A ge:59 Y S ex:Male Address:[address] [place] [address], [phone] Subjective: * Chief Complaints: * ( FYI) diarrhea Assessment: * Assessment: 1. A cutkory diarrhea - R19.7 (Primary) Plan: * Treatment: * true * Date: Generated for Christopher peters/Sandra/Alida on: 04:00 PM EST
--- NOTE | 2025-09-07 14:54 | ED.NAVMDI ---
HPI - Nausea/Vomiting/Diarrhea General Chief complaint: Abdominal Pain Stated complaint: seen 09/03 for gastroenteritis, not better Time Seen by Provider: 09/07/25 15:12 Source: patient, RN notes reviewed and old records reviewed Mode of arrival: ambulatory Limitations: no limitations History of Present Illness ED Provider: Bryan HPI Narrative: Patient is a 59-year-old male with history of anxiety, HTN, DVT, HLD, and recent thyroglossal duct cyst s/p surgical resection and abx presenting to the emergency department with complaint of fatigue, chills and diarrhea. He states that his symptoms initially began around [place], with nausea, vomiting and generalized abdominal pain. His daughter, son-in-law, and granson are currently living with him, and his grandson recently tested positive for norovirus. He was seen in this ED on 09/03 and diagnosed with gastroenteritis. He states that the last time he vomited was at 10:00 p.m. on 07/04. He has been able to tolerate PO fluids. Then on Friday of this week, he began having diarrhea. He states that any PO intake triggers his diarrhea. Called his PCP who recommended Pepto but he states this did not help. He denies hematochezia or melena. He also notes that he has had a cough for the past few days since his visit on 09/03. States that he was sitting near many other patients in the waiting room who were also coughing. Patient reportedly had near syncopal episode while in triage and was hypotensive when brought into the exam room. MD elicited complaint: diarrhea Related Data Home Medications ?Medication ?Instructions ?Recorded ?Confirmed lisinopril 40 mg tablet 40 mg PO DAILY 07/11/25 07/11/25 lorazepam 0.5 mg tablet 0.5 mg PO DAILY PRN Anxiety 07/11/25 07/11/25 venlafaxine 37.5 mg 37.5 mg PO DAILY 07/11/25 07/11/25 capsule,extended release 24 hr Previous Rx's ?Medication ?Instructions ?Recorded amlodipine 5 mg tablet 5 mg PO DAILY #30 tabs 04/09/25 rdlnjcfzwf-xtidumnlvkowt-gpgeaqeb 1 cap PO Q8H PRN headache #20 caps 07/12/25 50 mg-300 mg-40 mg capsule (Fioricet) ondansetron 4 mg disintegrating 4 mg PO Q8H 3 days #9 tabs 09/03/25 tablet fidaxomicin 200 mg tablet 200 mg PO Q12H 10 days #20 tabs 09/07/25 Allergies Allergy/AdvReac Type Severity Reaction Status Date / Time etodolac (From L[place]) Allergy Unknown RASH Verified 09/07/25 15:03 Review of Systems Review of Systems: As per HPI. Yes all other systems are reviewed and are negative Constitutional: Constitutional: Reports as per HPI [facility] Past Medical History Medical History Anxiety DVT (deep venous thrombosis) HLD (hyperlipidemia) HTN (hypertension) Social History Social History Household Members: None Housing: House Do you presently have visiting nurse or other home services: No Patient Tobacco Use Status: Never used Tobacco Advance Directives: Yes Advance Directives Information Provided: No Advance Directives on File: No Advance Directives Date on File: 07/12/25 service: No Physical Exam Vital Signs: Vital Signs: Last Vital Signs Temp 99.0 F 09/07/25 21:04 Pulse 75 09/07/25 21:04 Resp 13 09/07/25 21:04 BP 105/64 09/07/25 21:04 Pulse Ox 95 09/07/25 21:04 O2 Del Method Room Air 09/07/25 21:04 BMI result Body Mass Index 33.0 Vital signs have been reviewed and appear to be correct. Blood pressure hypotensive on arrival to room. Heart rate slightly tachycardic. Respiratory rate normal. Temperature normal. Oxygen saturation normal. Const: General: cooperative and no acute distress Orientation/consciousness: oriented to person, oriented to place, oriented to time and patient oriented x3 Limitations: no limitations HEENT: Head: Yes normocephalic and Yes atraumatic Ears: external ears normal General nose exam: Normal external nose present Face and sinus: Yes face symmetric Mouth: oropharynx normal and moist mucous membranes Throat: Yes uvula midline Eyes: Pupils: Equal, round and reactive pupils present Neck: Neck: Yes normal visual inspection and Yes supple Resp: Effort & Inspection: normal respiratory effort and able to speak in complete sentences Auscultation: clear to auscultation bilaterally Cardio: Rate: regular rate Rhythm: regular rhythm Heart sounds: S1 normal heart sound present and S2 normal heart sound present GI: Palpation (GI): Soft to palpation and nontender Auscultation: normoactive bowel sounds : General: Yes no CVA tenderness Back/Spine/Pelvis: Back: no CVA tenderness Skin: General skin exam: elasticity normal and turgor normal Neuro: General: oriented to person, oriented to place, oriented to time, patient oriented x3, moves all extremities, no focal motor deficits and CN's II-XI intact bilaterally Cranial nerves: Yes Equal, round and reactive pupils present Cognition (Neuro): normal cognition Extrem: General: Yes full ROM, Yes no pedal edema and Yes no calf tenderness Psych: Mental Status: mental status grossly normal Affect: normal affect Thought process: Normal thought process present Course Course Course Narrative: This is a Rapid Medical Exam performed in triage by Stacey Evans PA-C. Full HPI, ROS and PE to be performed by primary ED provider. 59 year old male with a history of anxiety, HTN, DVT, HLD, and thyroglossal duct cyst s/p surgical resection presenting to the ED c/o abdominal pain, nausea, vomiting, & diarrhea with inability to tolerate p.o.. Reports associated lightheadedness. Patient was evaluated in our ED on 09/03/2025 for similar symptoms diagnosed with gastroenteritis. PE: Tachypneic, hypertensive, abdomen soft & nontender - ?near syncopal episode while in triage Plan: Labs, UA, viral testing Reevaluation(s) Reevaluation #1: Received call from in the labs with the patient was positive for C diff. I discussed this with the patient, he appears quite well, his vital signs are stable, he is not septic. He does have influenza a as well and was noted to be hypokalemic at 2.9. This was repleted. I do feel the patient can still safely be discharged home but we will start him on fidaxomicin 200 mg b.i.d. times 10 days. Time: 21:29 Medications Administered Discontinued Medications Generic Name Dose Route Start Last Admin Trade Name Freq PRN Reason Stop Dose Admin Acetaminophen 975 mg 09/07/25 19:42 09/07/25 19:49 Acetaminophen 325 Mg Tablet PO 09/07/25 19:43 975 mg ONCE ONE Administration Lactated Ringer's 1,000 mls @ 999 mls/hr 09/07/25 15:15 09/07/25 16:18 Lr IV 09/07/25 16:15 Infused .Q1H1M SULY Infusion Lactated Ringer's 1,000 mls @ 999 mls/hr 09/07/25 16:00 09/07/25 20:38 Lr IV 09/07/25 17:00 Infused .Q1H1M SULY Infusion Potassium Chloride 10 meq in 100 mls @ 100 mls/hr 09/07/25 16:30 09/07/25 20:38 Potassium Chloride/H20 IV 09/07/25 18:29 Infused Q1H SULY Infusion Ondansetron HCl 4 mg 09/07/25 15:13 09/07/25 15:16 Ondansetron Hcl 4 Mg/2 Ml Vial IVPUSH 09/07/25 15:14 4 mg ONCE ONE Administration Potassium Chloride 40 meq 09/07/25 16:25 09/07/25 17:47 Potassium Chloride Packet 20 Meq Packet PO 09/07/25 16:26 40 meq ONCE ONE Administration Medical Decision Making Medical Decision Making MDM Narrative: Patient is a 59-year-old male with history of anxiety, HTN, DVT, HLD, and recent thyroglossal duct cyst s/p surgical resection and abx presenting to the emergency department with complaint of fatigue, chills and diarrhea. On exam patient is awake, A+Ox3, hypotensive, VS otherwise WNL, afebrile, normal neurological exam without focal deficits, physical exam findings as above. Given reported symptoms and physical exam findings, initial differential includes but is not limited to gastroenteritis, electrolyte abnormality, dehydration, viral illness, COVID, flu. Given recent IV antibiotics for a thyroglossal duct cyst, concern for C diff as well. Labs notable for leukocytosis improved since visit on 08/24, hypokalemia. Viral panel positive for influenza A. Do not feel imaging is indicated at this time as abdominal exam is unremarkable. IV and p.o. potassium ordered as well as IV fluids. Stool sample obtained and sent for GI panel and C diff testing. Discussed with patient that these will not be resulted today but he will be contacted with any positive results requiring treatment. Blood pressure improved with IV fluids. Feel patient is stable for discharge home at this time. Discussed the importance of ensuring adequate fluid intake, especially fluids with electrolytes. Return precautions discussed at bedside. Patient verbalized understanding of and agreement with plan. Differential Diagnosis Differential Diagnoses: The differential diagnosis associated with the presentation includes as per main campus medical center Admission/Observation Consideration of admission/observation: Escalation of care including admission/observation considered Patient would have been admitted to the hospital and transferred to appropriate facility had their clinical presentation warranted hospital admission. Lab Data [facility] Lab Attestation statement: I reviewed the patient's lab results. as per main campus medical center 09/07/25 15:11 09/07/25 15:11 Labs: Lab Results 09/07/25 09/07/25 Range/Units 15:11 18:31 WBC 12.1 H (4.8-10.8) X10*3/uL RBC 4.91 (4.60-5.80) X10*6/uL Hgb 15.4 (14.0-18.0) g/dl Hct 43.1 (42.0-52.0) % MCV 87.8 (80.0-98.0) fL MCH 31.4 (27.0-33.0) pg MCHC 35.7 (31.0-36.0) g/dl RDW 12.2 (11.0-16.0) % Plt Count 229 (160-400) X10*3/uL MPV 10.3 (9.4-12.4) fL Immature Gran % (Auto) 0.3 (0.0-0.4) % Neut % (Auto) 58.4 (45-73) % Lymph % (Auto) 28.4 (20-40) % [place] % (Auto) 11.3 H (2-11) % Eos % (Auto) 0.6 (0-4) % Baso % (Auto) 1.0 (0-2) % Lymph # (Auto) 3.5 (1.2-4.9) X10*3/uL [place] # (Auto) 1.4 H (0.1-1.2) X10*3/uL Eos # (Auto) 0.1 (0.0-0.4) X10*3/uL Baso # (Auto) 0.1 (0.0-0.2) X10*3/uL Abs Immat Gran (auto) 0.04 H (0.00-0.03) X10*3/uL Absolute Neuts (auto) 7.1 (2.0-8.3) x10*3/uL Absolute Nucleated RBC 0.000 (0.0-0.012) X10*3/uL Nucleated RBC % (auto) 0.0 (0.0-0.2) /100WBC Sodium 134 L (135-145) mmol/L Potassium 2.9 L* D (3.3-5.1) mmol/L Chloride 100 (96-108) mmol/L Carbon Dioxide 25 (22-29) mmol/L Anion Gap 12 (12-20) BUN 12 (9-16) mg/dL Creatinine 1.33 (0.5-1.4) mg/dL Estim Creat Clear Calc 71.4 Estimated GFR 55 Random Glucose 105 (60-115) mg/dL Calcium 8.7 D (8.4-10.2) mg/dL Magnesium 2.0 (1.6-2.6) mg/dL Total Bilirubin 0.3 (0.0-1.0) mg/dL Direct Bilirubin 0.1 (0.0-0.5) mg/dL AST 27 (5-37) U/L ALT 19 (0-40) U/L Alkaline Phosphatase 60 (39-117) U/L Total Protein 6.6 (6.5-8.0) g/dL Albumin 3.8 (3.5-5.0) g/dL Lipase 64 (8-78) U/L C. diff Tox B Gene (PCR) POSITIVE A* (Negative) C. difficile Toxin A&B Positive A* (Negative) C. difficile Interpret SEE NOTE Influenza Type A (PCR) POSITIVE A (Negative) Influenza Type B (PCR) NEGATIVE (Negative) RSV RNA Qual (PCR) NEGATIVE (Negative) SARS-CoV-2 RNA (RT-PCR) NEGATIVE (Negative) External Record Review External record reviewed: Inpatient record, Office record and Outpatient record Discharge Plan Discharge Clinical Impression: Influenza A, Diarrhea, C. difficile colitis Patient Disposition: Home, Self-Care Instructions: Influenza (DC), C. Diff (Clostridioides Difficile) Infection (ED) Additional Instructions: You were evaluated in the emergency department today for diarrhea. You tested positive for influenza A as well as a type of infection that causes diarrhea called C diff colitis. Your potassium level was low likely due to recent vomiting and diarrhea. You were given replacement potassium through your IV as well as IV fluids. You also need to take the antibiotic to treat the colitis infection. We recommend that you ensure adequate rest and adequate fluid intake. You should return to the emergency department if you are unable to tolerate fluids by mouth, if you notice blood in your vomit or stool, if you develop fever 100.4? F or greater that does not improve with Tylenol and ibuprofen. Prescriptions: New fidaxomicin 200 mg tablet 200 mg PO Q12H 10 Days Qty: 20 0RF No Action amlodipine 5 mg tablet 5 mg PO DAILY Qty: 30 0RF venlafaxine 37.5 mg capsule,extended release 24hr 37.5 mg PO DAILY lorazepam 0.5 mg tablet 0.5 mg PO DAILY PRN (Reason: Anxiety) lisinopril 40 mg tablet 40 mg PO DAILY bxcpddrlgr-gigaqrrnzdleq-bwly [Fioricet] 50-300-40 mg capsule 1 cap PO Q8H PRN (Reason: headache) Qty: 20 0RF Rx Instructions: Take one tablet up to three times a day for headaches ondansetron 4 mg tablet,disintegrating 4 mg PO Q8H 3 Days Qty: 9 0RF Interventions: ED Discharge Assessment Last Done: 09/07/25 21:04 Print Language: Telugu
--- NOTE | 2025-09-07 15:13 | ECG_ITS ---
Test Reason : SYNCOPE Blood Pressure : */* mmHG Vent. Rate : 86 BPM Atrial Rate : 86 BPM P-R Int : 152 ms QRS Dur : 84 ms QT Int : 362 ms P-R-T Axes : 60 37 36 degrees QTcB Int : 433 ms Normal sinus rhythm Normal ECG When compared with ECG of 12-Jul-2025 01:51, Vent. rate has increased by 32 bpm Referred By: Licha Adams Electronically Signed By: HAYLEY MALIK
[2025-09-07 15:16] LABS: MANUAL DIFF FLAG NO
[2025-09-07] MEDS: Lactated Ringers 1,000 ML 999 ML IV ×2 (15:17→17:49)
[2025-09-07 15:18] LABS: Hematocrit 43.1 % (42.0-52.0); Hemoglobin 15.4 g/dl (14.0-18.0); Imm Gran Abs Auto 0.04 X10*3/uL (0.00-0.03); Imm Gran Pct Auto 0.3 % (0.0-0.4); Lymphocytes Absolute Auto 3.5 X10*3/uL (1.2-4.9); Mean Corpuscular HGB Conc 35.7 g/dl (31.0-36.0); Mean Corpuscular Hemoglobin 31.4 pg (27.0-33.0); Mean Corpuscular Volume 87.8 fL (80.0-98.0); NRBC Abs Auto 0.000 X10*3/uL (0.0-0.012); NRBC Pct Auto 0.0 /100WBC (0.0-0.2); Platelet Count 229 X10*3/uL (160-400); Red Blood Count 4.91 X10*6/uL (4.60-5.80); White Blood Count 12.1 X10*3/uL (4.8-10.8)
--- NOTE | 2025-09-07 15:22 | PC.NURSE ---
provider aware of BP
[2025-09-07 15:51] LABS: Alanine Aminotransferase 19 U/L (0-40); Albumin Level 3.8 g/dL (3.5-5.0); Alkaline Phosphatase 60 U/L (39-117); Anion Gap 12 (12-20); Aspartate Amino Transferase 27 U/L (5-37); Blood Urea Nitrogen 12 mg/dL (9-16); Calcium 8.7 mg/dL (8.4-10.2); Carbon Dioxide 25 mmol/L (22-29); Chloride 100 mmol/L (96-108); Creatinine Clr Calc Pharmacy 71.4; Estimated Glomerular Filt Rate 55; Lipase 64 U/L (8-78); Magnesium 2.0 mg/dL (1.6-2.6); Potassium 2.9 mmol/L (3.3-5.1); Sodium 134 mmol/L (135-145); Total Protein 6.6 g/dL (6.5-8.0)
--- OUTSIDE RECORDS SUMMARY | 2025-09-07 15:59 | XMS_ITS | Continuity of Care Document ---
Author Organization [place] [facility], [facility] Address [address] [place] [address] Care Team Providers Care Technician Support Association Name Role Phone ELIAS BAILEY Referring Provider [...] Time Pain of left temporoma ndibular joint [id number] Active 2017 Arthralgi a of left temporoma ndibular joint; Note: Date Diagnosed : 03/05/2018 11:17 AM (M26.622) Not Available [facility] 4 02:55:31 Sensorine ural hearing loss of bilateral ears 162258174 Active 2017 Sensorine ural hearing loss, bilateral ; Note: Date Diagnosed : 03/05/2018 11:17 AM (H90.3) Not Available [facility] 4 02:55:35 Dizziness and giddiness 111394244 Active 2017 Dizziness and giddiness ; Note: Date Diagnosed : 03/05/2018 10:50 AM (R42) Not Available [facility] 4 02:55:30 Bilateral tinnitus 01890059217 02 Active 2019 Tinnitus, bilateral ; Note: Date Diagnosed : 0 11:52 AM (H93.13) Not Available [facility] 4 02:55:35 Mass of head and/or neck 090856750 Active 2024 Mannie Roth [place] [address], [address] , [place] [facility] 5 19:39:50 Vallecula r cyst 012816268 Active 2024 Mannie Roth [place] [address], [place], [address] , [facility] - [facility] 5 19:41:06 Thyroid dysfuncti on 202192803 Active 2024 Mannie [address] [place] [address], [address] , [facility] - [facility] [place] 5 09:26:39 Thyroglos monique duct cyst 68379956 Active 2024 PRABHA CAMPO MD [address] [facility] [address], [place], [place], [address] , [facility] - [facility] [place] 18:03:02 Sensorine ural hearing loss of bilateral ears 371048555 Active 2024 LAMAR ELY, AUD [address] [facility] [address], [place], [address] , [place] [facility] [place] 11:11:56 Chronic rhinitis 89090603 Active 2024 Mannie Roth, DO [address] [facility],[place] [address], [place], [address] , [place] [facility] [place] 11:50:41 Chronic sinusitis 53908752 Active 2024 Mannie Roth, DO [address] [facility],[place] [address], [place], [place], [address] , [facility] - [facility] [place] 11:50:41 Postopera tive pain 944343007 Active 2024 Mannie Roth, DO [address] [facility],[place] [address], [place], [address] , [place] [facility] [place] 07:14:12 Postopera tive seroma 455466523 Active 2024 DELORIS MONROY PA-C [address] [facility] [address], [place], [address] , [facility] - [facility] [place] 14:52:55 Problem Notes None recorded. Procedures Surgical History Date Name Laterality Status Provider Name and Address Organization Details Recorded Time 08/24/20 I & D Seroma/abscess completed DELORIS MONROY PA-C [address] [facility],[place] [address], [place], [address], [place] [facility] [place] 08/24/2025 14:46:48 12/09/20 25 EXCISION, THYROGLOSSAL DUCT CYST (SURG) completed Jean Claude Kamara [place] - [facility] 08/16/2025 13:13:37 07/25/20 25 Comp Audio with Tymps - 11264 & 10984 completed LAMAR LEY, AUD [address] [facility] [address], [place], [address], [facility] - [facility] 07/25/2025 11:11:41 06/20/20 25 FOL_normal_DHL completed Mannie Roth, DO [address] [facility] [address], [place], [address], [facility] - [facility] 06/20/2025 09:30:03 repair of ligament of knee joint completed AIXA VERA [place] - [facility] 06/20/2025 09:16:03 Imaging Results None recorded. Procedure Notes None recorded. Medical Equipment None Reported. Allergies Allergen ID Allergen Name Allergen Category Reaction Reaction Severity Criticality Documentation Date Start Date Code Code System Note Provider Name and Address Organization Details Recorded Time 467532 azithromy harrison medicatio n Not available Not available Not available 07/22/2025 46565 RxNorm Not Available [employer] External Data Service - prod 09:02:49 924110 etodolac medicatio n Not available Not available Not available 07/22/2025 08977 RxNorm Not Available [employer] Data [employer] - prod 09:02:49 Medications Name [...] mg tablet 06/20 completed Medicati on ID: [id number] D uration Value: 30 Brand Name: lisinopr [...] Updated DateTime 08/19/2025 177.8 cm 34.4 kg/m2 089964.17 g Shalonda Sherman [place] - [facility] 08/19/2025 10:51:43 Social History None recorded. [...] ICD10 Code Diagnosis IMO Codes Diagnosis Note [id number] Mannie Roth DO [facility] [address] [address] 07/25/2025 10:48:04 08/01/2025 10:20:53 Mass of head and/or neck 200836308 R22.1 Vallecular cyst 95386809 7 J38.7 278021 Thyroid dysfunction 2645 15802 E07.9 588601 Thyrogloss al duct cyst 86820656 Q89.2 6779 Sensorineu ral hearing loss of bilateral ears 865991207 H90.3 43380924 Audiologic al evaluation results: Mild sloping to moderately severe sensorineu ral hearing loss with excellent word recognitio n. Left ear: Mild sloping to moderately severe sensorineu ral hearing loss with excellent word recognitio n. Tympanomet ry: Right Ear:Type A Left Ear:Type A Chronic rhinitis 9612897 6 J31.0 Chronic sinusitis 062193 00 J32.8 [id number] MYNOR OLMSTEAD [facility] [address] [address] 08/19/2025 10:39:48 08/19/2025 11:43:32 Thyroglossal duct cyst 71214800 Q89.2 6778 Health Concerns Section Related Observation LastModified by Organization Detai ls LastModified Time None Recorded Concern Status LastModified by Organization Details LastModified Time None Recorded Payers Encounter Date Sequence Insurance Name Policy Number Policy Delgado Covered Member ID Delgado Member ID Guarantor Name 08/19/2025 1 [facility] [id number] Yonas Malone [id number] Yonas Malone Notes Date Note Type [...] concerns to report today. MANNIE KIM MD [address] [place] [address],[address], [address], [facility] - [facility] 08/24/2025 08:56:07 08/24/2025 text/html ROS as noted in the HPI 59-year-old male status post thyroglossal duct cyst excision performed 08/16/[address] Roth presents for second postoperative visit. He reports gradual swelling around the surgical incision since the ARMIDA drain was removed. He is following postoperative instructions. Throat pain is 4-5/10. Continues to endorse numbness and tingling. JODI GARCIA MD [address] [place] [address],[address], [address], [place] - [facility] 08/24/2025 17:19:39
--- OUTSIDE RECORDS SUMMARY | 2025-09-07 16:00 | XMS_ITS | Continuity of Care Document ---
Author Organization [place] - [facility], [facility] Address [address] [place] [address] Care Team Providers Care Quality Control Manager Name Role Phone ELIAS BAILEY Referring Provider [...] Time Pain of left temporoma ndibular joint [id number] Active 2017 Arthralgi a of left temporoma ndibular joint; Note: Date Diagnosed : 03/05/2018 11:17 AM (M26.622) Not Available [facility] 4 02:55:31 Sensorine ural hearing loss of bilateral ears 454549218 Active 2017 Sensorine ural hearing loss, bilateral ; Note: Date Diagnosed : 03/05/2018 11:17 AM (H90.3) Not Available [facility] 4 02:55:35 Dizziness and giddiness 633075147 Active 2017 Dizziness and giddiness ; Note: Date Diagnosed : 03/05/2018 10:50 AM (R42) Not Available [facility] 4 02:55:30 Bilateral tinnitus 69656241039 02 Active 2019 Tinnitus, bilateral ; Note: Date Diagnosed : 0 11:52 AM (H93.13) Not Available [facility] 4 02:55:35 Mass of head and/or neck 672587713 Active 2024 Mannie Roth, DO [address] [facility],[place] [address], [place], [address] , [place] - [facility] 5 19:39:50 Vallecula r cyst 507094924 Active 2024 Mannie Roth, DO [address] [facility],[address], [place], [address] , [place] [facility] 5 19:41:06 Thyroid dysfuncti on 629667515 Active 2024 Mannie Roth, DO [address] [facility],[address], [place], [address] , [place] [facility] 5 09:26:39 Thyroglos monique duct cyst 79431203 Active 2024 PRABHA CAMPO MD [address] [facility], [place], [address] , [place] [facility] 5 18:03:02 Sensorine ural hearing loss of bilateral ears 919183949 Active 2024 LAMAR ELY, AUD [address], [facility] [place] [place], [address] , [place] - [facility] 5 11:11:56 Chronic rhinitis 30462901 Active 2024 Mannie Roth, DO [address], [facility] [place], [address] , [place] - [facility] 5 11:50:41 Chronic sinusitis 22747735 Active 2024 Mannie Roth, DO [address], [facility] [place], [address] , [place] [facility] 11:50:41 Postopera tive pain 404643431 Active 2024 Mannie Roth, DO [address],[place] [address], [facility] [place], [address] , [place] - [facility] 07:14:12 Postopera tive seroma 597330567 Active 2024 DELORIS MONROY PA-C [address] [facility] [place] [address], [place], [address] , [place] - [facility] 14:52:55 Problem Notes None recorded. Procedures Surgical History Date Name Laterality Status Provider Name and Address Organization Details Recorded Time 08/24/20 25 I & D Seroma/abscess completed DELORIS MONROY PA-C [address] [facility] [place] [address], [place], [address], [place] - [facility] 08/24/2025 14:46:48 08/16/20 25 EXCISION, THYROGLOSSAL DUCT CYST (SURG) completed Jean Claude Kamara [place] - [facility] 08/16/2025 13:13:37 07/25/20 25 Comp Audio with Tymps - 41411 & 54350 completed LAMAR ELY, AUD [address], [place], [address], [place] [facility] 07/25/2025 11:11:41 10/13/20 25 FOL_normal_DHL completed Mannie Roth, DO [address] [facility] [address], [place], [address], [place] [facility] 06/20/2025 09:30:03 repair of ligament of knee joint completed AIXA VERA [place] [facility] 06/20/2025 09:16:03 Imaging Results None recorded. Procedure Notes None recorded. Medical Equipment None Reported. Allergies Allergen ID Allergen Name Allergen Category Reaction Reaction Severity Criticality Documentation Date Start Date Code Code System Note Provider Name and Address Organization Details Recorded Time 253278 azithromy [facility] n Not available Not available Not available 07/22/2025 91633 RxNorm Not Available [employer] External [employer] - [employer] 09:02:49 351661 etodolac medicatio n Not available Not available Not available 07/22/2025 27120 RxNorm Not Available [employer] - [employer] 09:02:49 Medications Name Sig Start Date Stop [...] mg tablet 06/20 completed Medicati on ID: [id number] D uration Value: 30 Brand Name: lisinopr [...] Updated DateTime 08/26/2025 177.8 cm 33.7 kg/m2 801303.21 g Zara Potvin [place] - [facility] 08/26/2025 13:12:54 Social History None recorded. [...] ICD10 Code Diagnosis IMO Codes Diagnosis Note [id number] MYNOR OLMSTEAD [facility] of [address] [address] 08/19/2025 10:39:48 08/19/2025 11:43:32 Thyroglossal duct cyst 57132785 Q89.2 6778 [id number] DELORIS MONROY PA-C [facility] of [address] [address] 08/24/2025 13:08:05 08/24/2025 16:56:56 Thyroglossal duct cyst 25935351 Q89.2 6778 Postoperative seroma 429 716984 K91.872 [id number] DELORIS MONROY PA-C [facility] of [facility] on [address] [place] [address] 08/26/2025 13:05:44 08/26/2025 13:35:04 Postoperative seroma 414974348 K91.872 04042744 Thyrogloss al duct cyst 99659565 Q89.2 6778 6779 Health Concerns Section Related Observation LastModified by Organization Detai ls LastModified Time None Recorded Concern Status LastModified by Organization Details LastModified Time None Recorded Payers Encounter Date Sequence Insurance Name Policy Number Policy Delgado Covered Member ID Delgado Member ID Guarantor Name 08/26/2025 1 [place] [facility] [place] [id number] Yonas Malone [id number] Yonas Malone Notes Date Note Type Note [...] since. Otherwise, is asymptomatic. PRABHA CAMPO MD [address] [place] [address], [address], [facility] - [facility] 08/29/2025 08:42:57
--- OUTSIDE RECORDS SUMMARY | 2025-09-07 16:00 | XMS_ITS | Encounter Summary ---
Author Organization [facility] Address [address] [place] [address] Phone Care Team Providers Care Hvac Sheet Metal Installer Name Role Phone Lino Pineda MD Primary Care Provider [phone] Encounter Details Date Type Department Care Team (Late st Contact Info) Description 01/27/2024 Procedure Pass [facility], Ct Scan - [address] [address] Social History Tobacco Use Types Packs/Day Years [...] documented as of this encounter Care Teams Hvac Sheet Metal Installer Relationship Specialty Start Date End Date Lino Pineda MD [address] [place] [address] PCP - General Internal Medicine 03/02/18 documented as of this encounter Additional Source Comments The information contained in this document represents components of the legal health record. It is not the complete legal health record.[facility]
--- OUTSIDE RECORDS SUMMARY | 2025-09-07 16:00 | XMS_ITS | Clinical Summary ---
Author Organization [facility] Address [address] [place] [address] Phone Care Team Providers Care Displayer Name Role Phone Unavailable Primary Care Provider Unavailabl e Encounters Date Type Department Care Team Description 06/27/2025 4:03 PM EDT - 06/27/2025 11:59 PM EDT Hospital Encounter [facility] MRI [address] [place] [address] Headache Discharge Disposition: Home or [...] Signed Date: 06/30/2025 14:54 ET Workstation ID: [id number] Transcribed By: Self Edit Transcribed Date: 06/30/2025 [...] Signed Date: 06/30/2025 14:54 ET Workstation ID: [id number] Transcribed By: Self Edit Transcribed Date: 06/30/2025 14:50 ET Lino Pineda MD IMG MRI PROCEDURES Final Resul t from Last 3 Months Insurance [facility]
--- OUTSIDE RECORDS SUMMARY | 2025-09-07 16:00 | XMS_ITS | Encounter Summary ---
Author Organization [facility] Address [address] [place] [address] Phone Care Team Providers Care Stable Cleaner Name Role Phone Lino Pineda MD Primary Care Provider [phone] Encounter Details Date Type Department Care Team (Late st Contact Info) Description 05/11/2020 Procedure Pass [facility], [address] [address] Social History Tobacco Use Types Packs/Day Years [...] documented as of this encounter Care Teams Stable Cleaner Relationship Specialty Start Date End Date Lino Pineda MD [address] [place] [address] PCP - General Internal Medicine 03/02/18 documented as of this encounter Additional Source Comments The information contained in this document represents components of the legal health record. It is not the complete legal health record.[facility]
--- OUTSIDE RECORDS SUMMARY | 2025-09-07 16:00 | XMS_ITS | Encounter Summary ---
Author Organization [facility] Address [address] [place] [address] Phone Care Team Providers Care Finance Business Manager Name Role Phone Lino Pineda MD Primary Care Provider [phone] [phone] Encounter Details Date Type Department Care Team (Late st Contact Info) Description 02/25/2019 Procedure Pass [facility], [address] [place] [address] Social History Tobacco Use Types Packs/Day Years [...] documented as of this encounter Care Teams Finance Business Manager Relationship Specialty Start Date End Date Lino Pineda MD [address] [place] [address] PCP - General Internal Medicine 03/02/18 documented as of this encounter Additional Source Comments The information contained in this document represents components of the legal health record. It is not the complete legal health record.[facility]
--- OUTSIDE RECORDS SUMMARY | 2025-09-07 16:00 | XMS_ITS | Patient Health Record ---
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 ANGLE LARSON Unavailable [phone] REDDY HARTLEY Unavailable Allergies Allergen (clinical drug ingredient) Drug/Non Drug Allergy documented on EMR Reaction Allergy Type Onset Date Status azithromycin Azithromycin ZITHROMAX Drug Allergy A ctive etodolac Etodolac Unknown Drug Allergy Active Reason For Referral Reason (01/17/25 W BC approv al) (3) [facility] PT Diagnosis 1 Displaced bicondylar fracture of right tibia, initial encounter for closed fracture (S82.141A) [facility] Referring Provider First Name ELIAS Referring Provider Last Name LEO Referring Provider Speciality Internal M edicine Referred Provider Specialty Orthopedic S urgery General Notes Jesus Manuel BRIZUELA Call Center 12/10/2024 10:32:10 AM > Connie from [employer] insurance referral dept; requesting Insurance referral for PT from 12/08/24 through 09/07/25. Group NPI Given: [id number], [address] [place] [address], P:[phone] rnderi [address] [facility] [address], F:[phone] Kimberly B Call Ctr 12/15/2024 11:57:07 AM > Connie called from [facility] (formerly [facility]) checking on the status of this referral request., Catherine BRIZUELA Admin 12/15/2024 04:04:10 PM > this is an OON Referral, CHATAMadelin Gonsalo Call Center 12/17/2024 11:27:02 AM > Connie called, asked for update explained referrals are 72 hour process., CHATACatherine P Admin 12/20/2024 12:16:04 PM > according to referral request from [facility] the Group NPI that they ask us to use goes to [address] [place] [address], cpt code [id number], Leann BRIZUELA Call Ctr 12/23/2024 01:46:03 PM > [facility]/[phone], calling to get an update on the referral, Leann BRIZUELA Call Center 12/29/2024 09:25:32 AM > [facility] (P) [phone] (F) [phone] is checking on the status of referral. The start date needs to be 12/08/24 and through 09/07/25 w/ visits. (See telephone encounter), Catherine BRIZUELA Admin 12/29/2024 11:41:38 AM > faxed cross border request to [facility] at [phone]>waiting for their reply, Leann BRIZUELA Call Center 12/30/2024 10:54:07 AM > Connie/[facility])(P) [phone] is calling regarding referral. Connie advised above and will speak with her money room supervisor to ask if the patient can still be seen today., Zara BRIZUELA Referrals 01/17/2025 02:56:01 PM > referral submitted to > Authorization Status: In ProgressReason: Coordinator Review, Decision:Reference#: [id number], Procedure Status: [id number]:Not Decisioned, CHATACatherine P Admin 02/03/2025 10:46:02 AM > referral approved and faxed to [facility] at [phone]>encounter closed Referral Priority Routine Referral Appointment Date 12/08/2024 Reason (*2*) PT Eval and tr eat Diagnosis 1 Closed fracture of r ight tibial plateau with routine healing, subsequent encounter (U08.649M) Referral Organization [facility] Referring Provider First Name ELIAS Referring Provider Last Name TRANQUILLITY Referring Provider [facility] Internal edicine Referred Provider Specialty Physical The rapy General Notes Ange BRIZUELA BRASS ROLLER 08:25:48 AM > patient is currently being seen in [facility] for PT and does need insurance referral for CPT code 19300 for 26 visits; , Has to be under the [facility] at [address] [facility] start date 12/10/24., Zara BRIZUELA Referrals 01/05/2025 12:35:24 PM > back dated referral approved and faxed to [facility] at [phone] Referral Priority Routine Referral Appointment Date 12/10/2024 Reason NEw patient appt Jessica ats surgeon [facility] Diagnosis 1 Breast pain (N64.4) Referral Organization [facility] Referring Provider First Name ELIAS Referring Provider Last Name TRANQUILLITY Referring Provider [facility] Internal edicine Referred Provider Specialty Bariatric Diaz rgery Referral Priority Stat Reason n64.4 BREAST PAIN Referral Organization [facility] Referring Provider First Name ELIAS Referring Provider Last Name TRANQUILLITY Referring Provider [facility] Internal edicine General Notes Catherine BRIZUELA P Admin 12:11:23 PM > referral approved and faxed to [facility] at [phone] (manually)>encounter closed Referral Priority Routine Referral Appointment Date 01/26/2025 Reason M25.511 Referral Organization [facility] Referring Provider First Name ELIAS Referring Provider Last Name TRANQUILLITY Referring Provider [facility] Internal edicine Referred Provider DOMINGUEZ TALAMANTES Referred Provider Specialty Orthopedic S urgery General Notes Catherine BRIZUELA P Admin 07/2025 04:00:45 PM > per incoming document from [facility] pt had appt on 12/08/24 with Dominguez Talamantes>referral approved and faxed to [facility] at [phone]>enocunter closed Referral Priority Routine Referral Appointment Date 12/08/2024 Reason Appt for [facility] Diagnosis 1 Unspecified hearing loss (H91.90) Referral Organization [facility] As [facility] Referring Provider First Name ELIAS Referring Provider Last Name TRANQUILLITY Referring Provider [facility] Internal edicine Referral Priority Urgent Reason 05/13/25 w appt Urge nt appt Growing mass ? thyroglossal duct cyst Please send CT Diagnosis 1 Neck mass (R22.1) Referral Organization [facility] Referring Provider First Name ELIAS Referring Provider Last Name TRANQUILLITY [facility] Referred Organization [facility] (1) Referred Address [address],[place], [place],[address], Referred Provider Specialty Otology, Lar yngology, Rhinology General Notes Catherine BRIZUELA Admin 01/2025 08:09:49 AM > faxed medical referral, note and most recent labs to [facility] requesting an URGENT appt [phone]>separately sent , 05/05/25 CT [facility]CHATA cooper Lori P Admin 07/27/2025 03:10:08 PM > per incoming document pt was seen on 06/20/25>12V>Mannie Roth Do [phone]>referral approved and faxed to [phone]>encounter closed Referral Priority Urgent Referral Appointment Date 06/20/2025 Reason NEw patient appt [facility] Diagnosis 1 Trigger little finge r of right hand (M65.351) Diagnosis 2 Trigger little finge r of left hand (M65.352) Referral Organization [facility] Referring Provider First Name ELIAS Referring Provider Last Name TRANQUILLITY Referring Provider [facility] Referred Provider GERMAIN MCCONNELL Referred Provider Specialty Hand Surgery Referral Priority Routine Reason r22.1 Referral Organization [facility] Referring Provider First Name ELIAS Referring Provider Last Name TRANQUILLITY Ref[facility] General Notes Ange BRIZUELA BRASS ROLLER 03:59:01 PM > per patient request: [facility] asking for an insurance referral for 06/29/25 appt. at 10:15 am w/ Dr. Jesus Manuel Yancey, KHAII [phone]. , [address] José Miguel [facility] [address]. , R22.1, localized swelling, mass, lump neck., fax [phone], 6 visits. Provider is not in our database., Catherine BRIZUELA Admin 06/21/2025 08:48:42 AM > Referral approved and faxed to [phone]>encounter closed Referral Priority Routine Referral Appointment Date 06/29/2025 Medications Medication SIG (Take, Route, Frequency, Duration) Notes Start Date End Date Status Lisinopril 40 MG Tablet 1 tablet Orally Once a day 03/16/2025 Active amLODIPine Besylate 5 MG Tablet 1 tablet Orally once a day Active guaiFENesin-Codeine 100-10 MG/5ML Solution 5 mL as needed Orally 3 times a day prn; Duration: 14 days 09/05/2025 Active Ondansetron 4 MG Tablet Disintegrating 1 tablet on the tongue and allow to dissolve Orally twice a day prn; Duration: 7 days 09/05/2025 Active SUMAtriptan Succinate 50 MG Tablet 1 [...] Once a day; Duration: 30 days Active Immunizations Vaccine Route Administration Date Status [...] W/U Status Risk Notes Problem Essential hypertension (06419973) Essential (primary) hypertension (I10) Active confirmed Problem Primary insomnia (9202112) Primary insomnia (F51.01) Active confirmed Problem Headache disorder (083504492) Other headache syndrome (G44.89) Active confirmed Problem Anxiety (00190687) Anxiety (F41.9) Active confirmed Problem Thyroglossal duct cyst (83642979) Thyroglossal duct cyst (Q89.2) Active confirmed Problem Hearing loss (33009648) Unspecified hearing loss (H91.90) Active confirmed Problem Pulmonary Embolism (34766944) Acute pulmonary embolism without acute cor pulmonale, [...] rate Encounters Encounter [place] [address] 04/12/2025 [facility] Essential (primary) hypertension I10 ; Anxiety F41.9 and Other headache syndrome G44.89 [place] [address] 01/20/2025 [facility] Breast pain N64.4 and Essential (primary) hypertension I10 [place] [id number] 08/10/2025 [facility] Thyroglossal duct cyst Q89.2 ; Abscess, neck L02.11 ; Essential (primary) hypertension I10 and Anxiety F41.9 [place] [id number] 07/25/2025 [facility] Essential (primary) hypertension I10 ; Anxiety F41.9 ; Other headache syndrome G44.89 and Thyroglossal duct cyst Q89.2 [place] [id number] 03/01/2025 [facility] Essential (primary) hypertension I10 ; Dizziness R42 ; Hyponatremia E87.1 ; B12 deficiency E53.8 and Acute pulmonary embolism without acute cor pulmonale, unspecified pulmonary embolism type I26.[address] [address] 08/26/2025 [facility] Thyroglossal duct cyst Q89.2 and Essential (primary) hypertension I10 [place] [id number] 06/23/2025 [facility] Essential (primary) hypertension I10 ; Anxiety F41.9 ; Frequent headaches R51.9 ; Numbness R20.0 and Neck mass R22.1 [place] [id number] 04/25/2025 [facility] Essential (primary) hypertension I10 ; Acute pulmonary embolism without acute cor pulmonale, unspecified pulmonary embolism type I26.99 and Anxiety F41.9 [place] [id number] 04/05/2025 [facility] 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 ; Essential (primary) hypertension I10 ; Acute pulmonary embolism without acute cor pulmonale, unspecified pulmonary embolism type I26.99 ; Other fatigue R53.83 ; Trigger little finger of right hand M65.351 ; Neck mass R22.1 and Anxiety F41.[address] [address] 03/15/2025 [facility] Essential (primary) hypertension I10 ; Anxiety F41.9 and Primary insomnia F51.01 [place] [id number] 12/30/2024 [facility] Subareolar mass of right breast N63.41 ; Breast pain, right N64.4 ; Essential (primary) hypertension I10 ; Dry cough R05.8 and Closed fracture of right tibial plateau with routine healing, subsequent encounter S82.141D [address] [address] 12/13/2024 [facility] Closed fracture of right tibial plateau, initial encounter S82.141A ; Acute cough R05.1 ; Acute pulmonary embolism without acute cor pulmonale, unspecified pulmonary embolism type I26.99 ; Essential (primary) hypertension I10 and Hyponatremia E87.1 [facility] [address] [place], [place] [id number] 12/07/2024 [facility] Acute cough R05.1 and Other acute pulmonary embolism without acute cor pulmonale I26.[address] [address] 05/26/2025 [facility] Essential (primary) hypertension I10 ; Acute pulmonary embolism without acute cor pulmonale, unspecified pulmonary embolism type I26.99 ; Trigger little finger of right hand M65.351 ; Trigger little finger of left hand M65.352 ; Anxiety F41.9 and Neck mass R22.[address] [address] 09/05/2025 [facility] Gastroenteritis K52.9 and Acute cough R05.[address] [address] 08/15/[address] [address] 08/10/[address] [address] 12/29/[address] [address] 12/29/2024 [facility] Hyponatremia E87.1 and Acute cough R05.[address] [address] 12/29/2024 [facility] [address] [address] 12/23/2024 [facility] [address] [address] 12/14/2024 [facility] Hyponatremia E87.[address] [address] 12/13/2024 [facility] [address] [address] 12/10/2024 [facility] [address] [address] 12/07/2024 [facility] [address] [facility] [place] [address] 11/29/2024 [facility] [address] [facility] [place] [address] 11/23/2024 [facility] [address] [facility] [place] [address] 08/08/2025 [facility] [address] [facility] [place] [address] 08/01/2025 [facility] [address] [place] [address] 08/01/2025 [facility] [address] [facility] [place] [address] 07/27/2025 [facility] [address] [place] [address] 07/27/2025 [facility] [address] [place] [address] 07/21/2025 [facility] [address] [place] [address] 07/20/2025 [facility] [address] [place] [address] 07/13/2025 [facility] [address] [place] [address] 07/11/2025 [facility] [address] [place] [address] 07/01/2025 ELIAS TRANQUILLITY Anxiety F41.9 [facility] [address] [place] [address] 06/28/2025 [facility] [address] [place] [address] 06/27/2025 [facility] [address] [place] [address] 06/23/2025 [facility] [address] [place] [address] 06/20/2025 [facility] [address] [place] [address] 06/17/2025 [facility] Recurrent headache R51.9 [facility] [address] [place] [address] 06/17/2025 [facility] Recurrent headache R51.9 [facility] [address] [facility] [place] [address] 05/12/2025 [facility] Neck mass R22.1 [facility] [address] [place] [address] 04/25/2025 [facility] Neck mass R22.1 [facility] [address] [place] [address] 04/14/2025 [facility] Neck mass R22.1 [facility] [address] [place] [address] 04/13/2025 [facility] [address] [place] [address] 04/12/2025 [facility] [address] [place] [address] 04/11/2025 [facility] [address] [place] [address] 04/07/2025 [facility] [address] [place] [address] 04/06/2025 [facility] [address] [place] [address] 03/21/2025 [facility] [address] [place] [address] 03/17/2025 [facility] [address] [place] [address] 03/16/2025 [facility] Essential (primary) hypertension I10 [facility] [address] [place] [address] 03/14/2025 [facility] [address] [place] [address] 03/13/2025 [facility] [address] [place] [address] 03/02/2025 [facility] [address] [place] [address] 03/01/2025 [facility] [address] [place] [address] 02/28/2025 [facility] [address] [place] [address], [place] [address] 02/26/2025 ANGLE LARSON [facility] [address] [place] [address], [place] [address] 02/18/2025 [facility] [address] [place] [address], [place] [address] 02/01/2025 [facility] [address] [place] [address], [place] [address] 01/19/2025 [facility] [address] [place] [address], [place] [address] 01/11/[address] [place] [address] 01/04/2025 ELIAS TRANQUILLITY Closed fracture of right tibial plateau with routine healing, subsequent encounter S82.141D [address] [place] [address] 12/31/[address] [place] [address] 12/30/[address] [place] [address] 12/29/[address] [place] [address] 09/07/2025 [facility] Acute diarrhea R19.[address] [place] [address] 09/05/[address] [place] [address] 09/03/[address] [place] [address] 08/24/2025 ELIAS TRANQUILLITY Assessments Encounter Date Diagnosis (ICD Code) Assessment Notes Treatment Notes Treatment Clinical Notes Section Notes 12/13/2024 Acute cough (ICD-10 - R05.1) 1. Tibial plateau fracture right leg: Will await follow-up with [facility]. To stay in brace for the next several weeks 2. Cough: Will treat for atypical infection with doxycycline and a Medrol Dosepak 3. Pulmonary embolism: Newly on Eliquis. Will refill locally as his prescription was written in [place]. He will need 3 to 6 months of therapy 4. Hypertension: Stable on current lisinopril. No changes made today 5. Hyponatremia: Reported on labs in [place]. Will recheck electrolytes today 12/13/2024 Closed fracture of right tibial plateau, initial encounter (ICD-10 - S82.141A) 1. Tibial plateau fracture right leg: Will await follow-up with [facility]. To stay in brace for the next several weeks 2. Cough: Will treat for atypical infection with doxycycline and a Medrol Dosepak 3. Pulmonary embolism: Newly on Eliquis. Will refill locally as his prescription was written in [place]. He will need 3 to 6 months of therapy 4. Hypertension: Stable on current lisinopril. No changes made today 5. Hyponatremia: Reported on labs in [place]. Will recheck electrolytes today 12/29/2024 Hyponatremia (ICD-10 - E87.1) 12/29/2024 Acute cough (ICD-10 - R05.1) 12/30/2024 Breast pain, right (ICD-10 - N64.4) 1: right breast mass/pain: Exam consistent with breast tissue/gynecomasti a but will check mammogram to rule out [...] right breast mass/pain: Exam consistent with breast tissue/gynecomasti a but will check mammogram to rule out more concerning pathology 2. Hypertension: Stable on present lisinopril. No changes made today 3. Dry cough: Will trial Tessalon Perles to see if this helps resolve residual cough postinfection 4. Right tibial plateau fracture: Continues in brace. On orthopedics. Will follow. Using pain medication sparingly 03/01/2025 Essential (primary) hypertension (ICD-10 - I10) [...] level today and send for labs from [place] 5. Pulmonary embolism: He admits not taking [...] level today and send for labs from [place] 5. Pulmonary embolism: He admits not taking his Eliquis faithfully twice a day. I have emphasized the importance of this. It has been 3 months but I do not wish to discontinue as yet as he has not had for therapy for the entire period. Will likely complete 6 months 03/16/2025 Essential (primary) hypertension (ICD-10 - I10) 04/05/2025 Essential (primary) hypertension (ICD-10 - I10) 1. TMJ dysfunction: Given Eliquis he cannot use anti-inflammatorie s but will try Tylenol 3 times a [...] TMJ dysfunction: Given Eliquis he cannot use anti-inflammatorie s but will try Tylenol 3 times a [...] explained they can be used together 04/12/2025 Essential (primary) hypertension (ICD-10 - I10) [...] may try a short prednisone burst. 04/25/2025 Neck mass (ICD-10 - R22.1) 04/25/2025 Essential (primary) hypertension (ICD-10 - I10) [...] interested in an alternative at present 05/26/2025 Essential (primary) hypertension (ICD-10 - I10) [...] typical. We are awaiting an ENT appointment 06/23/2025 Essential (primary) hypertension (ICD-10 - I10) [...] Await results 07/01/2025 Anxiety (ICD-10 - F41.9) 07/25/2025 Essential (primary) hypertension (ICD-10 - I10) Available hospital records reviewed 1. Hypertension: Stable on current lisinopril and amlodipine. No changes made today 2. Anxiety: Appears to be tolerating venlafaxine with some benefit. Will reassess next month and consider increasing dose 3. Headaches:/Migrain e: Will give Imitrex for as needed use 4. 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 Biopsy was negative for other pathology. He has follow-up with the ENT today and hopefully will be scheduled for surgery promptly given rapid increase in size 08/26/2025 Essential (primary) hypertension (ICD-10 - I10) [...] plan to recheck in a few weeks. 09/05/2025 Gastroenteritis (ICD-10 - K52.9) 1 gastroenteritis: Will renew Zofran for nausea and vomiting. [...] 09/05/2025 Acute cough (ICD-10 - R05.1) 1 gastroenteritis: Will renew Zofran for nausea and vomiting. Asked him to trial Pepto-Bismol if he has further diarrhea. Will push Gatorade and fluids. 2. Acute cough: This is keeping him up at night and will use Robitussin with codeine to assist in this regard. He will let me knowShould cough not improve or if he should develop any shortness of breath. 09/07/2025 Acute diarrhea (ICD-10 - R19.7) 03/15/2025 Essential (primary) hypertension (ICD-10 - I10) [...] to use to assist in this regard 12/07/2024 Other acute pulmonary embolism without acute [...] the area. Continue present dosing. Consider echocardiography 01/04/2025 Closed fracture of right tibial plateau with routine healing, subsequent encounter (ICD-10 - S82.141D) 12/14/2024 Hyponatremia (ICD-10 - E87.1) 08/10/2025 Abscess, neck (ICD-10 - L02.11) 1. [...] 75 mg strength and reassess at follow-up 06/17/2025 Recurrent headache (ICD-10 - R51.9) 06/17/2025 Recurrent headache (ICD-10 - R51.9) 05/12/2025 Neck mass (ICD-10 - R22.1) 04/14/2025 Neck mass (ICD-10 - R22.1) 01/20/2025 Essential (primary) hypertension (ICD-10 - I10) 1. Right breast pain: Source is unclear. We have arranged an urgent appointment with the breast specialist for Friday of week at [facility]. Will await further recommendations 2. Hypertension: Mildly elevated today but missed medication. Will recheck at regular follow-up 01/20/2025 Breast pain (ICD-10 - N64.4) 1. Right breast pain: Source is unclear. We have arranged an urgent appointment with the breast specialist for Friday of week at [facility]. Will await further recommendations 2. Hypertension: Mildly elevated today but missed medication. Will recheck at regular follow-up 07/25/2025 Anxiety (ICD-10 - F41.9) Available hospital records reviewed 1. Hypertension: Stable on current lisinopril and amlodipine. No changes made today 2. Anxiety: Appears to be tolerating venlafaxine with some benefit. Will reassess next month and consider increasing dose 3. Headaches:/Migrain e: Will give Imitrex for as needed use 4. 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 Biopsy was negative for other pathology. He has follow-up with the ENT today and hopefully will be scheduled for surgery promptly given rapid increase in size 06/23/2025 Frequent headaches (ICD-10 - R51.9) 1. [...] Biopsy later in the month. Await results 08/10/2025 Essential (primary) hypertension (ICD-10 - I10) [...] 75 mg strength and reassess at follow-up 03/15/2025 Primary insomnia (ICD-10 - F51.01) ER [...] to use to assist in this regard 07/25/2025 Other headache syndrome (ICD-10 - G44.89) Available hospital records reviewed 1. Hypertension: Stable on current lisinopril and amlodipine. No changes made today 2. Anxiety: Appears to be tolerating venlafaxine with some benefit. Will reassess next month and consider increasing dose 3. Headaches:/Migrain e: Will give Imitrex for as needed use 4. 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 Biopsy was negative for other pathology. He has follow-up with the ENT today and hopefully will be scheduled for surgery promptly given rapid increase in size 05/26/2025 Trigger little finger of right hand [...] We are awaiting an ENT appointment 04/25/2025 Anxiety (ICD-10 - F41.9) 1. Hypertension: [...] interested in an alternative at present 04/12/2025 Other headache syndrome (ICD-10 - G44.89) [...] we may try a short prednisone burst. 04/05/2025 Acute pulmonary embolism without acute cor pulmonale, unspecified pulmonary embolism type (ICD-10 - I26.99) 1. TMJ dysfunction: Given Eliquis he cannot use anti-inflammatorie s but will try Tylenol 3 times a [...] level today and send for labs from [place] 5. Pulmonary embolism: He admits not taking [...] fracture right leg: Will await follow-up with [facility]. To stay in brace for the next several weeks 2. Cough: Will treat for atypical infection with doxycycline and a Medrol Dosepak 3. Pulmonary embolism: Newly on Eliquis. Will refill locally as his prescription was written in [place]. He will need 3 to 6 months of therapy 4. Hypertension: Stable on current lisinopril. No changes made today 5. Hyponatremia: Reported on labs in [place]. Will recheck electrolytes today 12/30/2024 Essential (primary) hypertension (ICD-10 - I10) 1: right breast mass/pain: Exam consistent with breast tissue/gynecomasti a but will check mammogram to rule out [...] fracture right leg: Will await follow-up with [facility]. To stay in brace for the next several weeks 2. Cough: Will treat for atypical infection with doxycycline and a Medrol Dosepak 3. Pulmonary embolism: Newly on Eliquis. Will refill locally as his prescription was written in [place]. He will need 3 to 6 months of therapy 4. Hypertension: Stable on current lisinopril. No changes made today 5. Hyponatremia: Reported on labs in [place]. Will recheck electrolytes today 12/30/2024 Dry cough (ICD-10 - R05.8) 1: right breast mass/pain: Exam consistent with breast tissue/gynecomasti a but will check mammogram to rule out more concerning pathology 2. Hypertension: Stable on present lisinopril. No changes made today 3. Dry cough: Will trial Tessalon Perles to see if this helps resolve residual cough postinfection 4. Right tibial plateau fracture: Continues in brace. On orthopedics. Will follow. Using pain medication sparingly 03/01/2025 B12 deficiency (ICD-10 - E53.8) 1. [...] level today and send for labs from [place] 5. Pulmonary embolism: He admits not taking [...] TMJ dysfunction: Given Eliquis he cannot use anti-inflammatorie s but will try Tylenol 3 times a [...] explained they can be used together 05/26/2025 Trigger little finger of left hand [...] typical. We are awaiting an ENT appointment 06/23/2025 Numbness (ICD-10 - R20.0) 1. Hypertension: [...] Biopsy later in the month. Await results 08/10/2025 Anxiety (ICD-10 - F41.9) 1. Abscess [...] next month and consider increasing dose 3. Headaches:/Migrain e: Will give Imitrex for as needed use 4. 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 Biopsy was negative for other pathology. He has follow-up with the ENT today and hopefully will be scheduled for surgery promptly given rapid increase in size 05/26/2025 Anxiety (ICD-10 - F41.9) 1. Hypertension: [...] typical. We are awaiting an ENT appointment 06/23/2025 Neck mass (ICD-10 - R22.1) 1. [...] level today and send for labs from [place] 5. Pulmonary embolism: He admits not taking [...] TMJ dysfunction: Given Eliquis he cannot use anti-inflammatorie s but will try Tylenol 3 times a [...] right breast mass/pain: Exam consistent with breast tissue/gynecomasti a but will check mammogram to rule out more concerning pathology 2. Hypertension: Stable on present lisinopril. No changes made today 3. Dry cough: Will trial Tessalon Perles to see if this helps resolve residual cough postinfection 4. Right tibial plateau fracture: Continues in brace. On orthopedics. Will follow. Using pain medication sparingly 12/13/2024 Hyponatremia (ICD-10 - E87.1) 1. Tibial plateau fracture right leg: Will await follow-up with [facility]. To stay in brace for the next several weeks 2. Cough: Will treat for atypical infection with doxycycline and a Medrol Dosepak 3. Pulmonary embolism: Newly on Eliquis. Will refill locally as his prescription was written in [place]. He will need 3 to 6 months of therapy 4. Hypertension: Stable on current lisinopril. No changes made today 5. Hyponatremia: Reported on labs in [place]. Will recheck electrolytes today 04/05/2025 Neck mass (ICD-10 - R22.1) 1. TMJ dysfunction: Given Eliquis he cannot use anti-inflammatorie s but will try Tylenol 3 times a [...] TMJ dysfunction: Given Eliquis he cannot use anti-inflammatorie s but will try Tylenol 3 times a [...] 04/14/2025 Future Test Test Name Order Date [id number] 03/16/2025 GI Profile, Stool, [id number] 09/07/2025 Next Appt Details Provider Name:ELIAS BAILEY , 10/03/2025 02:30:00 PM, [address] [place], [address], Provider Name:ELIAS BAILEY , 11/21/2025 01:30:00 PM, [address] [place], [address], Insurance Providers Payer Name Payer Address Payer Phone Subscriber Number Group Number Insured Name Patient Relationship to Insured Coverage Start Date Coverage End Date [employer] [address] [place] [address] [id number] DAVID MCCOY Self - patient is the insured Medical (General) History Medical History History ICD Code Hypertension, Problems: Insomnia, November 2024 Right tibial plateau fracture November 2024 Pulmonary Embolism thyroid glossal ductal cyst Surgical History Surgery Date(Month/Year) Left Knee Replacement Dr Perera 12/2022 Hospitalization History Reason Date(Month/Year) [facility] admit 08/04/2025 [facility] dx Infected Thyroglossal duct cysts 07/31/2025 [facility]: neck swelling, soft tissue infectio n 07/2025 Left Tibial fracture/Pulmonary Embolism 11/2024 [facility] observation dx Unavailable [facility] ER - migraine / d izziness 04/09/25 [facility] ER - numb tongue, numb limbs, bp 180 /100; 200/110 03/12/25 [facility]- dizzi ness, headache, parasthesia 02/24/25-02/27/25
--- OUTSIDE RECORDS SUMMARY | 2025-09-07 16:00 | XMS_ITS | Continuity of Care Document ---
Author Organization [place] - [facility], [facility] Address [address] [place] [address] Care Team Providers [employer] Supervisor Name Role Phone ELIAS BAILEY Referring Provider [...] him to present to the ER preferably [facility], if he has significant airway concerns -Start [...] clavulana te 125 mg tablet 2024 025 [id number], [address], [place], [id number], 08/22/2025 05:02:32 prednison e 10 mg tablet 2024 025 [facility][id number], [address], [place], [id number], 08/26/2025 13:13:28 Patient TargetsNo targets recorded. Patient InstructionsNo instructions recorded. Reason for Referral None Reported. Results Created Date Observation Date Name Description Value Unit Range Abnormal Flag Note LastModifiedBy Organization Detail LastModifiedTime 07/05/2007/12/2025 THYRO ID STIMU LATIN G HORMO NE TSH-icma 1.0 uu/mL Refer ence Range : Non-P regna nt Adult 0.450 -4.50 0 Not Available [facility] [address] [facility], [place], [address], 07/12/2025 09:42:43 07/05/2007/06/2025 TRIIO DOTHY MARTHA E (T3), FREE triiodothyro nine (T3), free 3.5 pg/mL 2.0-4. 4 normal Not Available [facility] ([facility]) [address] [facility], [place], [address], 07/12/2025 09:42:44 07/05/2007/06/2025 T4,FR EE(DI RECT) T4,free(dire ct) 1.28 NG/dL 0.82-1 .77 normal Not Available [facility] ([facility]) [address] [facility], [place], [address], 07/12/2025 09:42:44 07/25/20 audio gram No observ ation record ed. BARCODE Not Available 2024 13:13:58 Result Notes None recorded. Problems Name Problem SNOMED Code Status Onset Date Resolution Date Notes Provider Name and Address Organization Details Recorded Time Pain of left temporoma ndibular joint 80865116538 968681 Active 2017 Arthralgi a of left temporoma ndibular joint; Note: Date Diagnosed : 03/05/2018 11:17 AM (M26.622) Not Available [facility] 4 02:55:31 Sensorine ural hearing loss of bilateral ears 006051447 Active 2017 Sensorine ural hearing loss, bilateral ; Note: Date Diagnosed : 03/05/2018 11:17 AM (H90.3) Not Available [facility] 4 02:55:35 Dizziness and giddiness 697235973 Active 2017 Dizziness and giddiness ; Note: Date Diagnosed : 03/05/2018 10:50 AM (R42) Not Available [facility] 4 02:55:30 Bilateral tinnitus 98690864642 02 Active 2019 Tinnitus, bilateral ; Note: Date Diagnosed : 0 11:52 AM (H93.13) Not Available [facility] 4 02:55:35 Mass of head and/or neck 300654163 Active 2024 Mannie Roth, DO [address], [place], [address] , [place] - [facility] 5 19:39:50 Vallecula r cyst 595290878 Active 2024 Mannie Roth, DO [address], [place], [address] , [place] [facility] 5 19:41:06 Thyroid dysfuncti on 485068601 Active 2024 Mannie Roth, DO [address], [place], [address] , [place] [facility] 09:26:39 Thyroglos monique duct cyst 04587215 Active 2024 PRABHA CAMPO MD [address], [place], [place], [address] , [place] - [facility] 5 18:03:02 Sensorine ural hearing loss of bilateral ears 086386980 Active 2024 LAMAR ELY, AUD [address], [place], [address] , [place] - [facility] 5 11:11:56 Chronic rhinitis 80271223 Active 2024 Mannie Roth, DO [address], [place], [place], [address] , [place] - [facility] 5 11:50:41 Chronic sinusitis 64378135 Active 2024 Mannie Roth, DO [address], [place], [address] , [place] [facility] 5 11:50:41 Postopera tive pain 417370321 Active 2024 Mannie Roth, DO [address], [place], [address] , [place] - [facility] 07:14:12 Postopera tive seroma 145801689 Active 2024 DELORIS MONROY PA-C [address] [facility] [address], [place], [address] , [facility] - [facility] 14:52:55 Problem Notes None recorded. Procedures Surgical History Date Name Laterality Status Provider Name and Address Organization Details Recorded Time 08/24/20 I & D Seroma/abscess completed DELORIS MONROY PA-C [address] [facility],[address] [address], [place], [address], [facility] - [facility] 08/24/2025 14:46:48 08/16/20 EXCISION, THYROGLOSSAL DUCT CYST (SURG) completed Jean Claude Kamara [place] - [facility] 08/16/2025 13:13:37 07/25/20 Comp Audio with Tymps - 73970 & 70897 completed LAMAR ELY, AUD [address] [facility],[address], [address], [facility] - [facility] 07/25/2025 11:11:41 06/20/20 FOL_normal_DHL completed Mannie Roth, DO [address] [facility],[address], [address], [facility] - [facility] 06/20/2025 09:30:03 repair of ligament of knee joint completed AIXA VERA [facility] 06/20/2025 09:16:03 Imaging Results None recorded. Procedure Notes None recorded. Medical Equipment None Reported. Allergies Allergen ID Allergen Name Allergen Category Reaction Reaction Severity Criticality Documentation Date Start Date Code Code System Note Provider Name and Address Organization Details Recorded Time 912629 azithromy [facility]arrison medicatio n Not available Not available Not available 07/22/2025 03185 RxNorm Not Available [employer] - prod 09:02:49 161191 etodolac medicatio n Not available Not available Not available 07/22/2025 22237 RxNorm Not Available [employer] - prod 09:02:49 Medications Name [...] mg tablet 06/20 completed Medicati on ID: [id number] D uration Value: 30 Brand Name: lisinopr [...] Details Last Updated DateTime 07/25/2025 177.8 cm [facility] 07/25/2025 11:15:59 Social History None recorded. Functional Status Question Answer Note LastModified by Organizat ion Details LastModified Time What is your level of alcohol consumption? Occasional ccomi Information not available 06/20/2025 Mental Status None recorded. Family History Nothing Reported. Medical History Condition Response Bleeding Disorder Anxiety Y Migraines Y Headaches Y Hypertension Y Past Encounters Encounter ID Performer Location Encounter Start Date Encounter Closed Date Diagnosis/Indication Diagnosis SNOMED-CT Code Diagnosis ICD10 Code Diagnosis IMO Codes Diagnosis Note [id number] Mannie Roth, DO [facility] [address] [place] [address] 07/25/2025 10:48:04 08/01/2025 10:20:53 Mass of head and/or neck 950871914 R22.1 Vallecular cyst 48259676 7 J38.7 198387 Thyroid dysfunction 2645 84142 E07.9 083771 Thyrogloss al duct cyst 57566213 Q89.2 6779 Sensorineu ral hearing loss of bilateral ears 096323232 H90.3 17293526 Audiologic al evaluation results: Mild sloping to moderately severe sensorineu ral hearing loss with excellent word recognitio n. Left ear: Mild sloping to moderately severe sensorineu ral hearing loss with excellent word recognitio n. Tympanomet ry: Right Ear:Type A Left Ear:Type A Chronic rhinitis 8608077 6 J31.0 Chronic sinusitis 505706 00 J32.8 Health Concerns Section Related Observation LastModified by Organization Detai ls LastModified Time None Recorded Concern Status LastModified by Organization Details LastModified Time None Recorded Payers Encounter Date Sequence Insurance Name Policy Number Policy Delgado Covered Member ID Delgado Member ID Guarantor Name 07/25/2025 1 [facility] [id number] Yonas T Kira [id number] Yonas T Kira Notes Date Note [...] vallecular cyst noted. Mannie Roth, DO [address] [facility] [address], [place], [address], [place] - [facility] 07/25/2025 12:17:20
--- OUTSIDE RECORDS SUMMARY | 2025-09-07 16:00 | XMS_ITS | Encounter Summary ---
Author Organization [facility] Address [address] [place] [address] Phone Care Team Providers Care Braid Maker Name Role Phone Lino Pineda MD Primary Care Provider [phone] Reason for Referral * MRI/CAT Scan - Closed Specialty Diagnoses / Procedures Referred By Renaldo gutierrez Referred To Contact Radiology Diagnoses Chronic low back pain without sciatica, unspecified back pain laterality Right leg pain Procedures MRI Lumbar Spine Jesus Manuel Santamaria DC [address] [place] [address] Phone: tel: fax: Referral ID Status Reason Start Date Expiration Date Visits Re quested Visits Authorized [id number] Closed 07/16/2018 09/13/2018 1 1 Encounter Details Date Type Department Care Team (Late st Contact Info) Description 07/22/2018 Ancillary Orders Virtual Department [address] [place] [address] Jesus Manuel Santamaria DC [address] [place] [address] Chronic low back pain without sciatica, unspecified [...] mild bilateral neural foraminal stenosis. POS - [id number] Narrative 08/04/2018 11:07 PM EST MRI LUMBAR [...] None. TECHNIQUE: Exam performed on a 1.5 Agbby high-field MRI scanner. SagittalT1, T2 and STIR, [...] with mild bilateralneural foraminal stenosis. POS - [id number] Jesus Manuel Santamaria DC IMG MR XSPECIALTY [...] documented as of this encounter Care Teams Braid Maker Relationship Specialty Start Date End Date Lino Pineda MD [address] [place] [address] PCP - General Internal Medicine 03/02/18 documented as of this encounter Additional Source Comments The information contained in this document represents components of the legal health record. It is not the complete legal health record.[facility]
--- OUTSIDE RECORDS SUMMARY | 2025-09-07 16:00 | XMS_ITS | Continuity of Care Document ---
Author Organization [place] - [facility], [facility] Address [address] [place] [address] Care Team Providers Care Shipping And Receiving Coordinator Name Role Phone ELIAS BAILEY Referring Provider [...] or plasma 2024 025 CHRI[facility]INE [facility], [address], [place], [address], 07/12/2025 09:42:43 T4, free, serum 2024 025 CHRISTINE [facility], [address], [place], [address], 07/12/2025 09:42:44 T3, free, serum or plasma 2024 025 CHRISTINE [facility], [address], [place], [address], 07/12/2025 09:42:44 Referral None recorded. Procedures fine needle aspiratio n, ultrasoun d guided, neck mass (PROC) - Midline neck mass, TGDC vs potential papillary thyroid carcinoma within TGDC 2024 [email or web address] [facility], [address] [facility], [place], [address], 06/29/2025 11:24:59 Surgeries None recorded. Imaging None [...] [facility] [address] [facility], [place], [address], 07/12/2025 09:42:43 07/05/2007/06/2025 TRIIO DOTHY MARTHA E (T3), FREE triiodothyro nine (T3), free 3.5 pg/mL 2.0-4. 4 normal Not Available [facility] ([facility]) [address] [facility], [place], [address], 07/12/2025 09:42:44 07/05/2007/06/2025 T4,FR EE(DI RECT) T4,free(dire ct) 1.28 NG/dL 0.82-1 .77 normal Not Available [facility] ([facility]) [address] [facility], [place], [address], 07/12/2025 09:42:44 07/25/20 25 audio gram No observ ation record ed. BARCODE Not Available 2024 13:13:58 Result Notes None recorded. Problems Name Problem SNOMED Code Status Onset Date Resolution Date Notes Provider Name and Address Organization Details Recorded Time Pain of left temporoma ndibular joint 14825648788 812626 Active 2017 Arthralgi a of left temporoma ndibular joint; Note: Date Diagnosed : 03/05/2018 11:17 AM (M26.622) Not Available [facility] 4 02:55:31 Sensorine ural hearing loss of bilateral ears 093392684 Active 2017 Sensorine ural hearing loss, bilateral ; Note: Date Diagnosed : 03/05/2018 11:17 AM (H90.3) Not Available [facility] 4 02:55:35 Dizziness and giddiness 924286089 Active 2017 Dizziness and giddiness ; Note: Date Diagnosed : 03/05/2018 10:50 AM (R42) Not Available [facility] 4 02:55:30 Bilateral tinnitus 31728763613 02 Active 2019 Tinnitus, bilateral ; Note: Date Diagnosed : 0 11:52 AM (H93.13) Not Available [facility] 4 02:55:35 Mass of head and/or neck 581326983 Active 2024 Mannie Roth [place] [address], [place], [address] , [facility] [place] 5 19:39:50 Vallecula r cyst 256070155 Active 2024 Mannie Roth [place] [address], [place], [address] , [facility] 5 19:41:06 Thyroid dysfuncti on 133582055 Active 2024 Mannie Roth [place] [address], [place], [address] , [place] [facility] [place] 5 09:26:39 Thyroglos monique duct cyst 55429143 Active 2024 PRABHA CAMPO MD [address], [place], [address] , [place] - [facility] [place] 5 18:03:02 Sensorine ural hearing loss of bilateral ears 013601807 Active 2024 LAMAR ELY, AUD [address], [place], [address] , [place] [facility] [place] 5 11:11:56 Chronic rhinitis 24907509 Active 2024 Mannie Roth, DO [address] [facility] [place],[facility] [address], [place], [address] , [place] [facility] [place] 5 11:50:41 Chronic sinusitis 49007035 Active 2024 Mannie Roth, DO [address] [facility] [address], [place], [address] , [place] [facility] [place] 11:50:41 Postopera tive pain 559257264 Active 2024 Mannie Roth, DO [address] [facility] [place],[facility] [address], [place], [address] , [place] [facility] [place] 07:14:12 Postopera tive seroma 518897965 Active 2024 DELORIS MONROY PA-C [address] [facility] [place],[address], [place], [address] , [place] [facility] [place] 5 14:52:55 Problem Notes None recorded. Procedures Surgical History Date Name Laterality Status Provider Name and Address Organization Details Recorded Time 08/24/20 I & D Seroma/abscess completed DELORIS MONROY PA-C [address] [facility] [place],[address], [facility] [place], [address], [place] - [facility] [place] 08/24/2025 14:46:48 08/16/20 EXCISION, THYROGLOSSAL DUCT CYST (SURG) completed Jean Claude Kamara [place] - [facility] 08/16/2025 13:13:37 07/25/20 Comp Audio with Tymps - 56027 & 76573 completed LAMAR ELY, AUD [address] [facility] [address], [place], [address], [facility] - [facility] 07/25/2025 11:11:41 06/20/20 25 FOL_normal_DHL completed Mannie Roth, DO [address] [facility] [address], [place], [address], [facility] - [facility] 06/20/2025 09:30:03 repair of ligament of knee joint completed AIXA VERA [place] - [facility] 06/20/2025 09:16:03 Imaging Results None recorded. Procedure Notes None recorded. Medical Equipment None Reported. Allergies Allergen ID Allergen Name Allergen Category Reaction Reaction Severity Criticality Documentation Date Start Date Code Code System Note Provider Name and Address Organization Details Recorded Time 824001 azithromy harrison medicatio n Not available Not available Not available 07/22/2025 89423 RxNorm Not Available [facility] - prod 09:02:49 472933 etodolac medicatio n Not available Not available Not available 07/22/2025 56588 RxNorm Not Available [facility] - prod 09:02:49 Medications Name [...] mg tablet 06/20 completed Medicati on ID: [id number] D uration Value: 30 Brand Name: lisinopr [...] Updated DateTime 06/20/2025 177.8 cm 33.7 kg/m2 818860.21 g AIXA VERA [place] - [facility] 06/20/2025 09:16:41 Social History None recorded. Functional [...] ICD10 Code Diagnosis IMO Codes Diagnosis Note [id number] Mannie Roth DO ENTS of [address] [address] 06/20/2025 09:02:38 06/20/2025 09:31:46 Mass of head and/or neck 839154916 R22.1 Vallecular cyst 91232500 7 J38.7 360411 Thyroid dysfunction 2645 84717 E07.9 137530 Health Concerns Section Related Observation LastModified by Organization Detai ls LastModified Time None Recorded Concern Status LastModified by Organization Details LastModified Time None Recorded Payers Encounter Date Sequence Insurance Name Policy Number Policy Delgado Covered Member ID Delgado Member ID Guarantor Name 06/20/2025 1 [place] [facility] [id number] Yonas T Kira [id number] Yonas T Kira Notes Date Note [...] vallecular cyst noted. Mannie Roth, DO [address] [facility],[place] [address], [place], [address], [place] [facility] 06/20/2025 09:31:17
--- OUTSIDE RECORDS SUMMARY | 2025-09-07 16:00 | XMS_ITS | Continuity of Care Document ---
Author Organization [place] - [facility], [facility] Address [address] [place] [address] Care Team Providers Care Sexual Assault Social Worker Name Role Phone ELIAS BAILEY Referring Provider [phone] Assessment Encounter Date Assessment Date Assessment LastModified by Organization Details LastModified Time 08/31/2025 08/31/2025 Yonas is a pleasant gentleman without history of a large thyroglossal duct cyst associated with recurring infections requiring hospital stays, now s/p thyroglossal duct cyst excision performed 08/16/25 by myself at [facility]. Path d/w pt today. Course has [...] Time Pain of left temporoma ndibular joint 90994777903 597143 Active 2017 Arthralgi a of left temporoma ndibular joint; Note: Date Diagnosed : 03/05/2018 11:17 AM (M26.622) Not Available [facility] 4 02:55:31 Sensorine ural hearing loss of bilateral ears 105815325 Active 2017 Sensorine ural hearing loss, bilateral ; Note: Date Diagnosed : 03/05/2018 11:17 AM (H90.3) Not Available [facility] 4 02:55:35 Dizziness and giddiness 418485596 Active 2017 Dizziness and giddiness ; Note: Date Diagnosed : 03/05/2018 10:50 AM (R42) Not Available [facility] 4 02:55:30 Bilateral tinnitus 61872106203 02 Active 2019 Tinnitus, bilateral ; Note: Date Diagnosed : 0 11:52 AM (H93.13) Not Available [facility] 4 02:55:35 Mass of head and/or neck 445814968 Active 2024 Mannie Roth DO [address] [facility],[place] [address], [place], [address] , [place] [facility] 5 19:39:50 Vallecula r cyst 672688205 Active 2024 Mannie Roth DO [address] [facility],[place] [address], [place], [address] , [place] [facility] [place] 5 19:41:06 Thyroid dysfuncti on 326430357 Active 2024 Mannie Roth DO [address] [facility] [address], [place], [address] , [place] [facility] [place] 5 09:26:39 Thyroglos monique duct cyst 12089890 Active 2024 PRABHA CAMPO MD [address] [facility],[place] [address], [place], [address] , [place] [facility] 5 18:03:02 Sensorine ural hearing loss of bilateral ears 270606867 Active 2024 LAMAR ELY, AUD [address],[place] [address], [place], [address] , [place] [facility] [place] 11:11:56 Chronic rhinitis 71902052 Active 2024 Mannie Roth, DO [address] [facility],[address], [place], [address] , [place] [facility] [place] 11:50:41 Chronic sinusitis 57991748 Active 2024 Mannie Roth, DO [address] [facility] [address], [place], [address] , [place] [facility] [place] 11:50:41 Postopera tive pain 787789119 Active 2024 Mannie Roth, DO [address] [facility],[place] [address], [place], [address] , [place] [facility] [place] 07:14:12 Postopera tive seroma 008402335 Active 2024 DELORIS MONROY PA-C [address] [facility],[place] [address], [place], [place], [address] , [place] [facility] [place] 14:52:55 Problem Notes None recorded. Procedures Surgical History Date Name Laterality Status Provider Name and Address Organization Details Recorded Time 08/24/20 25 I & D Seroma/abscess completed DELORIS MONROY PA-C [address] [facility],[place] [address], [place], [address], [facility] - [facility] [place] 08/24/2025 14:46:48 08/16/20 25 EXCISION, THYROGLOSSAL DUCT CYST (SURG) completed Jean Claude Kamara [place] - [facility] [place] 08/16/2025 13:13:37 07/25/20 25 Comp Audio with Tymps - 39851 & 99903 completed LAMAR ELY, AUD [address], [place], [address], [place] [facility] [place] 07/25/2025 11:11:41 06/20/20 25 FOL_normal_DHL completed Mannie Roth, DO [address] [facility] [address], [place], [address], [place] [facility] 06/20/2025 09:30:03 repair of ligament of knee joint completed AIXA JODY [place] - [facility] 06/20/2025 09:16:03 Imaging Results None recorded. Procedure Notes None recorded. Medical Equipment None Reported. Allergies Allergen ID Allergen Name Allergen Category Reaction Reaction Severity Criticality Documentation Date Start Date Code Code System Note Provider Name and Address Organization Details Recorded Time 329823 azithromy harrison medicatio n Not available Not available Not available 07/22/2025 80871 RxNorm Not Available [employer] [facility] [employer] 09:02:49 983423 etodolac medicatio n Not available Not available Not available 07/22/2025 98335 RxNorm Not Available [employer] [facility] [employer] 09:02:49 Medications Name Sig Start Date Stop [...] mg tablet 06/20 completed Medicati on ID: [id number] D uration Value: 30 Brand Name: lisinopr [...] - [facility] [place] 08/31/2025 11:25:42 Social History None recorded. Functional [...] ICD10 Code Diagnosis IMO Codes Diagnosis Note [id number] MYNOR OLMSTEAD ENTS of [address] [address] 08/19/2025 10:39:48 08/19/2025 11:43:32 Thyroglossal duct cyst 77127777 Q89.2 6778 [id number] DELORIS MONROY PA-C ENT[facility] of [address] [address] 08/24/2025 13:08:05 08/24/2025 16:56:56 Thyroglossal duct cyst 84487284 Q89.2 6778 Postoperative seroma 429 395184 K91.872 32923207 [id number] DELORIS MONROY PA-C ENT[facility] of [facility] on [address] [place] [address] 08/26/2025 13:05:44 08/26/2025 13:35:04 Postoperative seroma 785159682 K91.872 61581845 Thyrogloss al duct cyst 84697064 Q89.2 6778 6779 45879 Mannie Roth DO ENT[facility] of [address] [address] 08/31/2025 10:58:09 08/31/2025 11:53:04 Thyroglossal duct cyst 93558246 Q89.2 6778 Mass of he ad and/or neck 098420376 R22.1 Vallecular cyst 30648302 7 J38.7 092320 Thyroid dysfunction 2645 34073 E07.9 588786 Chronic rhinitis 4098421 6 J31.0 Chronic sinusitis 347293 00 J32.8 Health Concerns Section Related Observation LastModified by Organization Detai ls LastModified Time None Recorded Concern Status LastModified by Organization Details LastModified Time None Recorded Payers Encounter Date Sequence Insurance Name Policy Number Policy Delgado Covered Member ID Delgado Member ID Guarantor Name 08/31/2025 1 [facility]: [facility] [id number] Yonas Malone [id number] Yonas Malone Notes Date Note Type Note Provider Name and Address Organization Details Recorded Time 08/31/2025 text/html ROS as noted in the HPI Yonas is a pleasant gentleman without history of a large thyroglossal duct cyst associated with recurring infections requiring hospital stays, now s/p thyroglossal duct cyst excision performed 08/16/25 by myself at [facility]. Path: Thyroglossal duct cyst with associated nodular foreign body giant cell granulomas including cholesterol clefts and multinucleated giant cells. Interval history: Patient has been dealing with a postoperative seroma patient has been aspirated by the PA team for this. Otherwise has some concerns with his thick scar and some improvement in pain and swelling. Mannie Roth, DO [address] [facility],[place] [address], [place], [address], [place] [facility] 08/31/2025 12:27:11
--- OUTSIDE RECORDS SUMMARY | 2025-09-07 16:00 | XMS_ITS | Encounter Summary ---
Author Organization [facility] Address [address] [place] [address] Phone Care Team Providers Care High School Hvac R Instructor Name Role Phone Lino Pineda MD Primary Care Provider [phone] Encounter Details Date Type Department Care Team (Late st Contact Info) Description 08/08/2025 Lab Requisition [facility] Main [address] [place] [address] Lino Pineda MD [address] [place] [address] Illness, unspecified Social History Tobacco Use Types Packs/Day Years Used Date Smoking Tobacco: Never Smokeless Tobacco: Current Chew Alcohol Use Standard Drinks/Week Comments Yes 3 (1 standard drink = 0.6 oz pur e alcohol) Home Health Assessment: Transportation Answer Date Recorded Lack of Transportation (Medical) No 08/06/2025 Lack of Transportation (Non-Medical) No 08/06/2025 Patient Unable or Declines to Respond No 08/06/2025 Education Answer Date Recorded Are you interested [...] Procedure Name Priority Date/Time Associated Diagnosis Comments COMPREHENSIVE METABOLIC PANEL (CMP) Today 08/08/2025 10:50 AM EST Illness, unspecified CBC AND DIFFERENTIAL Today 08/08/2025 10:50 AM EST Illness, unspecified CBC AND DIFFERENTIAL Today 08/08/2025 10:50 AM EST Illness, unspecified CREATINE KINASE (CK) Today 08/08/2025 10:50 AM EST Illness, unspecified documented in this encounter Results * CBC and Differential (08/08/2025 10:50 AM EST) WBC 9.84 4.00 - 11.00 K/uL 08/08/2025 1:11 PM [facility] RBC 4.77 4.50 - 5.90 M/uL 08/08/2025 1:11 PM [facility] Hemoglobin 14.7 13.5 - 17.5 g/dL 08/08/2025 1:11 PM [facility] Hematocrit 44.8 41.0 - 53.0 % 08/08/2025 1:11 PM [facility] MCV 93.9 80.0 - 100.0 fL 08/08/2025 1:11 PM [facility] MCH 30.8 27.0 - 31.0 pg 08/08/2025 1:11 PM [facility] MCHC 32.8 32.0 - 36.0 g/dL 08/08/2025 1:11 PM [facility] MPV 10.5 8.4 - 12.0 fL 08/08/2025 1:11 PM [facility] RDW-CV 12.6 11.5 - 14.5 % 08/08/2025 1:11 PM [facility] PLT 275 150 - 450 K/uL 08/08/2025 1:11 PM [facility] Neutrophils 58.5 % 08/08/2025 1:11 PM [facility] Lymphocytes 30.6 % 08/08/2025 1:11 PM [facility] Monocytes 7.3 % 08/08/2025 1:11 PM [facility] Eosinophils 1.9 % 08/08/2025 1:11 PM [facility] Basophils 0.9 % 08/08/2025 1:11 PM [facility] Imm Grans 0.8 % 08/08/2025 1:11 PM [facility] NRBC 0.0 <=0.0 /100 WBCs 08/08/2025 1:11 PM [facility] Absolute Neutrophils 5.75 1.92 - 7.60 K/uL 08/08/2025 1:11 PM [facility] Absolute Lymphocytes 3.01 0.72 - 4.10 K/uL 08/08/2025 1:11 PM [facility] Absolute Monocytes 0.72 0.16 - 1.10 K/uL 08/08/2025 1:11 PM [facility] Absolute Eosinophils 0.19 0.00 - 0.50 K/uL 08/08/2025 1:11 PM [facility] Absolute Basophils 0.09 0.00 - 0.15 K/uL 08/08/2025 1:11 PM [facility] Absolute Imm Grans 0.08 0.00 - 0.09 K/uL 08/08/2025 1:11 PM [facility] Absolute NRBC 0.00 <=0.00 K cells/uL 08/08/2025 1:11 PM [facility] Absolute Neutrophils 5.75 1.92 - 7.60 K/uL 08/08/2025 1:11 PM [facility] Comment:Automated cell count . Manual ANC may differ if performed. Diff Type Auto 08/08/2025 1:11 PM [facility] Blood (Blood) 08/08/2025 10: 50 AM EST 08/08/2025 12:51 PM EST us Lino Pineda MD LAB BLOOD BKR ORDERABLES Final Result [address] [address] * Comprehensive Metabolic Panel (CMP) (08/08/2025 10:50 AM EST) Sodium 136 136 - 145 mmol/L 08/08/2025 1:50 PM [facility] Potassium 4.8 3.4 - 5.1 mmol/L 08/08/2025 1:50 PM [facility] Comment:NOTE: Specimen hemol yzed. Results may be falsely increased. Chloride 101 98 - 107 mmol/L 08/08/2025 1:50 PM [facility] CO2 22 20 - 31 mmol/L 08/08/2025 1:50 PM [facility] Anion Gap 13 3 - 17 mmol/L 08/08/2025 1:50 PM [facility] BUN 15 6 - 23 mg/dL 08/08/2025 1:50 PM [facility] Creatinine 0.70 0.60 - 1.30 mg/dL 08/08/2025 1:50 PM [facility] eGFR 105 >59 mL/min/1.7 3m2 08/08/2025 1:50 PM [facility] Comment:Estimated glomerular filtration rate calculated using the CKD-EPI refit equation. Glucose 89 70 - 99 mg/dL 08/08/2025 1:50 PM [facility] Calcium 9.0 8.5 - 10.5 mg/dL 08/08/2025 1:50 PM [facility] AST 23 <40 U/L 08/08/2025 1:50 PM [facility] ALT 36 <50 U/L 08/08/2025 1:50 PM [facility] Alkaline Phosphatase 78 40 - 130 U/L 08/08/2025 1:50 PM [facility] Bilirubin, Total 0.5 0.0 - 1.2 mg/dL 08/08/2025 1:50 PM [facility] Total Protein 6.6 6.4 - 8.3 g/dL 08/08/2025 1:50 PM [facility] Albumin 4.2 3.5 - 5.2 g/dL 08/08/2025 1:50 PM [facility] Globulin 2.4 1.9 - 4.1 g/dL 08/08/2025 1:50 PM [facility] Blood (Blood) 08/08/2025 10: 50 AM EST 08/08/2025 12:51 PM EST us Lino Pineda MD LAB BLOOD BKR ORDERABLES Final Result Performing Organization Address City/[facility]/ZIP Co de Phone Number [address] [address] * Creatine Kinase (CK) (08/08/2025 10:50 AM EST) Pathologist [facility] Creatine Kinase (CK) 78 39 - 308 U/L 08/08/2025 1:50 PM [facility] Blood (Blood) 08/08/2025 10: 50 AM EST 08/08/2025 12:51 PM EST us Lino Pineda MD LAB BLOOD BKR ORDERABLES Final Result [address] [address] documented in this encounter Visit Diagnoses Diagnosis Illness, unspecified documented in this encounter Care Teams [employer] H[employer] Instructor Relationship Specialty Start Date End Date Lino Pineda MD [address] [place] [address] PCP - General Internal Medicine 6/25/18 documented as of this encounter Additional Source Comments The information contained in this document represents components of the legal health record. It is not the complete legal health record.[facility]
--- OUTSIDE RECORDS SUMMARY | 2025-09-07 16:00 | XMS_ITS | Encounter Summary ---
Author Organization [facility] Address [address] [place] [address] Phone Care Team Providers Care Battalion Fire Chief Name Role Phone Lino Pineda MD Primary Care Provider [phone] Encounter Details Date Type Department Care Team (Late st Contact Info) Description 07/22/2018 Procedure Pass [facility], [address] [address] Social History Tobacco Use Types Packs/Day Years [...] documented as of this encounter Care Teams Battalion Fire Chief Relationship Specialty Start Date End Date Lino Pineda MD [address] [place] [address] PCP - General Internal Medicine 03/02/18 documented as of this encounter Additional Source Comments The information contained in this document represents components of the legal health record. It is not the complete legal health record.[facility]
--- OUTSIDE RECORDS SUMMARY | 2025-09-07 16:00 | XMS_ITS | Continuity of Care Document ---
Author Organization [place] - [facility], [facility] Address [address] [place] [address] Care Team Providers Care Imaging Services Director Name Role Phone ELIAS BAILEY Referring Provider [...] Time Pain of left temporoma ndibular joint [id number] 068669 Active 2017 Arthralgi a of left temporoma ndibular joint; Note: Date Diagnosed : 03/05/2018 11:17 AM (M26.622) Not Available [facility] 4 02:55:31 Sensorine ural hearing loss of bilateral ears 950674882 Active 2017 Sensorine ural hearing loss, bilateral ; Note: Date Diagnosed : 03/05/2018 11:17 AM (H90.3) Not Available [facility] 4 02:55:35 Dizziness and giddiness 233800483 Active 2017 Dizziness and giddiness ; Note: Date Diagnosed : 03/05/2018 10:50 AM (R42) Not Available [facility] 4 02:55:30 Bilateral tinnitus 37395176411 02 Active 2019 Tinnitus, bilateral ; Note: Date Diagnosed : 0 11:52 AM (H93.13) Not Available [facility] 4 02:55:35 Mass of head and/or neck 988694107 Active 2024 Mannie Roth DO [address] [place] [address],[place] [address], [place], [address] , [place] - [facility] 5 19:39:50 Vallecula r cyst 309279239 Active 2024 Mannie Roth DO [address] [place] [address],[place] [address], [place], [address] , [place] - [facility] 5 19:41:06 Thyroid dysfuncti on 889518018 Active 2024 Mannie Roth [address],[place] [address], [place], [address] , [facility] - [facility] 5 09:26:39 Thyroglos monique duct cyst 27572326 Active 2024 PRABHA CAMPO MD 100 [facility],[place] [address], [place], [address] , [place] - [facility] 5 18:03:02 Sensorine ural hearing loss of bilateral ears 298623488 Active [address] [facility] [place], [place], [address] , [place] - [facility] 5 11:11:56 Chronic rhinitis 82751083 Active 2024 Mannie Roth, DO 100 [facility], [place], [address] , [place] - [facility] 5 11:50:41 Chronic sinusitis 77668425 Active 2024 Mannie Roth, DO 100 [facility], [place], [address] , [place] - [facility] 5 11:50:41 Postopera tive pain 910762732 Active 2024 Mannie Roth, DO 100 [facility], [place], [address] , [place] - [facility] 07:14:12 Postopera tive seroma 523560218 Active 2024 DELORIS MONROY PA-C [address] [facility] [place] [address], [facility] [place], [address] , [place] - [facility] 14:52:55 Problem Notes None recorded. Procedures Surgical History Date Name Laterality Status Provider Name and Address Organization Details Recorded Time 08/24/20 I & D Seroma/abscess completed DELORIS MONROY PA-C [address] [facility] [place],[address], [place], [address], [place] - [facility] 08/24/2025 14:46:48 08/16/20 EXCISION, THYROGLOSSAL DUCT CYST (SURG) completed Jean Claude Kamara [place] - [facility] 08/16/2025 13:13:37 07/25/20 25 Comp Audio with Tymps - 27349 & 77949 completed EMMANUEL MACIAS 100 [facility], [place], [address], [facility] - [facility] 07/25/2025 11:11:41 06/20/20 25 FOL_normal_DHL completed Mannie Gonzalez, DO 100 [facility], [place], [address], [facility] - [facility] 06/20/2025 09:30:03 repair of ligament of knee joint completed AIXA VERA [place] - [facility] 06/20/2025 09:16:03 Imaging Results None recorded. Procedure Notes None recorded. Medical Equipment None Reported. Allergies Allergen ID Allergen Name Allergen Category Reaction Reaction Severity Criticality Documentation Date Start Date Code Code System Note Provider Name and Address Organization Details Recorded Time 697054 azithromy harrison medicatio n Not available Not available Not available 07/22/2025 89199 RxNorm Not Available [employer] - prod 5 09:02:49 830748 etodolac medicatio n Not available Not available Not available 07/22/2025 52518 RxNorm Not Available [employer] - prod 5 09:02:49 Medications [...] mg tablet 06/20 completed Medicati on ID: [id number] D uration Value: 30 Brand Name: lisinopr [...] ICD10 Code Diagnosis IMO Codes Diagnosis Note [id number] Mannie Roth DO [facility] of [address] [address] 07/25/2025 10:48:04 08/01/2025 10:20:53 Mass of head and/or neck 686322477 R22.1 Vallecular cyst 82572231 7 J38.7 374629 Thyroid dysfunction 2645 21652 E07.9 572605 Thyrogloss al duct cyst 64825226 Q89.2 6779 Sensorineu ral hearing loss of bilateral ears 845072238 H90.3 20969275 Audiologic al evaluation results: Mild sloping to moderately severe sensorineu ral hearing loss with excellent word recognitio n. Left ear: Mild sloping to moderately severe sensorineu ral hearing loss with excellent word recognitio n. Tympanomet ry: Right Ear:Type A Left Ear:Type A Chronic rhinitis 5260101 6 J31.0 Chronic sinusitis 018587 00 J32.8 [id number] MYNOR OLMSTEAD [facility] of [address] [address] 08/19/2025 10:39:48 08/19/2025 11:43:32 Thyroglossal duct cyst 35670621 Q89.2 6778 [id number] DELORIS MONROY PA-C [facility] of [address] [address] 08/24/2025 13:08:05 08/24/2025 16:56:56 Thyroglossal duct cyst 03290308 Q89.2 6778 Postoperative seroma 429 218696 K91.872 94657744 Health Concerns Section Related Observation LastModified by Organization Detai ls LastModified Time None Recorded Concern Status LastModified by Organization Details LastModified Time None Recorded Payers Encounter Date Sequence Insurance Name Policy Number Policy Delgado Covered Member ID Delgado Member ID Guarantor Name 08/24/2025 1 [facility] ([facility]) [id number] Yonas Malone [id number] Yonas Amy Kira Notes Date Note [...] endorse numbness and tingling. JODI GARCIA MD [address] [place] [address], [address], [place] - [facility] 08/24/2025 17:19:39
--- OUTSIDE RECORDS SUMMARY | 2025-09-07 16:00 | XMS_ITS | Patient Health Record ---
Author Organization [facility] Lora rosa Achille Address [address] [place] [address] Care Team Providers Care Hand Sizer Name Role Phone Lino Pineda MD Primary Care Provider Unavailab Domenico Burns Unavailable [phone] Reason For Referral No Information Medications Medication [...] X ray : Foot, right 3V 03/10/2013 62101- Debride <25 sq cm 03/10/2013 65809- Debride <25 sq cm 09/14/2013 74163- Debride <25 sq cm 02/07/2014 55459- Debride <25 sq cm 12/05/2014 87499- Debride <25 sq cm 08/30/2016 54559- Debride <25 sq cm 09/25/2016 Insurance Providers Payer Name Payer Address Payer Phone Subscriber Number Group Number Insured Name Patient Relationship to Insured Coverage Start Date Coverage End Date [facility] [address] [place] [address] [phone] [id number] Yonas Malone Self - patient is the insured Medical (General) History Medical History History ICD Code back, hip, knee pain broken bones HTN Surgical History Surgery Date(Month/Year) knee surgery (7) ht left 4th, and 5th toes 01/19/2014 left knee arthroscopy 08/13/2016 HT R 4/ Ostectomy R5 02/19/2017
--- OUTSIDE RECORDS SUMMARY | 2025-09-07 16:00 | XMS_ITS | Data Portability ---
Author Organization [place] - [facility], Allergy Address [address] [place] [address] Care Team Providers Care Production Cook Name Role Phone ELIAS BAILEY Referring Provider [phone] Assessment Encounter Date Assessment Date Assessment LastModified [...] him to present to the ER preferably [facility], if he has significant airway concerns -Start [...] cyst excision performed 08/16/25 by myself at [facility]. Path d/w pt today. Course has been [...] clavulana te 125 mg tablet 2024 025 [id number], [address] [place], [place], [id number], 08/22/2025 05:02:32 prednison e 10 mg tablet 2024 025 [facility], [address] [place] [address], [place], [id number], 08/26/2025 13:13:28 Patient TargetsNo targets recorded. Patient InstructionsNo instructions recorded. Reason for Referral None Reported. Results Created Date Observation Date Name Description Value Unit Range Abnormal Flag Note LastModifiedBy Organization Detail LastModifiedTime 07/05/2007/12/2025 THYRO ID STIMU LATIN G HORMO NE TSH-icma 1.0 uu/mL Refer ence Range : Non-P regna nt Adult 0.450 -4.50 0 Not Available [facility] [address] [place] [address], [address], 07/12/2025 09:42:43 07/05/2007/06/2025 TRIIO DOTHY MARTHA E (T3), FREE triiodothyro nine (T3), free 3.5 pg/mL 2.0-4. 4 normal Not Available [facility] ([facility]) [address] [place], [address], 07/12/2025 09:42:44 07/05/2007/06/2025 T4,FR EE(DI RECT) T4,free(dire ct) 1.28 NG/dL 0.82-1 .77 normal Not Available [facility] ([facility]) [address] [place], [address], 07/12/2025 09:42:44 07/25/20 audio gram No observ ation record ed. BARCODE Not Available 2024 13:13:58 Result Notes None recorded. Problems Name Problem SNOMED Code Status Onset Date Resolution Date Notes Provider Name and Address Organization Details Recorded Time Pain of left temporoma ndibular joint [id number] 134619 Active 2017 Arthralgi a of left temporoma ndibular joint; Note: Date Diagnosed : 03/05/2018 11:17 AM (M26.622) Not Available [facility] 02:55:31 Sensorine ural hearing loss of bilateral ears 351601622 Active 2017 Sensorine ural hearing loss, bilateral ; Note: Date Diagnosed : 03/05/2018 11:17 AM (H90.3) Not Available [facility] 4 02:55:35 Dizziness and giddiness 575290926 Active 2017 Dizziness and giddiness ; Note: Date Diagnosed : 03/05/2018 10:50 AM (R42) Not Available [facility] 4 02:55:30 Bilateral tinnitus 32261588156 02 Active 2019 Tinnitus, bilateral ; Note: Date Diagnosed : 0 11:52 AM (H93.13) Not Available [facility] 4 02:55:35 Mass of head and/or neck 687144900 Active 2024 Mannie Roth, DO [address], [place], [address] , [place] - [facility] 5 19:39:50 Vallecula r cyst 209340300 Active 2024 Mannie Roth, DO [address] [address], [place], [address] , [place] - [facility] 5 19:41:06 Thyroid dysfuncti on 702915551 Active 2024 Mannie Roth, DO [address], [place], [address] , [place] - [facility] 5 09:26:39 Thyroglos monique duct cyst 52006286 Active 2024 PRABHA CAMPO MD [address], [place], [address] , [place] - [facility] 5 18:03:02 Sensorine ural hearing loss of bilateral ears 028716288 Active 2024 LAMAR ELY, AUD [address], [place], [address] , [place] - [facility] 5 11:11:56 Chronic rhinitis 20285150 Active 2024 Mannie Roth, DO [address] [facility] [place] [address], [place], [address] , [facility] - [facility] 5 11:50:41 Chronic sinusitis 97226274 Active 2024 Mannie Roth, DO [address] [facility] [place] [address], [place], [address] , [facility] - [facility] 5 11:50:41 Postopera tive pain 845813612 Active 2024 Mannie Roth, DO [address] [facility] [place] [address], [facility] [place], [address] , [facility] - [facility] 07:14:12 Postopera tive seroma 110117366 Active 2024 DELORIS MONROY PA-C 100 [facility],[place] [address], [place], [address] , [facility] - [facility] 14:52:55 Problem Notes None recorded. Procedures Surgical History Date Name Laterality Status Provider Name and Address Organization Details Recorded Time 08/24/20 I & D Seroma/abscess completed DELORIS MONROY PA-C 100 [facility],[address], [address], [facility] - [facility] 08/24/2025 14:46:48 08/16/20 25 EXCISION, THYROGLOSSAL DUCT CYST (SURG) completed Jean Claude Kamara [place] - [facility] 08/16/2025 13:13:37 07/25/20 25 Comp Audio with Tymps - 50702 & 64166 completed LAMAR ELY, AUD 100 [facility],[place] [address], [place], [address], [facility] - [facility] 07/25/2025 11:11:41 06/20/20 25 FOL_normal_DHL completed Mannie Roth, DO [address] [facility] [place] [place] [address], [place], [address], [facility] - [facility] 06/20/2025 09:30:03 repair of ligament of knee joint completed AIXA VERA [place] - [facility] 06/20/2025 09:16:03 Imaging Results None recorded. Procedure Notes None recorded. Medical Equipment None Reported. Allergies Allergen ID Allergen Name Allergen Category Reaction Reaction Severity Criticality Documentation Date Start Date Code Code System Note Provider Name and Address Organization Details Recorded Time 250588 azithromy harrison medicatio n Not available Not available Not available 07/22/2025 58358 RxNorm Not Available [employer] - prod 09:02:49 898996 etodolac medicatio n Not available Not available Not available 07/22/2025 57326 RxNorm Not Available [employer] [facility] [employer] 09:02:49 Medications Name Sig Start Date Stop [...] mg tablet 06/20 completed Medicati on ID: [id number] D uration Value: 30 Brand Name: lisinopr [...] VERA [place] - [facility] 07/25/2025 11:15:59 Date Recorded Body height Body mass index (BMI) Body weight Provider Name and Address Organization Details Last Updated DateTime 08/19/2025 177.8 cm 34.4 kg/m2 075271.17 g Shalonda Sherman [place] - [facility] 08/19/2025 10:51:43 Date Recorded Body height Body mass index (BMI) Body weight Provider Name and Address Organization Details Last Updated DateTime 08/26/2025 177.8 cm 33.7 kg/m2 427811.21 g Zara Jaeger [place] - [facility] 08/26/2025 13:12:54 Date Recorded Body height Provider Name an d Address Organization Details Last Updated DateTime 08/31/2025 177.8 cm AIXA VERA [place] - [facility] 08/31/2025 11:25:42 Social History None recorded. Functional [...] ICD10 Code Diagnosis IMO Codes Diagnosis Note [id number] Mannie Roth, DO [facility] of [address] [address] 06/20/2025 09:02:38 06/20/2025 09:31:46 Mass of head and/or neck 387052319 R22.1 Vallecular cyst 69842242 7 J38.7 068384 Thyroid dysfunction 2645 04218 E07.9 803409 [id number] Mannie Roth, DO [facility] [address] [address] 07/25/2025 10:48:04 08/01/2025 10:20:53 Mass of head and/or neck 397739647 R22.1 Vallecular cyst 57852723 7 J38.7 296324 Thyroid dysfunction 2645 21134 E07.9 678367 Thyrogloss al duct cyst 04904732 Q89.2 6779 Sensorineu ral hearing loss of bilateral ears 134653045 H90.3 23453340 Audiologic al evaluation results: Mild sloping to moderately severe sensorineu ral hearing loss with excellent word recognitio n. Left ear: Mild sloping to moderately severe sensorineu ral hearing loss with excellent word recognitio n. Tympanomet ry: Right Ear:Type A Left Ear:Type A Chronic rhinitis 7214521 6 J31.0 Chronic sinusitis 105089 00 J32.8 [id number] MYNOR OLMSTEAD [facility] of [address] [address] 08/19/2025 10:39:48 08/19/2025 11:43:32 Thyroglossal duct cyst 59964979 Q89.2 6778 12766 DELORIS MONROY PA-C [facility] of [address] [address] 08/24/2025 13:08:05 08/24/2025 16:56:56 Thyroglossal duct cyst 20746760 Q89.2 6778 Postoperative seroma 429 208517 K91.872 72861502 [id number] DELORIS MONROY PA-C [facility] of [facility] on [address] [facility] [place] [address] 08/26/2025 13:05:44 08/26/2025 13:35:04 Postoperative seroma 232207850 K91.872 06162926 Thyrogloss al duct cyst 54656125 Q89.2 6778 6779 [id number] Mannie Roth DO [facility] of [address] [address] 08/31/2025 10:58:09 08/31/2025 11:53:04 Thyroglossal duct cyst 17266348 Q89.2 6778 Mass of he ad and/or neck 684583802 R22.1 Vallecular cyst 60265724 7 J38.7 612187 Thyroid dysfunction 2645 75247 E07.9 269063 Chronic rhinitis 6332964 6 J31.0 Chronic sinusitis 650674 00 J32.8 Health Concerns Section Related Observation LastModified by Organization Detai ls LastModified Time None Recorded Concern Status LastModified by Organization Details LastModified Time None Recorded Advance Directives Directive None Recorded Payers Insurance Date Sequence Insurance Name Policy Number Policy Delgado Covered Member ID Delgado Member ID Guarantor Name 09/05/2025 1 [facility]: [facility] [id number] Yonas Malone [id number] Yonas Malone Notes Date Note Type [...] vallecular cyst noted. Mannie Roth DO 100 [facility],[address], [address], [facility] - [facility] 07/25/2025 12:17:20 08/19/2025 text/html ROS as noted in the HPI 59-year-old male, s/p thyroglossal duct cyst excision performed 08/16/[address] Rtoh, presents for his first postoperative evaluation. Patient is doing fairly well overall following surgery. He endorses 5/10 pain at the moment managed with oxycodone, as well as alternating acetaminophen and ibuprofen. No other acute concerns to report today. MANNIE KIM MD 100 [facility],[place] [address], [place], [address], [place] - [facility] 08/24/2025 08:56:07 08/24/2025 text/html ROS as noted in the HPI 59-year-old male status post thyroglossal duct cyst excision performed 08/16/[address] Roth presents for second postoperative visit. He reports gradual swelling around the surgical incision since the ARMIDA drain was removed. He is following postoperative instructions. Throat pain is 4-5/10. Continues to endorse numbness and tingling. JODI GARCIA MD [address] [facility] [address], [address], [place] - [facility] 08/24/2025 17:19:39 08/26/2025 text/html ROS as noted in the HPI 59-year-old male status post thyroglossal duct cyst excision performed 08/16/[address] Roth presents for reevaluation of post op seroma. 15 mL of serosanguinous fluid was aspirated two days ago. He reports gradual increase in swelling in the same area since. Otherwise, is asymptomatic. PRABHA CAMPO MD 100 [facility],[address], [address], [place] - [facility] 08/29/2025 08:42:57 08/31/2025 text/html ROS as noted in the HPI Yonas is a pleasant gentleman without history of a large thyroglossal duct cyst associated with recurring infections requiring hospital stays, now s/p thyroglossal duct cyst excision performed 08/16/25 by myself at [facility]. Path: Thyroglossal duct cyst with associated nodular foreign body giant cell granulomas including cholesterol clefts and multinucleated giant cells. Interval history: Patient has been dealing with a postoperative seroma patient has been aspirated by the PA team for this. Otherwise has some concerns with his thick scar and some improvement in pain and swelling. Mannie Roth, 100 [facility],[address], [address], [place] - [facility] 08/31/2025 12:27:11
--- OUTSIDE RECORDS SUMMARY | 2025-09-07 16:00 | XMS_ITS | Encounter Summary ---
Author Organization [facility] Address [address] [place] [address] Phone Care Team Providers Care Beer Brewer Name Role Phone Lino Pineda MD Primary Care Provider [phone] Reason for Referral * MRI/CAT Scan - Closed Specialty Diagnoses / Procedures Referred By Renaldo gutierrez Referred To Contact Radiology Diagnoses Dizziness and giddiness Arthralgia of left temporomandibular joint Sensory hearing loss, bilateral Procedures MRI Brain Madelyn Thrasher MD Phone: tel: fax: [email or web address] Referral ID Status Reason Start Date Expiration Date Visits Re quested Visits Authorized [id number] Closed 02/22/2019 04/22/2019 1 1 Encounter Details Date Type Department Care Team (Latest Contact Info) Description 02/25/2019 Ancillary Orders Virtual Department [address] [place] [address] Madelyn Thrasher MD [address] [place] [address] [address] [place] [address] [email or web address] Dizziness and giddiness; Arthralgia of left [...] appearance of the internal auditory canals. POS [id number] Narrative 04/12/2019 9:44 AM EDT EXAM: MRI [...] Unremarkable appearance of the internal auditorycanals. POS [id number] Madelyn Thrasher MD IMG MR HEAD/NECK Final Res ult documented in this encounter Visit Diagnoses Diagnosis Dizziness and giddiness Arthralgia of left temporomandibular joint Sensory hearing loss, bilateral documented in this encounter Additional Health Concerns Infection Onset Date Last Indicated Resolved Time CoV-Risk 01/27/2024 01/27/2024 02/07/2024 1:22 AM EDT documented as of this encounter Care Teams Beer Brewer Relationship Specialty Start Date End Date Lino Pineda MD [address] [place] [address] PCP - General Internal Medicine 03/02/18 documented as of this encounter Additional Source Comments The information contained in this document represents components of the legal health record. It is not the complete legal health record.[facility]
--- OUTSIDE RECORDS SUMMARY | 2025-09-07 16:00 | XMS_ITS | Encounter Summary ---
Author Organization [facility] Address [address] [place] [address] Phone Care Team Providers Care Business Relations Manager Name Role Phone Lino Pineda MD Primary Care Provider [phone] Encounter Details Date Type Department Care Team (Late st Contact Info) Description 01/27/2024 Procedure Pass [facility], Ct Scan - [address] [address] Social History Tobacco Use Types Packs/Day Years [...] documented as of this encounter Care Teams Business Relations Manager Relationship Specialty Start Date End Date Lino Pineda MD [address] [place] [address] PCP - General Internal Medicine 03/02/18 documented as of this encounter Additional Source Comments The information contained in this document represents components of the legal health record. It is not the complete legal health record.[facility]
--- OUTSIDE RECORDS SUMMARY | 2025-09-07 16:00 | XMS_ITS | Encounter Summary ---
Author Organization [facility] Address [address] [facility] [address] [place] [address] Phone Care Team Providers Care Fisher Clam Name Role Phone Lino Pineda MD Primary Care Provider [phone] Encounter Details Date Type Department Care Team ([facility] st Contact Info) Description 08/15/2025 Lab Requisition [facility] Lab Main [address] [place] [address] Burt Ayon MD [address] [facility] [address] [place] [address] Illness, unspecified Social History Tobacco Use Types [...] Diagnosis Comments COMPREHENSIVE METABOLIC PANEL (CMP) Today 08/15/2025 8:50 AM EST Illness, unspecified CBC AND DIFFERENTIAL Today 08/15/2025 8:50 AM EST Illness, unspecified CBC AND DIFFERENTIAL Today 08/15/2025 8:50 AM EST Illness, unspecified documented in this encounter Results * (ABNORMAL) CBC and Differential (08/15/2025 8:50 AM EST) WBC 8.11 4.00 - 11.00 K/uL 08/15/2025 12:42 PM [facility] RBC 4.73 4.50 - 5.90 M/uL 08/15/2025 12:42 PM [facility] Hemoglobin 14.7 13.5 - 17.5 g/dL 08/15/2025 12:42 PM [facility] Hematocrit 44.1 41.0 - 53.0 % 08/15/2025 12:42 PM [facility] MCV 93.2 80.0 - 100.0 fL 08/15/2025 12:42 PM [facility] MCH 31.1(H) 27.0 - 31.0 pg 08/15/2025 12:42 PM [facility] MCHC 33.3 32.0 - 36.0 g/dL 08/15/2025 12:42 PM [facility] MPV 10.5 8.4 - 12.0 fL 08/15/2025 12:42 PM [facility] RDW-CV 12.5 11.5 - 14.5 % 08/15/2025 12:42 PM [facility] PLT 251 150 - 450 K/uL 08/15/2025 12:42 PM [facility] Neutrophils 54.0 % 08/15/2025 12:42 PM [facility] Lymphocytes 32.9 % 08/15/2025 12:42 PM [facility] Monocytes 6.2 % 08/15/2025 12:42 PM [facility] Eosinophils 4.6 % 08/15/2025 12:42 PM [facility] Basophils 1.8 % 08/15/2025 12:42 PM [facility] Imm Grans 0.5 % 08/15/2025 12:42 PM [facility] NRBC 0.0 <=0.0 /100 WBCs 08/15/2025 12:42 PM [facility] Absolute Neutrophils 4.38 1.92 - 7.60 K/uL 08/15/2025 12:42 PM [facility] Absolute Lymphocytes 2.67 0.72 - 4.10 K/uL 08/15/2025 12:42 PM [facility] Absolute Monocytes 0.50 0.16 - 1.10 K/uL 08/15/2025 12:42 PM [facility] Absolute Eosinophils 0.37 0.00 - 0.50 K/uL 08/15/2025 12:42 PM [facility] Absolute Basophils 0.15 0.00 - 0.15 K/uL 08/15/2025 12:42 PM [facility] Absolute Imm Grans 0.04 0.00 - 0.09 K/uL 08/15/2025 12:42 PM [facility] Absolute NRBC 0.00 <=0.00 K cells/uL 08/15/2025 12:42 PM [facility] Absolute Neutrophils 4.38 1.92 - 7.60 K/uL 08/15/2025 12:42 PM [facility] Comment:Automated cell count . Manual ANC may differ if performed. Diff Type Auto 08/15/2025 12:42 PM [facility] Blood (Blood) 08/15/2025 8:5 0 AM EST 08/15/2025 12:28 PM EST us Burt Ayon MD LAB BLOOD BKR ORDER WEST[place] Final Result [address] [address] * Comprehensive Metabolic Panel (CMP) (08/15/2025 8:50 AM EST) Sodium 137 136 - 145 mmol/L 08/15/2025 5:53 PM [facility] Potassium 4.8 3.4 - 5.1 mmol/L 08/15/2025 5:53 PM [facility] Chloride 99 98 - 107 mmol/L 08/15/2025 5:53 PM [facility] CO2 24 20 - 31 mmol/L 08/15/2025 5:53 PM [facility] BUN 13 6 - 23 mg/dL 08/15/2025 5:53 PM [facility] Creatinine 0.80 0.60 - 1.30 mg/dL 08/15/2025 5:53 PM [facility] Glucose 82 70 - 99 mg/dL 08/15/2025 5:53 PM [facility] Calcium 9.0 8.5 - 10.5 mg/dL 08/15/2025 5:53 PM [facility] AST 26 <40 U/L 08/15/2025 5:53 PM [facility] ALT 36 <50 U/L 08/15/2025 5:53 PM [facility] Alkaline Phosphatase 90 40 - 130 U/L 08/15/2025 5:53 PM [facility] Bilirubin, Total 0.4 0.0 - 1.2 mg/dL 08/15/2025 5:53 PM [facility] Total Protein 6.9 6.4 - 8.3 g/dL 08/15/2025 5:53 PM [facility] Albumin 4.3 3.5 - 5.2 g/dL 08/15/2025 5:53 PM EST [facility] Globulin 2.6 1.9 - 4.1 g/dL 08/15/2025 5:53 PM [facility] eGFR 101 >59 mL/min/1.7 3m2 08/15/2025 5:53 PM [facility] Comment:Estimated glomerular filtration rate calculated using the CKD-EPI refit equation. Anion Gap 14 3 - 17 mmol/L 08/15/2025 5:53 PM [facility] Blood (Blood) 08/15/2025 8:5 0 AM EST 08/15/2025 12:28 PM EST us Burt Ayon MD LAB BLOOD BKR ORDER WESTON Final Result [facility] [address] [place] [address] documented in this encounter Visit Diagnoses Diagnosis Illness, unspecified documented in this encounter Care Teams Fisher Clam Relationship Specialty Start Date End Date Lino Pineda MD [address] [place] [address] PCP - General Internal Medicine 03/02/18 documented as of this encounter Additional Source Comments The information contained in this document represents components of the legal health record. It is not the complete legal health record.[facility]
--- OUTSIDE RECORDS SUMMARY | 2025-09-07 16:00 | XMS_ITS | Clinical Summary ---
Author Organization [facility] Address [address] [place] [address] Phone Care Team Providers Care Rn Clinical Research Name Role Phone Lino Pineda MD Primary Care Provider [phone] Allergies Active Allergy Reactions Criticality Noted Date Comments Methyclodine Rash Low 08/06/2025 Medications lisinopril (PRINIVIL,ZESTR IL) 10 MG tablet Take 40 mg by mouth daily. 2 Active dicyclomine (BENTYL) 10 MG capsule Take 1 capsule (10 mg total) by mouth 4 (four) times a day before meals and nightly. 20 capsule 4 Active melatonin 3 mg Tab Take 3 mg by mouth daily as needed (insomnia). 5 Active LORazepam (ATIVAN) 0.5 MG tablet Take 0.5 mg by mouth as needed for anxiety. 5 Active venlafaxine (EFFEXOR) 37.5 MG tablet Take 37.5 mg by mouth daily. 5 Active butalbital-acet aminophen-caffe ine (FIORICET) 50-300-40 mg per capsule Take 1 capsule by mouth 3 (three) times a day as needed for headache. 5 Active DAPTOMYCIN IVIndications:I nfection Inject 500 mg into the vein daily. Indications: Infection 5 08/20/20 25 Discontinu ed(Therapy Completed/ No Longer Necessary) ertapenem (INVANZ) 1 gram injection Inject 1 g into the vein daily. 5 08/20/20 25 Discontinu ed(Therapy Completed/ No Longer Necessary) Active Problems No known active problems Encounters Date Type Department Care Team Description 08/26/2025 12:15 PM EST Home Care Visit [facility] [address] [place] [address] Radha Bob, RAMON SN OASIS DISCHARGE VISIT 08/19/2025 12:30 AM EST Home Care Visit [facility] [address] [place] [address] Radha Bob RN SN HOME VISIT 08/18/2025 Home Care Visit [facility] [address] [place] [address] Donita Reaves RN CASE COMMUNICATION 08/18/2025 Home Care Visit [facility] [address] [place] [address] Donita Reaves RN CASE COMMUNICATION 08/18/2025 Episode Documentation Update [facility] [address] [place] [address] Priscilla Laurent 08/15/2025 8:45 AM EST Home Care Visit [facility] [address] [place] [address] Radha Bob RN SN HOME VISIT 08/15/2025 Lab Requisition [facility] Lab Main [address] [place] [address] Burt Ayon MD Illness, unspecified 08/12/2025 Home Care Visit [facility] [address] [place] [address] Megan Gagnon, RN SN PRN HOME VISIT 08/11/2025 Home Care Visit [facility] [address] [place] [address] Vanessa Briseno, RN CASE COMMUNICATION 08/08/2025 1:00 AM EST Home Care Visit [facility] [address] [place] [phone] Radha Bob, RAMON SN HOME VISIT 08/08/2025 Lab Requisition [facility] Lab Main [address] [place] [address] Lino Pineda MD Illness, unspecified 08/07/2025 3:00 AM EST Home Care Visit [facility] [address] [place] [address] Megan Gagnon, RAMON SN HOME VISIT 08/06/2025 11:00 AM EST Home Care Visit [facility] [address] [place] [address] Radha Bob RN SN OASIS START OF CARE (SOC) 08/06/2025 Plan of Care Documentation [facility] [address] [place] [address] 08/05/2025 Orders Only [facility] [address] [place] [address] Homehealth, Interface ProviderMD 07/04/2025 Orders Only [facility] Pathology [address] [place] [address] Juancarlos Cm MD, KIKE 06/29/2025 2:31 PM EDT - 06/29/2025 11:59 PM EDT Hospital Encounter [facility] Pathology [address] [place] [address] Juancarlos Cm MD, KIKE Discharge Disposition: Home or Self Care 06/29/2025 1:48 PM EDT - 06/29/2025 2:30 PM EDT Hospital Encounter [facility] Cytology [address] [place] [address] Mannie Roth DO Discharge Disposition: Home or [...] Date Recorded Lack of Transportation (Medical) No 08/26/2025 Lack of Transportation (Non-Medical) No 08/26/2025 Patient Unable or Declines to Respond No 08/26/2025 Education Answer Date Recorded Are you interested [...] Sign Reading Time Taken Comments Blood Pressure 136/70 08/26/2025 5:47 PM EST Pulse 98 08/26/2025 5:47 PM EST Temperature 36.2 C (97.2 F) 08/26/2025 5:47 PM EST Respiratory Rate 16 08/26/2025 5:47 PM EST Oxygen Saturation 98% 08/26/2025 5:47 PM EST Inhaled Oxygen Concentration - - Weight 106.6 kg (235 lb) 01/27/2024 9:46 PM EDT Height 177.8 cm (5' 10 ) 01/27/2024 9:46 PM EDT Body Mass Index 33.72 01/27/2024 9:46 PM EDT Plan of Treatment Health Maintenance Due Date Last Done Comments Adult Td,Tdap Booster 1965 LIPID PANEL 1965 DEPRESSION SCREENING 1976 HEPATITIS C SCREENING 1982 HIV ONE-TIME SCREENING (18-65 YEARS) 1982 COLOGUARD 2009 COLONOSCOPY 2009 COLORECTAL CANCER SCREENING 2009 FIT TEST 2009 FOBT 2009 SIGMOIDOSCOPY 2009 VIRTUAL COLONOSCOPY 2009 PNEUMOCOCCAL VACCINES (50+ years) (1 of 1 - PCV) 2014 ZOSTER VACCINES (1 of 2) 2014 INFLUENZA VACCINE (#1) 2025 COVID-19 VACCINE (2024- season) 2025 09/11/2021, 05/07/2021, 02/10/2021 CREATININE LEVEL 08/15/2026 08/15/2025, 09/2024, 01/27/2024, Additional history exists POTASSIUM LEVEL 08/15/2026 08/15/2025, 12/0 09/2024, 01/27/2024, Additional history exists SCREENING FOR DIABETES 08/15/2028 08/15/2025 RSV VACCINE (1 - 1-dose 75+ series) 11/13/2039 SMOKING STATUS SCREENING (Once After 26 Yrs) Completed 01/27/2024 HEPATITIS A [...] Procedure Name Priority Date/Time Associated Diagnosis Comments CBC AND DIFFERENTIAL Today 08/15/2025 8:50 AM EST Illness, unspecified COMPREHENSIVE METABOLIC PANEL (CMP) Today 08/15/2025 8:50 AM EST Illness, unspecified CBC AND DIFFERENTIAL Today 08/15/2025 8:50 AM EST Illness, unspecified CBC AND DIFFERENTIAL Today 08/08/2025 10:50 AM EST Illness, unspecified CBC AND DIFFERENTIAL Today 08/08/2025 10:50 AM EST Illness, unspecified COMPREHENSIVE METABOLIC PANEL (CMP) Today 08/08/2025 10:50 AM EST Illness, unspecified CREATINE KINASE (CK) Today 08/08/2025 10:50 AM EST Illness, unspecified OUTSIDE PATHOLOGY Routine 07/04/2025 10: 00 AM EDT NON-PACKAGING TECHNICIAN CYTOLOGY, NON CSF, NON URINE Routine 06/29/2025 12:00 AM EDT ANATOMIC PATHOLOGY Routine 06/29/2025 12 :00 AM EDT from Last 3 Months Results * Comprehensive Metabolic Panel (CMP) (08/15/2025 8:50 AM EST) Only the most recent of2 resultswithin the time period is included. Sodium 137 136 - 145 mmol/L 08/15/2025 5:53 PM [facility] Potassium 4.8 3.4 - 5.1 mmol/L 08/15/2025 5:53 PM [facility] Chloride 99 98 - 107 mmol/L 08/15/2025 5:53 PM [facility] CO2 24 20 - 31 mmol/L 08/15/2025 5:53 PM [facility] BUN 13 6 - 23 mg/dL 08/15/2025 5:53 PM [facility] Creatinine 0.80 0.60 - 1.30 mg/dL 08/15/2025 5:53 PM [facility] Glucose 82 70 - 99 mg/dL 08/15/2025 5:53 PM [facility] Calcium 9.0 8.5 - 10.5 mg/dL 08/15/2025 5:53 PM [facility] AST 26 <40 U/L 08/15/2025 5:53 PM [facility] ALT 36 <50 U/L 08/15/2025 5:53 PM [facility] Alkaline Phosphatase 90 40 - 130 U/L 08/15/2025 5:53 PM [facility] Bilirubin, Total 0.4 0.0 - 1.2 mg/dL 08/15/2025 5:53 PM [facility] Total Protein 6.9 6.4 - 8.3 g/dL 08/15/2025 5:53 PM [facility] Albumin 4.3 3.5 - 5.2 g/dL 08/15/2025 5:53 PM [facility] Globulin 2.6 1.9 - 4.1 g/dL 08/15/2025 5:53 PM [facility] eGFR 101 >59 mL/min/1.7 3m2 08/15/2025 5:53 PM [facility] Comment:Estimated glomerular filtration rate calculated using the CKD-EPI refit equation. Anion Gap 14 3 - 17 mmol/L 08/15/2025 5:53 PM [facility] Blood (Blood) 08/15/2025 8:5 0 AM EST 08/15/2025 12:28 PM EST us Burt Ayon MD LAB BLOOD BKR ORDER [place] Final Result [address] [id number] * (ABNORMAL) CBC and Differential (08/15/2025 8:50 AM EST) Only the most recent of2 resultswithin the time period is included. WBC 8.11 4.00 - 11.00 K/uL 08/15/2025 12:42 PM [facility] RBC 4.73 4.50 - 5.90 M/uL 08/15/2025 12:42 PM [facility] Hemoglobin 14.7 13.5 - 17.5 g/dL 08/15/2025 12:42 PM [facility] Hematocrit 44.1 41.0 - 53.0 % 08/15/2025 12:42 PM [facility] MCV 93.2 80.0 - 100.0 fL 08/15/2025 12:42 PM [facility] MCH 31.1(H) 27.0 - 31.0 pg 08/15/2025 12:42 PM [facility] MCHC 33.3 32.0 - 36.0 g/dL 08/15/2025 12:42 PM [facility] MPV 10.5 8.4 - 12.0 fL 08/15/2025 12:42 PM [facility] RDW-CV 12.5 11.5 - 14.5 % 08/15/2025 12:42 PM [facility] PLT 251 150 - 450 K/uL 08/15/2025 12:42 PM [facility] Neutrophils 54.0 % 08/15/2025 12:42 PM [facility] Lymphocytes 32.9 % 08/15/2025 12:42 PM [facility] Monocytes 6.2 % 08/15/2025 12:42 PM [facility] Eosinophils 4.6 % 08/15/2025 12:42 PM [facility] Basophils 1.8 % 08/15/2025 12:42 PM [facility] Imm Grans 0.5 % 08/15/2025 12:42 PM [facility] NRBC 0.0 <=0.0 /100 WBCs 08/15/2025 12:42 PM [facility] Absolute Neutrophils 4.38 1.92 - 7.60 K/uL 08/15/2025 12:42 PM [facility] Absolute Lymphocytes 2.67 0.72 - 4.10 K/uL 08/15/2025 12:42 PM [facility] Absolute Monocytes 0.50 0.16 - 1.10 K/uL 08/15/2025 12:42 PM [facility] Absolute Eosinophils 0.37 0.00 - 0.50 K/uL 08/15/2025 12:42 PM [facility] Absolute Basophils 0.15 0.00 - 0.15 K/uL 08/15/2025 12:42 PM [facility] Absolute Imm Grans 0.04 0.00 - 0.09 K/uL 08/15/2025 12:42 PM [facility] Absolute NRBC 0.00 <=0.00 K cells/uL 08/15/2025 12:42 PM [facility] Absolute Neutrophils 4.38 1.92 - 7.60 K/uL 08/15/2025 12:42 PM EST [facility] Comment:Automated cell count . Manual ANC may differ if performed. Diff Type Auto 08/15/2025 12:42 PM EST [facility] Blood (Blood) 08/15/2025 8:5 0 AM EST 08/15/2025 12:28 PM EST us Burt Ayon MD LAB BLOOD BKR ORDER WEST[place] Final Result Performing Organization Address City/[facility]/ZIP Co de Phone Number [address] [address] * Creatine Kinase (CK) (08/08/2025 10:50 AM EST) Creatine Kinase (CK) 78 39 - 308 U/L 08/08/2025 1:50 PM EST [facility] Blood (Blood) 08/08/2025 10: 50 AM EST 08/08/2025 12:51 PM EST us Lino Pineda MD LAB BLOOD BKR ORDERABLES Final Result Performing Organization Address [facility] Co de Phone Number [address] [address] * Outside Pathology (07/04/2025 10:00 AM EDT) us Juancarlos Cm MD, KIKE PATHOLOGY ORDERABLES Final Result * Non-Records Associate Cytology (06/29/2025 12:00 AM EDT) 06/29/2025 06/29/2025 3:5 2 PM EDT Narrative SEE NARRATIVE - 06/30/2025 11:16 AM EDT [address] [address] Receivable Executive: Filemon Redd MD Non Records Associate Cytology Report FINAL DIAGNOSIS A. ANTERIOR MIDLINE NECK MASS, ULTRASOUND GUIDED FINE NEEDLE ASPIRATION: SPECIMEN ADEQUACY: Satisfactory for evaluation. INTERPRETATION: NO MALIGNANT CELLS IDENTIFIED. Proteinaceous fluid and bland squamous cells.I see no evidence of malignancy. 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 Electronically Signed Out By: GWENDOLYN Sexton MD([facility]) By his/her signature above, the pathologist listed [...] and date of . Material submitted to [employer] flow cytometry media. One (1) ThinPrep slide is prepared. Patient Name: DAVID MALONE : 1965 (Age: 59) Sex: M Institution: [facility] Location: [facility] Date of Collection: 06/29/2025 Date of Reported: 06/30/2025 11:16 Results to: Mannie Smith MD, BA Lino Cm MD us Mannie Roth DO CYTOLOGY ORDERABLES Final Re sult SEE NARRATIVE * Anatomic Pathology (06/29/2025 12:00 AM EDT) 06/29/2025 06/29/2025 3:2 5 PM EDT Narrative SEE NARRATIVE - 07/04/2025 11:16 AM EDT [address] [address] Receivable Executive: Filemon Redd MD Surgical Pathology Report FINAL [...] SEPARATE FLOW CYTOMETRY REPORT, [facility], CASE# [id number] Canceled: Flow cytometry TF Panel Reason for [...] [id number] 06/29/2025 Grossing Staff: [id number] Patient Name: DAVID MALONE. : 1965 (Age: 59) Sex: M Institution: [facility] Location: [facility] Date of Operation: 06/29/2025 Date of Reported: 06/30/2025 14:12 Results To: Juancarlos Smith MD, BA Lino Pineda MD Juancarlos Cm MD, KIKE LAB PATHOLOGY ORDERABLES E dited Result - Final SEE NARRATIVE from Last 3 Months Insurance [facility] Care Teams Rn Clinical Research Relationship Specialty Start Date End Date Lino Pineda MD [address] [place] [address] PCP - General Internal Medicine 03/02/18 Additional Source Comments The information contained in this document represents components of the legal health record. It is not the complete legal health record.[facility]
--- OUTSIDE RECORDS SUMMARY | 2025-09-07 16:00 | XMS_ITS | Encounter Summary ---
Author Organization [facility] Address [address] [place] [phone] Phone Care Team Providers Care Portfolio Assistant Name Role Phone Lino Pineda MD Primary Care Provider [phone] Reason for Referral * MRI/CAT Scan - Closed Specialty Diagnoses / Procedures Referred By Renaldo gutierrez Referred To Contact Radiology Diagnoses Lumbar dysfunction Low back pain with right-sided sciatica, unspecified back pain laterality, unspecified chronicity Procedures MRI Lumbar Spine Jesus Manuel Santamaria DC [address] [place] [address] Phone: tel: fax: [address] [address] Phone: tel: Referral ID Status Reason Start Date Expiration Date Visits Re quested Visits Authorized [id number] Closed 05/24/2020 06/23/2020 1 1 Encounter Details Date Type Department Care Team (Late st Contact Info) Description 05/11/2020 Ancillary Orders Virtual Department [address] [place] [id number] Jesus Manuel Santamaria DC [address] [place] [address] [phone] Lumbar dysfunction; Low back pain with right-sided [...] is similar to 08/04/2018. Procedure Note Ignacio Davila MD - 05/25/2020 HISTORY: Lower back pain [...] documented as of this encounter Care Teams Portfolio Assistant Relationship Specialty Start Date End Date Lino Pineda MD [address] [place] [phone] PCP - General Internal Medicine 03/02/18 documented as of this encounter Additional Source Comments The information contained in this document represents components of the legal health record. It is not the complete legal health record.[facility]
[2025-09-07 16:02] LABS: Resp Syncy Virus RNA Qual PCR NEGATIVE (Negative); SARS COV2 PCR INHOUSE NEGATIVE (Negative)
[2025-09-07] MEDS: Potassium Chloride Packet 20 MEQ PACKET 40 MEQ PO (17:47)
[2025-09-07] MEDS: Potassium Chloride/H20 10 MEQ/100 ML PIGGYBACK 100 MEQ IV ×2 (17:47→19:36)
[2025-09-07 21:04] LABS: CDiff Gene PCR POSITIVE (Negative)
[2025-09-07 21:07] LABS: CDiff Toxin Positive (Negative)
[2025-09-07 21:08] LABS: CDIFF Internal ctrl Dots and bkg OK (V)
[2025-09-08 08:53] LABS: E. coli EAEC Not Detected (Not Detect.); E. coli EPEC Not Detected (Not Detect.); E. coli ETEC Not Detected (Not Detect.); E. coli STEC Not Detected (Not Detect.); Shigella sp./EIEC Not Detected (Not Detect.)
== END 2025-09-07 21:55 | disposition home or self-care (01) ==
PROVIDERS: Physician Assistant; Registered Nurse Emergency; Emergency Provider Emergency Medicine Emergency Medical Services; PCP Internal Medicine
DX: J10.1 Influenza due to other identified influenza virus with other respiratory manifestations (principal); A04.72 Enterocolitis due to Clostridium difficile, not specified as recurrent; E87.6 Hypokalemia; Z86.718 Personal history of other venous thrombosis and embolism; Z79.899 Other long term (current) drug therapy; Z03.818 Encounter for observation for suspected exposure to other biological agents ruled out
CPT/HCPCS: 80048; 80076; 83690; 83735; 85025; 87324; 87493; 87507; 87637; 93005; 96361; 96365; 96366; 96375; 99284; 99285; J2405; J3480; J7120

== ENCOUNTER → 2025-09-07 15:13 | Outpatient (BNV) | payer BC, SELFPAY | PROVIDERS: Emergency Provider Emergency Medicine Emergency Medical Services; PCP Internal Medicine; Visit Provider Internal Medicine | DX: R55 Syncope and collapse (principal) | CPT/HCPCS: 93010 ==